=== PATIENT | female | born 1950 | race Caucasian/White ===

== ENCOUNTER 2016-05-12 06:22 | Inpatient (IN) | payer MEDICARE, BC ==
--- NOTE | 2016-05-12 05:55 | P.GSHP ---
History of Present Illness H&P Date: 05/12/16 CHIEF COMPLAINT: Follow up epigastric abdominal pain. HISTORY OF PRESENT ILLNESS: Lois Napoles is a 65 year-old female with a history of adjustable gastric lap band. She was in the hospital with atypical chest pain. Her symptoms were consistent with gastroesophageal reflux disease. Since being placed on Omeprazole, her symptoms have improved. However, she still reports nighttime break through. She has trouble with dysphagia with chicken. She also reports troubles with her band, including severe symptoms from her fibromyalgia. She now presents for further evaluation and management. She reports band like pain along her chest, which is likely related to her adjustable gastric band. PAST MEDICAL HISTORY: Please see list. PAST SURGICAL HISTORY: Please see list. MEDICATIONS: Please see list. ALLERGIES: Please see list. SOCIAL HISTORY: No illicit drug use FAMILY HISTORY: No reports of Crohn disease or ulcerative colitis. REVIEW OF ORGAN SYSTEMS: CONSTITUTIONAL: No reports of fevers or chills. GI: Denies any blood in stools or constipation. PHYSICAL EXAM: VITAL SIGNS: Stable GENERAL: Well developed and in no acute distress. Pleasant. HEENT: No sclera icterus. Extraocular movements grossly intact. Moist buccal mucosa. Head is atraumatic, normocephalic. Hears conversational speech. No nasal drainage. NECK: Supple without lymphadenopathy. No JV distention. CHEST: Non-labored respirations and equal bilateral excursions. CARDIOVASCULAR: Regular rate and rhythm. Palpable 2+ radial pulses. ABDOMEN: Soft. Nondistended. Tender along port site, left upper quadrant. MUSCULOSKELETAL: No clubbing, cyanosis or edema. NEUROLOGIC: No focal or lateralizing signs. PSYCH: Appropriate affect. Alert and oriented to person, place and time. PATHOLOGY REPORT: Unremarkable for H.pylori gastritis. ASSESSMENT: 1. Complications from adjustable gastric lap band. 2. Epigastric abdominal pain. 3. Morbid obesity. 4. Gastroesophageal reflux disease. PLAN: 1. Her options including band removal were reviewed. 2. Alternatively, she reports troubles with her port site. 3. Options for removal of her band were also discussed, including other surgical options for obesity, particularly for gastric bypass to address her reflux, which she demonstrated understanding. 4. At this time, I have prescribed her additional refills for Omeprazole, including Zantac at night. 5. Per careful discussion, she has elected for laparoscopic removal of her adjustable gastric band and all components. Past Medical History Past Medical History: Fibromyalgia, GERD/Reflux, Hypertension, Osteoarthritis ( OA) Additional Past Medical History / Comment(s): EGD RESULTS OF 04/09/16:HIATAL HERNIA, ESOPHAGITIS, GASTRITIS. Chronic pain syndrome. HEMORRHOIDS. "RAPID HEART BEAT OCC". TIA 20 YEARS, HERNIATED DISC LOWER BACK. IN 2006 ( AT [facility]) AFTER BREAST SX, HAD A STAPH INFECTION NOT SURE WHAT TYPE (VERIFIED THAT LEFT BREAST WOUND WAS CULTURED 0N 08/22/2006 WITH STAPH RESULTS, NO MRSA.) History of Any Multi-Drug Resistant Organisms: None Reported Past Surgical History: Back Surgery, Bariatric Surgery, Breast Surgery, Cholecystectomy, Hysterectomy, Tonsillectomy, Tubal Ligation Additional Past Surgical History / Comment(s): Lap band SEPTEMBER 2008. Plantar fascia x2 mortons neuroma panniculectomy , COLONOSCOPY/EGD, HEMORRHOIDS, CERVICAL FUSION-PLATE, BREAST REDUCTION SX X2, LIPOMAS, LT SHOULDER SX, HEMALATHA THUMB JOINT REPLACEMENTS. Past Anesthesia/Blood Transfusion Reactions: No Reported Reaction Past Psychological History: Anxiety, Depression Additional Psychological History / Comment(s): PT STATED SHE HAS HAD DEPRESSION SINCE AGE 13. ADMITS TO HAVING OCC THOUGHTS LIKE MAYBE IT WOULD BE BETTER IF SHE WAS'NT HERE, BUT ALSO STATED SHE WOULD NEVER ACT ON IT/HER UATSDIN BACKGROUND WOULD'NT LET HER, SHE HAS NO PLAN. Smoking Status: Never smoker Past Alcohol Use History: None Reported Past Drug Use History: None Reported - Past Family History Father Family Medical History: Cancer, Coronary Artery Disease (CAD), CVA/TIA, Hypertension Additional Family Medical History / Comment(s): CABG, COLON CANCER Mother Family Medical History: Cancer, Myocardial Infarction ([place]) Additional Family Medical History / Comment(s): METASTATIC BREAST CA, 1 KIDNEY, SMOKER. Medications and Allergies Home Medications Medication Instructions Recorded Confirmed Type Cyclobenzaprine [Flexeril] 10 mg PO BID 04/07/16 05/02/16 History DULoxetine HCL [Cymbalta] 60 mg PO HS 04/07/16 05/02/16 History HYDROcodone/APAP 5-325MG [[place] 2 tab PO QID PRN 04/07/16 05/02/16 History 5-325] Hydrochlorothiazide [Hydrodiuril] 12.5 mg PO HS 04/07/16 05/02/16 History LORazepam [Ativan] 0.5 mg PO BID PRN 04/07/16 05/02/16 History Losartan Potassium [Cozaar] 100 mg PO HS 04/07/16 05/02/16 History Propylene Glycol/Peg 400/Pf 1 drop BOTH EYES TID PRN 04/07/16 05/02/16 History [Systane 0.3-0.4% Eye Drops] Omeprazole 40 mg PO QAM 05/02/16 05/02/16 History Allergies Allergy/AdvReac Type Severity Reaction Status Date / Time No Known Allergies Allergy Verified 05/02/16 10:36
[~2016-05-12 06:22] MED LIST: BUPIVACAINE LIPOSOME/PF 1.3% 20 ML, BUPIVACAIN-EPI 0.5%-1:200,000 25 ML, SODIUM CHLORID... MISCELLANE ONE; CHLORHEXIDINE GLUCONATE 15 ML CUP MUCOUS MEM ONE; DEXAMETHASONE SOD PHOSPHATE 10 MG/ML 1 ML VIAL IV ONE; ENOXAPARIN 40 MG/0.4 ML SYRINGE SQ STA; HYDROmorphone 1 MG/ML 1 ML SYRINGE IVP PRN; LIDOCAINE 1% 20 ML VIAL (10MG/ML) FOR IV START INTRADERMA PRN; ONDANSETRON 4 MG/2 ML VIAL IVP ONE; PANTOPRAZOLE 40 MG/10 ML VIAL IV STA; SCOPOLAMINE 1.5MG/72HR PATCH TRANSDERM ONE; ceFAZolin 2 GM in SODIUM CHLORIDE 0.9% 100 ML IVPB ONE
[2016-05-12] MEDS: LACTATED RINGERS 1,000 ML IV SCH ×2 (07:12→07:32)
[2016-05-12] MEDS ORDERED: LIDOCAINE 1% 20 ML VIAL (10MG/ML) FOR IV START SQ ONE (07:12)
[2016-05-12] MEDS: ACETAMINOPHEN IV (For NPO) 1,000 MG in EMPTY BAG 1 BAG IVPB ONE ×2 (07:22→07:32)
[2016-05-12] MEDS ORDERED: PROPOFOL 10 MG/ML 20 ML VIAL IV ONE (07:33)
[2016-05-12] MEDS ORDERED: LIDOCAINE 1% INJ 10MG/ML (20 ML MDV) ONE (07:33)
[2016-05-12] MEDS ORDERED: fentaNYL (PF) 50 MCG/ML 2 ML AMP ONE (07:33)
[2016-05-12] MEDS ORDERED: ePHEDrine 50 MG/ML 1 ML AMP ONE (07:33)
[2016-05-12] MEDS ORDERED: GLYCOPYRROLATE 0.2 MG/ML 2 ML VIAL ONE (07:33)
[2016-05-12] MEDS ORDERED: MIDAZOLAM 2 MG/2 ML VIAL ONE (07:33)
[2016-05-12] MEDS ORDERED: PHENYLEPHRINE-0.9% NACL SYG 1 MG/10 ML SYRINGE ONE (07:33)
[2016-05-12] MEDS ORDERED: ROCURONIUM BROMIDE 10 MG/ML 10 ML VIAL IV ONE (07:33)
[2016-05-12] MEDS ORDERED: NEOSTIGMINE 1 MG/ML 10 ML VIAL ONE (07:33)
[2016-05-12] MEDS ORDERED: SUCCINYLCHOLINE CHLORIDE 100 MG/5 ML SYR IV ONE (07:33)
[2016-05-12] MEDS ORDERED: HYDROcodone/APAP 5-325MG 1 EACH TAB PO PRN (08:57)
[2016-05-12] MEDS ORDERED: NALOXONE 0.4 MG/ML 1 ML VIAL IV PRN (08:57)
[2016-05-12] MEDS ORDERED: ONDANSETRON 4 MG/2 ML VIAL IVP PRN (08:57)
--- NOTE | 2016-05-12 08:57 | P.PCN ---
Date of Procedure: 05/12/16 Preoperative Diagnosis: Complications from adjustable gastric band, morbid obesity, BMI 39 Postoperative Diagnosis: Same Procedure(s) Performed: Laparoscopic removal of adjustable gastric band and components, intraoperative EGD Anesthesia: GETA, local Surgeon: Ladonna Rebolledo Estimated Blood Loss (ml): 10 Pathology: other Condition: stable Disposition: floor Operative Findings: Hiatal hernia with posterior prolapse adjustable gastric band, port site fracture identified from persistent sharing and acute angle of port site at tubing through the skin
[2016-05-12] MEDS ORDERED: LACTATED RINGERS 1,000 ML IV ONE (09:06)
[2016-05-12 09:23] VITALS: TEMP 98.3
[2016-05-12 09:25] VITALS: RESP 16
[2016-05-12] MEDS ORDERED: HYDROcodone/APAP 5-325MG 1 EACH TAB PO ONE (10:37)
[2016-05-12 11:23] VITALS: BP 120/71; PULSE 93
--- NOTE | 2016-05-12 19:46 | P.OP ---
Date of Procedure: 05/12/16 Description of Procedure: SURGEON: DELICIA BOX MD INDUSTRIAL MANUFACTURING TECHNICIAN: NONE. PREOPERATIVE DIAGNOSES: 1. Complications from adjustable gastric band. 2. Morbid obesity due to excess calories. 3. Body mass index of 45.6 down to 39. 4. Gastroesophageal reflux disease, medically refractory to treatment. 5. Depression. 6. Fibromyalgia. 7. History of hiatal hernia. 8. Erosive esophagitis. 9. Atypical chest pain. 10. Osteoarthritis, diffuse. 11. Hypertensive heart disease. 12. Chronic pain syndrome. 13. Degenerative disk disease of the lower back. 14. Previous history of panniculectomy. POSTOPERATIVE DIAGNOSES: 1. Complications from adjustable gastric band. 2. Morbid obesity due to excess calories. 3. Body mass index of 45.6 down to 39. 4. Gastroesophageal reflux disease, medically refractory to treatment. 5. Depression. 6. Fibromyalgia. 7. History of hiatal hernia. 8. Erosive esophagitis. 9. Atypical chest pain. 10. Osteoarthritis, diffuse. 11. Hypertensive heart disease. 12. Chronic pain syndrome. 13. Degenerative disk disease of the lower back. 14. Previous history of panniculectomy. 15. Posterior gastric prolapse. OPERATION: 1. Laparoscopic removal of adjustable gastric band and all components. 2. Intraoperative esophagogastroduodenoscopy. ANESTHESIA: General with 85 mL Exparel Sensorcaine with epinephrine and normal saline mixture. ESTIMATED BLOOD LOSS: 10 mL SPECIMENS REMOVED: Adjustable gastric band and components. COMPLICATIONS: None. INDICATIONS: The patient is a 65-year-old female who presents with prior history of adjustable gastric band. Her previous weight was 259 pounds. Her previous body mass index was 45.6. [place] body weight is 140 pounds. She has maintained a 39 pound weight loss. She reports worsening gastroesophageal reflux disease over the last several years with her adjustable gastric band. She had developed atypical chest pain secondary to severe gastroesophageal reflux disease. Diagnostic studies were consistent with hiatal hernia. Despite using medications her symptoms have progressed including with atypical chest pain warranting hospitalization. Benefits and risks of the procedure were described. Informed consent was obtained. DESCRIPTION: The patient was brought into the operating room and laid in supine position. Preoperatively she had received Peridex oral solution and lovenox. Patient was brought into the operating room, transferred a split-leg table. After general induction, which was uncomplicated, the abdomen was prepped and draped in standard sterile fashion. A Royal catheter was avoided. The abdomen was prepped and draped in standard sterile fashion using ChloraPrep as well as Ioban draping. Prior to incision, a timeout protocol was confirmed with the surgical team regarding patient's name, procedure to be performed, including preoperative medications. A transverse incision was made approximately 15 cm distal to the xiphoid off to the right of the midline from her previous panniculectomy. A 0 degree 5 mm trocar entry was performed and entered into the peritoneal cavity. The abdomen was insufflated to 15 mmHg pressure, which she tolerated well. Diagnostic laparoscopy demonstrated minimal hepatomegaly. The port was easily palpated along the left upper quadrant and the band was found underneath the liver. A 15 mm port was placed along the left costal margin. Next a 5 mm port was placed at the left midclavicular line equidistant between the epigastric port and the left anterior axillary port. A Floyd liver retractor was placed into the abdominal cavity and used to elevate the left lobe of the liver. The liver retractor was held in place using an iron operations intern. The patient was placed in steep reverse Trendelenburg position. The port was followed with its tubing to the actual band. The gastrohepatic ligament was actually scarred from her prior surgery. The posterior portion of the stomach appeared to prolapse around the ALLERGAN band. Using electro-Bovie cautery, the cicatrix of the port was incised. The band was then freed. The band was unbuckled and cut. The tubing was cut approximately 5 cm distal to the actual adapter. The band was removed in total without injury to the stomach. Hemostasis was excellent. The band was removed from the abdominal cavity via the 15 mm port. Next, attention was brought to the abdominal wall where the lap band port was palpated. At the epigastric trocar incision, the incision was extended laterally, as it sat next to the actual port. This was done with a #11 blade. Skin was localized with anesthetic. Electro-Bovie cautery was used to enter the capsule around the port. The sutures were cut and the port was removed in total along with the tubing. A capsulectomy was also performed and sent for specimen. The port and tubing were carefully inspected demonstrating fracturing of the port tubing at the insertion site of the fascia to the peritoneum were moderate fluid was still identified in the band prior to its removal. Diagnostic laparoscopy demonstrated complete removal of all foreign body. I then went to the head of the bed to perform intraoperative esophagogastroduodenoscopy to evaluate for gastritis and any full thickness injury to the stomach. An Olympus gastroscope was passed from the posterior oropharynx down to his esophagus, where the squamocolumnar junction was found LA grade B erosive esophagitis, chronic changes. The stomach was entered and bile reflux was found of 50 mL. Chronic gastritis was found along the antrum without gastric ulcers or duodenitis or duodenal ulcers. Retroflexion of the scope confirmed a Hill grade 2 lower esophageal valve. No full-thickness erosion from the prior band was encountered. No blood was found within the stomach. The stomach was desufflated. The patient tolerated the procedure well. Again, no evidence of leak was encountered from the removal of the band. I then went back to the patient's bedside after re-scrubbing. All instruments and pneumoperitoneum were evacuated from the abdominal cavity. The port extraction site was hemostatic. The skin was closed in layers using 0-Vicryl for the deep dermis and subcutaneous tissue. The 15 mm port fascia was less than 8 mm in size. The rest of the incisions were reapproximated using 4-0 Monocryl in a subcuticular interrupted fashion. Optifoam dressing was placed over the port extraction site along the left upper quadrant to decrease risk for surgical site infection. At the end of the procedure, needle, sponge and instrument count was verified correct by the install and repair technician. The patient had tolerated the procedure well. An abdominal binder was placed. The patient was transferred to Postanesthesia Care Unit in stable condition. Postoperative findings were discussed with the patient's family who were pleased with the level of care. FINDINGS: 1. Posterior gastric prolapse. 2. LA grade B erosive esophagitis chronic. 3. Hill grade 2 lower esophageal valve. 4. Fracture of adjustable gastric band port tubing at insertion site of the fascia and peritoneum.
--- NOTE | 2016-05-13 20:47 | P.DS ---
Providers Date of admission: 05/12/16 06:22 Expected date of discharge: 05/12/16 Attending physician: Ladonna Rebolledo Primary care physician: Anton Willis - Discharge Diagnosis(es) (1) Hiatal hernia Status: Chronic (2) Status post gastric banding surgery Status: Acute (3) BMI 36.0-36.9,adult Status: Chronic (4) Dysphagia Status: Chronic (5) History of adjustable gastric banding Status: Chronic (6) Hypertension Status: Chronic (7) Morbid (severe) obesity due to excess calories Status: Chronic (8) Osteoarthritis Status: Chronic Hospital Course: POSTOPERATIVE DIAGNOSES: 1. Complications from adjustable gastric band. 2. Morbid obesity due to excess calories. 3. Body mass index of 45.6 down to 39. 4. Gastroesophageal reflux disease, medically refractory to treatment. 5. Depression. 6. Fibromyalgia. 7. History of hiatal hernia. 8. Erosive esophagitis. 9. Atypical chest pain. 10. Osteoarthritis, diffuse. 11. Hypertensive heart disease. 12. Chronic pain syndrome. 13. Degenerative disk disease of the lower back. 14. Previous history of panniculectomy. 15. Posterior gastric prolapse. COURSE: The patient is a 65-year-old female who presents with prior history of adjustable gastric band. Her previous weight was 259 pounds. Her previous body mass index was 45.6. [place] body weight is 140 pounds. She has maintained a 39 pound weight loss. She reports worsening gastroesophageal reflux disease over the last several years with her adjustable gastric band. She had developed atypical chest pain secondary to severe gastroesophageal reflux disease. Diagnostic studies were consistent with hiatal hernia. Despite using medications her symptoms have progressed including with atypical chest pain warranting hospitalization. Benefits and risks of the procedure of adjustable gastric band removal and all components were reviewed. Postoperatively, her pain was well-controlled. She was tolerating diet. The patient was stable for discharge. Follow-up at the bariatric center was advised. She will wear abdominal binder at all times except for showering. Pertinent Studies: OPERATION: 1. Laparoscopic removal of adjustable gastric band and all components. 2. Intraoperative esophagogastroduodenoscopy. Patient Condition at Discharge: Stable Plan - Discharge Summary New Discharge Prescriptions: Hydrocodone/Acetaminophen [[place] 5-325] 1 - 2 each PO Q6HR PRN #30 tab PRN Reason: Pain Discharge Medication List Cyclobenzaprine [Flexeril] 10 mg PO BID 04/07/16 [History] DULoxetine HCL [Cymbalta] 60 mg PO HS 04/07/16 [History] HYDROcodone/APAP 5-325MG [[place] 5-325] 2 tab PO QID PRN 04/07/16 [History] Hydrochlorothiazide [Hydrodiuril] 12.5 mg PO HS 04/07/16 [History] LORazepam [Ativan] 0.5 mg PO BID PRN 04/07/16 [History] Losartan Potassium [Cozaar] 100 mg PO HS 04/07/16 [History] Propylene Glycol/Peg 400/Pf [Systane 0.3-0.4% Eye Drops] 1 drop BOTH EYES TID PRN 04/07/16 [History] Ranitidine HCl [Zantac] 150 mg PO HS #90 tab 04/15/16 [Rx] Omeprazole 40 mg PO QAM 05/02/16 [History] Hydrocodone/Acetaminophen [[place] 5-325] 1 - 2 each PO Q6HR PRN #30 tab 05/12/16 [Rx] Follow up Appointment(s)/Referral(s): Ladonna Rebolledo MD [STAFF PHYSICIAN] - 05/15/16 (bariatric center) Patient Instructions/Handouts: *Surgery [facility] - (Anesthesia) Discharge Instructions Outpatient Surgery, *Surgery [facility] - Laparoscopy Discharge Instructions Activity/Diet/Wound Care/Special Instructions: No lifting over 4 pounds in 4 weeks. May shower tomorrow. Do not remove dressing. Care Plan Goals (MU): COUGH AND DEEP BREATH EVERY 2 HRS. REST TODAY. RESUME HOME MEDS. OFICE APPT.. 05/15/16 AT 9:40 IN THE BARIATRIC CENTER.. Discharge Disposition: HOME SELF-CARE
== END 2016-05-12 11:41 | disposition home or self-care (01) | DRG 988 ==
LOC: 2ORWHC 06:22
PROVIDERS: ADMIT Surgery Plastic and Reconstructive Surgery; ATTEND Surgery Plastic and Reconstructive Surgery
PROC: 0DJ08ZZ Inspection of Upper Intestinal Tract, Via Natural or Artificial Opening Endoscopic (ICD-10-PCS; 2016-05-12)
PROC: 0DP64CZ Removal of Extraluminal Device from Stomach, Percutaneous Endoscopic Approach (ICD-10-PCS; principal; 2016-05-12 07:30)
DX: K95.09 Other complications of gastric band procedure (principal); K22.10 Ulcer of esophagus without bleeding; E66.01 Morbid (severe) obesity due to excess calories; I11.9 Hypertensive heart disease without heart failure; Z68.39 Body mass index [BMI] 39.0-39.9, adult; K29.50 Unspecified chronic gastritis without bleeding; K31.89 Other diseases of stomach and duodenum; K44.9 Diaphragmatic hernia without obstruction or gangrene; K21.9 Gastro-esophageal reflux disease without esophagitis; F32.9 Major depressive disorder, single episode, unspecified; M79.7 Fibromyalgia; M19.90 Unspecified osteoarthritis, unspecified site; R13.10 Dysphagia, unspecified; F41.9 Anxiety disorder, unspecified; G89.4 Chronic pain syndrome; Z86.73 Personal history of transient ischemic attack (TIA), and cerebral infarction without residual deficits; Z90.710 Acquired absence of both cervix and uterus; Z90.49 Acquired absence of other specified parts of digestive tract; Z98.1 Arthrodesis status; Z96.693 Finger-joint replacement, bilateral; Z98.84 Bariatric surgery status; Z79.899 Other long term (current) drug therapy; Y83.8 Other surgical procedures as the cause of abnormal reaction of the patient, or of later complication, without mention of misadventure at the time of the procedure; Y92.009 Unspecified place in unspecified non-institutional (private) residence as the place of occurrence of the external cause
CPT/HCPCS: 88304

== ENCOUNTER → 2016-05-15 | Outpatient (CLI) | payer MEDICARE, BC ==
[2016-05-15 10:01] VITALS: BP 157/98; PULSE 111; RESP 18; TEMP 98; BMI 39.1
[2016-05-15 12:23] LABS: Prothrombin Time 10.1 sec (9.0-12.0)
[2016-05-15 12:41] LABS: ALT 58 U/L (9-52); AST 53 U/L (14-36); Alkaline Phosphatase 87 U/L (38-126); Anion Gap 13 mmol/L; Blood Urea Nitrogen 17 mg/dL (7-17); Calcium 10.3 mg/dL (8.4-10.2); Carbon Dioxide 24 mmol/L (22-30); Chloride 105 mmol/L (98-107); Cholesterol 223 mg/dL (<200); Glucose 99 mg/dL (74-99); HDL Cholesterol 72 mg/dL (40-60); Iron 57 ug/dL (37-170); Magnesium 2.1 mg/dL (1.6-2.3); Non-African American GFR(MDRD) >60 (>60 ml/min/1.73 sqM); Phosphorous 3.3 mg/dL (2.5-4.5); Potassium 4.2 mmol/L (3.5-5.1); Sodium 142 mmol/L (137-145); Total Bilirubin 0.5 mg/dL (0.2-1.3); Total Protein 7.3 g/dL (6.3-8.2); Triglycerides 169 mg/dL (<150)
[2016-05-15 12:56] LABS: % Iron Saturation 19.1 % (20-50); Total Iron Binding Capacity 299 ug/dL (265-497)
[2016-05-15 12:59] LABS: CH 28.1; CHCM 31.1; HCT 42.4 % (34.0-46.0); HDW 2.45; HGB 13.3 gm/dL (11.4-16.0); Hypochromasia Slight; MCH 28.4 pg (25.0-35.0); MCHC 31.3 g/dL (31.0-37.0); MCV 90.7 fL (80.0-100.0); RBC 4.67 m/uL (3.80-5.40); RDW 13.4 % (11.5-15.5); WBC 5.9 k/uL (3.8-10.6)
[2016-05-15 13:34] LABS: Hemoglobin A1C 5.6 % (4.2-6.1)
[2016-05-15 13:39] LABS: Vitamin B12 453 pg/mL (239-931)
[2016-05-15 15:17] LABS: Prealbumin 22 mg/dL (18-36)
[2016-05-22 18:11] LABS: Selenium 186 mcg/L (63-160)
--- NOTE | 2016-05-25 20:42 | P.PN ---
Progress Note - Text DATE OF CONSULTATION: 05/15/2016 CHIEF COMPLAINT: Initial bariatric assessment. HISTORY OF PRESENT ILLNESS: Lois Napolse is 65-year-old female with a prior history of adjustable gastric band. She had complications with her band whereby she had gastric prolapse, including atypical chest pain and gastroesophageal reflux disease. Her highest weight was 254 pounds. Her lowest weight was 179 pounds. Despite having the band, she has already regained 43 of her pounds. Initial body mass index was 44.7. She is now down to a BMI of 39.1. She has only been able to maintain a 28% excess weight loss. Of note, her initial band had been placed back in 2008. Now since her band has been removed, she reports complete resolution of her gastroesophageal reflux disease, including epigastric abdominal pain and atypical chest pain. She is actually looking into alternatives for weight loss as a result. She reports her dietary history that she often avoids breakfast as well. Now she presents for further evaluation and management. She is actually looking to a gastric bypass. PAST MEDICAL HISTORY: 1. Fibromyalgia. 2. Gastroesophageal reflux disease. 3. Hypertension. 4. Anxiety. 5. Depression. 6. Fibromyalgia. 7. Osteoarthritis. 8. Esophagitis. 9. History of herniated discs of the lower back. PAST SURGICAL HISTORY: 1. History of multiple back surgeries. 2. Adjustable gastric band placed in September 2008. 3. Band removal 2016. 4. History of bilateral breast reduction. 5. Panniculectomy. 6. Cholecystectomy. 7. Hysterectomy. 8. Tonsillectomy. 9. Tubal ligation. 10. History of with resection of [place]ard neuroma. 11. Plantar fascia surgery. 12. Left shoulder surgery. 13. Bilateral thumb joint replacement. 14. Excision of multiple lipomas. MEDICATIONS: 1. Zantac. 2. Systane. 3. Omeprazole. 4. Cozaar. 5. Ativan. 6. [place]. 7. HydroDIURIL. 8. Cymbalta. 9. Flexeril. ALLERGIES: Denies. SOCIAL HISTORY: No active tobacco use. She is . FAMILY HISTORY: Pertinent for colon cancer, including morbid obesity. Also has coronary artery disease, including stroke and hypertension in her family. ORGAN SYSTEMS: CONSTITUTIONAL: [place] body weight for her 5-foot 3-1/4-inch frame was 140 pounds. Highest weight of 254 pounds. Initial body mass index was 44.7. Present weight of 222 pounds. Body mass index reduced to 39.1. Lowest weight was 179 pounds. She has only been able to maintain 28% excess weight loss. At present, she is 82 pounds overweight. HEENT: Wears glasses. Denies any problems with nausea and vomiting. No reports of dysphagia, which is now resolved since removal of the adjustable gastric band. ENDOCRINE: No reports of thyroid disorders or diabetes. CARDIOVASCULAR: History of hypertension. She had atypical chest pain, now resolved since removal of adjustable gastric band. She has had a full cardiology workup within the last 4 weeks secondary to symptoms from her adjustable gastric band. RESPIRATORY: No reports of obstructive sleep apnea at present. Denies any dyspnea on exertion. GASTROINTESTINAL: Personal history of gastroesophageal reflux disease, now improved since removal of adjustable gastric band. Has intermittent troubles. No reports of persistent diarrhea. Prior history of colonoscopy. Also had completed an upper endoscopy with findings consistent with hiatal hernia. MUSCULOSKELETAL: Has diffuse osteoarthritis, including fibromyalgia. NEURO: No reports of stroke. Had a past history of a TIA, now completely resolved without sequelae. PSYCH: History of depression, including anxiety. HEMATOLOGIC: No reports of easy bruising or bleeding. No reports of thromboembolism. PHYSICAL EXAM: VITAL SIGNS: 98.0, 111, 18, 157/98; 5 feet 3-1/4 inches frame, 222 pounds. Body mass 39.1. [place] body weight of 140 pounds. GENERAL: Well-developed, pleasant female in no acute distress. HEENT: No scleral icterus. Extraocular movements grossly intact . Moist buccal mucosa. NECK: Supple without lymphadenopathy. CHEST: Nonlabored respirations with equal bilateral excursions. CARDIOVASCULAR: Tachycardic. Pulses 2+ distally. ABDOMEN: Soft with a well-healed incision from adjustable gastric band removal. No signs of seroma, infection or cellulitis. No panniculitis from previous panniculectomy. MUSCULOSKELETAL: No clubbing, cyanosis or edema. NEURO: No focal or lateralizing signs. Cranial nerves 2-12 grossly within normal limits. PSYCH: Appropriate affect. Alert and oriented to person, place and time. ASSESSMENT: 1. Morbid obesity due to excess calories. 2. Body mass index reduced from 44.7 down to 39.1. 3. Morbid obesity. 4. History of adjustable gastric band with complications with atypical chest pain. 5. Personal history of tachy arrhythmia. 6. Anxiety. 7. Depression. 8. Hypertension. 9. Fibromyalgia. 10. Osteoarthritis of the lower back. 11. Gastroesophageal reflux disease. 12. Diaphragmatic hiatal hernia. 13. Dietary surveillance and counseling. 14. Hyperparathyroidism. PLAN: 1. On review of her dietary history, she often skips meals, particularly breakfast. I have asked her to adjust her dietary habits, include particularly high protein. Goal protein intake at minimum of 60 g was advised. 2. Recommend a bariatric metabolic panel as she is looking into bariatric procedures such as a gastric bypass. 3. Recommend dietitian classes. 4. Recommend also psych assessment and evaluation. 5. She has already completed cardiac risk assessment within last 3 weeks, including workup for her tachy arrhythmia. 6. I have reviewed with her should any abnormal results be identified, including nutritional deficiencies will take precedence for resolution and treatment prior to surgical intervention. 7. Benefits and risks of surgical intervention, particularly between a sleeve and gastric bypass, were described according to [place] [facility] collaborative data. She is aware that there is increased risk for leaks as well as stricture and complications. 8. Recommend followup in approximately 2 to 3 weeks upon completion of bariatric dietitian classes as well. ADDENDUM: Bariatric metabolic panel was reviewed, demonstrating hemoglobin normal at 13.3. Calcium is elevated at 10.3. Percent iron saturation was low at 19.1. AST was elevated at 53. ALT was elevated at 58. Triglycerides elevated at 159. Cholesterol was elevated at 223. LDL was elevated at 117. HDL was elevated at 72. Vitamin D was deficient at 10.6. Parathyroid hormone was also elevated at 83.8. She has secondary hyperparathyroidism secondary to inadequate vitamin D; however, she may have underlying parathyroid adenoma with elevated PTH and elevated calcium. Would recommend a repeat of these labs. May also benefit from endocrinological evaluation, should her calcium and PTH labs continue to be persistently elevated. Thank you for this kind consultation.
== END | disposition home or self-care (01) ==
LOC: BARWHC3 09:34
PROVIDERS: ATTEND Surgery Plastic and Reconstructive Surgery
DX: Z48.815 Encounter for surgical aftercare following surgery on the digestive system (principal); Z98.84 Bariatric surgery status; E66.01 Morbid (severe) obesity due to excess calories; Z68.39 Body mass index [BMI] 39.0-39.9, adult; Z79.899 Other long term (current) drug therapy; K95.09 Other complications of gastric band procedure; R07.89 Other chest pain; Z87.898 Personal history of other specified conditions; F41.9 Anxiety disorder, unspecified; F32.9 Major depressive disorder, single episode, unspecified; I10 Essential (primary) hypertension; M79.7 Fibromyalgia; M47.896 Other spondylosis, lumbar region; K21.9 Gastro-esophageal reflux disease without esophagitis; K44.9 Diaphragmatic hernia without obstruction or gangrene; E21.1 Secondary hyperparathyroidism, not elsewhere classified
CPT/HCPCS: 84255; 84134; 84425; 80061; 80053; 82607; 82728; 83036; 82525; 82746; 83540; 83550; 83735; 84100; 84443; 84590; 84630; 85027; 85610; 85730; 82306; 83970; G0463; 99211

== ENCOUNTER 2016-05-25 07:25 | Inpatient (IN) | payer MEDICARE, BC ==
[2016-05-25] MEDS ORDERED: HEPARIN SODIUM,PORCINE/D5W PMX 25,000 UNIT in DEXTROSE/WATER 1 500ML.BAG IV STA (07:41)
[2016-05-25] MEDS ORDERED: HEPARIN SODIUM,PORCINE 5,000 UNIT/ML 1 ML VIAL IV STA (07:41)
--- NOTE | 2016-05-25 07:41 | ED ---
Chest Pain HPI - General Stated Complaint: chest pain Time Seen by Provider: 05/25/16 07:35 Source: patient, EMS, RN notes reviewed, old records reviewed Mode of arrival: EMS Limitations: no limitations - History of Present Illness Initial Comments: This patient is a 65-year-old woman brought by ambulance to be evaluated for chest pain. Patient denies any previous cardiac history. She did have a lap band removal surgery performed laparoscopically a few weeks ago. The patient states that last night before she had gone to bed she was having some mild upper back discomfort. She got up this morning she states probably around 6 to use the bathroom. After that she noticed an intense pressure sensation on her chest and she was diaphoretic and nauseated. They phoned EMS and on arrival EMS placed patient on monitor and send a telemetry EKG here. On arrival the patient states that she has had nitroglycerin and aspirin from EMS as well as the oxygen and the pressure sensation is nearly gone. She does not feel sweaty and the nausea is resolved. MD Complaint: chest pain Onset/Timin -: hour(s) Onset: awoke with symptoms Pain Location: substernal Pain Radiation: none Severity: severe Quality: heaviness Consistency: constant Improves With: nitroglycerin Worsens With: nothing Context: recent surgery Anginal Symptoms: nausea, diaphoresis Treatments Prior to Arrival: aspirin, nitroglycerin, oxygen - Related Data Home Medications Medication Instructions Recorded Confirmed Cyclobenzaprine [Flexeril] 10 mg PO BID 04/07/16 05/25/16 DULoxetine HCL [Cymbalta] 60 mg PO HS 04/07/16 05/25/16 Hydrochlorothiazide [Hydrodiuril] 12.5 mg PO HS 04/07/16 05/25/16 LORazepam [Ativan] 0.5 mg PO BID PRN 04/07/16 05/25/16 Losartan Potassium [Cozaar] 100 mg PO HS 04/07/16 05/25/16 Previous Rx's Medication Instructions Recorded Hydrocodone/Acetaminophen [[place] 1 - 2 each PO Q6HR PRN #30 tab 05/12/16 5-325] Allergies Allergy/AdvReac Type Severity Reaction Status Date / Time No Known Allergies Allergy Verified 05/25/16 07:44 Review of Systems ROS Statement: Those systems with pertinent positive or pertinent negative responses have been documented in the HPI. ROS Other: All systems not noted in ROS Statement are negative. Constitutional: Denies: fever, chills ENT: Denies: throat pain Respiratory: Denies: cough, dyspnea, wheezes Cardiovascular: Reports: as per HPI, chest pain. Denies: palpitations, dyspnea on exertion, orthopnea, edema, syncope Gastrointestinal: Reports: as per HPI, nausea. Denies: abdominal pain, vomiting , melena, hematochezia Genitourinary: Denies: dysuria, hematuria Musculoskeletal: Reports: as per HPI, back pain Skin: Denies: rash Neurological: Denies: headache, weakness, numbness Hematological/Lymphatic: Denies: easy bleeding EKG Findings - EKG Comments: EKG Findings:: The patient's EKG shows ST elevation in the inferior leads and there are reciprocal changes as well. The EKG as interpreted as showing acute ST elevation WA. - EKG Results: EKG: interpreted by ERMD, sinus rhythm, normal axis - WA, Pacemaker, Normal: Myocardial infarction: inferior WA (acute or recent) Past Medical History Past Medical History: Fibromyalgia, GERD/Reflux, Hypertension, Osteoarthritis ( OA) Additional Past Medical History / Comment(s): EGD RESULTS OF 04/09/16:HIATAL HERNIA, ESOPHAGITIS, GASTRITIS. Chronic pain syndrome. HEMORRHOIDS. "RAPID HEART BEAT OCC". TIA 20 YEARS, HERNIATED DISC LOWER BACK. IN 2006 ( AT [facility]) AFTER BREAST SX, HAD A STAPH INFECTION NOT SURE WHAT TYPE (VERIFIED THAT LEFT BREAST WOUND WAS CULTURED 0N 08/22/2006 WITH STAPH RESULTS, NO MRSA.) History of Any Multi-Drug Resistant Organisms: None Reported Past Surgical History: Back Surgery, Bariatric Surgery, Breast Surgery, Cholecystectomy, Hysterectomy, Tonsillectomy, Tubal Ligation Additional Past Surgical History / Comment(s): Lap band SEPTEMBER 2008. Plantar fascia x2 mortons neuroma panniculectomy , COLONOSCOPY/EGD, HEMORRHOIDS, CERVICAL FUSION-PLATE, BREAST REDUCTION SX X2, LIPOMAS, LT SHOULDER SX, HEMALATHA THUMB JOINT REPLACEMENTS. Past Anesthesia/Blood Transfusion Reactions: No Reported Reaction Past Psychological History: Anxiety, Depression Additional Psychological History / Comment(s): PT STATED SHE HAS HAD DEPRESSION SINCE AGE 13. ADMITS TO HAVING OCC THOUGHTS LIKE MAYBE IT WOULD BE BETTER IF SHE WAS'NT HERE, BUT ALSO STATED SHE WOULD NEVER ACT ON IT/HER LATTER DAY BACKGROUND WOULD'NT LET HER, SHE HAS NO PLAN. Smoking Status: Never smoker Past Alcohol Use History: None Reported Past Drug Use History: None Reported - Past Family History Father Family Medical History: Cancer, Coronary Artery Disease (CAD), CVA/TIA, Hypertension Additional Family Medical History / Comment(s): CABG, COLON CANCER Mother Family Medical History: Cancer, Myocardial Infarction ([place]) Additional Family Medical History / Comment(s): METASTATIC BREAST CA, 1 KIDNEY, SMOKER. General Exam General appearance: alert, in distress, obese Head exam: Present: atraumatic, normocephalic Eye exam: Present: normal appearance. Absent: scleral icterus, conjunctival injection ENT exam: Present: normal oropharynx Neck exam: Present: normal inspection, full ROM Respiratory exam: Present: normal lung sounds bilaterally. Absent: respiratory distress, wheezes, rales, rhonchi, stridor, chest wall tenderness, accessory muscle use, decreased breath sounds Cardiovascular Exam: Present: regular rate, normal rhythm, normal heart sounds. Absent: systolic murmur, diastolic murmur, rubs, gallop GI/Abdominal exam: Present: soft, other (Patient does have recent laparoscopic appendectomy incisions that are healing well without any abnormal erythema, warmth, or drainage.). Absent: distended, tenderness, guarding, rebound, rigid Extremities exam: Present: normal inspection, normal capillary refill. Absent: pedal edema, calf tenderness Back exam: Present: normal inspection. Absent: CVA tenderness (R), CVA tenderness (L) Neurological exam: Present: alert Skin exam: Present: warm, dry, intact, pallor. Absent: rash Course Vital Signs 05/25/16 05/25/16 05/25/16 07:34 07:51 07:57 Temperature 97.1 F L 97.7 F Pulse Rate 51 L 80 78 Respiratory 18 18 18 Rate Blood Pressure 120/60 144/83 148/88 O2 Sat by Pulse 100 100 100 Oximetry Chest Pain MDM - Differential Diagnosis AMI - MDM Patient is 65-year-old woman brought by EMS for chest pain. EMS had sent a telemetry EKG that arrived here at 718, and based on this the Medical Director/Head Team Physician was activated by Dr. Blunt. He discussed the case with Dr. Bentley at 720. The patient on arrival does continue to have EKG which demonstrates a ST elevation [place]. The patient was received in prepared for the Medical Director/Head Team Physician, and was sent to the Medical Director/Head Team Physician as soon as the lab was ready. Critical Care Time Critical Care Time: Yes (40 minutes) Disposition Clinical Impression: ST elevation myocardial infarction (STEMI) Disposition: ADMITTED IP TO THIS HOSP Condition: Critical Referrals: Anton Willis MD [Primary Care Provider] - 1-2 days
[2016-05-25] MEDS ORDERED: ATORVASTATIN 80 MG TAB PO STA (07:49)
[2016-05-25 07:51] LABS: Basophils % (A) 1 %; CH 28.6; CHCM 32.9; Eosinophils # (A) 0.1 k/uL (0-0.7); Eosinophils % (A) 3 %; HDW 2.53; HGB 12.6 gm/dL (11.4-16.0); Luc # (Auto) 0.14; Luc % (Auto) 3; Lymphocytes # (A) 1.9 k/uL (1.0-4.8); Lymphocytes % (A) 37 %; MCH 28.2 pg (25.0-35.0); MCHC 32.2 g/dL (31.0-37.0); MCV 87.5 fL (80.0-100.0); Mean Platelet Volume 7.7; Monocytes # (A) 0.2 k/uL (0-1.0); Monocytes % (A) 4 %; Neutrophils # (A) 2.7 k/uL (1.3-7.7); Neutrophils % (A) 53 %; RBC 4.46 m/uL (3.80-5.40); RDW 13.6 % (11.5-15.5); WBC 5.1 k/uL (3.8-10.6)
[2016-05-25] MEDS ORDERED: HEPARIN SODIUM,PORCINE 30 ML 30 ML ONE (07:51)
[2016-05-25] MEDS: HEPARIN SODIUM,PORCINE/D5W PMX 25,000 UNIT in DEXTROSE/WATER 1 500ML.BAG IV SCH (07:56)
--- NOTE | 2016-05-25 07:58 | XR ---
EXAMINATION TYPE: XR chest 1V portable DATE OF EXAM: 05/25/2016 7:55 AM COMPARISON: 04/07/2016 HISTORY: Chest pain TECHNIQUE: Single frontal view of the chest is obtained. FINDINGS: There is no focal air space opacity, pleural effusion, or pneumothorax seen. The cardiac silhouette size is within normal limits. The osseous structures are intact. Postsurgical change is seen. Heart size stable. IMPRESSION: 1. No definite acute process.
[2016-05-25 07:59] LABS: ALT 42 U/L (9-52); AST 25 U/L (14-36); Alkaline Phosphatase 90 U/L (38-126); Anion Gap 15 mmol/L; Blood Urea Nitrogen 20 mg/dL (7-17); Calcium 9.9 mg/dL (8.4-10.2); Carbon Dioxide 21 mmol/L (22-30); Chloride 108 mmol/L (98-107); Glucose 130 mg/dL (74-99); Non-African American GFR(MDRD) >60 (>60 ml/min/1.73 sqM); Potassium 3.7 mmol/L (3.5-5.1); Sodium 144 mmol/L (137-145); Total Bilirubin 0.6 mg/dL (0.2-1.3); Total Protein 7.2 g/dL (6.3-8.2)
[2016-05-25 08:00] LABS: Glucose,Whole Blood 111 mg/dL (75-99)
[2016-05-25 08:00] LABS: Partial Thromboplastin Time 22.6 sec (22.0-30.0); Prothrombin Time 10.3 sec (9.0-12.0)
[2016-05-25] MEDS ORDERED: LIDOCAINE 2% INJ 20 MG/ML (20 ML MDV) ONE (08:05)
[2016-05-25] MEDS ORDERED: SODIUM CHLORIDE 0.9% (PF) 10 ML VIAL ONE (08:12)
[2016-05-25] MEDS ORDERED: VERAPAMIL 2.5 MG/ML 2 ML AMP ONE (08:12)
[2016-05-25] MEDS ORDERED: SODIUM CHLORIDE 0.9% 1,000 ML IV ONE (08:15)
[2016-05-25] MEDS ORDERED: diphenhydrAMINE 50 MG/ML 1 ML VIAL ONE (08:18)
[2016-05-25] MEDS ORDERED: fentaNYL (PF) 50 MCG/ML 2 ML AMP ONE (08:18)
[2016-05-25] MEDS ORDERED: LIDOCAINE 2% INJ 20 MG/ML SQ ONE (08:21)
[2016-05-25] MEDS ORDERED: fentaNYL (PF) 50 MCG/ML 2 ML AMP IV ONE (08:21)
[2016-05-25] MEDS ORDERED: VERAPAMIL SYRINGE (5 MG/10 ML) INTRAARTER ONE (08:23)
[2016-05-25 08:27] LABS: Creatine Kinase MB 0.9 ng/mL (0.0-2.4); Troponin I 0.032 ng/mL (0.000-0.034)
[2016-05-25] MEDS ORDERED: PRASUGREL 10 MG TAB ONE (08:28)
[2016-05-25] MEDS ORDERED: BIVALIRUDIN BOLUS 250 MG/50 ML IV ONE (08:29)
[2016-05-25] MEDS ORDERED: PRASUGREL 10 MG TAB PO ONE (08:30)
[2016-05-25] MEDS ORDERED: BIVALIRUDIN 250 MG in SODIUM CHLORIDE 0.9% 50 ML IV ONE (08:30)
[2016-05-25] MEDS ORDERED: NITROGLYCERIN 1000MCG/10ML SYRINGE INTRACORON ONE (08:33)
--- NOTE | 2016-05-25 08:36 | CONS ---
DATE OF CONSULTATION: Lois Napoles is a 65-year-old female who recently had lap band procedure. Yesterday she started complaining of nausea and GERD-like symptoms and sometime this morning she started experiencing heaviness and pressure in the chest with spreading to the right side of the chest into the shoulder. She also felt hot some discomfort in the back. She is very uncomfortable. She was nauseous and she called EMS. Her first 12-lead ECG shows sinus rhythm with a heart rate of 50 beats a minute, ST elevations in the inferior leads and inverted T waves in the V1, V2, V3 as well as one in aVL. Suggestive of acute inferior wall myocardial infarction with posterior lateral extension. She received aspirin, heparin and atorvastatin and has been taken to the bottle labeler. Her past history includes hypertension, obesity. She denies any diabetes. She says her HDL is high at baseline. REVIEW OF SYSTEMS: No fever, chills, or rigors. No cough or expectoration. She had nausea, no vomiting or diarrhea. No hematuria, dysuria, strokes or seizures. No skin lesions or musculoskeletal complaints. ALLERGIES: She has no known drug allergies. Medication list includes losartan 100 mg a day, hydrochlorothiazide 12.5 mg daily, omeprazole, Cymbalta, Flexeril. SOCIAL HISTORY: She is a never smoker. No alcohol use. On examination, her blood pressure is 144/80 mmHg, heart rates in the 50s. Head and neck examination is normal. No JVD. No thyromegaly. No carotid bruits. Heart sounds S1, S2 are soft. No murmurs, no gallop, no rub audible. Breath sounds are normal and equal bilaterally. Abdomen is soft. Extremities are warm. No edema. She is afebrile. Chest x-ray was done and waiting for the final report, but there does not appear to be any obvious mediastinal widening that I can appreciate. IMPRESSION: 1. Acute inferior wall ST elevation myocardial infarction with posterior lateral extension. 2. Recent lap band surgery (band removal). 3. History of hypertension. 4. Unknown lipid status at this time. Lipid panel has been drawn. SUGGEST: Urgent coronary angiography and intervention followed by medical treatment for coronary artery disease/post myocardial infarction. This was discussed with the patient.
[2016-05-25] MEDS ORDERED: IOHEXOL 350 MG/ML 100 ML BOTTLE INJ ONE (08:53)
[2016-05-25] MEDS ORDERED: ATROPINE SULFATE 0.1 MG/ML 10ML SYRINGE IV PRN (09:14)
[2016-05-25] MEDS ORDERED: ZOLPIDEM 5 MG TAB PO PRN (09:14)
[2016-05-25] MEDS ORDERED: MAG HYDROX/AL HYDROX/SIMETH 30 ML CUP PO PRN (09:14)
[2016-05-25] MEDS ORDERED: RX INFO: IV CONTRAST WAS GIVEN 1 EACH MISC MISCELLANE PRN (09:14)
[2016-05-25] MEDS ORDERED: NITROGLYCERIN SL TABS 0.4 MG TAB SUBLINGUAL PRN (09:14)
[2016-05-25] MEDS ORDERED: LORazepam 0.5 MG TAB PO PRN (09:15)
[2016-05-25] MEDS ORDERED: SODIUM CHLORIDE 0.9% 1,000 ML IV SCH (09:15)
[2016-05-25 09:32] LABS: Glucose,Whole Blood 88 mg/dL (75-99)
[2016-05-25] MEDS: METOPROLOL TARTRATE 25 MG TAB PO SCH ×2 (10:04→20:25)
[2016-05-25 11:21] VITALS: BMI 38.9
[2016-05-25] MEDS ORDERED: HYDROcodone/APAP 5-325MG 1 EACH TAB PO PRN (11:21)
--- NOTE | 2016-05-25 12:26 | CC ---
DATE OF SERVICE: Mrs. Napoles is a 65-year-old female with history of hypertension, who presented with symptoms of chest discomfort. Her EKG was consistent with inferior wall myocardial infarction. She was evaluated by Dr. Bentley and recommendation was made regarding cardiac catheterization. The procedure as well as risks and complications were discussed with the patient who is in full understanding and agreement. PROCEDURE: Patient was brought to the laborer syrup machine. She was draped and prepped in conventional fashion. Using Xylocaine anesthesia and Seldinger technique, a 6 Dutch sheath was introduced in the right radial artery. Selective right coronary angiography was performed using 6 Dutch 4 bend right Darby guiding catheter and the left coronary angiography was performed using 5 Dutch 3-1/2 Bend left Darby catheter. After performing angioplasty and stenting of the right coronary artery, images of the left coronary system was performed. Following that, a 5 Dutch tight pigtail catheter was introduced into left ventricle and a 30 degree KHAN view of the left ventricle was obtained. Following that, catheter and sheaths were removed. Hemostasis was obtained with deployment of a TR band. There were no immediate complications. Patient is returned to her room in stable condition. Of note, the patient received intra-arterial verapamil. FINDINGS: LEFT MAIN: This is a large-size vessel bifurcating into the left circumflex, left anterior descending coronary artery, left main coronary artery is without any evidence of high-grade stenosis. LEFT ANTERIOR DESCENDING ARTERY: This is a large-size vessel reaching toward the apex with a wrap around the apex segment, giving rise to a large diagonal branch in the proximal segment. Following the takeoff of the diagonal branch, the LAD has a 20% plaque. The diagonal branch is large in caliber and has diffuse intimal disease with area of stenosis up to 50% to 60%. LEFT CIRCUMFLEX: This is a nondominant vessel, large, large in caliber, giving rise to 2 obtuse marginal branches. The first one is large in caliber, at the take off of the obtuse marginal branch. The left circumflex has a 20% to 30% plaque. The ostium of the obtuse marginal branch has an 80% stenosis. The rest of the vessel has no high-grade stenosis. RIGHT CORONARY ARTERY: This vessel is totally occluded in the mid segment with no antegrade flow after the takeoff of the acute marginal branch. LEFT VENTRICULOGRAM: Left ventriculogram was performed in 30 degrees KHAN view and revealed inferobasal hypokinesis. There was arrhythmia-induced mitral regurgitation. Ejection fraction is 45% to 50%. HEMODYNAMICS: There was no gradient across the aortic valve. The left ventricle end-diastolic pressure was 18 mmHg. CONCLUSION: 1. Acutely occluded mid right coronary artery. 2. Mild to moderate disease in the left anterior descending with significant disease in the ostium of the first obtuse marginal branch. 3. Mildly impaired left ventricular systolic function. RECOMMENDATIONS: In view of findings and anatomy, I have recommended proceeding with angioplasty and stenting of the right coronary artery. The procedure as well as risks and complications were discussed with the patient who is in full understanding and agreement.
--- NOTE | 2016-05-25 12:29 | PTCA ---
DATE OF SERVICE: Mrs. Napoles is a 65-year-old female who presented with an acute inferior myocardial infarction, underwent evaluation by Dr. Bentley subsequently cardiac catheterization, was found to have acutely occluded mid right coronary artery. In view of that, recommendation made regarding angioplasty and stenting. The procedure as well as risks and complications were discussed with the patient who is in full understanding and agreement. PROCEDURE: Using the 6 [place]ino FR4 guiding catheter and after obtaining images of the right coronary artery, a 0.014 balanced medium weight J-wire was advanced across the lesion, positioned distally. Then a 2.5 x 12 mm Trek balloon was advanced and one inflation at 8 atmospheres was done. Following that, the balloon was removed and a 2.5 x 15 mm Xience Alpine stent was deployed, it was dilated at 14 atmospheres. After the last inflation, after appropriate wait, the balloon and the guidewire were withdrawn back in the guiding were withdrawn back in the guiding catheter. Images were obtained and repeated. Those images reveal stable successful stenting. At that point, the guiding catheter, the balloon and the guidewire were removed. Images of the left coronary system as well as left ventriculogram was performed. Following that, catheter and sheaths were removed. Hemostasis was obtained with deployment of TR band. There were no immediate complications. Patient is returned to her room in stable condition. Of note, the patient had resolution chest discomfort and EKG changes at the end of procedure. She received Angiomax per protocol as well as oral loading dose of Effient. RESULT: Successful stenting of the mid right coronary artery with reduction in stenosis from 100% to 0%. RECOMMENDATION: Patient will be continued aspirin, Effient, beta maria, GUILLE inhibitor and statin. The importance of dual antiplatelet treatment were discussed with the patient and her family and in full understanding and agreement.
--- NOTE | 2016-05-25 12:31 | LTR ---
May 25, 2016 RE: DonyLois Dear Dr. Willis: I had the pleasure of performing cardiac catheterization, and coronary angioplasty and stenting on Mrs. Napoles at [facility] on the 25 of May. A full copy of procedure note will be forwarded to you. In brief, she was found to have an acutely occluded mid right coronary artery, underwent successful stenting of that vessel using a drug-eluting stent. I am hopeful that this procedure will stabilize her status and I have recommended continuing dual antiplatelet treatment for at least one year without any interruption. Thank you again for allowing me to participate in her care. Please feel free to call for any questions. Sincerely, JANEL GARRETT MD
[2016-05-25 14:48] LABS: Troponin I 8.02 ng/mL (0.000-0.034)
[2016-05-25] MEDS: HYDROcodone/APAP 5-325MG 1 EACH TAB PO PRN ×2 (16:59→20:24)
[2016-05-25] MEDS: CYCLOBENZAPRINE 10 MG TAB PO SCH (20:25)
[2016-05-25] MEDS: DULoxetine HCL 60 MG CAPSULE.DR PO SCH (20:25)
[2016-05-25] MEDS ORDERED: LOSARTAN 50 MG TAB PO SCH (21:00)
[2016-05-26] MEDS: HYDROcodone/APAP 5-325MG 1 EACH TAB PO PRN ×5 (05:24→21:11)
[2016-05-26 05:25] LABS: CH 28.3; CHCM 31.8; HCT 35.5 % (34.0-46.0); HDW 2.47; HGB 11.1 gm/dL (11.4-16.0); MCH 27.9 pg (25.0-35.0); MCHC 31.2 g/dL (31.0-37.0); MCV 89.4 fL (80.0-100.0); RBC 3.96 m/uL (3.80-5.40); RDW 13.7 % (11.5-15.5); WBC 5.3 k/uL (3.8-10.6)
[2016-05-26 05:42] LABS: Anion Gap 10 mmol/L; Blood Urea Nitrogen 15 mg/dL (7-17); Calcium 9.5 mg/dL (8.4-10.2); Carbon Dioxide 24 mmol/L (22-30); Chloride 109 mmol/L (98-107); Cholesterol 163 mg/dL (<200); Glucose 99 mg/dL (74-99); HDL Cholesterol 58 mg/dL (40-60); Non-African American GFR(MDRD) >60 (>60 ml/min/1.73 sqM); Potassium 4.3 mmol/L (3.5-5.1); Sodium 143 mmol/L (137-145); Triglycerides 119 mg/dL (<150)
[2016-05-26] MEDS: CYCLOBENZAPRINE 10 MG TAB PO SCH ×2 (08:43→20:57)
[2016-05-26] MEDS: ASPIRIN 81 MG CHEW PO SCH (08:43)
[2016-05-26] MEDS: METOPROLOL TARTRATE 25 MG TAB PO SCH ×2 (08:44→20:58)
[2016-05-26] MEDS: PRASUGREL 10 MG TAB PO SCH (08:44)
--- NOTE | 2016-05-26 09:16 | HP ---
DATE OF ADMISSION: 05/25/2016 PRESENTING COMPLAINT: Chest pain. HISTORY OF PRESENTING COMPLAINT: This is a 65-year-old patient of Dr. Yuliya Ng whose chronic stable medical conditions include chronic fibromyalgia, primary osteoarthritis of multiple joints, GERD, essential hypertension. Patient woke up feeling nauseated, drenched in sweat, chest tightness, shortness of breath, not feeling well; started shaking. The patient presented to the ER and was found to have ST elevation in the inferior leads. Taken to the cardiac cardiac catheterization technician by Dr. Sal. Patient found to have acutely occluded mid right coronary artery and some disease in the LDA and significant disease in the ostium of the first obtuse marginal; some impairment of LV function. Successful stenting was carried out. Patient currently sitting on the bed, comfortable. No chest pain or shortness of breath. REVIEW OF SYSTEMS: CONSTITUTIONAL: Tired. HEENT: None. RESPIRATORY: As above. CARDIOVASCULAR: As above. GASTROINTESTINAL: Some heartburn. GENITOURINARY: None. MUSCULOSKELETAL: Pain in the joints. DERMATOLOGIC: None. HEMATOLOGIC: None. LYMPHATIC: None. PSYCHIATRY: None. NEUROLOGICAL: None. PAST MEDICAL HISTORY: 1. Fibromyalgia. 2. Osteoarthritis. 3. GERD. 4. Hypertension.. PAST SURGICAL HISTORY: Back surgery, lap band, breast surgery, cholecystectomy, hysterectomy, tonsillectomy, tubal ligation, plantar fascia surgery, ( ) removed, panniculectomy. SOCIAL HISTORY: Does not smoke or drink alcohol. . FAMILY HISTORY: Reviewed; noncontributory to presentation. HOME MEDICATIONS: Zantac 150 mg p.o. q.h.s., omeprazole 40 mg daily, Cozaar 100 mg q.h.s., Ativan 0.5 p.o. b.i.d. p.r.n., [place] 2 tablets q.6 p.r.n., hydrochlorothiazide 12.5 p.o. q.h.s., Cymbalta 60 mg q.h.s., Flexeril 10 mg p.o. b.i.d. ALLERGIES: None. On examination, temperature 97.9, pulse 56, respirations 17, blood pressure 101/68, pulse ox 98%. GENERAL APPEARANCE: Well built, BMI of 38.9. Sitting up, not in distress. EYES: Pupils equal. Conjunctivae normal. HEENT: External appearance of nose and ears normal. Oral cavity normal. JVD not raised. Mass not palpable. RESPIRATORY: Effort normal. Lungs are clear. CARDIOVASCULAR: First and second sounds normal. No edema. ABDOMEN: Soft, nontender, liver and spleen not palpable. LYMPHATIC: No lymph node palpable in neck or axillae. PSYCHIATRY: Alert and oriented x3. Mood and affect normal. NEUROLOGICAL: Pupils equal. Cranial nerves intact. ( ) intact. ASSESSMENT: 1. Acute ST elevation myocardial infarction in the inferior wall with urgent coronary intervention. 2. Emergent cardiac catheterization with stent of the RCA. 3. Chronic fibromyalgia. 4. Gastroesophageal reflux disease. 5. Essential hypertension. 6. Hiatal hernia. 7. Chronic esophagitis. 8. Lower back herniated disc. PLAN: Home medications are resumed. Patient is currently on aspirin, IV heparin, Effient. Care was discussed with the patient. YULIYA NG MD
--- NOTE | 2016-05-26 10:07 | ECHOF ---
Referral Reason:mi MEASUREMENTS -------- HEIGHT: 160.0 cm WEIGHT: 99.3 kg BP: 152/80 RVIDd: 3.1 cm (< 3.3) IVSd: 1.0 cm (0.6 - 1.1) LVIDd: 4.6 cm (3.9 - 5.3) LVPWd: 1.1 cm (0.6 - 1.1) IVSs: 1.4 cm LVIDs: 3.0 cm LVPWs: 1.3 cm LA Diam: 3.7 cm (2.7 - 3.8) LAESV Index (A-L): 21.09 ml/m Ao Diam: 3.3 cm (2.0 - 3.7) AV Cusp: 2.1 cm (1.5 - 2.6) MV EXCURSION: 10.412 mm (> 18.000) MV EF SLOPE: 68 mm/s (70 - 150) EPSS: 0.9 cm MV E Alejandro: 0.79 m/s MV DecT: 249 ms MV A Alejandro: 1.04 m/s MV E/A Ratio: 0.76 RAP: 5.00 mmHg RVSP: 24.92 mmHg FINDINGS -------- Sinus rhythm. This was a technically good study. The left ventricular size is normal. Left ventricular wall thickness is normal. Overall left ventricular systolic function is normal with, an EF between 60 - 65 %. The right ventricle is normal in size and function. The left atrium is normal in size. Normal LA size by volume 22+/-6 ml/m2. The right atrium is normal in size. The aortic valve is trileaflet and appears structurally normal. Mild mitral regurgitation is present. Trace tricuspid regurgitation present. Right ventricular systolic pressure is normal at < 35 mmHg. The pulmonic valve was not well visualized. There is no pericardial effusion. CONCLUSIONS -------- 1. Sinus rhythm. 2. Mild mitral regurgitation is present. 3. Trace tricuspid regurgitation present. 4. Right ventricular systolic pressure is normal at < 35 mmHg. 5. The pulmonic valve was not well visualized. 6. There is no pericardial effusion. 7. This was a technically good study. 8. The left ventricular size is normal. 9. Left ventricular wall thickness is normal. 10. Overall left ventricular systolic function is normal with, an EF between 60 - 65 %. 11. The right ventricle is normal in size and function. 12. Normal LA size by volume 22+/-6 ml/m2. 13. The right atrium is normal in size. 14. The aortic valve is trileaflet and appears structurally normal. ORDER PROCESSING SPECIALIST: Stephanie Ortega RDCS
[2016-05-26] MEDS: DULoxetine HCL 60 MG CAPSULE.DR PO SCH (20:57)
[2016-05-26] MEDS: ATORVASTATIN 80 MG TAB PO SCH (20:57)
[2016-05-26] MEDS: LOSARTAN 50 MG TAB PO SCH (20:57)
--- NOTE | 2016-05-26 21:18 | PN ---
Lois Napoles was admitted with acute inferior wall myocardial infarction. She underwent successful stenting. She is doing very well. He has no chest discomfort, no shortness of breath. She has been ambulating in the hallways. No dizziness or lightheadedness. On examination, her blood pressure is 138/81 mmHg, respirations are normal. Pulse rate is 70 beats. She is afebrile. Breath sounds are normal. No rhonchi. No crackles. Heart sounds S1 is normal. S2 is normal. No murmurs. No gallops. No rub. ABDOMEN: Soft, nontender. EXTREMITIES: Warm. No edema. IMPRESSION: 1. Acute inferior wall myocardial infarction. 2. Hypertension. Suggest: 1. Gradually maximize her antihypertensive therapy. 2. Continue antiplatelet agents. 3. Continue atorvastatin. 4. Transfer to telemetry today.
--- NOTE | 2016-05-26 23:14 | PN ---
DATE OF SERVICE: 05/26/2016 PRESENTING COMPLAINT: Acute IN. INTERVAL HISTORY: This is a patient who presented with acute IN with coronary intervention, currently in the ICU, doing well. No chest pain or shortness of breath. Has been out of bed. Family is at the bedside. Review of systems done for constitutional, cardiovascular, GI, pulmonary; relevant findings as above. Current medications are reviewed and include aspirin and Effient. On examination, temperature 97.8, pulse 63, respiration 15, blood pressure 117/69, pulse ox 93% on room air. GENERAL APPEARANCE: Sitting up, comfortable. EYES: Pupils equal. Conjunctivae normal. NECK: JVD not raised. Mass not palpable. RESPIRATORY: Effort normal. Lungs are clear. CARDIOVASCULAR: First and second sounds normal. No edema. ABDOMEN: Soft, nontender. Liver and spleen not palpable. PSYCHIATRY: Alert and oriented x3. Mood and affect normal. INVESTIGATIONS: White count 5.3, potassium 4.3. LDL 81. ASSESSMENT: 1. Acute ST-elevation myocardial infarction in the inferior wall with urgent coronary intervention. 2. Emergent cardiac catheterization with stent to the right coronary artery. 3. Chronic fibromyalgia. 4. Gastroesophageal reflux disease. 5. Essential hypertension. 6. Hiatal hernia. 7. Chronic esophagitis. 8. Lower back herniated disc, probably in the lumbar area. PLAN: Patient is stable with current medication. Encouraged to ambulate. Care was discussed with the family at the bedside. When okay, patient can be moved out of the ICU per Cardiology.
[2016-05-27] MEDS: METOPROLOL TARTRATE 25 MG TAB PO SCH ×2 (08:11→22:40)
[2016-05-27] MEDS: ASPIRIN 81 MG CHEW PO SCH (08:11)
[2016-05-27] MEDS: CYCLOBENZAPRINE 10 MG TAB PO SCH ×2 (08:11→22:39)
[2016-05-27] MEDS: PRASUGREL 10 MG TAB PO SCH (08:12)
[2016-05-27] MEDS: HEPARIN SODIUM,PORCINE/D5W PMX 25,000 UNIT in DEXTROSE/WATER 1 500ML.BAG IV SCH (10:28)
[2016-05-27] MEDS: HYDROcodone/APAP 5-325MG 1 EACH TAB PO PRN ×3 (11:12→22:40)
[2016-05-27] MEDS: ATORVASTATIN 80 MG TAB PO SCH (22:39)
[2016-05-27] MEDS: LOSARTAN 50 MG TAB PO SCH (22:40)
[2016-05-27] MEDS: DULoxetine HCL 60 MG CAPSULE.DR PO SCH (22:40)
--- NOTE | 2016-05-27 23:41 | PN ---
DATE OF SERVICE: 05/27/2016 PRESENTING COMPLAINT: Acute OR. INTERVAL HISTORY: This is a patient with acute OR with coronary intervention, moved down to selective floor. No chest pain or shortness of breath. Up and about in the hallway. I saw this patient this morning. Family is at the bedside. Overall feeling much better. Review of systems done for constitutional, cardiovascular, GI, pulmonary; relevant findings as above. Current medications are reviewed. On examination, temperature 97.5, pulse 64, respiration 14, blood pressure 109/68, pulse ox 100% on room air. GENERAL APPEARANCE: Sitting up, comfortable. EYES: Pupils equal. Conjunctivae normal. NECK: JVD not raised. Mass not palpable. RESPIRATORY: Effort normal. Lungs are clear. CARDIOVASCULAR: First and second sounds normal. No edema. ABDOMEN: Soft, nontender. Liver and spleen not palpable. PSYCHIATRY: Alert and oriented x3. Mood and affect normal. INVESTIGATIONS: No blood work from today. ASSESSMENT: 1. Acute ST-elevation myocardial infarction in inferior wall with urgent coronary intervention. 2. Emergent cardiac catheterization with stent to the right coronary artery. 3. Chronic fibromyalgia. 4. Gastroesophageal reflux disease. 5. Essential hypertension. 6. Hiatal hernia. 7. Chronic esophagitis. 8. Lower back herniated disc, probably in the lumbar area. PLAN: Continue current medication and treatment plan. Await further input from Cardiology. Care was discussed with the patient.
[2016-05-28] MEDS: ASPIRIN 81 MG CHEW PO SCH (09:05)
[2016-05-28] MEDS: METOPROLOL TARTRATE 25 MG TAB PO SCH (09:06)
[2016-05-28] MEDS: PRASUGREL 10 MG TAB PO SCH (09:06)
[2016-05-28] MEDS: CYCLOBENZAPRINE 10 MG TAB PO SCH (09:06)
[2016-05-28] MEDS: HYDROcodone/APAP 5-325MG 1 EACH TAB PO PRN (10:32)
[2016-05-28 12:28] VITALS: BP 127/82; PULSE 61; RESP 14; TEMP 97.9
--- NOTE | 2016-05-28 13:31 | P.PN ---
Subjective Principal diagnosis: STEMI This is a 65-year-old female who presented to the hospital with an ST elevation myocardial infarction. She was taken to the cardiac catheterization lab where she underwent angioplasty with stent placement of the right coronary artery. Patient was seen and examined this morning, denies any chest pain or difficulty in breathing. She has been up ambulating in the hallway without any difficulty. [place] today 11.1. BUN 15, creatinine 0.8. Echocardiogram with Doppler study was performed which revealed an ejection fraction of 60-65%. Objective - Vital Signs Vital signs: Vital Signs Temp 97.9 F 05/28/16 12:00 Pulse 61 05/28/16 12:00 Resp 14 05/28/16 12:00 BP 127/82 05/28/16 12:00 Pulse Ox 99 05/28/16 12:00 Intake & Output 05/27/16 05/28/16 05/28/16 18:59 06:59 18:59 Intake Total 340 Output Total 0 Balance 340 Weight 102.8 kg 100.1 kg Intake: Oral 340 Output: Urine 0 Other: Voiding Method Toilet Toilet # Voids 0 1 # Bowel Movements 1 - Exam PHYSICAL EXAMINATION: HEENT: Head is atraumatic, normocephalic. Pupils equal, round. Neck is supple. There is no elevated jugular venous pressure. HEART EXAMINATION: Heart S1, S2 normal. No murmur or gallop heard. CHEST EXAMINATION: Lungs are clear to auscultation and precussion. No chest wall tenderness is noted on palpation or with deep breathing. ABDOMEN: Soft, nontender. Bowel sounds are heard. No organomegaly noted. Right radial site clean and dry, good distal pulse. EXTREMITIES: 2+ peripheral pulses with no evidence of peripheral edema and no calf tenderness noted. NEUROLOGIC patient is awake, alert and oriented -3. . - Labs CBC & Chem 7: 05/26/16 05:01 05/26/16 05:01 Assessment and Plan (1) Hyperlipemia Status: Acute (2) S/P right coronary artery (RCA) stent placement Status: Acute (3) ST elevation myocardial infarction (STEMI) Status: Acute (4) History of adjustable gastric banding Status: Chronic (5) Hypertension Status: Chronic Plan: From cardiology's perspective, patient may be able to be discharged home today. She will follow-up with Dr. Kaila Manriquez in the office in one week. A shunt will be discharged home on aspirin 81 mg daily, Lipitor 80 mg daily, losartan 75 mg daily, metoprolol tartrate 25 mg one tablet by mouth twice a day, Effient 10 mg daily, and sublingual nitroglycerin as needed for chest pain. Patient has been provided prescriptions for all of the above medications and she's been educated regarding them as well. DNP note has been reviewed, I agree with a documented findings and plan of care. Patient was seen and examined.
--- NOTE | 2016-05-29 08:52 | DS ---
DATE OF ADMISSION: 05/25/2016 DATE OF DISCHARGE: 05/28/2016 FINAL DIAGNOSES: 1. Acute ST-elevation myocardial infarction inferior wall with urgent coronary intervention. 2. Emergent cardiac catheterization with stent to the right coronary artery. 3. Chronic fibromyalgia. 4. Gastroesophageal reflux disease. 5. Essential hypertension. 6. Hiatal hernia. 7. Chronic esophagitis. 8. Lower back herniated disc, probably in the lumbar area. HOSPITAL COURSE: This patient presented with acute [facility], stent to the RCA was carried out. A 2-D echo showed preserved LV function. By the time of discharge, the patient up and about. No cardiac symptoms. On exam, lungs are clear. CARDIOVASCULAR: First and second sounds normal. Patient 's LDL was 81. CONSULTATIONS: Dr. Sal for interventional cardiology; Dr. Bentley from cardiology. DISCHARGE MEDICATIONS: 1. Flexeril 10 mg p.o. b.i.d. 2. Cymbalta 60 mg p.o. q.h.s. 3. Ativan 0.5 p.o. b.i.d. p.r.n. 4. Cromona 5 one to two tablets q.6 p.r.n. 5. Omeprazole 40 mg a day. 6. Aspirin 81 mg a day. 7. Lipitor 80 mg q.h.s. 8. Cozaar 75 mg q.h.s. 9. Lopressor 25 mg p.o. b.i.d. 10. Nitrostat 0.4 sublingual q.5 p.r.n. 11. Effient 10 mg daily. Follow up with Dr. Bentley on 06/04/16. Follow up with Dr. Anton Willis in 3 days. Care was discussed with the patient and at the bedside. On examinations, lungs are clear. CARDIOVASCULAR: First and second sounds normal.
== END 2016-05-28 14:16 | disposition home or self-care (01) | DRG 247 ==
LOC: EC 07:25 → 6ICU 08:50 → 6SEL 05-27 09:19
PROVIDERS: ADMIT Hospitalist; ATTEND Hospitalist
PROC: B2151ZZ Fluoroscopy of Left Heart using Low Osmolar Contrast (ICD-10-PCS; 2016-05-25)
PROC: 027034Z Dilation of Coronary Artery, One Artery with Drug-eluting Intraluminal Device, Percutaneous Approach (ICD-10-PCS; principal; 2016-05-25 07:47)
PROC: B2111ZZ Fluoroscopy of Multiple Coronary Arteries using Low Osmolar Contrast (ICD-10-PCS; 2016-05-25 07:47)
DX: I21.19 ST elevation (STEMI) myocardial infarction involving other coronary artery of inferior wall (principal); I10 Essential (primary) hypertension; I25.10 Atherosclerotic heart disease of native coronary artery without angina pectoris; K21.0 Gastro-esophageal reflux disease with esophagitis; M19.91 Primary osteoarthritis, unspecified site; M79.7 Fibromyalgia; K44.9 Diaphragmatic hernia without obstruction or gangrene; E78.5 Hyperlipidemia, unspecified; G89.4 Chronic pain syndrome; F32.9 Major depressive disorder, single episode, unspecified; M51.26 Other intervertebral disc displacement, lumbar region; E66.9 Obesity, unspecified; Z68.39 Body mass index [BMI] 39.0-39.9, adult; Z86.73 Personal history of transient ischemic attack (TIA), and cerebral infarction without residual deficits; Z98.84 Bariatric surgery status; Z90.49 Acquired absence of other specified parts of digestive tract; Z90.710 Acquired absence of both cervix and uterus; Z79.899 Other long term (current) drug therapy; Z79.82 Long term (current) use of aspirin; Z82.49 Family history of ischemic heart disease and other diseases of the circulatory system
CPT/HCPCS: 36415; 71010; 80048; 80053; 80061; 82550; 82553; 84484; 85025; 85027; 85610; 85730; 93005; 93306; 93458; 96374; 99291

== ENCOUNTER → 2016-07-02 | Outpatient (CLI) | payer MEDICARE, BC ==
[2016-07-02 16:39] VITALS: BP 168/85; PULSE 55; TEMP 98.2; BMI 39.4
--- NOTE | 2016-08-04 09:26 | PN ---
DATE OF SERVICE: 07/02/2016 CHIEF COMPLAINT: Bariatric assessment. HISTORY OF PRESENT ILLNESS: Lois Napoles is a 65-year-old female who actually was last seen in the bariatric center in April of 2016. She had a band removal and then within 30 days had acute cardiac ischemia. She required placement of a cardiac stent. Since her cardiac stent placement she has been doing fairly well. She is still evaluating for Jac-en-Y gastric bypass upon removal of her band. In the interim now she presents for further evaluation and management. She sees her offset label rewinder, Dr. Bentley. For her 5 feet 2-1/4 inches frame, her ideal body weight is 140 pounds. Her highest weight was 254 pounds. Today she comes in weighing 224 pounds. Total maintained weight loss is only 30 pounds. Percent excess weight loss is 26%. Body mass index is reduced from 44.7 down to 39.5. She is 84 pounds. PHYSICAL EXAM: VITAL SIGNS: 98.2, 55, 168/85, 16; 5 feet 2-1/4 inches frame, 224 pounds. Body mass index 39.5. ABDOMEN: All incisions completely granulated. No palpable incisional seromas. GENERAL: Well-developed, pleasant female in no acute distress. HEENT: No scleral icterus. Extraocular movements grossly intact . Moist buccal mucosa. NECK: Supple without lymphadenopathy. CHEST: Nonlabored respirations with equal bilateral excursions. CARDIOVASCULAR: Tachycardic. Pulses 2+ distally. MUSCULOSKELETAL: No clubbing, cyanosis or edema. NEURO: No focal or lateralizing signs. Cranial nerves 2-12 grossly within normal limits. PSYCH: Appropriate affect. Alert and oriented to person, place and time. ASSESSMENT: 1. Morbid obesity due to excess calories. 2. Body mass index reduced from 44.7 down to 39.5. 3. Morbid obesity. 4. History of adjustable gastric band with complications with atypical chest pain. 5. Personal history of tachy arrhythmia. 6. Anxiety. 7. Depression. 8. Hypertension. 9. Fibromyalgia. 10. Osteoarthritis of the lower back. 11. Gastroesophageal reflux disease. 12. Diaphragmatic hiatal hernia. 13. Dietary surveillance and counseling. 14. Hyperparathyroidism. 15. History of cardiomyopathy with coronary artery disease. 16. Status post cardiac catheterization and placement of stent. PLAN: 1. At this time with her recent cardiac intervention, she will need to follow the cardiac guidelines of delay of any additional surgical intervention from anywhere 6 months to a year. 2. Interim, recommend dietary surveillance and counseling, primarily increasing her protein intake and replacing processed foods with fresh foods. 3. Recommend follow-up when she has been cleared by her offset label rewinder prior to proceeding with the next step of surgery. YON
--- NOTE | 2016-08-06 00:25 | P.PN ---
Progress Note - Text DATE OF SERVICE: 07/02/2016 CHIEF COMPLAINT: Bariatric assessment. HISTORY OF PRESENT ILLNESS: Lois Napoles is a 65-year-old female who actually was last seen in the bariatric center in April of 2016. She had a band removal and then within 30 days had acute cardiac ischemia. She required placement of a cardiac stent. Since her cardiac stent placement she has been doing fairly well. She is still evaluating for Jac-en-Y gastric bypass upon removal of her band. In the interim now she presents for further evaluation and management. She sees her rebar bender, Dr. Bentley. For her 5 feet 2-1/4 inches frame, her ideal body weight is 140 pounds. Her highest weight was 254 pounds. Today she comes in weighing 224 pounds. Total maintained weight loss is only 30 pounds. Percent excess weight loss is 26%. Body mass index is reduced from 44.7 down to 39.5. She is 84 pounds. PHYSICAL EXAM: VITAL SIGNS: 98.2, 55, 168/85, 16; 5 feet 2-1/4 inches frame, 224 pounds. Body mass index 39.5. ABDOMEN: All incisions completely granulated. No palpable incisional seromas. GENERAL: Well-developed, pleasant female in no acute distress. HEENT: No scleral icterus. Extraocular movements grossly intact . Moist buccal mucosa. NECK: Supple without lymphadenopathy. CHEST: Nonlabored respirations with equal bilateral excursions. CARDIOVASCULAR: Tachycardic. Pulses 2+ distally. MUSCULOSKELETAL: No clubbing, cyanosis or edema. NEURO: No focal or lateralizing signs. Cranial nerves 2-12 grossly within normal limits. PSYCH: Appropriate affect. Alert and oriented to person, place and time. ASSESSMENT: 1. Morbid obesity due to excess calories. 2. Body mass index reduced from 44.7 down to 39.5. 3. Morbid obesity. 4. History of adjustable gastric band with complications with atypical chest pain. 5. Personal history of tachy arrhythmia. 6. Anxiety. 7. Depression. 8. Hypertension. 9. Fibromyalgia. 10. Osteoarthritis of the lower back. 11. Gastroesophageal reflux disease. 12. Diaphragmatic hiatal hernia. 13. Dietary surveillance and counseling. 14. Hyperparathyroidism. 15. History of cardiomyopathy with coronary artery disease. 16. Status post cardiac catheterization and placement of stent. PLAN: 1. At this time with her recent cardiac intervention, she will need to follow the cardiac guidelines of delay of any additional surgical intervention from anywhere 6 months to a year. 2. Interim, recommend dietary surveillance and counseling, primarily increasing her protein intake and replacing processed foods with fresh foods. 3. Recommend follow-up when she has been cleared by her rebar bender prior to proceeding with the next step of surgery.
== END | disposition home or self-care (01) ==
LOC: BARWHC3 14:41
PROVIDERS: ATTEND Surgery Plastic and Reconstructive Surgery
DX: Z48.815 Encounter for surgical aftercare following surgery on the digestive system (principal); E66.01 Morbid (severe) obesity due to excess calories; Z68.39 Body mass index [BMI] 39.0-39.9, adult; K95.09 Other complications of gastric band procedure; R07.89 Other chest pain; R00.0 Tachycardia, unspecified; R41.9 Unspecified symptoms and signs involving cognitive functions and awareness; F32.9 Major depressive disorder, single episode, unspecified; I10 Essential (primary) hypertension; M79.7 Fibromyalgia; M47.816 Spondylosis without myelopathy or radiculopathy, lumbar region; K21.9 Gastro-esophageal reflux disease without esophagitis; K44.9 Diaphragmatic hernia without obstruction or gangrene; E21.3 Hyperparathyroidism, unspecified; I42.9 Cardiomyopathy, unspecified; I25.10 Atherosclerotic heart disease of native coronary artery without angina pectoris; Z95.5 Presence of coronary angioplasty implant and graft; Z98.84 Bariatric surgery status
CPT/HCPCS: 99211

== ENCOUNTER 2017-01-01 14:56 | Observation (INO) | payer MEDICARE, BC ==
--- NOTE | 2017-01-01 15:08 | ED ---
General Adult HPI - General Chief complaint: Chest Pain Stated complaint: chest pain Time Seen by Provider: 01/01/17 15:05 Source: patient, family, RN notes reviewed, old records reviewed Mode of arrival: wheelchair Limitations: no limitations - History of Present Illness Initial comments: Assessment a 6-year-old female ER for reevaluation chest pain just patient was resting sore throat. Patient's significant medical history for multiple surgeries and heart disease, cardiac risk factors. Patient states her chest pain is continued. No fevers no cough or congestion. No recent travel history no known sick contacts. Patient states she's had the pain for about a week now. The pain is left-sided left-sided neck and left upper chest radiates into her left shoulder and down her left arm. She has a prior history of AK and that was much different symptoms. Patient states she has had pain with she moves her neck does have pain when she swallows - Related Data Home Medications Medication Instructions Recorded Confirmed Cyclobenzaprine [Flexeril] 10 mg PO BID 04/07/16 01/01/17 DULoxetine HCL [Cymbalta] 60 mg PO DAILY 04/07/16 01/01/17 LORazepam [Ativan] 0.5 mg PO BID PRN 04/07/16 01/01/17 Hydrocodone/Acetaminophen [[place] 1 - 2 tab PO Q6HR PRN 05/25/16 01/01/17 5-325] Hydrochlorothiazide 12.5 mg PO DAILY 01/01/17 01/01/17 Isosorbide Mononitrate [Isosorbide 30 mg PO DAILY 01/01/17 01/01/17 Mononitrate ER] Losartan [Cozaar] 75 mg PO DAILY 01/01/17 01/01/17 Previous Rx's Medication Instructions Recorded Aspirin 81 mg PO DAILY #30 chew 05/28/16 Atorvastatin [Lipitor] 80 mg PO HS #30 tab 05/28/16 Metoprolol Tartrate [Lopressor] 25 mg PO BID #60 tab 05/28/16 Nitroglycerin Sl Tabs [Nitrostat] 0.4 mg SUBLINGUAL Q5M PRN #25 tab 05/28/16 Prasugrel [Effient] 10 mg PO DAILY #30 tab 05/28/16 Allergies Allergy/AdvReac Type Severity Reaction Status Date / Time No Known Allergies Allergy Verified 01/01/17 15:02 Review of Systems ROS Statement: Those systems with pertinent positive or pertinent negative responses have been documented in the HPI. ROS Other: All systems not noted in ROS Statement are negative. Past Medical History Past Medical History: Chest Pain / Angina, Fibromyalgia, GERD/Reflux, Hypertension, Myocardial Infarction (AK), Osteoarthritis (OA) Additional Past Medical History / Comment(s): EGD RESULTS OF 04/09/16:HIATAL HERNIA, ESOPHAGITIS, GASTRITIS. Chronic pain syndrome. HEMORRHOIDS. "RAPID HEART BEAT OCC". TIA 20 YEARS, HERNIATED DISC LOWER BACK. IN 2006 ( AT [facility]) AFTER BREAST SX, HAD A STAPH INFECTION NOT SURE WHAT TYPE (VERIFIED THAT LEFT BREAST WOUND WAS CULTURED 0N 08/22/2006 WITH STAPH RESULTS, NO MRSA.) Last Myocardial Infarction Date:: 05/25/16 History of Any Multi-Drug Resistant Organisms: None Reported Past Surgical History: Back Surgery, Bariatric Surgery, Breast Surgery, Cholecystectomy, Heart Catheterization With Stent, Hysterectomy, Tonsillectomy, Tubal Ligation Additional Past Surgical History / Comment(s): Lap band SEPTEMBER 2008, removed 05/12. Plantar fascia x2 mortons neuroma panniculectomy , COLONOSCOPY/EGD, HEMORRHOIDS, CERVICAL FUSION-PLATE, BREAST REDUCTION SX X2, LIPOMAS, LT SHOULDER SX, HEMALATHA THUMB JOINT REPLACEMENTS. Past Anesthesia/Blood Transfusion Reactions: No Reported Reaction Date of Last Stent Placement:: 05/25/16 Past Psychological History: Anxiety, Depression Smoking Status: Never smoker Past Alcohol Use History: None Reported Past Drug Use History: None Reported - Past Family History Father Family Medical History: Cancer, Coronary Artery Disease (CAD), CVA/TIA, Hypertension Additional Family Medical History / Comment(s): CABG, COLON CANCER Mother Family Medical History: Cancer, Myocardial Infarction (AK) Additional Family Medical History / Comment(s): METASTATIC BREAST CA, 1 KIDNEY, SMOKER. General Exam Limitations: no limitations General appearance: alert, in no apparent distress Head exam: Present: atraumatic, normocephalic, normal inspection Eye exam: Present: normal appearance, PERRL, EOMI. Absent: scleral icterus, conjunctival injection, periorbital swelling ENT exam: Present: normal exam, mucous membranes moist Neck exam: Present: normal inspection. Absent: tenderness, meningismus, lymphadenopathy Respiratory exam: Present: normal lung sounds bilaterally. Absent: respiratory distress, wheezes, rales, rhonchi, stridor Cardiovascular Exam: Present: regular rate, normal rhythm, normal heart sounds. Absent: systolic murmur, diastolic murmur, rubs, gallop, clicks GI/Abdominal exam: Present: soft, normal bowel sounds. Absent: distended, tenderness, guarding, rebound, rigid Extremities exam: Present: normal inspection, full ROM, normal capillary refill. Absent: tenderness, pedal edema, joint swelling, calf tenderness Back exam: Present: normal inspection Neurological exam: Present: alert, oriented X3, CN II-XII intact Psychiatric exam: Present: normal affect, normal mood Skin exam: Present: warm, dry, intact, normal color. Absent: rash Course Vital Signs 01/01/17 01/01/17 01/01/17 15:02 15:15 15:59 Temperature 98.2 F Pulse Rate 74 93 72 Respiratory 16 16 16 Rate Blood Pressure 168/79 156/79 O2 Sat by Pulse 98 99 98 Oximetry - Reevaluation(s) Reevaluation #1: 01/01/17 16:39 Patient states her symptoms are improved with morphine Reevaluation #2: 01/01/17 16:39 The patient at length regarding symptoms, findings here in the emergency room. Patient's questions about his questions are answered EKG Findings - EKG Comments: EKG Findings:: EKG shows normal sinus rhythm rate of 74, [place] 142, QRS 74, QTC 417 Medical Decision Making - Medical Decision Making 66 female date ER for evaluation. Patient presents the artery have evaluation regarding neck pain neck pain rating to left shoulder. Patient be admitted for cardiac observation - Lab Data Result diagrams: 01/01/17 15:25 01/01/17 15:25 Lab Results 01/01/17 01/01/17 01/01/17 Range/Units 15:25 15:25 15:25 WBC 4.8 (3.8-10.6) k/uL RBC 4.11 (3.80-5.40) m/uL Hgb 11.7 (11.4-16.0) gm/dL Hct 36.0 (34.0-46.0) % MCV 87.6 (80.0-100.0) fL MCH 28.6 (25.0-35.0) pg MCHC 32.6 (31.0-37.0) g/dL RDW 14.1 (11.5-15.5) % Plt Count 206 (150-450) k/uL Neutrophils % 61 % Lymphocytes % 29 % Monocytes % 5 % Eosinophils % 3 % Basophils % 1 % Neutrophils # 2.9 (1.3-7.7) k/uL Lymphocytes # 1.4 (1.0-4.8) k/uL Monocytes # 0.2 (0-1.0) k/uL Eosinophils # 0.1 (0-0.7) k/uL Basophils # 0.0 (0-0.2) k/uL PT (9.0-12.0) sec INR (<1.2) APTT (22.0-30.0) sec Sodium 139 (137-145) mmol/L Potassium 4.6 (3.5-5.1) mmol/L Chloride 106 (98-107) mmol/L Carbon Dioxide 25 (22-30) mmol/L Anion Gap 8 mmol/L BUN 14 (7-17) mg/dL Creatinine 0.80 (0.52-1.04) mg/dL Est GFR (MDRD) Af Amer >60 (>60 ml/min/1.73 sqM) Est GFR (MDRD) Non-Af >60 (>60 ml/min/1.73 sqM) Glucose 90 (74-99) mg/dL Calcium 9.1 (8.4-10.2) mg/dL Magnesium 1.9 (1.6-2.3) mg/dL Total Bilirubin 0.5 (0.2-1.3) mg/dL AST 38 H (14-36) U/L ALT 53 H (9-52) U/L Alkaline Phosphatase 111 (38-126) U/L Total Creatine Kinase 53 (30-135) U/L CK-MB (CK-2) 0.4 (0.0-2.4) ng/mL CK-MB (CK-2) Rel Index 0.8 Troponin I <0.012 (0.000-0.034) ng/mL NT-Pro-B Natriuret Pep pg/mL Total Protein 6.6 (6.3-8.2) g/dL Albumin 3.9 (3.5-5.0) g/dL Lipase 58 (23-300) U/L 01/01/17 01/01/17 Range/Units 15:25 15:25 WBC (3.8-10.6) k/uL RBC (3.80-5.40) m/uL Hgb (11.4-16.0) gm/dL Hct (34.0-46.0) % MCV (80.0-100.0) fL MCH (25.0-35.0) pg MCHC (31.0-37.0) g/dL RDW (11.5-15.5) % Plt Count (150-450) k/uL Neutrophils % % Lymphocytes % % Monocytes % % Eosinophils % % Basophils % % Neutrophils # (1.3-7.7) k/uL Lymphocytes # (1.0-4.8) k/uL Monocytes # (0-1.0) k/uL Eosinophils # (0-0.7) k/uL Basophils # (0-0.2) k/uL PT 10.5 (9.0-12.0) sec INR 1.0 (<1.2) APTT 24.5 (22.0-30.0) sec Sodium (137-145) mmol/L Potassium (3.5-5.1) mmol/L Chloride (98-107) mmol/L Carbon Dioxide (22-30) mmol/L Anion Gap mmol/L BUN (7-17) mg/dL Creatinine (0.52-1.04) mg/dL Est GFR (MDRD) Af Amer (>60 ml/min/1.73 sqM) Est GFR (MDRD) Non-Af (>60 ml/min/1.73 sqM) Glucose (74-99) mg/dL Calcium (8.4-10.2) mg/dL Magnesium (1.6-2.3) mg/dL Total Bilirubin (0.2-1.3) mg/dL AST (14-36) U/L ALT (9-52) U/L Alkaline Phosphatase (38-126) U/L Total Creatine Kinase (30-135) U/L CK-MB (CK-2) (0.0-2.4) ng/mL CK-MB (CK-2) Rel Index Troponin I (0.000-0.034) ng/mL NT-Pro-B Natriuret Pep 243 pg/mL Total Protein (6.3-8.2) g/dL Albumin (3.5-5.0) g/dL Lipase (23-300) U/L Critical Care Time Critical Care Time: Yes Total Critical Care Time: 31 Disposition Clinical Impression: Chest pain, S/P right coronary artery (RCA) stent placement Disposition: ADMITTED IP TO THIS [facility] Condition: Undetermined Referrals: Anton Willis MD [Primary Care Provider] - 1-2 days
[2017-01-01] MEDS ORDERED: RX INFO: IV CONTRAST WAS GIVEN 1 EACH MISC MISCELLANE PRN (15:16)
[2017-01-01] MEDS ORDERED: SODIUM CHLORIDE 0.9% 500 ML IV STA (15:16)
[2017-01-01] MEDS ORDERED: SODIUM CHLORIDE 0.9% 1,000 ML IV STA (15:16)
[2017-01-01] MEDS ORDERED: MORPHINE SULFATE 4 MG/ML SYRINGE IV STA (15:16)
[2017-01-01] MEDS ORDERED: MORPHINE SULFATE 4 MG/ML SYRINGE IV PRN (15:29)
[2017-01-01] MEDS ORDERED: NITROGLYCERIN SL TABS 0.4 MG TAB SUBLINGUAL PRN (15:29)
[2017-01-01 15:40] LABS: Basophils % (A) 1 %; CH 29.7; Eosinophils # (A) 0.1 k/uL (0-0.7); Eosinophils % (A) 3 %; HDW 2.59; HGB 11.7 gm/dL (11.4-16.0); Luc # (Auto) 0.13; Luc % (Auto) 3; Lymphocytes # (A) 1.4 k/uL (1.0-4.8); Lymphocytes % (A) 29 %; MCH 28.6 pg (25.0-35.0); MCHC 32.6 g/dL (31.0-37.0); MCV 87.6 fL (80.0-100.0); Mean Platelet Volume 9.3; Monocytes # (A) 0.2 k/uL (0-1.0); Monocytes % (A) 5 %; Neutrophils # (A) 2.9 k/uL (1.3-7.7); Neutrophils % (A) 61 %; RBC 4.11 m/uL (3.80-5.40); RDW 14.1 % (11.5-15.5); WBC 4.8 k/uL (3.8-10.6); WBC (Perox) 4.76
[2017-01-01 15:46] LABS: Partial Thromboplastin Time 24.5 sec (22.0-30.0); Prothrombin Time 10.5 sec (9.0-12.0)
[2017-01-01 15:48] LABS: ALT 53 U/L (9-52); AST 38 U/L (14-36); Alkaline Phosphatase 111 U/L (38-126); Anion Gap 8 mmol/L; Blood Urea Nitrogen 14 mg/dL (7-17); Calcium 9.1 mg/dL (8.4-10.2); Carbon Dioxide 25 mmol/L (22-30); Chloride 106 mmol/L (98-107); Glucose 90 mg/dL (74-99); Magnesium 1.9 mg/dL (1.6-2.3); Non-African American GFR(MDRD) >60 (>60 ml/min/1.73 sqM); Potassium 4.6 mmol/L (3.5-5.1); Sodium 139 mmol/L (137-145); Total Bilirubin 0.5 mg/dL (0.2-1.3); Total Protein 6.6 g/dL (6.3-8.2)
[2017-01-01 16:13] LABS: Creatine Kinase 53 U/L (30-135)
[2017-01-01 16:24] LABS: Creatine Kinase MB 0.4 ng/mL (0.0-2.4); Troponin I <0.012 ng/mL (0.000-0.034)
--- NOTE | 2017-01-01 16:38 | CT ---
EXAMINATION TYPE: CT neck chest w con DATE OF EXAM: 01/01/2017 COMPARISON: NONE HISTORY: Suprasternal pain that radiates up into neck and down left arm. CT DLP: 1453.00 mGycm. Automated Exposure Control for Dose Reduction was Utilized. TECHNIQUE: CT scan of the neck and thorax are performed following with IV Contrast, patient injected with 100 mL of Omnipaque 300. FINDINGS: NECK: Airway is grossly patent. Parotid and submandibular glands are symmetric and felt within normal limits. There is mild calcified plaque at left carotid bulb. No significant stenosis is present. There is anterior fusion plate and artificial disc material C5-C7 levels. There is moderate spurring and mild to moderate disc space narrowing C4-C5 level. No greater than 1 cm neck adenopathy is present. There are scattered prominent but subcentimeter lymp h nodes throughout the neck bilaterally noted. CHEST: LUNGS: There is minimal linear scarring and/or atelectasis in both bases near diaphragm. No suspicio us parenchymal nodule or mass is present bilaterally. There is no pleural effusion or pneumothorax se en. The tracheobronchial tree is patent. There is slight the elevated and eventrated right hemidiaph ragm. MEDIASTINUM: There are no greater than 1 cm hilar or mediastinal lymph nodes. No cardiomegaly or pe ricardial effusion is seen. There is coronary artery calcification and suspected stent in the domina nt RCA distribution. OTHER: Surgical change at gastroesophageal junction likely product Barrie fundoplication surgery is p resent. Cholecystectomy clips are noted. Mild multilevel spurring throughout the thoracic spine is se en. IMPRESSION: No significant acute finding identified in neck or chest to account for patient's symptom s.
[2017-01-01] MEDS ORDERED: HEPARIN SODIUM,PORCINE 5,000 UNIT/ML 1 ML VIAL IV PRN (16:40)
[2017-01-01] MEDS ORDERED: HEPARIN SODIUM,PORCINE 5,000 UNIT/ML 1 ML VIAL IV ONE (16:40)
[2017-01-01] MEDS ORDERED: HEPARIN SODIUM,PORCINE/D5W PMX 25,000 UNIT in DEXTROSE/WATER 1 500ML.BAG IV SCH (16:45)
[2017-01-01] MEDS: SODIUM CHLORIDE 0.9% 1,000 ML IV SCH (17:26)
--- NOTE | 2017-01-01 18:51 | P.HPIM ---
History of Present Illness H&P Date: 01/01/17 Chief Complaint: Chest pain This is 65-year-old patient of Dr. Anton Willis is chronic stable medical conditions include chronic fibromyalgia, primary osteoarthritis multiple joints , GERD, essential hypertension. Patient presented to the emergency department with complaints of chest pain since Thursday. States it initially felt as if it were just a sore throat, hurts most when she swallows and it does hurt when she moves her neck with radiation down the left shoulder, neck and radiates down the left chest and arm. Pain is sharp, shooting and is reproducible particularly at the left upper clavicle area and neck. No sweating, nausea, vomiting, endorses dizziness and lightheadedness. Review of Systems GEN.: [None] EYES: [None] HEENT: [Painful swallowing] NECK: [Neck pain] RESPIRATORY: [None] CARDIOVASCULAR: [Left-sided chest pain] GASTROINTESTINAL: [None] GENITOURINARY: [None] MUSCULOSKELETAL: [Left arm pain, joint pains] LYMPHATICS: [None] HEMATOLOGICAL: [None] PSYCHIATRY: [Anxiety and depression, controlled] NEUROLOGICAL: [None] Past Medical History Past Medical History: Chest Pain / Angina, Fibromyalgia, GERD/Reflux, Hypertension, Myocardial Infarction (MS), Osteoarthritis (OA) Additional Past Medical History / Comment(s): EGD RESULTS OF 04/09/16:HIATAL HERNIA, ESOPHAGITIS, GASTRITIS. Chronic pain syndrome. HEMORRHOIDS. "RAPID HEART BEAT OCC". TIA 20 YEARS, HERNIATED DISC LOWER BACK. IN 2006 ( AT THE [facility]) AFTER BREAST SX, HAD A STAPH INFECTION NOT SURE WHAT TYPE (VERIFIED THAT LEFT BREAST WOUND WAS CULTURED 0N 08/22/2006 WITH STAPH RESULTS, NO MRSA.) Last Myocardial Infarction Date:: 05/25/16 History of Any Multi-Drug Resistant Organisms: None Reported Past Surgical History: Back Surgery, Bariatric Surgery, Breast Surgery, Cholecystectomy, Heart Catheterization With Stent, Hysterectomy, Tonsillectomy, Tubal Ligation Additional Past Surgical History / Comment(s): Lap band SEPTEMBER 2008, removed 05/12. Plantar fascia x2 mortons neuroma panniculectomy , COLONOSCOPY/EGD, HEMORRHOIDS, CERVICAL FUSION-PLATE, BREAST REDUCTION SX X2, LIPOMAS, LT SHOULDER SX, HEMALATHA THUMB JOINT REPLACEMENTS. Past Anesthesia/Blood Transfusion Reactions: No Reported Reaction Date of Last Stent Placement:: 05/25/16 Past Psychological History: Anxiety, Depression Smoking Status: Never smoker Past Alcohol Use History: None Reported Past Drug Use History: None Reported - Past Family History Father Family Medical History: Cancer, Coronary Artery Disease (CAD), CVA/TIA, Hypertension Additional Family Medical History / Comment(s): CABG, COLON CANCER Mother Family Medical History: Cancer, Myocardial Infarction (MS) Additional Family Medical History / Comment(s): METASTATIC BREAST CA, 1 KIDNEY, SMOKER. Medications and Allergies Home Medications Medication Instructions Recorded Confirmed Type Cyclobenzaprine [Flexeril] 10 mg PO BID 04/07/16 01/01/17 History DULoxetine HCL [Cymbalta] 60 mg PO DAILY 04/07/16 01/01/17 History LORazepam [Ativan] 0.5 mg PO BID PRN 04/07/16 01/01/17 History Hydrocodone/Acetaminophen [[place] 1 - 2 tab PO Q6HR PRN 05/25/16 01/01/17 History 5-325] Aspirin 81 mg PO DAILY #30 chew 05/28/16 01/01/17 Rx Atorvastatin [Lipitor] 80 mg PO HS #30 tab 05/28/16 01/01/17 Rx Metoprolol Tartrate [Lopressor] 25 mg PO BID #60 tab 05/28/16 01/01/17 Rx Nitroglycerin Sl Tabs [Nitrostat] 0.4 mg SUBLINGUAL Q5M PRN #25 tab 05/28/1611/10 Rx Prasugrel [Effient] 10 mg PO DAILY #30 tab 05/28/16 01/01/17 Rx Hydrochlorothiazide 12.5 mg PO DAILY 01/01/17 01/01/17 History Isosorbide Mononitrate [Isosorbide 30 mg PO DAILY 01/01/17 01/01/17 History Mononitrate ER] Losartan [Cozaar] 75 mg PO DAILY 01/01/17 01/01/17 History Allergies Allergy/AdvReac Type Severity Reaction Status Date / Time No Known Allergies Allergy Verified 01/01/17 15:02 Physical Exam Vitals: Vital Signs Temp Pulse Resp BP Pulse Ox 01/01/17 17:18 97.7 F 77 16 147/75 98 01/01/17 15:59 72 16 98 01/01/17 15:15 93 16 156/79 99 01/01/17 15:02 98.2 F 74 16 168/79 98 Intake and Output 01/01/17 01/01/17 01/01/17 06:59 14:59 22:59 Other: Weight 104.326 kg Patient Weight 01/02/17 06:59 Weight 104.326 kg VITAL SIGNS: [. Temperature 98.2, pulse 78, respirations 18, blood pressure 144 /70, oxygen saturation 98% on room air. BMI noted] GENERAL: [Average built, sitting up, anxious appearing]. EYES: [Pupils equal. Conjunctiva ashley]l. HEENT: [External appearance of nose and ears normal, oral cavity grossly normal , painful swallowing]. NECK: [JVD not raised; masses not palpable]. HEART: [First and second heart sounds are normal; no edema]. LUNGS:[ Respiratory rate normal; clear to auscultation]. ABDOMEN: [Soft, nontender, liver spleen not palpable, no masses palpable]. LYMPHATICS: [No lymph nodes palpable in the axilla and neck]. PSYCH: [Alert and oriented x3; mood and affect anxious appearing l. NEUROLOGICAL: [Cranial nerves grossly intact; no facial asymmetry, power and sensation grossly intact]. Results CBC & Chem 7: 01/01/17 15:25 01/01/17 15:25 Labs: Abnormal Lab Results - Last 24 Hours (Table) 01/01/17 Range/Units 15:25 AST 38 H (14-36) U/L ALT 53 H (9-52) U/L Assessment and Plan Plan: ASSESSMENT: -Unstable angina in a patient with a history of cardiac catheterization and stent placement to the RCA in April 2016. -Chronic fibromyalgia. -Gastroesophageal reflux disease -Essential hypertension. -Hyperlipidemia -Hiatal hernia. -Chronic esophagitis. -Low back herniated disc. -Morbid obesity, BMI 42.1 kg/m PLAN: Home meds reordered, heparin drip infusing, cardiology consulted. Plan of care discussed with the patient and family at the bedside. They are in agreement. We'll continue to monitor closely. 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 Rae.
[2017-01-01 19:42] VITALS: RESP 16
[2017-01-01] MEDS: HYDROcodone/APAP 5-325MG 1 EACH TAB PO PRN (20:25)
[2017-01-01] MEDS: CYCLOBENZAPRINE 10 MG TAB PO SCH (20:25)
[2017-01-01 20:40] VITALS: BMI 42.0
[2017-01-01] MEDS ORDERED: ATORVASTATIN 80 MG TAB PO SCH (21:00)
[2017-01-01 23:11] LABS: Creatine Kinase 58 U/L (30-135)
[2017-01-01 23:23] LABS: Creatine Kinase MB 0.5 ng/mL (0.0-2.4); Troponin I <0.012 ng/mL (0.000-0.034)
[2017-01-02 03:48] LABS: Basophils % (A) 1 %; CH 29.5; CHCM 33.3; Eosinophils # (A) 0.2 k/uL (0-0.7); Eosinophils % (A) 3 %; HCT 33.6 % (34.0-46.0); HDW 2.53; HGB 10.8 gm/dL (11.4-16.0); Luc # (Auto) 0.17; Luc % (Auto) 3; Lymphocytes # (A) 2.2 k/uL (1.0-4.8); Lymphocytes % (A) 39 %; MCH 28.6 pg (25.0-35.0); MCHC 32.1 g/dL (31.0-37.0); MCV 89.2 fL (80.0-100.0); Mean Platelet Volume 8.9; Monocytes # (A) 0.3 k/uL (0-1.0); Monocytes % (A) 5 %; Neutrophils # (A) 2.7 k/uL (1.3-7.7); Neutrophils % (A) 48 %; RBC 3.77 m/uL (3.80-5.40); RDW 14.4 % (11.5-15.5); WBC 5.5 k/uL (3.8-10.6); WBC (Perox) 5.92
[2017-01-02 04:01] LABS: Partial Thromboplastin Time 45.6 sec (22.0-30.0); Prothrombin Time 10.6 sec (9.0-12.0)
[2017-01-02 04:06] LABS: Creatine Kinase 53 U/L (30-135)
[2017-01-02 04:19] LABS: Creatine Kinase MB 0.5 ng/mL (0.0-2.4); Troponin I <0.012 ng/mL (0.000-0.034)
[2017-01-02 04:31] LABS: Cholesterol 105 mg/dL (<200); HDL Cholesterol 56 mg/dL (40-60)
[2017-01-02] MEDS ORDERED: PANTOPRAZOLE 40 MG TABLET PO SCH (07:30)
[2017-01-02 07:35] VITALS: BP 146/83; PULSE 80; TEMP 97.8
[2017-01-02] MEDS: SODIUM CHLORIDE 0.9% 1,000 ML IV SCH ×2 (08:06→11:54)
[2017-01-02] MEDS ORDERED: NAPROXEN 250 MG TAB PO SCH (09:00)
[2017-01-02] MEDS ORDERED: ASPIRIN 81 MG PO SCH (09:00)
[2017-01-02] MEDS ORDERED: HYDROCHLOROTHIAZIDE 12.5 MG CAP PO SCH (09:00)
[2017-01-02] MEDS ORDERED: DULoxetine HCL 60 MG CAPSULE.DR PO SCH (09:00)
[2017-01-02] MEDS ORDERED: LOSARTAN 25 MG TAB PO SCH (09:00)
[2017-01-02] MEDS ORDERED: ISOSORBIDE MONONITRATE ER 30 MG TAB.ER.24H PO SCH (09:00)
[2017-01-02] MEDS ORDERED: ASPIRIN 325 MG TAB PO SCH (09:00)
[2017-01-02] MEDS ORDERED: METOPROLOL TARTRATE 25 MG TAB PO SCH (09:00)
[2017-01-02] MEDS: CYCLOBENZAPRINE 10 MG TAB PO SCH (09:44)
[2017-01-02] MEDS: HYDROcodone/APAP 5-325MG 1 EACH TAB PO PRN (09:49)
--- NOTE | 2017-01-02 11:09 | CONS ---
CONSULTATION This is a 66-year-old lady with a history of hypertension, hypercholesterolemia who suffered from an acute inferior IA in April of this year. She underwent stenting of totally occluded RCA performed by Dr. Sal. Since then, she has done very well. She also has history of some gastroesophageal reflux disease with previous surgery for a hiatal hernia. She came into the hospital because of what she describes as a left- sided neck pain. There is actually tenderness over the left sternocleidomastoid at the clavicle insertion site. This is the pain that seems to get worse when she swallows and she came in with these symptoms. She had a CT scan of the neck that was unremarkable. Troponins were normal. EKG is unremarkable. Her pain does not suggest any myocardial ischemia. She is resting comfortably without symptoms. PAST MEDICAL HISTORY: 1. Acute inferior IA with stenting of RCA with drug-eluting stents in April. 2. Hypertension. 3. Hyperlipidemia. 4. History of gastroesophageal reflux with hiatal hernia, status post to surgery. 5. Coronary risk factors include hypertension, hyperlipidemia, and also obesity. Her LDL cholesterol is good on atorvastatin. At the time of my evaluation, her pain in the left lower neck areas has improved , but not resolved completely. MEDICATIONS: 1. Imdur 30 mg daily. 2. Lipitor 80 mg daily. 3. Effient 10 mg daily. 4. Aspirin 81 mg daily. 5. Losartan 75 mg daily. 6. Metoprolol tartrate 25 mg b.i.d. ALLERGIES: None. REVIEW OF SYSTEMS: Unremarkable other than above mentioned facts. PHYSICAL EXAMINATION: On examination, blood pressure is 140/70, pulse rate of 66 per minute. HEENT: Unremarkable. Fundus was not examined by me. NECK: Supple. No JVD. I do not hear a carotid bruit. There is tenderness in the left lower sternocleidomastoid muscle area. Heart exam reveals S1, S2 with distant heart sounds. No rub, murmur or gallop. Lungs are clear. Abdomen is soft, nontender. Lower extremities reveal normal pulses, no edema. Central nervous system is normal. EKG revealed a sinus mechanism. No acute changes. Minor nonspecific ST abnormality noted. LAB DATA: Lab data revealed unremarkable troponins. IMPRESSION: 1. Musculoskeletal pain, not suggestive of myocardial ischemia. 2. History of coronary artery disease, previous inferior myocardial infarction in April. 3. Hypertension. 4. Hypercholesterolemia. RECOMMENDATION: I am recommending that we give some nonsteroidal anti-inflammatory agents. Discontinue her IV heparin, increase activity and she can be discharged and her neck muscle pain symptoms can be treated as an outpatient. Patient can be discharged. No further testing is necessary at this time from a cardiac standpoint. As recently as September she has had cardiac testing in the office which was unremarkable. Her symptoms do not represent myocardial injury. Thank you very much for the consult. MARITZA / JUANIS: [id number] / YON
--- NOTE | 2017-01-02 12:03 | HP ---
HISTORY AND PHYSICAL DATE OF ADMISSION: 01/01/2017 PRESENTING COMPLAINT: Left neck pain. HISTORY OF PRESENTING COMPLAINT: This is a very pleasant, 66-year-old patient of Dr. Willis. 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 Bentley. Patient's chronic stable medical conditions include fibromyalgia, GERD, hypertension, hiatal hernia, esophagitis, herniated disc, anxiety, depression. Patient in April of this year had acute NC with a stent to the RCA. In September of this year, she had a stress test that was negative. For a week now she has noted that she has got a pain in the left side of the neck, just above the clavicle. It is tender, it hurts especially when she moves her neck, takes a deep breath, moves her left arm. Not related to activity. There is no shortness of breath, no perspiration, no dizziness. Because of these features, she decided to come in. REVIEW OF SYSTEMS: CONSTITUTIONAL: None. HEENT: As above. RESPIRATORY: None. CARDIOVASCULAR: No precordial pain. GASTROINTESTINAL: Some heartburn. GENITOURINARY: None MUSCULOSKELETAL: Aches and pains in joints, especially the lower back. DERMATOLOGICAL: None. HEMATOLOGIC: None. LYMPHATIC: None PSYCHIATRY: None. NEUROLOGICAL: Anxiety, depression, now controlled. PAST MEDICAL HISTORY: Fibromyalgia, GERD, hypertension, hiatal hernia, esophagitis, coronary artery disease with stent to the RCA, herniated disc lower back, anxiety, depression. PAST SURGICAL HISTORY: Back surgery, bariatric surgery, breast surgery, cholecystectomy, cardiac cath with stent, hysterectomy, tonsillectomy, tubal ligation, lap band in September of 2008, removed in April of 2016, plantar fascia x2, Heard's neuroma, panniculectomy, colonoscopy, EGD, hemorrhoids, cervical fusion, breast reduction surgery x2, lipoma, left shoulder surgery, bilateral thumb joint replacement. SOCIAL HISTORY: No smoking. No alcohol. . FAMILY HISTORY: Colon cancer, CABG, hypertension, stroke. HOME MEDICATIONS: 1. Nitrostat 0.4 sublingual q.5 p.r.n. 2. [place] 1 to 2 tablets q.6 p.r.n.. 3. Hydrochlorothiazide 12.5 p.o. daily. 4. Imdur ER 30 mg p.o. daily. 5. Lipitor 80 mg q.h.s. 6. Effient 10 mg p.o. daily. 7. Lopressor 25 mg p.o. b.i.d. 8. Cozaar 25 mg p.o. daily. 9. Ativan 0.5 mg p.o. b.i.d. p.r.n. 10.Cymbalta 60 mg p.o. daily. 11.Flexeril 10 mg p.o. b.i.d. 12.Aspirin 81 mg p.o. daily. ALLERGIES: None. PHYSICAL EXAMINATION: Temperature 97.8, pulse 80, respirations 16, blood pressure 146/83, pulse ox 96% on room air. GENERAL APPEARANCE: Well built, BMI of 42.1. Sitting up, not in distress. EYES: Pupils equal, conjunctivae normal. HEENT: Oral cavity normal. NECK: JVD not raised. Mass not palpable. Respiratory effort normal. Lungs are clear. CARDIOVASCULAR: First and second sounds are normal, no edema. ABDOMEN: Soft, nontender. Liver and spleen not palpable. LYMPHATIC: No lymph node palpable in neck or axillae. PSYCHIATRY: Alert and orient x3. Mood and affect normal. NEUROLOGICAL: Pupils appear, cranial nerves grossly intact. Power and sensation grossly intact. MUSCULOSKELETAL: Patient has got tenderness at the junction of the sternocleidomastoid to the clavicle and it is worse when she lifts her hands up, swallows, especially oral cavity. No tenderness of the tonsils. INVESTIGATIONS: White count 4.8, hemoglobin 11.7, potassium 4.6, troponin x3 negative. EKG normal sinus rhythm. CT scan of the neck and chest unremarkable. ASSESSMENT: 1. Left neck pain at the junction of the sternocleidomastoid to the clavicle, seems to be more musculoskeletal in nature, but given her cardiac history, Cardiology was consulted. 2. Chronic fibromyalgia. 3. Gastroesophageal reflux disease. 4. Hypertension. 5. Hiatal hernia. 6. Chronic esophagitis. 7. Herniated disc lower back. 8. Anxiety, depression, controlled. 9. Morbid obesity. Body mass index of 42.1. PLAN: Cardiology was consulted. Care was discussed with the patient. at the bedside. Home medications were resumed. MMODL / IJN: [id number] /
--- NOTE | 2017-01-02 13:02 | P.DS ---
<Eliana Guadarrama - Last Filed: 01/02/17 12:54> Providers Date of admission: 01/01/17 15:29 Expected date of discharge: 01/02/17 Attending physician: Caden Rae Consults: 01/01/17 15:29 Consult Physician Urgent Consulting Provider: Aubrey Mike Consult Reason/Comments: cp Do you want consulting provider notified?: Yes Primary care physician: Anton Ale [facility] Hospital Course: FINAL DIAGNOSES: -Left neck pain at the junction of the sternocleidomastoid to the clavicle, seems to be more musculoskeletal in nature, but given her cardiac history, cardiology was consulted. -Chronic fibromyalgia. -Gastroesophageal reflux disease. -Essential Hypertension, -Hiatal hernia -Chronic esophagitis. -Herniated disc lower back, -Anxiety, depression, controlled. -Morbid obesity. Body mass index of 42.1 HOSPTIAL COURSE: 66-year-old female with history of acute MO and stent to the RCA in April of this year, in September of this year showed a stress test that was negative. Over the past week developed pain in the left side of her neck just above the clavicle, tender to palpation especially hurts when she moves her neck, takes a deep breath moves her left arm. Unrelated to activity. No shortness of breath no perspiration no dizziness, presented for evaluation. Cardiology consulted. Believes it's not cardiac in nature recommends nonsteroidal anti-inflammatory agent. Cleared the patient for discharge. From medical standpoint patient's conditions are stable, ambulating in the [place] on room, tolerating her diet, moving her bowels. Condition stable, left neck and clavicle pain improved and patient came to go home and will be discharged home to the care of her family. PHYSICAL EXAM: CARDIOVASCULAR: First and second sounds noted, no edema NECK: Tenderness to the left lower sternocleidomastoid muscle area. RESPIRATORY: Lungs clear to auscultation bilaterally respiratory effort normal Patient was seen and examined by nurse practitioner Eliana Guadarrama in all elements of the case discussed with attending Dr. Rae DISPOSITION: Home to the care of her family Patient Condition at Discharge: Undetermined Plan - Discharge Summary New Discharge Prescriptions: Continue LORazepam [Ativan] 0.5 mg PO BID PRN PRN Reason: Anxiety Cyclobenzaprine [Flexeril] 10 mg PO BID DULoxetine HCL [Cymbalta] 60 mg PO DAILY Hydrocodone/Acetaminophen [[place] 5-325] 1 - 2 tab PO Q6HR PRN PRN Reason: Pain Aspirin 81 mg PO DAILY #30 chew Atorvastatin [Lipitor] 80 mg PO HS #30 tab Metoprolol Tartrate [Lopressor] 25 mg PO BID #60 tab Nitroglycerin Sl Tabs [Nitrostat] 0.4 mg SUBLINGUAL Q5M PRN #25 tab PRN Reason: Chest Pain Prasugrel [Effient] 10 mg PO DAILY #30 tab Isosorbide Mononitrate [Isosorbide Mononitrate ER] 30 mg PO DAILY Losartan [Cozaar] 75 mg PO DAILY Hydrochlorothiazide 12.5 mg PO DAILY Discharge Medication List Cyclobenzaprine [Flexeril] 10 mg PO BID 04/07/16 [History] DULoxetine HCL [Cymbalta] 60 mg PO DAILY 04/07/16 [History] LORazepam [Ativan] 0.5 mg PO BID PRN 04/07/16 [History] Hydrocodone/Acetaminophen [[place] 5-325] 1 - 2 tab PO Q6HR PRN 05/25/16 [History] Aspirin 81 mg PO DAILY #30 chew 05/28/16 [Rx] Atorvastatin [Lipitor] 80 mg PO HS #30 tab 05/28/16 [Rx] Metoprolol Tartrate [Lopressor] 25 mg PO BID #60 tab 05/28/16 [Rx] Nitroglycerin Sl Tabs [Nitrostat] 0.4 mg SUBLINGUAL Q5M PRN #25 tab 05/28/16 [Rx ] Prasugrel [Effient] 10 mg PO DAILY #30 tab 05/28/16 [Rx] Hydrochlorothiazide 12.5 mg PO DAILY 01/01/17 [History] Isosorbide Mononitrate [Isosorbide Mononitrate ER] 30 mg PO DAILY 01/01/17 [ History] Losartan [Cozaar] 75 mg PO DAILY 01/01/17 [History] Follow up Appointment(s)/Referral(s): Stewart Bentley MD [STAFF PHYSICIAN] - 01/07/17 1:45 pm Anton Willis MD [Primary Care Provider] - 1-2 days Patient Instructions/Handouts: Chest Pain (GEN) Discharge Disposition: HOME SELF-CARE <Caden Rae - Last Filed: 01/03/17 13:40> Hospital Course: Attending note. Date of service-01/02/2017 This patient was seen and examined by me . Discussed the patient with my nurse practitioner Ms. Guadarrama. Neck pain. On examination: Tenderness at the sternocleidomastoid and clavicle junction. Investigations: Assessment and plan: Acute left neck pain at the junction no sternocleidomastoid to the clavicle felt to be musculoskeletal. Care was discussed patient has been. DC home seen by cardiology
--- NOTE | 2017-01-02 14:09 | DS ---
DISCHARGE SUMMARY ADDENDUM: DATE OF ADMISSION: 01/01/2017. DATE OF DISCHARGE: 01/02/2017. ATTENDING NOTE: The patient was seen and examined by me. This patient was discussed with my nurse practitioner, Mr. Guadarrama. Patient's final diagnosis is musculoskeletal pain at the sternocleidomastoids and clavicle junction, like an enthesitis. Other medical options . Care was discussed with the patient and her . On examination, tenderness at the sternocleidomastoid and the clavicle junction. Lungs are clear. Cardiovascular first and second sounds are normal. MMODL / IJN: [id number] /
== END 2017-01-02 11:50 | disposition home or self-care (01) ==
LOC: EC 14:56 → 3OBS 15:29
PROVIDERS: ADMIT Hospitalist; ATTEND Hospitalist
DX: M54.2 Cervicalgia (principal); R07.89 Other chest pain; J02.9 Acute pharyngitis, unspecified; I10 Essential (primary) hypertension; I25.10 Atherosclerotic heart disease of native coronary artery without angina pectoris; I25.2 Old myocardial infarction; E78.00 Pure hypercholesterolemia, unspecified; E78.5 Hyperlipidemia, unspecified; K44.9 Diaphragmatic hernia without obstruction or gangrene; M79.7 Fibromyalgia; G89.4 Chronic pain syndrome; F41.9 Anxiety disorder, unspecified; F32.9 Major depressive disorder, single episode, unspecified; M19.91 Primary osteoarthritis, unspecified site; K21.0 Gastro-esophageal reflux disease with esophagitis; Z68.41 Body mass index [BMI] 40.0-44.9, adult; E66.01 Morbid (severe) obesity due to excess calories; Z98.84 Bariatric surgery status; Z95.5 Presence of coronary angioplasty implant and graft; Z79.899 Other long term (current) drug therapy; Z79.82 Long term (current) use of aspirin; Z86.73 Personal history of transient ischemic attack (TIA), and cerebral infarction without residual deficits; Z80.3 Family history of malignant neoplasm of breast; Z80.0 Family history of malignant neoplasm of digestive organs
CPT/HCPCS: 99291; 96375 ×2; 96361 ×2; 96376 ×2; 96365 ×2; 96366 ×2; 36415; 93005; 83880; 80061; 80053; 82550 ×2; 82553 ×2; 83690; 83735; 84484 ×2; 85025 ×2; 85610 ×2; 85730 ×2; 70491; 71260; G0378 ×2; J2270; J1644 ×2; Q9967

== ENCOUNTER → 2017-05-13 | Outpatient (CLI) | payer MEDICARE, BC ==
[2017-05-13 14:25] VITALS: BP 157/78; PULSE 70; RESP 16; TEMP 98.5; BMI 42.6
[2017-05-13 16:09] LABS: HCT 38.2 % (34.0-46.0); HGB 11.9 gm/dL (11.4-16.0); MCH 28.2 pg (25.0-35.0); MCHC 31.1 g/dL (31.0-37.0); MCV 90.5 fL (80.0-100.0); Mean Platelet Volume 8.2; Platelet Count 233 k/uL (150-450); RBC 4.22 m/uL (3.80-5.40); RDW 15.2 % (11.5-15.5)
[2017-05-13 16:32] LABS: ALT 50 U/L (9-52); AST 39 U/L (14-36); Albumin 4.1 g/dL (3.5-5.0); Alkaline Phosphatase 101 U/L (38-126); Anion Gap 10 mmol/L; Blood Urea Nitrogen 16 mg/dL (7-17); Calcium 9.3 mg/dL (8.4-10.2); Carbon Dioxide 27 mmol/L (22-30); Chloride 103 mmol/L (98-107); Cholesterol 135 mg/dL (<200); Glucose 97 mg/dL (74-99); HDL Cholesterol 66 mg/dL (40-60); LDL Cholesterol,Calculated 54 mg/dL (0-99); Phosphorus 3.1 mg/dL (2.5-4.5); Potassium 4.3 mmol/L (3.5-5.1); Sodium 140 mmol/L (137-145); Total Bilirubin 0.6 mg/dL (0.2-1.3); Triglycerides 74 mg/dL (<150)
[2017-05-14 01:05] LABS: Iron Saturation 12.1 (12.00-45.00)
[2017-05-14 01:12] LABS: Folate, Serum 18.2 ng/mL
[2017-05-14 02:21] LABS: Parathyroid Hormone Intact 126.4 pg/mL (14.0-72.0)
[2017-05-14 05:48] LABS: Hemoglobin A1C 5.9 % (4.0-6.0)
[2017-05-15 05:35] LABS: Vitamin B1 44 ug/L (38-122)
[2017-05-15 06:46] LABS: Vitamin A 35 ug/dL (38-106)
--- NOTE | 2017-06-27 22:37 | P.PN ---
Subjective Progress Note Date: 05/13/17 DATE OF SERVICE: 05/13/2017 CHIEF COMPLAINT: Initial bariatric assessment. HISTORY OF PRESENT ILLNESS: Lois Napoles is 66-year-old female with a prior history of adjustable gastric band from 2008. She had complications with her band whereby she had gastric prolapse, including atypical chest pain and gastroesophageal reflux disease. Her band was removed 1 year ago, April 2016. She underwent cardiac catheterization including stent placement. She has completed 1 year antiplatelet therapy. Her highest weight was 254 pounds. Her lowest weight was 179 pounds. Initial body mass index was 44.7. His has gained 18 pounds in 9 months. She has only been able to maintain a 28% excess weight loss. As a result of her morbid obesity, she has developed hypertension including severe osteoarthritis. She is evaluating for gastric bypass. At her height of 5 for 3.25 inches, her ideal body weight is 140 pounds. She is 102 pounds overweight. PAST MEDICAL HISTORY: 1. Fibromyalgia. 2. Gastroesophageal reflux disease. 3. Hypertension. 4. Anxiety. 5. Depression. 6. Fibromyalgia. 7. Osteoarthritis. 8. Esophagitis. 9. History of herniated discs of the lower back. 10. Myocardial infarction. 11. Coronary artery disease PAST SURGICAL HISTORY: 1. History of multiple back surgeries. 2. Adjustable gastric band placed in September 2008. 3. Band removal 2016. 4. History of bilateral breast reduction. 5. Panniculectomy. 6. Cholecystectomy. 7. Hysterectomy. 8. Tonsillectomy. 9. Tubal ligation. 10. History of with resection of Heard neuroma. 11. Plantar fascia surgery. 12. Left shoulder surgery. 13. Bilateral thumb joint replacement. 14. Excision of multiple lipomas. 15. Cardiac catheterization with stent placement. MEDICATIONS: 1. Nitrostat. 2. Lopressor 3. Cozaar 4. Ativan 5. Isosorbide mononitrate 6. [place] 7. Hydrochlorothiazide 8. Cymbalta 9. Flexeril 10. Lipitor 11. Aspirin. ALLERGIES: Denies. SOCIAL HISTORY: No active tobacco use. She is . FAMILY HISTORY: Pertinent for colon cancer, including morbid obesity. Also has coronary artery disease, including stroke and hypertension in her family. ORGAN SYSTEMS: CONSTITUTIONAL: [place] body weight for her 5-foot 3-1/4-inch frame was 140 pounds. Highest weight of 254 pounds. Initial body mass index was 44.7. Present weight of 242 pounds. Body mass index reduced to 42.6 Lowest weight was 179 pounds. She has gained 63 pounds in 1 year. She is 102 pounds overweight. HEENT: Wears glasses. Denies any problems with nausea and vomiting. No reports of dysphagia, which is now resolved since removal of the adjustable gastric band. ENDOCRINE: No reports of thyroid disorders or diabetes. CARDIOVASCULAR: History of hypertension. History of myocardial infarction 1 year ago with cardiac catheterization. RESPIRATORY: No reports of obstructive sleep apnea at present. Denies any dyspnea on exertion. GASTROINTESTINAL: Personal history of gastroesophageal reflux disease, now improved since removal of adjustable gastric band. MUSCULOSKELETAL: Has diffuse osteoarthritis, including fibromyalgia. NEURO: No reports of stroke. Had a past history of a TIA, now completely resolved without sequelae. PSYCH: History of depression, including anxiety. HEMATOLOGIC: No reports of easy bruising or bleeding. No reports of thromboembolism. PHYSICAL EXAM: VITAL SIGNS: 5 feet 3-1/4 inches frame, 242 pounds. Body mass 42.6. Vital Signs Temp 98.5 F 05/13/17 14:21 Pulse 70 05/13/17 14:21 Resp 16 05/13/17 14:21 BP 157/78 05/13/17 14:21 Pulse Ox GENERAL: Well-developed, pleasant female in no acute distress. HEENT: No scleral icterus. Extraocular movements grossly intact. Moist buccal mucosa. NECK: Supple without lymphadenopathy. CHEST: Nonlabored respirations with equal bilateral excursions. CARDIOVASCULAR: Regular rate, regular rhythm. Pulses 2+ distally. ABDOMEN: Soft, nontender, nondistended. MUSCULOSKELETAL: No clubbing, cyanosis or edema. NEURO: No focal or lateralizing signs. Cranial nerves 2-12 grossly within normal limits. PSYCH: Appropriate affect. Alert and oriented to person, place and time. SKIN: Well perfused. Good skin turgor. ASSESSMENT: 1. Morbid obesity due to excess calories. 2. Body mass index reduced from 44.7 down to 42.6. 3. Previous history of adjustable gastric band. 4. Myocardial infarction. 5. Anxiety. 6. Depression. 7. Hypertensive heart disease with cardiomyopathy. 8. Fibromyalgia. 9. Osteoarthritis of the lower back. 10. Gastroesophageal reflux disease. 11. Diaphragmatic hiatal hernia. 12. Dietary surveillance and counseling. 13. Hyperparathyroidism. PLAN: 1. Bariatric options between a sleeve and a Jac-en-Y gastric bypass were reviewed in detail. She elected for a Jac-en-Y gastric bypass. Robotic assisted approach described. 2. The [place] [facility] Data was also reviewed with benefits and risks as described. 3. An 8 page second-generation bariatric consent form was reviewed in detail including potential of bleeding, infection, leaks, adequate weight loss, nutritional deficiencies which she demonstrated understanding of the risks. 4. Recommend 2 week high-protein low caloric 800 kcal diet to address hepatomegaly. 5. Preoperative labs including compress metabolic panel and CBC with type and screen completed. 6. DVT prophylaxis per [place] [facility]. 7. Antibiotic prophylaxis. 8. Inpatient hospitalization anticipated for more than 2 nights. 9. All questions and concerns were addressed with the patient. 10. Recommended diet classes completed. 11. 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 12. She is a revision from a band for gastric bypass and has increased risk for leaks, stricture, and infection for which benefits risks were reviewed. 13. Recommend bariatric panel and correction of nutritional deficiencies Laboratory Last Values WBC 6.0 k/uL (3.8-10.6) 05/13/17 15:50 RBC 4.22 m/uL (3.80-5.40) 05/13/17 15:50 Hgb 11.9 gm/dL (11.4-16.0) 05/13/17 15:50 Hct 38.2 % (34.0-46.0) 05/13/17 15:50 MCV 90.5 fL (80.0-100.0) 05/13/17 15:50 MCH 28.2 pg (25.0-35.0) 05/13/17 15:50 MCHC 31.1 g/dL (31.0-37.0) 05/13/17 15:50 RDW 15.2 % (11.5-15.5) 05/13/17 15:50 Plt Count 233 k/uL (150-450) 05/13/17 15:50 PT 10.0 sec (9.0-12.0) 05/13/17 15:50 INR 1.0 (<1.2) 05/13/17 15:50 APTT 24.0 sec (22.0-30.0) 05/13/17 15:50 Sodium 140 mmol/L (137-145) 05/13/17 15:50 Potassium 4.3 mmol/L (3.5-5.1) 05/13/17 15:50 Chloride 103 mmol/L (98-107) 05/13/17 15:50 Carbon Dioxide 27 mmol/L (22-30) 05/13/17 15:50 Anion Gap 10 mmol/L 05/13/17 15:50 BUN 16 mg/dL (7-17) 05/13/17 15:50 Creatinine 0.80 mg/dL (0.52-1.04) 05/13/17 15:50 Est GFR (MDRD) Af Amer >60 (>60 ml/min/1.73 sqM) 05/13/17 15:50 Est GFR (MDRD) Non-Af >60 (>60 ml/min/1.73 sqM) 05/13/17 15:50 Glucose 97 mg/dL (74-99) 05/13/17 15:[address] Glu mg/dL 123 05/13/17 15:50 Hemoglobin A1c 5.9 % (4.0-6.0) 05/13/17 15:50 Calcium 9.3 mg/dL (8.4-10.2) 05/13/17 15:50 Phosphorus 3.1 mg/dL (2.5-4.5) 05/13/17 15:50 Magnesium 2.1 mg/dL (1.6-2.3) 05/13/17 15:50 Iron 38 ug/dL (50-170) L 05/13/17 15:50 TIBC 314 ug/dL (228-460) 05/13/17 15:50 Iron Saturation 12.10 (12.00-45.00) 05/13/17 15:50 Ferritin 32.3 ng/mL (10.0-291.0) 05/13/17 15:50 Total Bilirubin 0.6 mg/dL (0.2-1.3) 05/13/17 15:50 AST 39 U/L (14-36) H 05/13/17 15:50 ALT 50 U/L (9-52) 05/13/17 15:50 Alkaline Phosphatase 101 U/L (38-126) 05/13/17 15:50 Total Protein 7.0 g/dL (6.3-8.2) 05/13/17 15:50 Albumin 4.1 g/dL (3.5-5.0) 05/13/17 15:50 Prealbumin 17.0 mg/dL (18.0-42.0) L 05/13/17 15:50 Triglycerides 74 mg/dL (<150) 05/13/17 15:50 Cholesterol 135 mg/dL (<200) 05/13/17 15:50 LDL Cholesterol, Calc 54 mg/dL (0-99) 05/13/17 15:50 HDL Cholesterol 66 mg/dL (40-60) H 05/13/17 15:50 Vitamin A 35 ug/dL (38-106) L 05/13/17 15:50 Vitamin B1 44 ug/L (38-122) 05/13/17 15:50 Vitamin B12 425.0 pg/mL (200.0-944.0) 05/13/17 15:50 Vitamin D 25-Hydroxy 15.2 ng/mL (30.0-100.0) L 05/13/17 15:50 Folate 18.2 ng/mL 05/13/17 15:50 TSH 2.530 mIU/L (0.465-4.680) 05/13/17 15:50 PTH Intact 126.4 pg/mL (14.0-72.0) H 05/13/17 15:50 Copper 1387 ug/L (810-1990) 05/13/17 15:50 Selenium 137 mcg/L (63-160) 05/13/17 15:50 Zinc 76 ug/dL (60-130) 05/13/17 15:50 Iron is low. Prealbumin is low. Vitamin A is low. Vitamin D is low. PTH elevated. Recommend iron supplement. Protein intake over 70 g daily. Will need vitamin A supplement. Recommend vitamin D supplement Recommend calcium intake 1200 mg daily Objective - Vital Signs Vital signs: Vital Signs Temp 98.5 F 05/13/17 14:21 Pulse 70 05/13/17 14:21 Resp 16 05/13/17 14:21 BP 157/78 05/13/17 14:21 Pulse Ox Intake & Output 05/12/17 05/13/1705/13/18 18:59 06:59 18:59 Weight 109.996 kg - Labs CBC & Chem 7: 05/13/17 15:50 05/13/17 15:50
== END | disposition home or self-care (01) ==
LOC: BARWHC3 13:33
PROVIDERS: ATTEND Surgery Plastic and Reconstructive Surgery
DX: E66.01 Morbid (severe) obesity due to excess calories (principal); I21.9 Acute myocardial infarction, unspecified; F41.9 Anxiety disorder, unspecified; F32.9 Major depressive disorder, single episode, unspecified; I11.0 Hypertensive heart disease with heart failure; I42.9 Cardiomyopathy, unspecified; M79.7 Fibromyalgia; M19.90 Unspecified osteoarthritis, unspecified site; K21.9 Gastro-esophageal reflux disease without esophagitis; K44.9 Diaphragmatic hernia without obstruction or gangrene; E21.3 Hyperparathyroidism, unspecified; D50.9 Iron deficiency anemia, unspecified; E89.1 Postprocedural hypoinsulinemia; E44.0 Moderate protein-calorie malnutrition; E55.9 Vitamin D deficiency, unspecified; N19 Unspecified kidney failure; K50.90 Crohn's disease, unspecified, without complications; Z71.3 Dietary counseling and surveillance; Z98.84 Bariatric surgery status; Z68.41 Body mass index [BMI] 40.0-44.9, adult; Z79.891 Long term (current) use of opiate analgesic; Z79.899 Other long term (current) drug therapy; Z79.82 Long term (current) use of aspirin
CPT/HCPCS: 84255; 84134; 84425; 80061; 80053; 82607; 82728; 82525; 82746; 83540; 83550; 83735; 84100; 84443; 84590; 84630; 85027; 85610; 85730; 82306; 83970; 83036; G0463; 99211

== ENCOUNTER → 2017-05-25 | Outpatient (CLI) | payer MEDICARE, BC ==
[2017-05-25 14:49] VITALS: BMI 42.3
== END | disposition home or self-care (01) ==
LOC: BARWHC3 08:53
PROVIDERS: ATTEND Surgery Plastic and Reconstructive Surgery
DX: E66.01 Morbid (severe) obesity due to excess calories (principal); Z68.41 Body mass index [BMI] 40.0-44.9, adult
CPT/HCPCS: 97804

== ENCOUNTER → 2017-06-03 | Outpatient (CLI) | payer MEDICARE, BC ==
[2017-06-03 14:06] VITALS: BP 148/91; PULSE 80; TEMP 98.2; BMI 41.6
--- NOTE | 2017-06-27 22:48 | P.PN ---
Subjective Progress Note Date: 06/03/17 DATE OF SERVICE: 06/03/2017 CHIEF COMPLAINT: Bariatric assessment. HISTORY OF PRESENT ILLNESS: Lois Napoles is 66-year-old female with a prior history of adjustable gastric band from 2008. She had complications with her band whereby she had gastric prolapse, including atypical chest pain and gastroesophageal reflux disease. Her band was removed 1 year ago, April 2016. She underwent cardiac catheterization including stent placement. She has completed 1 year antiplatelet therapy. She had recent blood work demonstrating multiple nutritional deficiencies including iron deficiency anemia. She had obtained iron infusion. She is currently taking multivitamins. No recent chest pain. No active gastroesophageal reflux disease. Her highest weight was 254 pounds. Initial body mass index was 44.7. His has lost 3 pounds in 1 month. At her height of 5 for 3.25 inches, her ideal body weight is 140 pounds. She is 99 pounds overweight. She is looking into the gastric bypass. PAST MEDICAL HISTORY: 1. Fibromyalgia. 2. Gastroesophageal reflux disease. 3. Hypertension. 4. Anxiety. 5. Depression. 6. Fibromyalgia. 7. Osteoarthritis. 8. Esophagitis. 9. History of herniated discs of the lower back. 10. Myocardial infarction. 11. Coronary artery disease PAST SURGICAL HISTORY: 1. History of multiple back surgeries. 2. Adjustable gastric band placed in September 2008. 3. Band removal 2016. 4. History of bilateral breast reduction. 5. Panniculectomy. 6. Cholecystectomy. 7. Hysterectomy. 8. Tonsillectomy. 9. Tubal ligation. 10. History of with resection of Heard neuroma. 11. Plantar fascia surgery. 12. Left shoulder surgery. 13. Bilateral thumb joint replacement. 14. Excision of multiple lipomas. 15. Cardiac catheterization with stent placement. MEDICATIONS: 1. Nitrostat. 2. Lopressor 3. Cozaar 4. Ativan 5. Isosorbide mononitrate 6. [place] 7. Hydrochlorothiazide 8. Cymbalta 9. Flexeril 10. Lipitor 11. Aspirin. ALLERGIES: Denies. SOCIAL HISTORY: No active tobacco use. She is . FAMILY HISTORY: Pertinent for colon cancer, including morbid obesity. Also has coronary artery disease, including stroke and hypertension in her family. ORGAN SYSTEMS: CONSTITUTIONAL: [place] body weight for her 5-foot 3-1/4-inch frame was 140 pounds. Highest weight of 254 pounds. Initial body mass index was 44.7. Present weight of 239 pounds. Body mass index reduced to 41.7 Lowest weight was 179 pounds. She is 99 pounds overweight. HEENT: Wears glasses. No reports of dysphagia. ENDOCRINE: No reports of thyroid disorders or diabetes. CARDIOVASCULAR: History of hypertension. History of myocardial infarction 1 year ago with cardiac catheterization. RESPIRATORY: No reports of obstructive sleep apnea at present. Denies any dyspnea on exertion. GASTROINTESTINAL: Personal history of gastroesophageal reflux disease, now improved since removal of adjustable gastric band. MUSCULOSKELETAL: Has diffuse osteoarthritis, including fibromyalgia. NEURO: No reports of stroke. Had a past history of a TIA, now completely resolved without sequelae. PSYCH: History of depression, including anxiety. HEMATOLOGIC: No reports of easy bruising or bleeding. No reports of thromboembolism. PHYSICAL EXAM: VITAL SIGNS: 5 feet 3-1/4 inches frame, 239 pounds. Body mass 41.7. Vital Signs Temp 98.2 F 06/03/17 14:03 Pulse 80 06/03/17 14:03 Resp BP 148/91 06/03/17 14:03 Pulse Ox GENERAL: Well-developed, pleasant female in no acute distress. HEENT: No scleral icterus. Extraocular movements grossly intact. Moist buccal mucosa. NECK: Supple without lymphadenopathy. CHEST: Nonlabored respirations with equal bilateral excursions. CARDIOVASCULAR: Regular rate, regular rhythm. Pulses 2+ distally. ABDOMEN: Soft, nontender, nondistended. MUSCULOSKELETAL: No clubbing, cyanosis or edema. NEURO: No focal or lateralizing signs. Cranial nerves 2-12 grossly within normal limits. PSYCH: Appropriate affect. Alert and oriented to person, place and time. SKIN: Well perfused. Good skin turgor. Laboratory Last Values WBC 6.0 k/uL (3.8-10.6) 05/13/17 15:50 RBC 4.22 m/uL (3.80-5.40) 05/13/17 15:50 Hgb 11.9 gm/dL (11.4-16.0) 05/13/17 15:50 Hct 38.2 % (34.0-46.0) 05/13/17 15:50 MCV 90.5 fL (80.0-100.0) 05/13/17 15:50 MCH 28.2 pg (25.0-35.0) 05/13/17 15:50 MCHC 31.1 g/dL (31.0-37.0) 05/13/17 15:50 RDW 15.2 % (11.5-15.5) 05/13/17 15:50 Plt Count 233 k/uL (150-450) 05/13/17 15:50 PT 10.0 sec (9.0-12.0) 05/13/17 15:50 INR 1.0 (<1.2) 05/13/17 15:50 APTT 24.0 sec (22.0-30.0) 05/13/17 15:50 Sodium 140 mmol/L (137-145) 05/13/17 15:50 Potassium 4.3 mmol/L (3.5-5.1) 05/13/17 15:50 Chloride 103 mmol/L (98-107) 05/13/17 15:50 Carbon Dioxide 27 mmol/L (22-30) 05/13/17 15:50 Anion Gap 10 mmol/L 05/13/17 15:50 BUN 16 mg/dL (7-17) 05/13/17 15:50 Creatinine 0.80 mg/dL (0.52-1.04) 05/13/17 15:50 Est GFR (MDRD) Af Amer >60 (>60 ml/min/1.73 sqM) 05/13/17 15:50 Est GFR (MDRD) Non-Af >60 (>60 ml/min/1.73 sqM) 05/13/17 15:50 Glucose 97 mg/dL (74-99) 05/13/17 15:[address] Glu mg/dL 123 05/13/17 15:50 Hemoglobin A1c 5.9 % (4.0-6.0) 05/13/17 15:50 Calcium 9.3 mg/dL (8.4-10.2) 05/13/17 15:50 Phosphorus 3.1 mg/dL (2.5-4.5) 05/13/17 15:50 Magnesium 2.1 mg/dL (1.6-2.3) 05/13/17 15:50 Iron 38 ug/dL (50-170) L 05/13/17 15:50 TIBC 314 ug/dL (228-460) 05/13/17 15:50 Iron Saturation 12.10 (12.00-45.00) 05/13/17 15:50 Ferritin 32.3 ng/mL (10.0-291.0) 05/13/17 15:50 Total Bilirubin 0.6 mg/dL (0.2-1.3) 05/13/17 15:50 AST 39 U/L (14-36) H 05/13/17 15:50 ALT 50 U/L (9-52) 05/13/17 15:50 Alkaline Phosphatase 101 U/L (38-126) 05/13/17 15:50 Total Protein 7.0 g/dL (6.3-8.2) 05/13/17 15:50 Albumin 4.1 g/dL (3.5-5.0) 05/13/17 15:50 Prealbumin 17.0 mg/dL (18.0-42.0) L 05/13/17 15:50 Triglycerides 74 mg/dL (<150) 05/13/17 15:50 Cholesterol 135 mg/dL (<200) 05/13/17 15:50 LDL Cholesterol, Calc 54 mg/dL (0-99) 05/13/17 15:50 HDL Cholesterol 66 mg/dL (40-60) H 05/13/17 15:50 Vitamin A 35 ug/dL (38-106) L 05/13/17 15:50 Vitamin B1 44 ug/L (38-122) 05/13/17 15:50 Vitamin B12 425.0 pg/mL (200.0-944.0) 05/13/17 15:50 Vitamin D 25-Hydroxy 15.2 ng/mL (30.0-100.0) L 05/13/17 15:50 Folate 18.2 ng/mL 05/13/17 15:50 TSH 2.530 mIU/L (0.465-4.680) 05/13/17 15:50 PTH Intact 126.4 pg/mL (14.0-72.0) H 05/13/17 15:50 Copper 1387 ug/L (810-1990) 05/13/17 15:50 Selenium 137 mcg/L (63-160) 05/13/17 15:50 Zinc 76 ug/dL (60-130) 05/13/17 15:50 Iron is low. Prealbumin is low. Vitamin A is low. Vitamin D is low. PTH elevated. ASSESSMENT: 1. Morbid obesity due to excess calories. 2. Body mass index reduced from 44.7 down to 42.6. 3. Previous history of adjustable gastric band. 4. Myocardial infarction. 5. Anxiety. 6. Depression. 7. Hypertensive heart disease with cardiomyopathy. 8. Fibromyalgia. 9. Osteoarthritis of the lower back. 10. Gastroesophageal reflux disease. 11. Diaphragmatic hiatal hernia. 12. Dietary surveillance and counseling. 13. Hyperparathyroidism. 14. Iron deficiency anemia 15. Prediabetes. 16. Vitamin A deficiency 17. Vitamin D deficiency PLAN: 1. Recommend iron supplement. 2. Recommend two-week high-protein low caloric diet. 3. Recommend multivitamin with calcium supplement 4. Vitamin A supplement. 5. Vitamin D supplement 6. She is a revision from a band for gastric bypass with increased risks of leaks, gastrojejunal stricture, nutritional deficiencies. She understood and risks and benefits. 7. Inpatient hospitalization over 2 nights. 8. NSAIDs is contraindicated immediately postprocedure and aspirin will be held. 9. All questions were addressed including bariatric consent form.
== END | disposition home or self-care (01) ==
LOC: BARWHC3 12:44
PROVIDERS: ATTEND Surgery Plastic and Reconstructive Surgery
DX: E66.01 Morbid (severe) obesity due to excess calories (principal); I21.9 Acute myocardial infarction, unspecified; F41.9 Anxiety disorder, unspecified; F32.9 Major depressive disorder, single episode, unspecified; I11.0 Hypertensive heart disease with heart failure; I42.9 Cardiomyopathy, unspecified; M79.7 Fibromyalgia; M19.90 Unspecified osteoarthritis, unspecified site; K21.9 Gastro-esophageal reflux disease without esophagitis; K44.9 Diaphragmatic hernia without obstruction or gangrene; E21.3 Hyperparathyroidism, unspecified; D50.9 Iron deficiency anemia, unspecified; R73.03 Prediabetes; E50.9 Vitamin A deficiency, unspecified; E55.9 Vitamin D deficiency, unspecified; Z79.82 Long term (current) use of aspirin; Z79.891 Long term (current) use of opiate analgesic; Z79.899 Other long term (current) drug therapy; Z90.49 Acquired absence of other specified parts of digestive tract; Z90.710 Acquired absence of both cervix and uterus; Z98.890 Other specified postprocedural states; Z71.3 Dietary counseling and surveillance; Z68.41 Body mass index [BMI] 40.0-44.9, adult; Z98.84 Bariatric surgery status
CPT/HCPCS: 99211

== ENCOUNTER → 2017-06-29 | Outpatient (CLI) | payer MEDICARE, BC ==
[2017-06-29 12:56] LABS: Basophils % (A) 0 %; Eosinophils # (A) 0.1 k/uL (0-0.7); Eosinophils % (A) 2 %; HCT 41.2 % (34.0-46.0); HGB 13.3 gm/dL (11.4-16.0); Lymphocytes # (A) 1.3 k/uL (1.0-4.8); Lymphocytes % (A) 30 %; MCH 28.8 pg (25.0-35.0); MCHC 32.2 g/dL (31.0-37.0); MCV 89.3 fL (80.0-100.0); Mean Platelet Volume 8.9; Monocytes # (A) 0.2 k/uL (0-1.0); Monocytes % (A) 6 %; Neutrophils # (A) 2.6 k/uL (1.3-7.7); Neutrophils % (A) 61 %; Platelet Count 219 k/uL (150-450); RBC 4.61 m/uL (3.80-5.40); RDW 14.3 % (11.5-15.5); WBC 4.4 k/uL (3.8-10.6)
[2017-06-29 13:10] LABS: ALT 48 U/L (9-52); AST 31 U/L (14-36); Albumin 4.5 g/dL (3.5-5.0); Alkaline Phosphatase 90 U/L (38-126); Anion Gap 11 mmol/L; Blood Urea Nitrogen 28 mg/dL (7-17); Calcium 10.1 mg/dL (8.4-10.2); Carbon Dioxide 25 mmol/L (22-30); Chloride 104 mmol/L (98-107); Glucose 91 mg/dL (74-99); Potassium 4.9 mmol/L (3.5-5.1); Sodium 140 mmol/L (137-145); Total Bilirubin 0.5 mg/dL (0.2-1.3); Total Protein 7.4 g/dL (6.3-8.2)
[2017-06-29 13:19] LABS: INR 1.1 (<1.2); Partial Thromboplastin Time 24.7 sec (22.0-30.0); Prothrombin Time 10.7 sec (9.0-12.0)
== END | disposition home or self-care (01) ==
LOC: LABPAT 12:14
PROVIDERS: ATTEND Surgery Plastic and Reconstructive Surgery
DX: Z01.818 Encounter for other preprocedural examination (principal); I10 Essential (primary) hypertension; Z51.81 Encounter for therapeutic drug level monitoring; Z79.01 Long term (current) use of anticoagulants
CPT/HCPCS: 36415; 80053; 85025; 85610; 85730; 93005

== ENCOUNTER 2017-07-06 05:57 | Inpatient (IN) | payer MEDICARE, BC ==
--- NOTE | 2017-07-06 04:51 | P.GSHP ---
History of Present Illness H&P Date: 07/06/17 DATE OF SERVICE: 07/06/2017 CHIEF COMPLAINT: Morbid obesity. HISTORY OF PRESENT ILLNESS: Lois Napoles is 66-year-old female with a prior history of adjustable gastric band from 2008. She had complications with her band whereby she had gastric prolapse, including atypical chest pain and gastroesophageal reflux disease. Her band was removed April 2016. She underwent cardiac catheterization including stent placement. She has completed over 1 year antiplatelet therapy. Her highest weight was 254 pounds. Initial body mass index was 44.7. At her height of 5 for 3.25 inches, her ideal body weight is 140 pounds. She is 99 pounds overweight. She is looking into the gastric bypass. PAST MEDICAL HISTORY: 1. Fibromyalgia. 2. Gastroesophageal reflux disease. 3. Hypertension. 4. Anxiety. 5. Depression. 6. Fibromyalgia. 7. Osteoarthritis. 8. Esophagitis. 9. History of herniated discs of the lower back. 10. Myocardial infarction. 11. Coronary artery disease PAST SURGICAL HISTORY: 1. History of multiple back surgeries. 2. Adjustable gastric band placed in September 2008. 3. Band removal 2016. 4. History of bilateral breast reduction. 5. Panniculectomy. 6. Cholecystectomy. 7. Hysterectomy. 8. Tonsillectomy. 9. Tubal ligation. 10. History of with resection of Heard neuroma. 11. Plantar fascia surgery. 12. Left shoulder surgery. 13. Bilateral thumb joint replacement. 14. Excision of multiple lipomas. 15. Cardiac catheterization with stent placement. MEDICATIONS: 1. Nitrostat. 2. Lopressor 3. Cozaar 4. Ativan 5. Isosorbide mononitrate 6. [place] 7. Hydrochlorothiazide 8. Cymbalta 9. Flexeril 10. Lipitor 11. Aspirin. ALLERGIES: Denies. SOCIAL HISTORY: No active tobacco use. She is . FAMILY HISTORY: Pertinent for colon cancer, including morbid obesity. Also has coronary artery disease, including stroke and hypertension in her family. ORGAN SYSTEMS: CONSTITUTIONAL: [place] body weight for her 5-foot 3-1/4-inch frame was 140 pounds. Highest weight of 254 pounds. Initial body mass index was 44.7. Present weight of 239 pounds. Body mass index reduced to 41.7 Lowest weight was 179 pounds. She is 99 pounds overweight. HEENT: Wears glasses. No reports of dysphagia. ENDOCRINE: No reports of thyroid disorders or diabetes. CARDIOVASCULAR: History of hypertension. History of myocardial infarction 1 year ago with cardiac catheterization. RESPIRATORY: No reports of obstructive sleep apnea at present. Denies any dyspnea on exertion. GASTROINTESTINAL: Personal history of gastroesophageal reflux disease, now improved since removal of adjustable gastric band. MUSCULOSKELETAL: Has diffuse osteoarthritis, including fibromyalgia. NEURO: No reports of stroke. Had a past history of a TIA, now completely resolved without sequelae. PSYCH: History of depression, including anxiety. HEMATOLOGIC: No reports of easy bruising or bleeding. No reports of thromboembolism. PHYSICAL EXAM: VITAL SIGNS: 5 feet 3-1/4 inches frame, 239 pounds. Body mass 41.7. GENERAL: Well-developed, pleasant female in no acute distress. HEENT: No scleral icterus. Extraocular movements grossly intact. Moist buccal mucosa. NECK: Supple without lymphadenopathy. CHEST: Nonlabored respirations with equal bilateral excursions. CARDIOVASCULAR: Regular rate, regular rhythm. Pulses 2+ distally. ABDOMEN: Soft, nontender, nondistended. MUSCULOSKELETAL: No clubbing, cyanosis or edema. NEURO: No focal or lateralizing signs. Cranial nerves 2-12 grossly within normal limits. PSYCH: Appropriate affect. Alert and oriented to person, place and time. SKIN: Well perfused. Good skin turgor. ASSESSMENT: 1. Morbid obesity due to excess calories. 2. Body mass index reduced from 44.7 down to 42.6. 3. Previous history of adjustable gastric band. 4. Myocardial infarction. 5. Anxiety. 6. Depression. 7. Hypertensive heart disease with cardiomyopathy. 8. Fibromyalgia. 9. Osteoarthritis of the lower back. 10. Gastroesophageal reflux disease. 11. Diaphragmatic hiatal hernia. 12. Dietary surveillance and counseling. 13. Hyperparathyroidism. 14. Iron deficiency anemia 15. Prediabetes. 16. Vitamin A deficiency 17. Vitamin D deficiency PLAN: 1. She is a revision from a band for gastric bypass with increased risks of leaks, gastrojejunal stricture, nutritional deficiencies. Robotic assisted approach advised. 2. Inpatient hospitalization over 2 nights. 3. All questions were addressed including bariatric consent form. 4. DVT prophylaxis. 5. Antibiotic prophylaxis. Past Medical History Past Medical History: Chest Pain / Angina, Fibromyalgia, Hypertension, Myocardial Infarction ([place]), Osteoarthritis ([place]), Rheumatoid Arthritis ([place]) Additional Past Medical History / Comment(s): HIATAL HERNIAL, Chronic pain syndrome. HERNIATED DISC LOWER BACK. AFTER BREAST reduction - HAD A STAPH INFECTION NOT SURE WHAT TYPE (VERIFIED THAT LEFT BREAST WOUND WAS CULTURED 0N WITH STAPH RESULTS, NO MRSA.), anemia(iron infusions 05/2017), left foot planter faciitis Last Myocardial Infarction Date:: 05/25/16 History of Any Multi-Drug Resistant Organisms: None Reported Past Surgical History: Back Surgery, Bariatric Surgery, Breast Surgery, Cholecystectomy, Heart Catheterization With Stent, Hysterectomy, Joint Replacement, Tonsillectomy, Tubal Ligation Additional Past Surgical History / Comment(s): Lap band SEPTEMBER 2008, removed 05/12. rt foot Plantar fasciitis x2 , mortons neuroma hemalatha feet, panniculectomy , HEMORRHOIDS, CERVICAL FUSION-PLATE, BREAST REDUCTION X2, MULT LIPOMAS, LT SHOULDER reconstruction with screws , HEMALATHA THUMB JOINT REPLACEMENTS. hemalatha arm lift surgery to remove excess skin Past Anesthesia/Blood Transfusion Reactions: No Reported Reaction Additional Past Anesthesia/Blood Transfusion Reaction / Comment(s): "surgical awareness", "takes a lot of anesthesia" , cervical fusion-states some limits in neck movement - states no problems with intubation in previous surgeries Date of Last Stent Placement:: 05/25/16 Smoking Status: Never smoker - Past Family History Father Family Medical History: Cancer Additional Family Medical History / Comment(s): CABG, COLON CANCER Mother Family Medical History: Cancer Additional Family Medical History / Comment(s): . Medications and Allergies Home Medications Medication Instructions Recorded Confirmed Type Cyclobenzaprine [Flexeril] 10 mg PO BID 04/07/16 07/01/17 History DULoxetine HCL [Cymbalta] 60 mg PO HS 04/07/16 07/01/17 History LORazepam [Ativan] 0.5 mg PO BID PRN 04/07/16 07/01/17 History Hydrocodone/Acetaminophen [[place] 1 - 2 tab PO Q4-6H PRN 05/25/16 07/01/17 History 5-325] Atorvastatin [Lipitor] 80 mg PO HS #30 tab 05/28/16 07/01/17 Rx Nitroglycerin Sl Tabs [Nitrostat] 0.4 mg SUBLINGUAL Q5M PRN #25 tab 05/28/1611/11 Rx Hydrochlorothiazide 12.5 mg PO DAILY 01/01/17 07/01/17 History Isosorbide Mononitrate [Isosorbide 30 mg PO DAILY 01/01/17 07/01/17 History Mononitrate ER] Losartan [Cozaar] 75 mg PO DAILY 01/01/17 07/01/17 History Aspirin 162 mg PO DAILY 07/01/17 07/01/17 History Metoprolol Tartrate [Lopressor] 50 mg PO QAM 07/01/17 07/01/17 History Allergies Allergy/AdvReac Type Severity Reaction Status Date / Time adhesive tape Allergy peels skin Verified 07/01/17 13:44 off
[~2017-07-06 05:57] MED LIST changes: +ACETAMINOPHEN IV (For NPO) 1,000 MG in EMPTY BAG 1 BAG IVPB ONE; -BUPIVACAINE LIPOSOME/PF 1.3% 20 ML, BUPIVACAIN-EPI 0.5%-1:200,000 25 ML, SODIUM CHLORID... MISCELLANE ONE; +HYDROmorphone 0.5 MG/0.5 ML SYRINGE IVP PRN; -HYDROmorphone 1 MG/ML 1 ML SYRINGE IVP PRN; -LIDOCAINE 1% 20 ML VIAL (10MG/ML) FOR IV START INTRADERMA PRN; +MIDAZOLAM 2 MG/2 ML VIAL IV PRN; -SCOPOLAMINE 1.5MG/72HR PATCH TRANSDERM ONE; +SCOPOLAMINE 1.5MG/72HR PATCH TRANSDERM STA; -ceFAZolin 2 GM in SODIUM CHLORIDE 0.9% 100 ML IVPB ONE; +ceFAZolin IN SWFI 2 GM/20 ML SYRINGE IVP ONE
[2017-07-06] MEDS: LACTATED RINGERS 1,000 ML IV SCH (06:54)
[2017-07-06] MEDS ORDERED: LIDOCAINE 1% 20 ML VIAL (10MG/ML) FOR IV START INTRADERMA ONE (06:56)
[2017-07-06] MEDS ORDERED: SCOPOLAMINE 1.5MG/72HR PATCH TRANSDERM ONE (07:27)
[2017-07-06] MEDS ORDERED: BUPIVACAINE (PF) 0.25% 30 ML VIAL SQ ONE (08:11)
[2017-07-06] MEDS ORDERED: LACTATED RINGERS 1,000 ML IV ONE ×2 (10:32→11:29)
[2017-07-06] MEDS ORDERED: MORPHINE SULFATE 4 MG/ML SYRINGE IV ONE (11:53)
[2017-07-06] MEDS ORDERED: diphenhydrAMINE 50 MG/ML 1 ML VIAL IVP PRN (11:57)
[2017-07-06] MEDS ORDERED: NALOXONE 0.4 MG/ML 1 ML VIAL IV PRN (11:57)
--- NOTE | 2017-07-06 11:57 | P.OP ---
Date of Procedure: 07/06/17 Description of Procedure: SURGEON: DELICIA BOX MD JOCKEY VALET: 1. ANH FRANK PREOPERATIVE DIAGNOSES: 1. Morbid obesity due to excess calories. 2. Body mass index reduced from 44.7 down to 40.4 3. Previous history of adjustable gastric band. 4. Myocardial infarction. 5. Anxiety. 6. Depression. 7. Hypertensive heart disease with cardiomyopathy. 8. Fibromyalgia. 9. Osteoarthritis of the lower back. 10. Gastroesophageal reflux disease. 11. Diaphragmatic hiatal hernia. 12. Dietary surveillance and counseling. 13. Hyperparathyroidism. 14. Iron deficiency anemia 15. Prediabetes. 16. Vitamin A deficiency 17. Vitamin D deficiency 18. Previous history of panniculectomy. POSTOPERATIVE DIAGNOSES: 1. Morbid obesity due to excess calories. 2. Body mass index reduced from 44.7 down to 40.4 3. Previous history of adjustable gastric band. 4. Myocardial infarction. 5. Anxiety. 6. Depression. 7. Hypertensive heart disease with cardiomyopathy. 8. Fibromyalgia. 9. Osteoarthritis of the lower back. 10. Gastroesophageal reflux disease. 11. Diaphragmatic hiatal hernia. 12. Dietary surveillance and counseling. 13. Hyperparathyroidism. 14. Iron deficiency anemia 15. Prediabetes. 16. Vitamin A deficiency 17. Vitamin D deficiency 18. Severe intra-abdominal adhesions along the midline and greater omentum to abdominal wall 19. Diaphragmatic hiatal hernia. 20. Previous history of panniculectomy. OPERATION: 1. Robotic assisted da Royal Xi laparoscopic Gris-en-Y gastric bypass, 75 cm antecolic antegastric Gris limb, with 25 mm EEA. 2. Intraoperative esophagogastrojejunoscopy. ANESTHESIA: GETA and local ESTIMATED BLOOD LOSS: 10 mL SPECIMENS REMOVED: None. COMPLICATIONS: NONE. INDICATIONS: Lois Napoles is 66-year-old female with a prior history of adjustable gastric band from 2008. She had complications with her band whereby she had gastric prolapse, including atypical chest pain and gastroesophageal reflux disease. Her band was removed April 2016. She underwent cardiac catheterization including stent placement. She has completed over 1 year antiplatelet therapy. Her highest weight was 254 pounds. Initial body mass index was 44.7. At her height of 5 for 3.25 inches, her ideal body weight is 140 pounds. Today she comes in at 231 pounds. She has lost 8 pounds in 1 month from her last visit the bariatric center. She is 91 pounds overweight. She now presents to undergo robotic assisted gastric bypass. A second-generation bariatric consent form was described in detail including the possibility of protein malnutrition, leaks, gastrojejunal stricture, venous thrombosis, need for further surgery for which she demonstrated understanding. Benefits and risks of the procedure were described at length. Informed consent was obtained. DESCRIPTION: The patient was brought into the operating room theater. She was placed on a split leg table. She had received Lovenox subcutaneously for DVT prophylaxis. Additionally she Peridex oral solution as an oral decontaminant was placed per anesthesia. After general induction, the abdomen was prepped and draped in standard sterile fashion. Ioban draping was placed along the abdomen. A robotic da Royal Xi system was prepped and primed. The xiphoid to umbilicus was measured of 13 cm. Proposed port sites were marked with indelible marker along the anterior axillary line bilaterally, mid clavicular line bilaterally with each port marked 10 cm from each other. The teaching assistant port was marked along the right lateral lower abdominal wall. The robotic stapler port was marked for the right midclavicular line including along the left midclavicular line. A 5 mm 0 degrees laparoscopic trocar entry was performed along the left upper quadrant. The abdomen was insufflated to 15 mmHg pressure, which she tolerated well. Diagnostic laparoscopy demonstrated no injury to bowel, viscera, or mesentery. Severe intra-abdominal adhesions involving the midline including right upper quadrant was identified greater omentum to the abdominal wall. The liver surface was unremarkable. A small hiatal hernia was encountered. An 8 mm camera port was placed left lateral to the umbilicus at the epigastrium , 12 cm distal to the xiphoid. Next, 12-mm robot stapler port was placed along the right mid abdomen. An 12 mm port was exchanged along the left upper quadrant. An 8 mm port was placed on the left lateral abdominal wall under direct localization. Please note that the ports were placed 18 to 20 cm away from the target anatomy of the stomach. Care was taken to check that each robotic arm was safely away from collision with the bed or the patient. At the epigastrium, a medium sized Floyd liver retractor was placed under direct visualization with the Iron Drivematic Machine Operator placed under the right shoulder of the patient. The patient was repositioned in reverse Trendelenburg position at 14-degress after lowering the bed. The robot was docked over the patient. Using grasper for arm 3, a grasper for arm 1, including vessel sealer for arm 2 , the robotic system was docked and primed as described. Instruments were interchanged by the teaching assistant including endoscissors, the needle van driver, and stapler. I had sat at the console. Next, the transverse mesocolon was reflected into the upper abdomen preparing for the jejunojejunostomy portion of the case. The ligament of Treitz was identified and measured 60 cm antegrade and marked using 2-0 Vicryl. The jejunum was divided at the 60 cm point using 45-mm white loads above the suture measurement. The biliopancreatic limb was held in place. The Gris limb was measured 75 cm in an antegrade fashion to avoid tension along the proposed gastrojejunal anastomosis. At 75 cm along the anti-mesenteric border of the Gris limb, a jejunojejunostomy was proposed whereby enterotomies were created along the biliopancreatic limb including the Gris limb using a Bovie cautery. A stay suture of 2-0 Vicryl was placed to align and create the anastomosis. The enterotomies along the anti-mesenteric borders were created followed by unidirectional fire from the patient's right side using 2 - 45 mm white load Smart technology robotic stapler. The jejunojejunostomy was found to be hemostatic. The enterotomy was closed after horizontal mattress stitch of 2-0 silk used to elevate the enterotomy followed by closure with the robotic stapler white load. The jejunal limb was temporarily tacked along the left upper quadrant. Attention was now brought to the creation of the gastrojejunostomy. Moderate adhesions were identified from her previous adjustable gastric band. The anti- prolapse stitch was identified and divided. Similarly dense adhesions were sharply divided using vessel sealer including blunt dissection. Along the lesser curvature of the stomach between the second and third veins, dissection was made along the retrogastric space to allow first firing of the robotic staple. Moderate posterior stomach were identified, hence increasing the complexity of her case. Blue loads of 4 - 45 mm staplers were used to divide the stomach to create the gastric pouch. The patient was then prepared for placement of a Orvil. The patient was Mallampati 3. A 25-mm Orvil was selected for placement by the nurse digital strategy director. The Orvil tubing was placed anterior to the staple line of the gastric pouch and brought out through the left inferior lateral port. I re-scrubbed into the case. The robotic arms were temporarily undocked. The Orvil was then carefully and successfully navigated with the help of the nurse digital strategy director into the gastric pouch. The sutures were identified and divided. The tubing was from the 25 mm anvil. As the Orvil had been placed, the blind jejunal limb was brought proximally into the upper abdomen. No torsion was found upon the Gris limb. No tension was identified as the limb was brought along the upper abdomen. The blind jejunal limb was previously opened using endo -scissors with cautery. The 25-mm EEA stapler was brought through the left anterior lateral port site from the left side. The EEA stapler was brought through the open jejunal limb and its needle was deployed at the antimesenteric border where the anvil were mated for approximately 1 minute upon firing. The stapler was removed after irrigating the shaft of the instrument with warm normal saline. Donuts were found to be intact and on both sides. The da Royal Xi robot arms were then re-docked. I sat at the console. The open jejunal limb defect was closed using 45 mm white loads after releasing any tension from the blind jejunal limb. Care was taken to avoid any long blind limb to avoid candycane syndrome. Reinforcement sutures were placed along the gastrojejunal anastomosis at the 12: 00, 9:00 and 3 o'clock position using 3-0 Vicryl. The Velasquez and jejunojejunostomy mesenteric defects were obliterated by her intra-abdominal fat. I then went to the head of the bed to perform the esophagogastrojejunoscopy and a leak test. An Olympus gastroscope was passed along the posterior oropharynx which was unremarkable for any injury to the vocal cords. The scope was passed down to the proximal portion of the pouch, whereby no active bleeding was encountered. Excellent visualization of the gastrojejunostomy anastomosis, including the Gris limb was encountered with endoscopic image obtained. The anastomosis was found to be patent. The gastrointestinal tract was desufflated. No evidence of intraoperative leak was encountered as the gastric pouch and anastomosis were submerged under normal saline solution. The robot was then undocked. I then went back to the bedside of the patient, whereby with coordinated effort of the teaching assistant, irrigation was aspirated from the upper abdominal cavity. Tisseel was placed circumferentially over the anastomosis of the gastrojejunostomy. The fascial defect of the EEA stapler was closed using Patric Deleon and 0 Vicryl. All instruments and pneumoperitoneum were evacuated from the abdominal cavity. The port correlating with the EEA stapler device was cleansed with normal saline solution and hydrogen peroxide. The rest of incisions were reapproximated using 4-0 Monocryl in an interrupted subcuticular fashion. Local anesthetic was infiltrated along the skin for postop analgesia. Dermabond was applied to the skin. OptiFoam dressing was placed along the EEA stapler site. At the end of the procedure, needle, sponge and instrument count had been verified correct by the certified master safe technician. She had tolerated the procedure well and was extubated and taken to the postanesthesia unit in stable condition. Intraoperative findings were described to the patient's family who were very pleased with the level of care. Total console time 119 minutes, Operative Findings: 1. Biliopancreatic limb 60 cm 2. Bypass performed using 75 cm gris limb secondary to avoid increased tension at 150 cm. 3. Hernandez defect and jejunojejunostomy defect obliterated by moderate intra- abdominal fat. 4. Leak test negative with gastrojejunal anastomosis patent and hemostatic. 5. Robotic staplers total of 11 combined blue and white 45 mm used - 4 used to gastric pouch 6. Reinforcement sutures were placed along the gastrojejunal anastomosis at the 12:00, 9:00 and 3 o'clock position using 3-0 Vicryl.
[2017-07-06] MEDS ORDERED: NITROGLYCERIN SL TABS 0.4 MG TAB SUBLINGUAL PRN (11:59)
[2017-07-06] MEDS: 0.9% NACL WITH KCL 20 MEQ/L 1,000 ML IV SCH (12:45)
[2017-07-06] MEDS: HYOSCYAMINE ORAL DROPS 1.875 MG/15 ML BOTTLE PO SCH ×2 (12:46→17:05)
[2017-07-06] MEDS: SIMETHICONE 40 MG/0.6 ML DROPS 2,000 MG/30 ML BOTTLE PO SCH ×2 (12:46→17:05)
[2017-07-06 12:57] VITALS: BMI 40.4
[2017-07-06] MEDS: ALBUTEROL NEBULIZED 2.5 MG/3 ML INHALATION SCH ×3 (13:50→20:18)
[2017-07-06] MEDS: MORPHINE SULFATE 4 MG/ML SYRINGE IVP PRN ×2 (14:14→17:05)
[2017-07-06] MEDS: AMPICILLIN-SULBACTAM 3 GM in SODIUM CHLORIDE 0.9% 100 ML IVPB SCH ×2 (15:24→20:27)
[2017-07-06] MEDS: ONDANSETRON 4 MG/2 ML VIAL IVP PRN (15:36)
[2017-07-06] MEDS: HYDROcodone/APAP 15 ML SOLUTION PO PRN (20:19)
[2017-07-07] MEDS: HYDROcodone/APAP 15 ML SOLUTION PO PRN ×2 (01:57→12:50)
[2017-07-07] MEDS: SIMETHICONE 40 MG/0.6 ML DROPS 2,000 MG/30 ML BOTTLE PO SCH ×4 (01:58→17:32)
[2017-07-07] MEDS: HYOSCYAMINE ORAL DROPS 1.875 MG/15 ML BOTTLE PO SCH ×4 (01:58→17:32)
[2017-07-07] MEDS: 0.9% NACL WITH KCL 20 MEQ/L 1,000 ML IV SCH ×2 (06:01→06:02)
[2017-07-07] MEDS: LACTATED RINGERS 1,000 ML IV SCH (06:02)
[2017-07-07 07:56] LABS: Anion Gap 7 mmol/L; Blood Urea Nitrogen 23 mg/dL (7-17); Calcium 8.3 mg/dL (8.4-10.2); Carbon Dioxide 22 mmol/L (22-30); Chloride 111 mmol/L (98-107); Magnesium 1.9 mg/dL (1.6-2.3); Phosphorus 3.1 mg/dL (2.5-4.5); Potassium 4.8 mmol/L (3.5-5.1); Sodium 140 mmol/L (137-145)
[2017-07-07 08:36] LABS: Basophils % (A) 0 %; Eosinophils % (A) 0 %; HCT 25.3 % (34.0-46.0); Lymphocytes # (A) 0.9 k/uL (1.0-4.8); Lymphocytes % (A) 15 %; MCH 29.5 pg (25.0-35.0); MCHC 32.2 g/dL (31.0-37.0); MCV 91.5 fL (80.0-100.0); Mean Platelet Volume 9.5; Monocytes # (A) 0.3 k/uL (0-1.0); Monocytes % (A) 5 %; Neutrophils % (A) 79 %; Platelet Count 182 k/uL (150-450); RBC 2.76 m/uL (3.80-5.40); RDW 14.3 % (11.5-15.5); WBC 6.4 k/uL (3.8-10.6)
[2017-07-07] MEDS: ALBUTEROL NEBULIZED 2.5 MG/3 ML INHALATION SCH ×4 (08:43→20:43)
[2017-07-07] MEDS: LOSARTAN 25 MG TAB PO SCH (08:48)
[2017-07-07] MEDS: ISOSORBIDE MONONITRATE ER 30 MG TAB.ER.24H PO SCH (08:48)
[2017-07-07] MEDS: HYDROCHLOROTHIAZIDE 12.5 MG CAP PO SCH (08:48)
[2017-07-07] MEDS: METOPROLOL TARTRATE 50 MG TAB PO SCH ×2 (08:48→17:32)
[2017-07-07] MEDS ORDERED: SODIUM CHLORIDE 0.9% 1,000 ML IV ONE ×2 (08:49→12:34)
[2017-07-07] MEDS: PANTOPRAZOLE 40 MG/10 ML VIAL IV SCH (08:58)
[2017-07-07] MEDS ORDERED: ASPIRIN 81 MG PO SCH (09:00)
[2017-07-07] MEDS ORDERED: ENOXAPARIN 40 MG/0.4 ML SYRINGE SQ SCH (09:00)
--- NOTE | 2017-07-07 09:38 | P.PN ---
<Alcira Rosenthal M - Last Filed: 07/07/17 09:29> Subjective Progress Note Date: 07/07/17 66 show female seen and examined at bedside noted episode heart rate up to 114 blood pressure 90/59 sats currently on 2 L 98% patient is receiving a fluid bolus as ordered. Patient states she has fibromyalgia at home and takes Olga' s 4 times a day is voicing concerns about pain control issues. Currently analgesics have been effective for pain control nursing reports they did sit the patient on the edge of the bed this morning patient felt dizzy lightheaded with a nausea sensation no active emesis with activity heart rate 114 blood pressure 90/60 pulse ox sat on 2 L 98% patient is postop July 06 Robotic assisted da Royal Xi laparoscopic Jac-en -Y gastric bypass, for morbid obesity Objective - Vital Signs Vital signs: Vital Signs Temp 98.5 F 07/07/17 07:00 Pulse 114 H 07/07/17 08:00 Resp 16 07/07/17 07:00 BP 91/59 07/07/17 08:00 Pulse Ox 100 07/07/17 08:43 Intake & Output 07/06/17 07/07/17 07/07/17 18:59 06:59 18:59 Intake Total 2400 Output Total 460 1000 500 Balance 1940 -1000 -500 Weight 105.1 kg Intake: IV 2400 0.9% NaCl with KCl 20 Meq 300 /l 1,000 ml @ 150 mls/hr IV .[id number] [facility] Rx#: [id number] Output: Urine 450 1000 500 Uretheral (Royal) 500 Estimated Blood Loss 10 Other: Voiding Method Indwelling Catheter Indwelling Catheter # Voids 1 - Exam Physical exam 66-year-old female alert oriented 3 appears in no acute distress resting in bed Lungs adequate air movement bilaterally currently on 2 L nasal cannula sats 97% no cough noted Heart S1-S2 audible and regular heart rate currently 100 Abdomen surgical incision site dressings dry nondistended soft reports nausea sensation with no vomiting few hypoactive bowel tones noted indwelling Royal catheter removed has not voided yet Extremities Venodyne's on to the bilateral lower extremities - Labs CBC & Chem 7: 07/07/17 07:06 Labs: Abnormal Lab Results - Last 24 Hours (Table) 07/07/17 Range/Units 07:06 Chloride 111 H (98-107) mmol/L BUN 23 H (7-17) mg/dL Calcium 8.3 L (8.4-10.2) mg/dL Assessment and Plan Assessment: Impression Morbid obesity due to excessive calories BMI 40.4 History of an adjustable gastric LAP-BAND Osteoarthritis of the lower back Gastroesophageal reflux disease History of fibromyalgia Anxiety depressive disorder Iron deficiency anemia Vitamin A and D deficiency A prior history of panniculectomy Diaphragmatic hiatus hernia Robotic assisted da Royal Xi laparoscopic Jac-en-Y gastric bypass, done for morbid obesity on July 06 Plan Continue postop bariatric care Pain control Fluid bolus as ordered DVT and GI prophylaxis Encourage ambulation Bariatric clear diet as ordered Home meds as appropriate The above impression and plan of care have been discussed and directed by signing physician. Alcira Rosenthal nurse practitioner acting as scribe for signing physician. <Ladonna Rebolledo N - Last Filed: 07/07/17 14:31> Objective - Vital Signs Vital signs: Vital Signs Temp 98.5 F 07/07/17 07:00 Pulse 128 H 07/07/17 12:30 Resp 16 07/07/17 07:00 BP 102/67 07/07/17 12:30 Pulse Ox 100 07/07/17 08:43 Intake & Output 07/06/17 07/07/17 07/07/17 18:59 06:59 18:59 Intake Total 2400 900 Output Total 460 1000 500 Balance 1940 -1000 400 Weight 105.1 kg Intake: IV 2400 900 0.9% NaCl with KCl 20 Meq 600 /l 1,000 ml @ 100 mls/hr IV .BY DURATION JORGE A Rx#: [id number] 0.9% NaCl with KCl 20 Meq 300 300 /l 1,000 ml @ 150 mls/hr IV .Q6H40M [facility] Rx#: [id number] Output: Urine 450 1000 500 Uretheral (Royal) 500 Estimated Blood Loss 10 Other: Voiding Method Indwelling Catheter Indwelling Catheter Indwelling Catheter # Voids 1 - Labs CBC & Chem 7: 07/07/17 07:06 07/07/17 07:06 Labs: Abnormal Lab Results - Last 24 Hours (Table) 07/07/17 07/07/17 Range/Units 07:06 07:06 RBC 2.76 L (3.80-5.40) m/uL Hgb 8.1 L D (11.4-16.0) gm/dL Hct 25.3 L (34.0-46.0) % Lymphocytes # 0.9 L (1.0-4.8) k/uL Chloride 111 H (98-107) mmol/L BUN 23 H (7-17) mg/dL Calcium 8.3 L (8.4-10.2) mg/dL Assessment and Plan Plan: Patient had known history of iron deficiency anemia. Hemoglobin is low. Recommend repeat CBC. Hold Lovenox. Correct iron deficiency anemia.
[2017-07-07 09:46] LABS: HGB 8.1 gm/dL (11.4-16.0)
[2017-07-07] MEDS: ONDANSETRON 4 MG/2 ML VIAL IVP PRN ×2 (10:41→17:49)
[2017-07-07] MEDS ORDERED: MAGNESIUM SULFATE-D5W PMX 1 GM in DEXTROSE/WATER 1 100ML.BAG IVPB ONE (14:03)
[2017-07-07 15:28] LABS: Basophils % (A) 0 %; Eosinophils % (A) 0 %; HCT 22.4 % (34.0-46.0); HGB 7.4 gm/dL (11.4-16.0); Lymphocytes # (A) 0.9 k/uL (1.0-4.8); Lymphocytes % (A) 13 %; MCH 30.3 pg (25.0-35.0); MCHC 33.1 g/dL (31.0-37.0); MCV 91.6 fL (80.0-100.0); Mean Platelet Volume 9.4; Monocytes # (A) 0.3 k/uL (0-1.0); Monocytes % (A) 4 %; Neutrophils # (A) 5.6 k/uL (1.3-7.7); Neutrophils % (A) 81 %; Platelet Count 148 k/uL (150-450); RBC 2.44 m/uL (3.80-5.40); RDW 14.8 % (11.5-15.5); WBC 6.9 k/uL (3.8-10.6)
[2017-07-07] MEDS: MORPHINE SULFATE 4 MG/ML SYRINGE IVP PRN (18:54)
[2017-07-07] MEDS ORDERED: DEXAMETHASONE SOD PHOSPHATE 10 MG/ML 1 ML VIAL IV STA (19:14)
[2017-07-07 20:03] LABS: Iron Saturation 22.51 (12.00-45.00)
[2017-07-07 20:13] LABS: HCT 23.5 % (34.0-46.0); HGB 7.4 gm/dL (11.4-16.0); Hypochromasia Slight; MCHC 31.4 g/dL (31.0-37.0); MCV 92.6 fL (80.0-100.0); Mean Platelet Volume 9.7; Platelet Count 150 k/uL (150-450); RBC 2.53 m/uL (3.80-5.40); RDW 14.9 % (11.5-15.5); WBC 7.6 k/uL (3.8-10.6)
--- NOTE | 2017-07-07 20:42 | P.PN ---
Progress Note - Text Progress Note Date: 07/07/17 Patient seen and evaluated. Earlier reports of emesis secondary to nausea. Decadron given and nausea and vomiting completely resolved. Repeat hemoglobin now stable. No further reports of dizziness. Plan to hold lovenox secondary to adverse reaction of bleeding. Aspirin also held to avoid potentiation of bleed with earlier hematemesis. Potential discharge home in 24 to 48 hrs pending clinical response to expectant care.
[2017-07-08] MEDS: SIMETHICONE 40 MG/0.6 ML DROPS 2,000 MG/30 ML BOTTLE PO SCH ×5 (00:31→22:53)
[2017-07-08] MEDS: HYOSCYAMINE ORAL DROPS 1.875 MG/15 ML BOTTLE PO SCH ×5 (00:31→22:53)
[2017-07-08] MEDS: LACTATED RINGERS 1,000 ML IV SCH (06:02)
[2017-07-08] MEDS: LOSARTAN 25 MG TAB PO SCH (08:23)
[2017-07-08] MEDS: METOPROLOL TARTRATE 50 MG TAB PO SCH ×2 (08:23→20:51)
[2017-07-08] MEDS: HYDROCHLOROTHIAZIDE 12.5 MG CAP PO SCH (08:23)
[2017-07-08] MEDS: ISOSORBIDE MONONITRATE ER 30 MG TAB.ER.24H PO SCH (08:24)
[2017-07-08] MEDS: PANTOPRAZOLE 40 MG/10 ML VIAL IV SCH (08:24)
[2017-07-08] MEDS ORDERED: SODIUM FERRIC GLUCONAT-SUCROSE 125 MG in SODIUM CHLORIDE 0.9% 100 ML IVPB ONE (08:30)
[2017-07-08 09:02] LABS: Basophils % (A) 0 %; Eosinophils # (A) 0.1 k/uL (0-0.7); Eosinophils % (A) 1 %; HCT 23.2 % (34.0-46.0); HGB 7.6 gm/dL (11.4-16.0); Lymphocytes # (A) 0.6 k/uL (1.0-4.8); Lymphocytes % (A) 9 %; MCHC 32.9 g/dL (31.0-37.0); Mean Platelet Volume 9.1; Monocytes # (A) 0.2 k/uL (0-1.0); Monocytes % (A) 3 %; Neutrophils # (A) 5.6 k/uL (1.3-7.7); Neutrophils % (A) 86 %; Platelet Count 153 k/uL (150-450); RBC 2.55 m/uL (3.80-5.40); RDW 14.9 % (11.5-15.5); WBC 6.6 k/uL (3.8-10.6)
[2017-07-08] MEDS: ALBUTEROL NEBULIZED 2.5 MG/3 ML INHALATION SCH ×4 (09:50→22:13)
[2017-07-08] MEDS: MORPHINE SULFATE 4 MG/ML SYRINGE IVP PRN ×3 (10:48→20:59)
--- NOTE | 2017-07-08 12:12 | P.CRDCN ---
History of Present Illness Consult date: 07/08/17 History of present illness: This is a 66-year-old female with history of ischemic heart disease and previous inferior wall myocardial infarction. Patient had stent placement done in April of last year. She also has about 80% stenosis of the ostium of the obtuse marginal branch. Apparently stress test after the stent placement did not reveal any inducible ischemia. Her ejection fraction is described as 50%. Patient was cleared for surgery by Dr. Bentley. Patient had bariatric surgery. Patient had a lot of back pain but denied any chest pain or shortness of breath. Patient was becoming tachycardic with any exertional activities. Review of the and telemetry strips showed episodes of sinus tachycardia with rates of about 150-160. She also claimed that she has been having some bloody stools. She is anemic with hemoglobin of 7.2. It appears that her tachycardia most probably related to severe anemia. At the time of my examination patient is not having any chest pain or shortness of breath. We'll continue her current medical therapy including beta blockers. Continue with blood transfusion. Further recommendations depend upon clinical course. No acute cardiac intervention is needed. Review of Systems As per the chart Past Medical History Past Medical History: Chest Pain / Angina, Fibromyalgia, Hypertension, Myocardial Infarction ([place]), Osteoarthritis (OA), Rheumatoid Arthritis (RA) Additional Past Medical History / Comment(s): HIATAL HERNIAL, Chronic pain syndrome. HERNIATED DISC LOWER BACK. AFTER BREAST reduction - HAD A STAPH INFECTION NOT SURE WHAT TYPE (VERIFIED THAT LEFT BREAST WOUND WAS CULTURED 0N WITH STAPH RESULTS, NO MRSA.), anemia(iron infusions 05/2017), left foot planter faciitis Last Myocardial Infarction Date:: 05/25/16 History of Any Multi-Drug Resistant Organisms: None Reported Past Surgical History: Back Surgery, Bariatric Surgery, Breast Surgery, Cholecystectomy, Heart Catheterization With Stent, Hysterectomy, Joint Replacement, Tonsillectomy, Tubal Ligation Additional Past Surgical History / Comment(s): Lap band SEPTEMBER 2008, removed 05/12. rt foot Plantar fasciitis x2 , mortons neuroma hemalatha feet, panniculectomy , HEMORRHOIDS, CERVICAL FUSION-PLATE, BREAST REDUCTION X2, MULT LIPOMAS, LT SHOULDER reconstruction with screws , HEMALATHA THUMB JOINT REPLACEMENTS. hemalatha arm lift surgery to remove excess skin Past Anesthesia/Blood Transfusion Reactions: No Reported Reaction Additional Past Anesthesia/Blood Transfusion Reaction / Comment(s): "surgical awareness", "takes a lot of anesthesia" , cervical fusion-states some limits in neck movement - states no problems with intubation in previous surgeries Date of Last Stent Placement:: 05/25/16 Past Psychological History: Anxiety, Depression Additional Psychological History / Comment(s): chronic depression from teens, hx panic attacks Smoking Status: Never smoker Past Alcohol Use History: Rare Past Drug Use History: None Reported - Past Family History Father Family Medical History: Cancer Additional Family Medical History / Comment(s): CABG, COLON CANCER Mother Family Medical History: Cancer Additional Family Medical History / Comment(s): . Medications and Allergies Home Medications Medication Instructions Recorded Confirmed Type Cyclobenzaprine [Flexeril] 10 mg PO BID 04/07/16 07/06/17 History DULoxetine HCL [Cymbalta] 60 mg PO HS 04/07/16 07/06/17 History LORazepam [Ativan] 0.5 mg PO BID PRN 04/07/16 07/06/17 History Hydrocodone/Acetaminophen [[place] 1 - 2 tab PO Q4-6H PRN 05/25/16 07/06/17 History 5-325] Atorvastatin [Lipitor] 80 mg PO HS #30 tab 05/28/16 07/06/17 Rx Nitroglycerin Sl Tabs [Nitrostat] 0.4 mg SUBLINGUAL Q5M PRN #25 tab 05/28/1604/13 Rx Hydrochlorothiazide 12.5 mg PO DAILY 01/01/17 07/06/17 History Isosorbide Mononitrate [Isosorbide 30 mg PO DAILY 01/01/17 07/06/17 History Mononitrate ER] Losartan [Cozaar] 75 mg PO DAILY 01/01/17 07/06/17 History Aspirin 162 mg PO DAILY 07/01/17 07/06/17 History Metoprolol Tartrate [Lopressor] 50 mg PO QAM 07/01/17 07/06/17 History Allergies Allergy/AdvReac Type Severity Reaction Status Date / Time adhesive tape Allergy peels skin Verified 07/06/17 12:25 off Physical Exam Vitals: Vital Signs Temp Pulse Pulse Resp BP BP BP 07/08/17 11:53 99.5 F 84 16 146/83 07/08/17 11:23 98.6 F 07/08/17 11:22 99.6 F 84 16 143/77 07/08/17 10:53 98.9 F 78 16 131/76 07/08/17 10:43 98.4 F 78 16 131/75 07/08/17 09:51 07/08/17 07:38 98.7 F 108 H 18 152/100 07/08/17 04:50 98.2 F 111 H 18 127/84 07/08/17 02:00 07/08/17 00:00 98.1 F 99 16 122/81 07/07/17 20:00 98.4 F 93 18 135/83 07/07/17 17:13 102 H 127/83 07/07/17 14:30 98.3 F 105 H 16 124/58 07/07/17 12:30 128 H 102/67 Pulse Ox 07/08/17 11:53 100 07/08/17 11:23 07/08/17 11:22 07/08/17 10:53 100 07/08/17 10:43 100 07/08/17 09:51 100 07/08/17 07:38 100 07/08/17 04:50 97 07/08/17 02:00 98 07/08/17 00:00 97 07/07/17 20:00 99 07/07/17 17:13 07/07/17 14:30 96 07/07/17 12:30 Intake and Output 07/07/17 07/08/17 07/08/17 22:59 06:59 14:59 Intake Total 350 600 0 Output Total 610 Balance -260 600 0 Intake: Intake, IV Titration 350 600 Amount Mvi, Adult No.4 with Vit 350 600 K 10 ml Thiamine 100 mg Folic Acid 1 mg In 0.9% NaCl with KCl 20 Meq/l 1, 000 ml @ 100 mls/hr IV . BY DURATION [facility] Rx#: [id number] Blood Product 0 Rc As-1 Unit 0 [id number] Output: Urine 550 Other 60 Other: Voiding Method Toilet # Voids 1 # Bowel Movements 1 3 Weight 105.1 kg Patient Weight 07/09/17 06:59 Weight 105.1 kg GENERAL EXAM: Patient is alert and oriented and doesn't appear to be in any acute distress HEENT: Normocephalic. Normal reaction of pupils, equal size, normal range of extraocular motion. No erythema or exudates in the throat. NECK: No masses, no nuchal rigidity. CHEST: No chest wall deformity. LUNGS: Equal air entry with no crackles or wheeze.. HEART: S1 and S2 normal with no audible mumurs or gallops. Regular rhythm, . ABDOMEN: No hepatosplenomegaly, normal bowel sounds, no guarding or rigidity. SKIN: No rashes CENTRAL NERVOUS SYSTEM: No focal deficits. EXTREMITIES: No cyanosis, clubbing or edema. Results 07/08/17 08:29 07/07/17 07:06 Cardiac Enzymes 07/07/17 07/07/17 Range/Units 14:25 19:51 Troponin I <0.012 <0.012 (0.000-0.034) ng/mL CBC 07/07/17 07/07/17 07/08/17 Range/Units 14:56 19:51 08:29 WBC 6.9 7.6 6.6 (3.8-10.6) k/uL RBC 2.44 L 2.53 L 2.55 L (3.80-5.40) m/uL Hgb 7.4 L 7.4 L 7.6 L (11.4-16.0) gm/dL Hct 22.4 L 23.5 L 23.2 L (34.0-46.0) % Plt Count 148 L 150 153 (150-450) k/uL Current Medications Generic Name Dose Route Start Last Admin Trade Name Freq PRN Reason Stop Dose Admin Hydrocodone Bitart/Acetaminophen 30 ml 07/06/17 11:57 07/07/17 12:50 [place] Elixir 7.5-325mg/15ml PO 30 ml Q6HR PRN Administration Severe Pain Albuterol Sulfate 2.5 mg 07/06/17 12:00 07/08/17 09:50 Ventolin Nebulized INHALATION Not Given RT-QID JORGE A Diphenhydramine HCl 25 mg 07/06/17 11:57 Benadryl IVP Q6HR PRN Itching Hydrochlorothiazide 12.5 mg 07/07/17 09:00 07/08/17 08:23 Hydrodiuril PO Not Given DAILY JORGE A Hyoscyamine 0.125 mg 07/06/17 12:15 07/08/17 05:11 Levsin Drops PO 0.125 mg Q6HR JORGE A Administration Lactated Ringer's 1,000 mls @ 20 mls/hr 07/06/17 05:14 07/08/17 06:02 Lactated Ringers IV Not Given .Q24H [facility] Parenteral Vitamin Supplement 1,011.2 mls @ 100 mls/hr 07/07/17 08:00 06:02 10 ml/ Thiamine HCl 100 mg/ IV Not Given Folic Acid 1 mg/ Potassium .BY DURATION JORGE A Chloride/Sodium Chloride Potassium Chloride/Sodium Chloride 1,000 mls @ 100 mls/hr 07/07/17 08:00 06:10 Ns-Kcl 20 Meq/L Iv Solution IV 100 mls/hr .BY DURATION [facility] Administration Isosorbide Mononitrate 30 mg 07/07/17 09:00 07/08/17 08:24 Imdur PO 30 mg DAILY JORGE A Administration Losartan Potassium 75 mg 07/07/17 09:00 07/08/17 08:23 Cozaar PO 75 mg DAILY [facility] Administration Metoprolol Tartrate 50 mg 07/08/17 09:00 07/08/17 08:23 Lopressor PO 50 mg BID [facility] Administration Morphine Sulfate 7 mg 07/06/17 11:57 07/08/17 10:48 Morphine Sulfate (Inj) IVP 7 mg Q3HR PRN Administration Pain Naloxone HCl 0.2 mg 07/06/17 11:57 Narcan IV Q2M PRN Opioid Reversal Nitroglycerin 0.4 mg 07/06/17 11:59 Nitrostat SUBLINGUAL Q5M PRN Chest Pain Ondansetron HCl 4 mg 07/06/17 11:57 07/07/17 17:49 Zofran IVP 4 mg Q8HR PRN Administration Nausea And Vomiting Pantoprazole Sodium 40 mg 07/07/17 09:00 07/08/17 08:24 Protonix IV 40 mg DAILY [facility] Administration Simethicone 40 mg 07/06/17 12:15 07/08/17 05:11 Mylicon Drops PO 40 mg Q6HR JORGE A Administration Intake and Output 07/07/17 07/08/17 07/08/17 22:59 06:59 14:59 Intake Total 350 600 0 Output Total 610 Balance -260 600 0 Intake: Intake, IV Titration 350 600 Amount Mvi, Adult No.4 with Vit 350 600 K 10 ml Thiamine 100 mg Folic Acid 1 mg In 0.9% NaCl with KCl 20 Meq/l 1, 000 ml @ 100 mls/hr IV . BY DURATION JORGE A Rx#: [id number] Blood Product 0 Rc As-1 Unit 0 [id number] Output: Urine 550 Other 60 Other: Voiding Method Toilet # Voids 1 # Bowel Movements 1 3 Weight 105.1 kg Patient Weight 07/09/17 06:59 Weight 105.1 kg 07/08/17 08:29 07/07/17 07:06 EKG Interpretations (text) Sinus rhythm and episodes of sinus tachycardia Assessment and Plan (1) Sinus tachycardia Current Visit: Yes Status: Acute Code(s): R00.0 - TACHYCARDIA, UNSPECIFIED SNOMED Code(s): 96794639 (2) Anemia Current Visit: Yes Status: Acute Code(s): D64.9 - ANEMIA, UNSPECIFIED SNOMED Code(s): 405454671 (3) CAD (coronary artery disease) Current Visit: Yes Status: Acute Code(s): I25.10 - ATHSCL HEART DISEASE OF [place] CORONARY ARTERY W/O ANG PCTRS SNOMED Code(s): 85673921 (4) Hypertension Current Visit: Yes Status: Acute Code(s): I10 - ESSENTIAL (PRIMARY) HYPERTENSION SNOMED Code(s): 54889766 Plan: Patient's sinus tachycardia is more related to her anemia and blood loss. Continue with blood transfusion. Patient is not having any chest pain or shortness of breath. Continue with beta blockers. Further recommendations depend upon clinical course.
--- NOTE | 2017-07-08 13:23 | P.PN ---
<Taya Rosenthalamirah Azul - Last Filed: 07/08/17 13:10> Subjective Progress Note Date: 07/08/17 66 show female seen and examined this morning. Patient is up to the bathroom this morning witnessed a large liquid maroon colored stool heart rate went up to 150 with activity pulse ox sat on 2 L 100% on room air 97 blood pressure 152/ 100 patient states no shortness of breath no dizziness no lightheadedness no abdominal pain "this is the best I have felt" upon returning to bed at rest the heart rate down to the 80s. Hemoglobin this morning 7. 6 was 7.4 yesterday evening patient to receive 1 unit of packed red blood cells this morning postop July 06 Robotic assisted da Royal Xi laparoscopic Jac-en-Y gastric bypass, for morbid obesity Objective - Vital Signs Vital signs: Vital Signs Temp 99.4 F 07/08/17 13:03 Pulse 70 07/08/17 13:03 Resp 16 07/08/17 12:29 BP 119/71 07/08/17 13:03 Pulse Ox 100 07/08/17 12:29 Intake & Output 07/07/17 07/08/17 07/08/17 18:59 06:59 18:59 Intake Total 900 950 310 Output Total 650 460 Balance 250 490 310 Weight 105.1 kg Intake: IV 900 0.9% NaCl with KCl 20 Meq 600 /l 1,000 ml @ 100 mls/hr IV .BY DURATION JORGE A Rx#: [id number] 0.9% NaCl with KCl 20 Meq 300 /l 1,000 ml @ 150 mls/hr IV .Q6H40M JORGE A Rx#: [id number] Intake, IV Titration 950 Amount Mvi, Adult No.4 with Vit 950 K 10 ml Thiamine 100 mg Folic Acid 1 mg In 0.9% NaCl with KCl 20 Meq/l 1, 000 ml @ 100 mls/hr IV . BY DURATION JORGE A Rx#: [id number] Blood Product 310 Rc As-1 Unit 310 [id number] Output: Urine 650 400 Uretheral (Royal) 500 Other 60 Other: Voiding Method Indwelling Catheter Toilet # Voids 1 # Bowel Movements 1 3 - Exam Physical exam 66-year-old female currently resting in bed states has no chest pain dizziness lightheadedness no shortness of breath nor abdominal pain Lungs adequate air movement bilaterally currently on room air with a sat of 97 no cough Heart S1-S2 audible and regular no murmur heart rate at rest 90 Abdomen surgical sites no redness dressings dry surgical tenderness appropriate bowel tones present urinating no difficulty had one large liquid maroon stool this morning Extremities no edema to the bilateral lower extremity - Labs CBC & Chem 7: 07/08/17 08:29 07/07/17 07:06 Labs: Abnormal Lab Results - Last 24 Hours (Table) 07/07/17 07/07/17 07/07/17 Range/Units 14:56 14:56 19:51 RBC 2.44 L 2.53 L (3.80-5.40) m/uL Hgb 7.4 L 7.4 L (11.4-16.0) gm/dL Hct 22.4 L 23.5 L (34.0-46.0) % Plt Count 148 L (150-450) k/uL Lymphocytes # 0.9 L (1.0-4.8) k/uL Iron 43 L (50-170) ug/dL TIBC 191 L (228-460) ug/dL Crossmatch 07/08/17 07/08/17 Range/Units 08:29 08:29 RBC 2.55 L (3.80-5.40) m/uL Hgb 7.6 L (11.4-16.0) gm/dL Hct 23.2 L (34.0-46.0) % Plt Count (150-450) k/uL Lymphocytes # 0.6 L (1.0-4.8) k/uL Iron (50-170) ug/dL TIBC (228-460) ug/dL Crossmatch See Detail Assessment and Plan Assessment: Impression Morbid obesity due to excessive calories BMI 40.4 History of an adjustable gastric LAP-BAND Osteoarthritis of the lower back Gastroesophageal reflux disease History of fibromyalgia Anxiety depressive disorder Iron deficiency anemia Vitamin A and D deficiency A prior history of panniculectomy Diaphragmatic hiatus hernia Robotic assisted da Royal Xi laparoscopic Jac-en-Y gastric bypass, done for morbid obesity on July 06 Symptomatic exertional sinus tachycardia likely related to anemia Known coronary artery disease with prior coronary stenting and inferior wall myocardial infarction April 2016 Plan Follow up on the echocardiogram Continue postop bariatric care Pain control Transfuse 1 unit packed red blood cells Aspirin to be held as well as Lovenox secondary to adverse reaction the bleeding Continue Lopressor 50 twice a day DVT and GI prophylaxis Encourage ambulation Bariatric clear diet as ordered Home meds as appropriate The above impression and plan of care have been discussed and directed by signing physician. Alcira Rosenthal nurse practitioner acting as scribe for signing physician. <AmauryLadonna N - Last Filed: 07/09/17 07:46> Objective - Vital Signs Vital signs: Vital Signs Temp 97.9 F 07/09/17 07:00 Pulse 80 07/09/17 07:28 Resp 16 07/09/17 07:00 BP 111/74 07/09/17 07:00 Pulse Ox 100 07/09/17 07:15 Intake & Output 07/08/17 07/09/17 07/09/17 18:59 06:59 18:59 Intake Total 910 300 Balance 910 300 Weight 105.1 kg Intake: IV 500 300 0.9% NaCl with KCl 20 Meq 500 300 /l 1,000 ml @ 100 mls/hr IV .BY DURATION [facility] Rx#: [id number] Intake, IV Titration 100 Amount Sodium Ferric Gluconat- 100 Sucrose 125 mg In Sodium Chloride 0.9% 100 ml @ 100 mls/hr IVPB ONCE ONE Rx#:[id number] Blood Product 310 Rc As-1 Unit 310 [id number] Other: # Voids 2 # Bowel Movements 3 - Labs CBC & Chem 7: 07/08/17 08:29 07/07/17 07:06 Labs: Abnormal Lab Results - Last 24 Hours (Table) 07/08/17 07/08/17 Range/Units 08:29 08:29 RBC 2.55 L (3.80-5.40) m/uL Hgb 7.6 L (11.4-16.0) gm/dL Hct 23.2 L (34.0-46.0) % Lymphocytes # 0.6 L (1.0-4.8) k/uL Crossmatch See Detail
[2017-07-09 01:30] VITALS: RESP 16
[2017-07-09] MEDS: HYOSCYAMINE ORAL DROPS 1.875 MG/15 ML BOTTLE PO SCH ×2 (04:58→11:44)
[2017-07-09] MEDS: SIMETHICONE 40 MG/0.6 ML DROPS 2,000 MG/30 ML BOTTLE PO SCH ×2 (04:58→11:45)
[2017-07-09] MEDS: LACTATED RINGERS 1,000 ML IV SCH (05:18)
[2017-07-09] MEDS: ALBUTEROL NEBULIZED 2.5 MG/3 ML INHALATION SCH (07:14)
[2017-07-09 07:44] VITALS: TEMP 97.9
--- NOTE | 2017-07-09 07:48 | P.PN ---
Progress Note - Text Progress Note Date: 07/08/17 Patient seen and reevaluated this evening. Her is at bedside. "I feel great.". No further bloody bowel movements. She denies any abdominal pain. No chest pain or palpitations. She has responded well to her blood transfusion including adjustment of her metoprolol. Patient has been seen by cardiology as well. We'll repeat CBC in the morning with tentative discharge in the morning. Medical reconciliation includes adjustment of metoprolol and aspirin. Patient to follow-up in the bariatric center in 24-48 hours.
[2017-07-09] MEDS: MORPHINE SULFATE 4 MG/ML SYRINGE IVP PRN (07:50)
--- NOTE | 2017-07-09 07:59 | P.DS ---
Providers Date of admission: 07/06/17 05:57 Expected date of discharge: 07/09/17 Attending physician: Ladonna Rebolledo Consults: 07/08/17 08:25 Consult Physician Urgent Consulting Provider: Stewart Bentley Consult Reason/Comments: tachycardia Do you want consulting provider notified?: Yes Primary care physician: Christos Munoz MD - Discharge Diagnosis(es) (1) Acute blood loss anemia Current Visit: Yes Status: Acute (2) Anticoagulant-induced bleeding Current Visit: Yes Status: Acute (3) CAD (coronary artery disease) Current Visit: Yes Status: Acute (4) Hypertension Current Visit: Yes Status: Acute (5) Hypertensive cardiomyopathy Current Visit: Yes Status: Acute (6) Iron deficiency anemia due to dietary causes Current Visit: Yes Status: Acute (7) Morbid obesity Current Visit: Yes Status: Acute (8) S/P gastric bypass Current Visit: Yes Status: Acute (9) Sinus tachycardia Current Visit: Yes Status: Acute (10) Depression Current Visit: Yes Status: Chronic (11) Morbid (severe) obesity due to excess calories Current Visit: Yes Status: Chronic (12) Hyperlipemia Current Visit: No Status: Acute (13) Dysphagia Current Visit: No Status: Chronic (14) History of adjustable gastric banding Current Visit: No Status: Chronic (15) Hypertension Current Visit: No Status: Chronic (16) Osteoarthritis Current Visit: No Status: Chronic Hospital Course: Lois Napoles is 66-year-old female with a prior history of adjustable gastric band from 2008. She had complications with her band whereby she had gastric prolapse, including atypical chest pain and gastroesophageal reflux disease. Her band was removed April 2016. She underwent cardiac catheterization including stent placement. She has completed over 1 year antiplatelet therapy. Her highest weight was 254 pounds. Initial body mass index was 44.7. At her height of 5 for 3.25 inches, her ideal body weight is 140 pounds. She is 99 pounds overweight. She had a robotic-assisted to gastric bypass with intraoperative EGD without event. Postprocedure, she was continued on her aspirin and Lovenox with adverse event of bleeding as a result. Upon discontinuation of anticoagulation, patient stopped bleeding. She did have bloody bowel movements that resolved. As she had symptomatic anemia including history of cardiomyopathy, she received 1 unit blood transfusion. Prior to discharge, she was stable. Medication adjustments were performed. Cardiology consultation was obtained. Bariatric post discharge instructions were reviewed in detail. Pertinent Studies: Echo Procedures: Robotic assisted gastric bypass with intraoperative EGD Patient Condition at Discharge: Stable Plan - Discharge Summary Discharge Rx Participant: Yes New Discharge Prescriptions: New Bisacodyl [Dulcolax] 5 mg PO DAILY PRN #10 tablet.dr PRN Reason: Constipation Metoprolol Tartrate [Lopressor] 50 mg PO BID #60 tab Ondansetron Odt [Zofran Odt] 4 mg PO Q8HR PRN #9 tab PRN Reason: Nausea Simethicone 40 mg/0.6 ml Drops [Mylicon Drops] 40 mg PO PCHS PRN #30 ml PRN Reason: Gas Continue LORazepam [Ativan] 0.5 mg PO BID PRN PRN Reason: Anxiety Cyclobenzaprine [Flexeril] 10 mg PO BID DULoxetine HCL [Cymbalta] 60 mg PO HS Hydrocodone/Acetaminophen [[place] 5-325] 1 - 2 tab PO Q4-6H PRN PRN Reason: Pain Nitroglycerin Sl Tabs [Nitrostat] 0.4 mg SUBLINGUAL Q5M PRN #25 tab PRN Reason: Chest Pain Isosorbide Mononitrate [Isosorbide Mononitrate ER] 30 mg PO DAILY Losartan [Cozaar] 75 mg PO DAILY Hydrochlorothiazide 12.5 mg PO DAILY Metoprolol Tartrate [Lopressor] 50 mg PO QAM Discontinued Atorvastatin [Lipitor] 80 mg PO HS #30 tab Aspirin 162 mg PO DAILY Discharge Medication List Cyclobenzaprine [Flexeril] 10 mg PO BID 04/07/16 [History] DULoxetine HCL [Cymbalta] 60 mg PO HS 04/07/16 [History] LORazepam [Ativan] 0.5 mg PO BID PRN 04/07/16 [History] Hydrocodone/Acetaminophen [[place] 5-325] 1 - 2 tab PO Q4-6H PRN 05/25/16 [History ] Nitroglycerin Sl Tabs [Nitrostat] 0.4 mg SUBLINGUAL Q5M PRN #25 tab 05/28/16 [Rx ] Hydrochlorothiazide 12.5 mg PO DAILY 01/01/17 [History] Isosorbide Mononitrate [Isosorbide Mononitrate ER] 30 mg PO DAILY 01/01/17 [ History] Losartan [Cozaar] 75 mg PO DAILY 01/01/17 [History] Metoprolol Tartrate [Lopressor] 50 mg PO QAM 07/01/17 [History] Bisacodyl [Dulcolax] 5 mg PO DAILY PRN #10 tablet. 07/09/17 [Rx] Metoprolol Tartrate [Lopressor] 50 mg PO BID #60 tab 07/09/17 [Rx] Ondansetron Odt [Zofran Odt] 4 mg PO Q8HR PRN #9 tab 07/09/17 [Rx] Simethicone 40 mg/0.6 ml Drops [Mylicon Drops] 40 mg PO PCHS PRN #30 ml [Rx] Follow up Appointment(s)/Referral(s): Bariatric Center,. [NON-STAFF] - 07/10/17 11:00 am (Please call to confirm time) Patient Instructions/Handouts: Nutrition after Bariatric Surgery (GEN), Jac- en-Y Gastric Bypass (DC) Activity/Diet/Wound Care/Special Instructions: No lifting over 4 pounds in 4 weeks. May shower. No bath tub soaks. Dressing will be discontinued by surgeon tomorrow. Please crush or open capsule of medication. Discharge Disposition: HOME SELF-CARE
[2017-07-09 08:46] LABS: HCT 23.5 % (34.0-46.0); HGB 7.8 gm/dL (11.4-16.0); MCHC 33.4 g/dL (31.0-37.0); Mean Platelet Volume 9.9; Platelet Count 142 k/uL (150-450); RBC 2.61 m/uL (3.80-5.40); RDW 15.5 % (11.5-15.5); WBC 6.4 k/uL (3.8-10.6)
[2017-07-09] MEDS: HYDROCHLOROTHIAZIDE 12.5 MG CAP PO SCH (08:52)
[2017-07-09] MEDS: LOSARTAN 25 MG TAB PO SCH (08:52)
[2017-07-09] MEDS: PANTOPRAZOLE 40 MG/10 ML VIAL IV SCH (08:52)
[2017-07-09] MEDS: METOPROLOL TARTRATE 50 MG TAB PO SCH (08:52)
[2017-07-09] MEDS: ISOSORBIDE MONONITRATE ER 30 MG TAB.ER.24H PO SCH (08:52)
[2017-07-09 08:57] VITALS: BP 106/72; PULSE 89
--- NOTE | 2017-07-09 12:19 | ECHOF ---
Referral Reason:tachycardia MEASUREMENTS -------- HEIGHT: 160.0 cm WEIGHT: 104.8 kg BP: 143/77 RVIDd: 3.4 cm (< 3.3) IVSd: 1.1 cm (0.6 - 1.1) LVIDd: 4.5 cm (3.9 - 5.3) LVPWd: 1.2 cm (0.6 - 1.1) IVSs: 1.5 cm LVIDs: 2.5 cm LVPWs: 1.2 cm LA Diam: 3.4 cm (2.7 - 3.8) Ao Diam: 2.6 cm (2.0 - 3.7) AV Cusp: 1.5 cm (1.5 - 2.6) LA Diam: 3.5 cm (2.7 - 3.8) MV E Alejandro: 1.03 m/s MV DecT: 225 ms MV A Alejandro: 1.10 m/s MV E/A Ratio: 0.93 AV maxP.58 mmHg AV meanP.16 mmHg RAP: 5.00 mmHg RVSP: 15.95 mmHg FINDINGS -------- Sinus rhythm. This was a technically difficult study with suboptimal views. The left ventricular size is normal. There is mild concentric left ventricular hypertrophy. Overa ll left ventricular systolic function is normal with, an EF between 55 - 60 %. The right ventricle is mildly enlarged. The left atrial size is normal. The right atrium was not well visualized. 3ml of Lumason was utilized for enhancement of images. The aortic valve is trileaflet, and appears structurally normal. No aortic stenosis or regurgitation. The mitral valve leaflets are mildly thickened. There is trace to mild mitral regurgitation. Trace tricuspid regurgitation present. Right ventricular systolic pressure is normal at < 35 mmHg. There is no evidence of pulmonary hypertension. The pulmonic valve was not well visualized. The aortic root is borderline dilated up to 3.6 cm. Normal inferior vena cava with normal inspiratory collapse consistent with estimated right atrial pre ssure of 5 mmHg. There is a trivial pericardial effusion present. CONCLUSIONS -------- 1. Sinus rhythm. 2. This was a technically difficult study with suboptimal views. 3. The left ventricular size is normal. 4. There is mild concentric left ventricular hypertrophy. 5. Overall left ventricular systolic function is normal with, an EF between 55 - 60 %. 6. The right ventricle is mildly enlarged. 7. The left atrial size is normal. 8. The right atrium was not well visualized. 9. 3ml of Lumason was utilized for enhancement of images. 10. The aortic valve is trileaflet, and appears structurally normal. No aortic stenosis or regurgitat ion. 11. The mitral valve leaflets are mildly thickened. 12. There is trace to mild mitral regurgitation. 13. Trace tricuspid regurgitation present. 14. Right ventricular systolic pressure is normal at < 35 mmHg. 15. There is no evidence of pulmonary hypertension. 16. The pulmonic valve was not well visualized. 17. The aortic root is borderline dilated up to 3.6 cm. 18. There is a trivial pericardial effusion present. GRAIN MANAGER: Tomy Summers RDCS
== END 2017-07-09 12:30 | disposition home or self-care (01) | DRG 620 ==
LOC: 2ORMAIN 05:57 → 3SUR 11:45
PROVIDERS: ADMIT Surgery Plastic and Reconstructive Surgery; ATTEND Surgery Plastic and Reconstructive Surgery
PROC: 0DJ08ZZ Inspection of Upper Intestinal Tract, Via Natural or Artificial Opening Endoscopic (ICD-10-PCS; 2017-07-06)
PROC: 8E0W4CZ Robotic Assisted Procedure of Trunk Region, Percutaneous Endoscopic Approach (ICD-10-PCS; 2017-07-06)
PROC: 0D164ZA Bypass Stomach to Jejunum, Percutaneous Endoscopic Approach (ICD-10-PCS; principal; 2017-07-06 07:30)
PROC: 30233N1 Transfusion of Nonautologous Red Blood Cells into Peripheral Vein, Percutaneous Approach (ICD-10-PCS; 2017-07-08)
DX: E66.01 Morbid (severe) obesity due to excess calories (principal); I43 Cardiomyopathy in diseases classified elsewhere; I11.9 Hypertensive heart disease without heart failure; D62 Acute posthemorrhagic anemia; F32.9 Major depressive disorder, single episode, unspecified; Z68.41 Body mass index [BMI] 40.0-44.9, adult; F41.0 Panic disorder [episodic paroxysmal anxiety]; K21.0 Gastro-esophageal reflux disease with esophagitis; M79.7 Fibromyalgia; I25.2 Old myocardial infarction; D50.8 Other iron deficiency anemias; E21.3 Hyperparathyroidism, unspecified; E50.9 Vitamin A deficiency, unspecified; E55.9 Vitamin D deficiency, unspecified; E78.5 Hyperlipidemia, unspecified; G89.4 Chronic pain syndrome; K44.9 Diaphragmatic hernia without obstruction or gangrene; M06.9 Rheumatoid arthritis, unspecified; M47.9 Spondylosis, unspecified; R73.03 Prediabetes; R13.10 Dysphagia, unspecified; K66.0 Peritoneal adhesions (postprocedural) (postinfection); K64.9 Unspecified hemorrhoids; I25.10 Atherosclerotic heart disease of native coronary artery without angina pectoris; Z71.3 Dietary counseling and surveillance; Z79.82 Long term (current) use of aspirin; Z79.899 Other long term (current) drug therapy; Z95.5 Presence of coronary angioplasty implant and graft; Z90.710 Acquired absence of both cervix and uterus; Z90.49 Acquired absence of other specified parts of digestive tract; Z98.1 Arthrodesis status; Z91.048 Other nonmedicinal substance allergy status
CPT/HCPCS: 80051; 82310; 82565; 83540; 83550; 83735; 84100; 84484; 84520; 85025; 85027; 86850; 86900; 86901; 86920; 93005; 93306; 94640; 94760; 94762

== ENCOUNTER → 2017-07-10 | Outpatient (CLI) | payer MEDICARE, BC ==
[2017-07-10 11:41] VITALS: BMI 46.3
[2017-07-10 12:10] VITALS: BP 132/79; PULSE 93; TEMP 97.7
[2017-07-10 12:35] LABS: Basophils % (A) 0 %; Eosinophils # (A) 0.2 k/uL (0-0.7); Eosinophils % (A) 3 %; HGB 8.8 gm/dL (11.4-16.0); Lymphocytes # (A) 1.3 k/uL (1.0-4.8); Lymphocytes % (A) 19 %; MCHC 33.9 g/dL (31.0-37.0); MCV 88.6 fL (80.0-100.0); Mean Platelet Volume 9.2; Monocytes # (A) 0.2 k/uL (0-1.0); Monocytes % (A) 3 %; Neutrophils # (A) 4.9 k/uL (1.3-7.7); Neutrophils % (A) 73 %; Platelet Count 185 k/uL (150-450); RBC 2.93 m/uL (3.80-5.40); RDW 15.4 % (11.5-15.5); WBC 6.6 k/uL (3.8-10.6)
== END | disposition home or self-care (01) ==
LOC: BARWHC3 10:58
PROVIDERS: ATTEND Surgery Plastic and Reconstructive Surgery
DX: Z01.812 Encounter for preprocedural laboratory examination (principal); E66.01 Morbid (severe) obesity due to excess calories; D50.9 Iron deficiency anemia, unspecified
CPT/HCPCS: 85025; 97803; 36415; G0463; 99211

== ENCOUNTER → 2017-07-17 | Outpatient (CLI) | payer MEDICARE, BC ==
[2017-07-17 15:12] VITALS: BP 133/72; PULSE 81; TEMP 97.9; BMI 39.6
--- NOTE | 2017-08-21 13:50 | P.PN ---
Subjective Progress Note Date: 07/17/17 DATE OF SERVICE: 07/17/2017 CHIEF COMPLAINT: Follow up gastric bypass HISTORY OF PRESENT ILLNESS: Lois Napoles is 66-year-old female status post gastric bypass from adjustable gastric band 07/06/2017. She is 2 weeks out. She complains of periumbilical pain. She is passing flatus. She is having bowel movements. She is tolerating diet. Her highest weight is 263 pounds. Body mass index was 46.3. Today, she comes in weighing 226 pounds. In 1 week, she has lost 37 pounds. At her height of 5 for 3.25 inches, her ideal body weight is 140 pounds. Percent excess weight loss is 30%. Lifetime weight loss 37 pounds PHYSICAL EXAM: VITAL SIGNS: 5 feet 3-1/4 inches frame, 226 pounds. Body mass 39.7 Vital Signs Temp 97.9 F 07/17/17 15:07 Pulse 81 07/17/17 15:07 Resp BP 133/72 07/17/17 15:07 Pulse Ox GENERAL: Well-developed, pleasant female in no acute distress. HEENT: No scleral icterus. Extraocular movements grossly intact. Moist buccal mucosa. NECK: Supple without lymphadenopathy. CHEST: Nonlabored respirations with equal bilateral excursions. CARDIOVASCULAR: Regular rate, regular rhythm. Pulses 2+ distally. ABDOMEN: Soft, nondistended. No palpable incisional hernias. Incisions granulated. No infection. MUSCULOSKELETAL: No clubbing, cyanosis or edema. NEURO: No focal or lateralizing signs. Cranial nerves 2-12 grossly within normal limits. PSYCH: Appropriate affect. Alert and oriented to person, place and time. SKIN: Well perfused. Good skin turgor. ASSESSMENT: 1. Morbid obesity due to excess calories. 2. Body mass index 46.3 to 39.7. 3. Previous history of adjustable gastric band. 4. Myocardial infarction. 5. Anxiety. 6. Depression. 7. Hypertensive heart disease with cardiomyopathy. 8. Fibromyalgia. 9. Osteoarthritis of the lower back. 10. Gastroesophageal reflux disease. 11. Diaphragmatic hiatal hernia. 12. Dietary surveillance and counseling. 13. Hyperparathyroidism. 14. Iron deficiency anemia 15. Prediabetes. 16. Vitamin A deficiency 17. Vitamin D deficiency 18. Status post gastric bypass 19. History of anemia PLAN: 1. Protein intake over 75 g advised. 2. For pain, recommend adding Flexeril as she reports moderate back pain. 3. Recommend milk of magnesia for constipation 4. Follow-up in 2 weeks. Objective - Vital Signs Vital signs: Vital Signs Temp 97.9 F 07/17/17 15:07 Pulse 81 07/17/17 15:07 Resp BP 133/72 07/17/17 15:07 Pulse Ox
== END | disposition home or self-care (01) ==
LOC: BARWHC3 14:16
PROVIDERS: ATTEND Surgery Plastic and Reconstructive Surgery
DX: Z48.815 Encounter for surgical aftercare following surgery on the digestive system (principal); E66.01 Morbid (severe) obesity due to excess calories; I21.9 Acute myocardial infarction, unspecified; F41.9 Anxiety disorder, unspecified; F32.9 Major depressive disorder, single episode, unspecified; I11.9 Hypertensive heart disease without heart failure; I42.9 Cardiomyopathy, unspecified; M79.7 Fibromyalgia; M47.9 Spondylosis, unspecified; K21.9 Gastro-esophageal reflux disease without esophagitis; D50.9 Iron deficiency anemia, unspecified; E50.9 Vitamin A deficiency, unspecified; E55.9 Vitamin D deficiency, unspecified; E21.3 Hyperparathyroidism, unspecified; R73.03 Prediabetes; K44.9 Diaphragmatic hernia without obstruction or gangrene; Z71.3 Dietary counseling and surveillance; Z98.84 Bariatric surgery status; Z68.39 Body mass index [BMI] 39.0-39.9, adult
CPT/HCPCS: 99211

== ENCOUNTER → 2017-07-29 | Outpatient (CLI) | payer MEDICARE, BC ==
[2017-07-29 13:16] VITALS: BP 113/73; PULSE 63; TEMP 98; BMI 38.5
[2017-07-29 14:39] LABS: HCT 35.1 % (34.0-46.0); HGB 11.3 gm/dL (11.4-16.0); Hypochromasia Slight; MCH 29.8 pg (25.0-35.0); MCHC 32.2 g/dL (31.0-37.0); MCV 92.4 fL (80.0-100.0); Mean Platelet Volume 8.4; Platelet Count 260 k/uL (150-450); RBC 3.79 m/uL (3.80-5.40); RDW 15.6 % (11.5-15.5); WBC 4.3 k/uL (3.8-10.6)
[2017-07-29 14:51] LABS: INR 1.1 (<1.2); Partial Thromboplastin Time 23.7 sec (22.0-30.0); Prothrombin Time 10.7 sec (9.0-12.0)
[2017-07-29 14:57] LABS: Albumin 3.7 g/dL (3.5-5.0); Calcium 10.3 mg/dL (8.4-10.2); Magnesium 2.1 mg/dL (1.6-2.3); Phosphorus 2.8 mg/dL (2.5-4.5); Total Bilirubin 0.6 mg/dL (0.2-1.3); Total Protein 6.5 g/dL (6.3-8.2)
[2017-07-29 15:04] LABS: Potassium 4.6 mmol/L (3.5-5.1)
[2017-07-29 19:09] LABS: Iron Saturation 17.62 (12.00-45.00)
[2017-07-29 19:21] LABS: Vitamin D 25 Hydroxy 26.9 ng/mL (30.0-100.0)
[2017-07-29 19:25] LABS: Folate, Serum 13.7 ng/mL
[2017-07-29 19:36] LABS: Parathyroid Hormone Intact 58.6 pg/mL (14.0-72.0)
[2017-07-29 20:55] LABS: Hemoglobin A1C 4.6 % (4.0-6.0)
[2017-07-30 15:49] LABS: Zinc, Serum 82 ug/dL (60-130)
[2017-07-31 05:47] LABS: Vitamin A 35 ug/dL (38-106)
[2017-07-31 09:59] LABS: Vitamin B1 52 ug/L (38-122)
== END | disposition home or self-care (01) ==
LOC: BARWHC3 12:42
PROVIDERS: ATTEND Surgery Plastic and Reconstructive Surgery
DX: E66.01 Morbid (severe) obesity due to excess calories (principal); Z71.3 Dietary counseling and surveillance; E21.1 Secondary hyperparathyroidism, not elsewhere classified; E89.1 Postprocedural hypoinsulinemia; D50.9 Iron deficiency anemia, unspecified; K90.9 Intestinal malabsorption, unspecified; E44.0 Moderate protein-calorie malnutrition; E55.9 Vitamin D deficiency, unspecified; K74.1 Hepatic sclerosis; N19 Unspecified kidney failure; K50.90 Crohn's disease, unspecified, without complications; Z68.38 Body mass index [BMI] 38.0-38.9, adult
CPT/HCPCS: 84255; 84134; 84425; 80061; 80053; 82607; 82728; 82525; 82746; 83540; 83550; 83735; 84100; 84443; 84590; 84630; 85027; 85610; 85730; 82306; 83970; 83036; 97803; 36415; G0463; 99211

== ENCOUNTER → 2017-09-02 | Outpatient (CLI) | payer MEDICARE, BC ==
[2017-09-02 13:55] VITALS: BP 143/85; PULSE 71; TEMP 97.8; BMI 37.3
--- NOTE | 2017-09-02 14:18 | P.PN ---
Subjective Progress Note Date: 09/02/17 DATE OF SERVICE: 09/02/2017 CHIEF COMPLAINT: Follow up gastric bypass HISTORY OF PRESENT ILLNESS: Lois Napoles is 66-year-old female status post gastric bypass from adjustable gastric band 07/06/2017. She is was last seen 07/29/17. She is 2 months out. She still has constipation. She has limited with moving. She reports dizziness is now better. She has dysphagia with solid foods. She reports eating at best the palm of her hand. She has improved eating more protein. She complains that everything is too sweet for beverages. She complains of dry mouth as a result of her medication. She takes chronic pain medications. She had been eating much vegetables but her diet has changed. Her highest weight is 263 pounds. Body mass index was 46.3. Today, she comes in weighing 214 from 219 pounds at her last visit. At her height of 5 for 3.25 inches, her ideal body weight is 140 pounds. Percent excess weight loss is 53%. Lifetime weight loss 65 pounds. PHYSICAL EXAM: VITAL SIGNS: 5 feet 3-1/4 inches frame, 215 pounds. Body mass 37.3 GENERAL: Well-developed, pleasant female in no acute distress. HEENT: No scleral icterus. Extraocular movements grossly intact. Moist buccal mucosa. NECK: Supple without lymphadenopathy. CHEST: Nonlabored respirations with equal bilateral excursions. CARDIOVASCULAR: Regular rate, regular rhythm. Pulses 2+ distally. ABDOMEN: Soft, nondistended. No palpable incisional hernias. No cellulitis MUSCULOSKELETAL: No clubbing, cyanosis or edema. NEURO: No focal or lateralizing signs. Cranial nerves 2-12 grossly within normal limits. PSYCH: Appropriate affect. Alert and oriented to person, place and time. SKIN: Well perfused. Good skin turgor. Laboratory Last Values WBC 4.3 k/uL (3.8-10.6) 07/29/17 14:12 RBC 3.79 m/uL (3.80-5.40) L 07/29/17 14:12 Hgb 11.3 gm/dL (11.4-16.0) L 07/29/17 14:12 Hct 35.1 % (34.0-46.0) 07/29/17 14:12 MCV 92.4 fL (80.0-100.0) 07/29/17 14:12 MCH 29.8 pg (25.0-35.0) 07/29/17 14:12 MCHC 32.2 g/dL (31.0-37.0) 07/29/17 14:12 RDW 15.6 % (11.5-15.5) H 07/29/17 14:12 Plt Count 260 k/uL (150-450) 07/29/17 14:12 Hypochromasia Slight 07/29/17 14:12 PT 10.7 sec (9.0-12.0) 07/29/17 14:12 INR 1.1 (<1.2) 07/29/17 14:12 APTT 23.7 sec (22.0-30.0) 07/29/17 14:12 Sodium 142 mmol/L (137-145) 07/29/17 14:12 Potassium 4.6 mmol/L (3.5-5.1) 07/29/17 14:12 Chloride 106 mmol/L (98-107) 07/29/17 14:12 Carbon Dioxide 24 mmol/L (22-30) 07/29/17 14:12 Anion Gap 12 mmol/L 07/29/17 14:12 BUN 24 mg/dL (7-17) H 07/29/17 14:12 Creatinine 0.80 mg/dL (0.52-1.04) 07/29/17 14:12 Est GFR (CKD-EPI)AfAm 89 (>60 ml/min/1.73 sqM) 07/29/17 14:12 Est GFR (CKD-EPI)NonAf 77 (>60 ml/min/1.73 sqM) 07/29/17 14:12 Glucose 87 mg/dL (74-99) 07/29/17 14:[address] Glu mg/dL 85 07/29/17 14:12 Hemoglobin A1c 4.6 % (4.0-6.0) 07/29/17 14:12 Calcium 10.3 mg/dL (8.4-10.2) H 07/29/17 14:12 Phosphorus 2.8 mg/dL (2.5-4.5) 07/29/17 14:12 Magnesium 2.1 mg/dL (1.6-2.3) 07/29/17 14:12 Iron 43 ug/dL (50-170) L 07/29/17 14:12 TIBC 244 ug/dL (228-460) 07/29/17 14:12 Iron Saturation 17.62 (12.00-45.00) 07/29/17 14:12 Ferritin 239.7 ng/mL (10.0-291.0) 07/29/17 14:12 Total Bilirubin 0.6 mg/dL (0.2-1.3) 07/29/17 14:12 AST 27 U/L (14-36) 07/29/17 14:12 ALT 28 U/L (9-52) 07/29/17 14:12 Alkaline Phosphatase 82 U/L (38-126) 07/29/17 14:12 Total Protein 6.5 g/dL (6.3-8.2) 07/29/17 14:12 Albumin 3.7 g/dL (3.5-5.0) 07/29/17 14:12 Prealbumin 16.0 mg/dL (18.0-42.0) L 07/29/17 14:12 Triglycerides 108 mg/dL (<150) 07/29/17 14:12 Cholesterol 138 mg/dL (<200) 07/29/17 14:12 LDL Cholesterol, Calc 68 mg/dL (0-99) 07/29/17 14:12 HDL Cholesterol 48 mg/dL (40-60) 07/29/17 14:12 Vitamin A 35 ug/dL (38-106) L 07/29/17 14:12 Vitamin B1 52 ug/L (38-122) 07/29/17 14:12 Vitamin B12 495.0 pg/mL (200.0-944.0) 07/29/17 14:12 Vitamin D 25-Hydroxy 26.9 ng/mL (30.0-100.0) L 07/29/17 14:12 Folate 13.7 ng/mL 07/29/17 14:12 TSH 1.260 mIU/L (0.465-4.680) 07/29/17 14:12 PTH Intact 58.6 pg/mL (14.0-72.0) 07/29/17 14:12 Copper 1294 ug/L (810-1990) 04/04/18 14:12 Selenium 121 mcg/L (63-160) 07/29/17 14:12 Zinc 82 ug/dL (60-130) 07/29/17 14:12 Hemoglobin is low Calcium elevated Iron is low Prealbumin level Vitamin A level Vitamin D level ASSESSMENT: 1. Morbid obesity due to excess calories. 2. Body mass index 46.3 to 38.5. 3. Previous history of adjustable gastric band. 4. Myocardial infarction. 5. Anxiety. 6. Depression. 7. Hypertensive heart disease with cardiomyopathy. 8. Fibromyalgia. 9. Osteoarthritis of the lower back. 10. Gastroesophageal reflux disease. 11. Diaphragmatic hiatal hernia. 12. Dietary surveillance and counseling. 13. Hyperparathyroidism. 14. Iron deficiency anemia 15. Prediabetes. 16. Vitamin A deficiency 17. Vitamin D deficiency 18. Status post gastric bypass 19. History of anemia PLAN: 1. Recommend upper scope to address dysphagia. 2. Reviewed labs and supplements are started. 3. Recommend opiate induced constipation medication. 4. Start to introduce fiber and probiotic. 5. Recommend liquid diet in the interim. Objective - Vital Signs Vital signs: Vital Signs Temp 97.8 F 09/02/17 13:50 Pulse 71 09/02/17 13:50 Resp BP 143/85 09/02/17 13:50 Pulse Ox Intake & Output 09/01/17 09/02/17 09/02/17 18:59 06:59 18:59 Weight 97.069 kg
== END | disposition home or self-care (01) ==
LOC: BARWHC3 13:39
PROVIDERS: ATTEND Surgery Plastic and Reconstructive Surgery
DX: Z09 Encounter for follow-up examination after completed treatment for conditions other than malignant neoplasm (principal); E66.01 Morbid (severe) obesity due to excess calories; K21.9 Gastro-esophageal reflux disease without esophagitis; K59.00 Constipation, unspecified; R42 Dizziness and giddiness; G89.29 Other chronic pain; I21.9 Acute myocardial infarction, unspecified; F41.9 Anxiety disorder, unspecified; F32.9 Major depressive disorder, single episode, unspecified; I11.9 Hypertensive heart disease without heart failure; I42.9 Cardiomyopathy, unspecified; M79.7 Fibromyalgia; M47.9 Spondylosis, unspecified; K44.9 Diaphragmatic hernia without obstruction or gangrene; E21.3 Hyperparathyroidism, unspecified; D50.9 Iron deficiency anemia, unspecified; R73.03 Prediabetes; E50.9 Vitamin A deficiency, unspecified; E55.9 Vitamin D deficiency, unspecified; Z71.3 Dietary counseling and surveillance; Z68.38 Body mass index [BMI] 38.0-38.9, adult; Z98.84 Bariatric surgery status
CPT/HCPCS: 99211

== ENCOUNTER 2017-09-09 11:37 | Day surgery (SDC) | payer MEDICARE, BC ==
[2017-09-07 15:47] VITALS: BMI 36.8
--- NOTE | 2017-09-09 08:07 | P.GSHP ---
History of Present Illness H&P Date: 09/09/17 CHIEF COMPLAINT: GERD HISTORY OF PRESENT ILLNESS: The patient is a 66-year-old female who presents reports gastroesophageal reflux disease. Upper endoscopy was offered for further evaluation and management. PAST MEDICAL HISTORY: Please see list. PAST SURGICAL HISTORY: Please see list. MEDICATIONS: Please see list. ALLERGIES: Please see list. SOCIAL HISTORY: No illicit drug use FAMILY HISTORY: No reports of Crohn disease or ulcerative colitis. REVIEW OF ORGAN SYSTEMS: CONSTITUTIONAL: No reports of fevers or chills. GI: Denies any blood in stools or constipation. PHYSICAL EXAM: VITAL SIGNS: Stable GENERAL: Well-developed and pleasant in no acute distress. HEENT: No scleral icterus. Extraocular movements grossly intact. Moist buccal mucosa. NECK: Supple without lymphadenopathy. CHEST: Unlabored respirations. Equal bilateral excursions. CARDIOVASCULAR: Regular rate and rhythm. Distal 2+ pulses. ABDOMEN: Soft, nondistended. MUSCULOSKELETAL: No clubbing, cyanosis, or edema. ASSESSMENT: 1. Gastroesophageal reflux disease PLAN: 1. Recommend proceeding with an upper endoscopy Past Medical History Past Medical History: Chest Pain / Angina, CVA/TIA, Fibromyalgia, GERD/Reflux, Hypertension, Myocardial Infarction ([place]), Osteoarthritis (OA) Additional Past Medical History / Comment(s): states frequent vomiting, dysphagia, HIATAL HERNIA, Chronic pain syndrome. HEMORRHOIDS. "RAPID HEART BEAT OCC". TIA 20 YEARS, HERNIATED DISC LOWER BACK. IN 2006 Last Myocardial Infarction Date:: 05/25/16 History of Any Multi-Drug Resistant Organisms: None Reported Past Surgical History: Back Surgery, Bariatric Surgery, Breast Surgery, Cholecystectomy, Heart Catheterization With Stent, Hysterectomy, Tonsillectomy, Tubal Ligation Additional Past Surgical History / Comment(s): Lap band SEPTEMBER 2008, removed 05/12. Plantar fascia x2 mortons neuroma, panniculectomy,heart stent x1 COLONOSCOPY/EGD, HEMORRHOIDS, CERVICAL FUSION-PLATE, BREAST REDUCTION SX X2, LIPOMAS, LT SHOULDER SX, HEMALATHA THUMB JOINT REPLACEMENTS. gris-n-y gastric bypass Past Anesthesia/Blood Transfusion Reactions: Previous Problems w/ Anesthesia Additional Past Anesthesia/Blood Transfusion Reaction / Comment(s): "surgical awareness", "takes a lot of anesthesia", cervical fusion-states some limits in neck movement - states no problems with intubation in previous surgeries Date of Last Stent Placement:: 05/25/16 Smoking Status: Never smoker - Past Family History Father Family Medical History: Cancer Additional Family Medical History / Comment(s): CABG, COLON CANCER Mother Family Medical History: Cancer Additional Family Medical History / Comment(s): . Medications and Allergies Home Medications Medication Instructions Recorded Confirmed Type Cyclobenzaprine [Flexeril] 10 mg PO BID 04/07/16 09/07/17 History DULoxetine HCL [Cymbalta] 60 mg PO HS 04/07/16 09/07/17 History LORazepam [Ativan] 0.5 mg PO BID PRN 04/07/16 09/07/17 History Hydrocodone/Acetaminophen [[place] 1 - 2 tab PO Q4-6H PRN 05/25/16 09/07/17 History 5-325] Nitroglycerin Sl Tabs [Nitrostat] 0.4 mg SUBLINGUAL Q5M PRN #25 tab 05/28/16 Rx Hydrochlorothiazide 12.5 mg PO DAILY PRN 01/01/17 09/07/17 History Bisacodyl [Dulcolax] 5 mg PO DAILY PRN #10 tablet. 07/09/17 09/07/17 Rx Metoprolol Tartrate [Lopressor] 50 mg PO BID #60 tab 07/09/17 09/07/17 Rx Omeprazole 40 mg PO DAILY #90 capsule. 07/09/17 09/07/17 Rx Aspirin [Adult Low Dose Aspirin EC] 162 mg PO QAM 09/07/17 09/07/17 History Allergies Allergy/AdvReac Type Severity Reaction Status Date / Time adhesive tape Allergy peels skin Verified 09/07/17 15:43 off
[~2017-09-09 11:37] MED LIST changes: -ACETAMINOPHEN IV (For NPO) 1,000 MG in EMPTY BAG 1 BAG IVPB ONE; -CHLORHEXIDINE GLUCONATE 15 ML CUP MUCOUS MEM ONE; -DEXAMETHASONE SOD PHOSPHATE 10 MG/ML 1 ML VIAL IV ONE; -ENOXAPARIN 40 MG/0.4 ML SYRINGE SQ STA; -HYDROmorphone 0.5 MG/0.5 ML SYRINGE IVP PRN; +LACTATED RINGERS 1,000 ML IV SCH; +LIDOCAINE 1% 20 ML VIAL (10MG/ML) FOR IV START INTRADERMA PRN; -MIDAZOLAM 2 MG/2 ML VIAL IV PRN; -ONDANSETRON 4 MG/2 ML VIAL IVP ONE; -PANTOPRAZOLE 40 MG/10 ML VIAL IV STA; -SCOPOLAMINE 1.5MG/72HR PATCH TRANSDERM STA; -ceFAZolin IN SWFI 2 GM/20 ML SYRINGE IVP ONE
[2017-09-09 13:27] VITALS: RESP 16; TEMP 98
[2017-09-09] MEDS ORDERED: fentaNYL (PF) 50 MCG/ML 2 ML AMP ONE (14:54)
[2017-09-09] MEDS ORDERED: LIDOCAINE 1% INJ 10MG/ML (20 ML MDV) ONE (14:54)
[2017-09-09] MEDS ORDERED: PROPOFOL 10 MG/ML 20 ML VIAL IV ONE (14:54)
--- NOTE | 2017-09-09 15:24 | P.PCN ---
Date of Procedure: 09/09/17 Description of Procedure: PREOPERATIVE DIAGNOSIS: Dysphagia. s/p Jac-en-y gastric bypass. POSTOPERATIVE DIAGNOSIS: Dysphagia. s/p Jac-en-y gastric bypass. Gastrojejunal stricture OPERATION: Esophagogastrojejunoscopy with balloon dilatation from 8 to 12 mm. SURGEON: Ladonna Rebolledo MD ANESTHESIA: MAC. INDICATIONS: The patient is a 66-year-old female who presents with a history of dysphagia, gastric bypass including new-onset nausea and vomiting. Benefits and risks of the procedure were described. Informed consent was obtained. DESCRIPTION: The patient was brought into the endoscopy suite and laid in the left lateral decubitus position. After a timeout was confirmed, the procedure was initiated. An Olympus gastroscope was passed along the posterior oropharynx down to the distal esophagus where the squamocolumnar junction was unremarkable. The gastric pouch was entered. A gastrojejunal stricture of 8 mm was found as the adult gastroscope was 9.5 mm in size. A Elance balloon dilator was placed through the scope. Final insufflation up to 12 mm was performed with a total of 1 minute. The scope was advanced up to 60 cm from the incisors into the Jac limb. The mucosa of the gastrojejunal anastomosis was intact. However no chronic gastrojejunal marginal ulcer was encountered. No full-thickness injury was encountered. The GI tract was desufflated. The patient tolerated the procedure well. FINDINGS: Stricture of approximately 8 mm encountered. No chronic gastrojejunal ulceration encountered. Successful balloon dilatation to 12 mm. RECOMMENDATIONS: Repeat upper endoscopy with balloon dilation, 3 weeks Plan - Discharge Summary New Discharge Prescriptions: No Action LORazepam [Ativan] 0.5 mg PO BID PRN PRN Reason: Anxiety Cyclobenzaprine [Flexeril] 10 mg PO BID DULoxetine HCL [Cymbalta] 60 mg PO HS Hydrocodone/Acetaminophen [[place] 5-325] 1 - 2 tab PO Q4-6H PRN PRN Reason: Pain Nitroglycerin Sl Tabs [Nitrostat] 0.4 mg SUBLINGUAL Q5M PRN #25 tab PRN Reason: Chest Pain Hydrochlorothiazide 12.5 mg PO DAILY PRN PRN Reason: Edema Bisacodyl [Dulcolax] 5 mg PO DAILY PRN #10 tablet.dr PRN Reason: Constipation Metoprolol Tartrate [Lopressor] 50 mg PO BID #60 tab Omeprazole 40 mg PO DAILY #90 capsule. Aspirin [Adult Low Dose Aspirin EC] 162 mg PO QAM Atorvastatin [Lipitor] 40 mg PO DAILY Discharge Medication List Cyclobenzaprine [Flexeril] 10 mg PO BID 04/07/16 [History] DULoxetine HCL [Cymbalta] 60 mg PO HS 04/07/16 [History] LORazepam [Ativan] 0.5 mg PO BID PRN 04/07/16 [History] Hydrocodone/Acetaminophen [[place] 5-325] 1 - 2 tab PO Q4-6H PRN 05/25/16 [History ] Nitroglycerin Sl Tabs [Nitrostat] 0.4 mg SUBLINGUAL Q5M PRN #25 tab 05/28/16 [Rx ] Hydrochlorothiazide 12.5 mg PO DAILY PRN 01/01/17 [History] Bisacodyl [Dulcolax] 5 mg PO DAILY PRN #10 tablet. 07/09/17 [Rx] Metoprolol Tartrate [Lopressor] 50 mg PO BID #60 tab 07/09/17 [Rx] Omeprazole 40 mg PO DAILY #90 capsule. 07/09/17 [Rx] Aspirin [Adult Low Dose Aspirin EC] 162 mg PO QAM 09/07/17 [History] Atorvastatin [Lipitor] 40 mg PO DAILY 09/09/17 [History]
[2017-09-09 15:28] VITALS: PULSE 77
[2017-09-09 15:41] VITALS: BP 141/89
== END 2017-09-09 15:50 | disposition home or self-care (01) ==
LOC: ORWHC2ENDO 11:37
PROVIDERS: ATTEND Surgery Plastic and Reconstructive Surgery
DX: K31.89 Other diseases of stomach and duodenum (principal); K21.9 Gastro-esophageal reflux disease without esophagitis; Z98.84 Bariatric surgery status; I10 Essential (primary) hypertension; I25.119 Atherosclerotic heart disease of native coronary artery with unspecified angina pectoris; M79.7 Fibromyalgia; Z86.73 Personal history of transient ischemic attack (TIA), and cerebral infarction without residual deficits; I25.2 Old myocardial infarction; M19.90 Unspecified osteoarthritis, unspecified site; Z95.5 Presence of coronary angioplasty implant and graft; E66.01 Morbid (severe) obesity due to excess calories; Z68.36 Body mass index [BMI] 36.0-36.9, adult; F41.9 Anxiety disorder, unspecified; Z79.82 Long term (current) use of aspirin; Z79.899 Other long term (current) drug therapy; Z91.09 Other allergy status, other than to drugs and biological substances
CPT/HCPCS: 43245; J2001; J3010; J2704; C1726

== ENCOUNTER 2017-10-14 09:42 | Day surgery (SDC) | payer MEDICARE, BC ==
[2017-10-12 11:31] VITALS: BMI 35.5
--- NOTE | 2017-10-14 10:42 | P.GSHP ---
History of Present Illness H&P Date: 10/14/17 CHIEF COMPLAINT: GERD HISTORY OF PRESENT ILLNESS: The patient is a 66-year-old female who presents reports gastroesophageal reflux disease. Upper endoscopy was offered for further evaluation and management. PAST MEDICAL HISTORY: Please see list. PAST SURGICAL HISTORY: Please see list. MEDICATIONS: Please see list. ALLERGIES: Please see list. SOCIAL HISTORY: No illicit drug use FAMILY HISTORY: No reports of Crohn disease or ulcerative colitis. REVIEW OF ORGAN SYSTEMS: CONSTITUTIONAL: No reports of fevers or chills. GI: Denies any blood in stools or constipation. PHYSICAL EXAM: VITAL SIGNS: Stable GENERAL: Well-developed and pleasant in no acute distress. HEENT: No scleral icterus. Extraocular movements grossly intact. Moist buccal mucosa. NECK: Supple without lymphadenopathy. CHEST: Unlabored respirations. Equal bilateral excursions. CARDIOVASCULAR: Regular rate and rhythm. Distal 2+ pulses. ABDOMEN: Soft, nondistended. MUSCULOSKELETAL: No clubbing, cyanosis, or edema. ASSESSMENT: 1. Gastroesophageal reflux disease PLAN: 1. Recommend proceeding with an upper endoscopy Past Medical History Past Medical History: Chest Pain / Angina, CVA/TIA, Fibromyalgia, GERD/Reflux, Hypertension, Myocardial Infarction ([place]), Osteoarthritis ([place]) Additional Past Medical History / Comment(s): EGD WITH DILATION 09/09/17, states frequent vomiting, dysphagia, HIATAL HERNIA, Chronic pain syndrome. HEMORRHOIDS. "RAPID HEART BEAT OCC". TIA 20 YEARS, HERNIATED DISC LOWER BACK. IN 2006 Last Myocardial Infarction Date:: 05/25/16 History of Any Multi-Drug Resistant Organisms: None Reported Past Surgical History: Back Surgery, Bariatric Surgery, Breast Surgery, Cholecystectomy, Heart Catheterization With Stent, Hysterectomy, Tonsillectomy, Tubal Ligation Additional Past Surgical History / Comment(s): Lap band SEPTEMBER 2008, removed 05/12. Plantar fascia x2 mortons neuroma, panniculectomy,heart stent x1 COLONOSCOPY/EGD, HEMORRHOIDS, CERVICAL FUSION-PLATE, BREAST REDUCTION SX X2, LIPOMAS, LT SHOULDER SX, HEMALATHA THUMB JOINT REPLACEMENTS. gris-n-y gastric bypass Past Anesthesia/Blood Transfusion Reactions: Previous Problems w/ Anesthesia Additional Past Anesthesia/Blood Transfusion Reaction / Comment(s): "surgical awareness", "takes a lot of anesthesia", cervical fusion-states some limits in neck movement - states no problems with intubation in previous surgeries Date of Last Stent Placement:: 05/25/16 Smoking Status: Never smoker - Past Family History Father Family Medical History: Cancer Additional Family Medical History / Comment(s): CABG, COLON CANCER Mother Family Medical History: Cancer Additional Family Medical History / Comment(s): . Medications and Allergies Home Medications Medication Instructions Recorded Confirmed Type Cyclobenzaprine [Flexeril] 10 mg PO BID 04/07/16 10/12/17 History DULoxetine HCL [Cymbalta] 60 mg PO HS 04/07/16 10/12/17 History LORazepam [Ativan] 0.5 mg PO BID PRN 04/07/16 10/12/17 History Hydrocodone/Acetaminophen [[place] 1 - 2 tab PO Q4-6H PRN 05/25/16 10/12/17 History 5-325] Nitroglycerin Sl Tabs [Nitrostat] 0.4 mg SUBLINGUAL Q5M PRN #25 tab 05/28/16 Rx Hydrochlorothiazide 12.5 mg PO DAILY PRN 01/01/17 10/12/17 History Bisacodyl [Dulcolax] 5 mg PO DAILY PRN #10 tablet. 07/09/17 10/12/17 Rx Metoprolol Tartrate [Lopressor] 50 mg PO BID #60 tab 07/09/17 10/12/17 Rx Omeprazole 40 mg PO DAILY #90 capsule. 07/09/17 10/12/17 Rx Aspirin [Adult Low Dose Aspirin EC] 162 mg PO QAM 09/07/17 10/12/17 History Atorvastatin [Lipitor] 40 mg PO DAILY 09/09/17 10/12/17 History Allergies Allergy/AdvReac Type Severity Reaction Status Date / Time adhesive tape Allergy peels skin Verified 10/12/17 11:12 off
[2017-10-14 10:55] VITALS: TEMP 97.1
[2017-10-14] MEDS ORDERED: PROPOFOL 10 MG/ML 20 ML VIAL IV ONE (11:24)
--- NOTE | 2017-10-14 11:39 | P.PCN ---
Date of Procedure: 10/14/17 Description of Procedure: PREOPERATIVE DIAGNOSIS: Gastrojejunal stricture Dysphagia. POSTOPERATIVE DIAGNOSIS: Dysphagia. Gastrojejunal stricture OPERATION: Esophagogastrojejunoscopy with balloon dilatation from 12 to 20 mm. SURGEON: Ladonna Rebolledo MD ANESTHESIA: MAC. INDICATIONS: The patient is a 66-year-old female who presents with a history of dysphagia and gastric stricture. Benefits and risks of the procedure were described. Informed consent was obtained. DESCRIPTION: The patient was brought into the endoscopy suite and laid in the left lateral decubitus position. After a timeout was confirmed, the procedure was initiated. An Olympus gastroscope was passed along the posterior oropharynx down to the distal esophagus where the squamocolumnar junction was unremarkable. The gastric pouch was entered. A gastrojejunal stricture of 12 mm was found as the adult gastroscope was 9.5 mm in size. A [employer] balloon dilator was placed through the scope. Final insufflation up to 20 mm was performed with a total of 1 minute. The scope was advanced up to 60 cm from the incisors into the Jac limb. The mucosa of the gastrojejunal anastomosis was intact. However no chronic gastrojejunal marginal ulcer was encountered. No full-thickness injury was encountered. The GI tract was desufflated. The patient tolerated the procedure well. FINDINGS: Stricture of approximately 12 mm encountered. No chronic gastrojejunal ulceration encountered. Successful balloon dilatation to 20 mm. RECOMMENDATIONS: Upper endoscopy as needed Plan - Discharge Summary New Discharge Prescriptions: No Action LORazepam [Ativan] 0.5 mg PO BID PRN PRN Reason: Anxiety Cyclobenzaprine [Flexeril] 10 mg PO BID DULoxetine HCL [Cymbalta] 60 mg PO HS Hydrocodone/Acetaminophen [[place] 5-325] 1 - 2 tab PO Q4-6H PRN PRN Reason: Pain Nitroglycerin Sl Tabs [Nitrostat] 0.4 mg SUBLINGUAL Q5M PRN #25 tab PRN Reason: Chest Pain Hydrochlorothiazide 12.5 mg PO DAILY PRN PRN Reason: Edema Bisacodyl [Dulcolax] 5 mg PO DAILY PRN #10 tablet.dr PRN Reason: Constipation Metoprolol Tartrate [Lopressor] 50 mg PO BID #60 tab Omeprazole 40 mg PO DAILY #90 capsule.dr Aspirin [Adult Low Dose Aspirin EC] 162 mg PO QAM Atorvastatin [Lipitor] 40 mg PO DAILY Discharge Medication List Cyclobenzaprine [Flexeril] 10 mg PO BID 04/07/16 [History] DULoxetine HCL [Cymbalta] 60 mg PO HS 04/07/16 [History] LORazepam [Ativan] 0.5 mg PO BID PRN 04/07/16 [History] Hydrocodone/Acetaminophen [[place] 5-325] 1 - 2 tab PO Q4-6H PRN 05/25/16 [History ] Nitroglycerin Sl Tabs [Nitrostat] 0.4 mg SUBLINGUAL Q5M PRN #25 tab 05/28/16 [Rx ] Hydrochlorothiazide 12.5 mg PO DAILY PRN 01/01/17 [History] Bisacodyl [Dulcolax] 5 mg PO DAILY PRN #10 tablet. 07/09/17 [Rx] Metoprolol Tartrate [Lopressor] 50 mg PO BID #60 tab 07/09/17 [Rx] Omeprazole 40 mg PO DAILY #90 capsule. 07/09/17 [Rx] Aspirin [Adult Low Dose Aspirin EC] 162 mg PO QAM 09/07/17 [History] Atorvastatin [Lipitor] 40 mg PO DAILY 09/09/17 [History]
[2017-10-14 11:56] VITALS: BP 146/90; PULSE 55; RESP 16
== END 2017-10-14 12:09 | disposition home or self-care (01) ==
LOC: ORWHC2ENDO 09:42
PROVIDERS: ATTEND Surgery Plastic and Reconstructive Surgery
DX: K31.89 Other diseases of stomach and duodenum (principal); K21.9 Gastro-esophageal reflux disease without esophagitis; Z98.84 Bariatric surgery status; Z92.84 Personal history of unintended awareness under general anesthesia; M79.7 Fibromyalgia; I10 Essential (primary) hypertension; E78.5 Hyperlipidemia, unspecified; M19.90 Unspecified osteoarthritis, unspecified site; G89.4 Chronic pain syndrome; I25.10 Atherosclerotic heart disease of native coronary artery without angina pectoris; I25.2 Old myocardial infarction; Z95.5 Presence of coronary angioplasty implant and graft; Z86.73 Personal history of transient ischemic attack (TIA), and cerebral infarction without residual deficits; Z79.82 Long term (current) use of aspirin; Z79.899 Other long term (current) drug therapy; Z91.048 Other nonmedicinal substance allergy status; Z98.51 Tubal ligation status; Z98.1 Arthrodesis status
CPT/HCPCS: 43245; J2704; C1726; 43244

== ENCOUNTER → 2017-11-25 | Outpatient (CLI) | payer MEDICARE, BC ==
[2017-11-25 16:50] VITALS: BMI 35.0
[2017-11-25 17:11] VITALS: BP 137/86; PULSE 59; RESP 16; TEMP 98.3
--- NOTE | 2017-11-25 17:19 | P.PN ---
Subjective Progress Note Date: 11/25/17 HPI: She has lost 40+ pounds. No reports of GERD. She still has chronic pain. Lowest weight with the band of 179 pound. ABDOMEN: No hernias PLAN: 1. Recommend heartbeat leeann to check heart rate. 2. Follow up with the [facility] consultant. 3. Get blood work. 4. Follow-up 1 month Objective - Vital Signs Vital signs: Intake & Output 11/24/17 11/25/17 11/25/17 18:59 06:59 18:59 Weight 90.537 kg
== END | disposition home or self-care (01) ==
LOC: BARWHC3 15:16
PROVIDERS: ATTEND Surgery Plastic and Reconstructive Surgery
DX: G89.29 Other chronic pain (principal); E66.01 Morbid (severe) obesity due to excess calories; Z68.35 Body mass index [BMI] 35.0-35.9, adult
CPT/HCPCS: 97803; G0463; 99211

== ENCOUNTER → 2017-12-01 | Outpatient (CLI) | payer MEDICARE, BC ==
[2017-12-01 14:22] LABS: HCT 37.4 % (34.0-46.0); HGB 12.2 gm/dL (11.4-16.0); MCH 28.8 pg (25.0-35.0); MCHC 32.6 g/dL (31.0-37.0); MCV 88.4 fL (80.0-100.0); Mean Platelet Volume 9.1; Platelet Count 190 k/uL (150-450); RBC 4.23 m/uL (3.80-5.40); RDW 15.3 % (11.5-15.5)
[2017-12-01 14:39] LABS: Partial Thromboplastin Time 24.5 sec (22.0-30.0); Prothrombin Time 10.3 sec (9.0-12.0)
[2017-12-01 14:41] LABS: Albumin 4.2 g/dL (3.5-5.0); Calcium 9.9 mg/dL (8.4-10.2); Magnesium 2.1 mg/dL (1.6-2.3); Potassium 4.8 mmol/L (3.5-5.1); Total Bilirubin 0.6 mg/dL (0.2-1.3)
[2017-12-01 18:54] LABS: Iron Saturation 27.63 (12.00-45.00)
[2017-12-01 19:08] LABS: Vitamin D 25 Hydroxy 47.5 ng/mL (30.0-100.0)
[2017-12-01 19:20] LABS: Folate, Serum 15.5 ng/mL; Parathyroid Hormone Intact 111.4 pg/mL (14.0-72.0)
[2017-12-01 20:55] LABS: Hemoglobin A1C 6.3 % (4.0-6.0)
[2017-12-02 09:57] LABS: Vitamin B1 66 ug/L (38-122)
[2017-12-02 14:14] LABS: Zinc, Serum 89 ug/dL (60-130)
[2017-12-03 05:45] LABS: Vitamin A 39 ug/dL (38-106)
[2017-12-03 18:54] LABS: Selenium 131 mcg/L (63-160)
== END | disposition home or self-care (01) ==
LOC: LABWHC1 13:36
PROVIDERS: ATTEND Surgery Plastic and Reconstructive Surgery
DX: E55.9 Vitamin D deficiency, unspecified (principal); E21.1 Secondary hyperparathyroidism, not elsewhere classified; E89.1 Postprocedural hypoinsulinemia; D50.9 Iron deficiency anemia, unspecified; E44.0 Moderate protein-calorie malnutrition; K74.1 Hepatic sclerosis; N19 Unspecified kidney failure; K50.90 Crohn's disease, unspecified, without complications; E66.01 Morbid (severe) obesity due to excess calories
CPT/HCPCS: 36415; 80053; 80061; 82306; 82525; 82607; 82728; 82746; 83036; 83540; 83550; 83735; 83970; 84100; 84134; 84255; 84425; 84443; 84590; 84630; 85027; 85610; 85730

== ENCOUNTER → 2018-05-12 | Outpatient (CLI) | payer MEDICARE ==
[2018-05-12 15:04] VITALS: BP 158/88; PULSE 77; RESP 16; TEMP 98; BMI 32.6
--- NOTE | 2018-05-12 15:45 | P.PN ---
Subjective Progress Note Date: 05/12/18 DATE OF SERVICE: 05/12/2018 CHIEF COMPLAINT: Follow up gastric bypass HISTORY OF PRESENT ILLNESS: Lois Napoles is 67-year-old female status post gastric bypass from adjustable gastric band 07/06/2017. She is 10 months out. She has heartburn and burps that has recurred in the last 1 month. She broke her leg, wrist, and arm 4 months ago and as a result missed her bariatric appointments. Her highest weight is 263 pounds. Body mass index was 46.3. Today, she comes in weighing 186 pounds from 199 pounds, 5 months ago. She has lost 13 pounds in 5 months. At her height of 5 for 3.25 inches, her ideal body weight is 140 pounds. Percent excess weight loss is 62%. Lifetime weight loss is 77 pounds. PAST MEDICAL HISTORY: 1. Fibromyalgia. 2. Gastroesophageal reflux disease. 3. Hypertension. 4. Anxiety. 5. Depression. 6. Fibromyalgia. 7. Osteoarthritis. 8. Esophagitis. 9. History of herniated discs of the lower back. 10. Myocardial infarction. 11. Coronary artery disease PAST SURGICAL HISTORY: 1. History of multiple back surgeries. 2. Adjustable gastric band placed in September 2008. 3. Band removal 2016. 4. History of bilateral breast reduction. 5. Panniculectomy. 6. Cholecystectomy. 7. Hysterectomy. 8. Tonsillectomy. 9. Tubal ligation. 10. History of with resection of Heard neuroma. 11. Plantar fascia surgery. 12. Left shoulder surgery. 13. Bilateral thumb joint replacement. 14. Excision of multiple lipomas. 15. Cardiac catheterization with stent placement. MEDICATIONS: 1. Nitrostat. 2. Lopressor 3. Cozaar 4. Ativan 5. Isosorbide mononitrate 6. [place] 7. Hydrochlorothiazide 8. Cymbalta 9. Flexeril 10. Lipitor 11. Aspirin. ALLERGIES: Denies. SOCIAL HISTORY: No active tobacco use. She is . FAMILY HISTORY: Pertinent for colon cancer, including morbid obesity. Also has coronary artery disease, including stroke and hypertension in her family. ORGAN SYSTEMS: CONSTITUTIONAL: Babbitt body weight for her 5-foot 3-1/4-inch frame was 140 pounds. Highest weight of 254 pounds. Initial body mass index was 44.7. Lowest weight was 179 pounds. HEENT: Wears glasses. No reports of dysphagia. ENDOCRINE: No reports of thyroid disorders or diabetes. CARDIOVASCULAR: History of hypertension. History of myocardial infarction in past with cardiac catheterization. RESPIRATORY: No reports of obstructive sleep apnea at present. Denies any dyspnea on exertion. GASTROINTESTINAL: Personal history of gastroesophageal reflux disease, now improved since removal of adjustable gastric band. MUSCULOSKELETAL: Has diffuse osteoarthritis, including fibromyalgia. NEURO: No reports of stroke. Had a past history of a TIA, now completely resolved without sequelae. PSYCH: History of depression, including anxiety. HEMATOLOGIC: No reports of easy bruising or bleeding. No reports of thromboembolism. SKIN: No rash or cancer. PHYSICAL EXAM: VITAL SIGNS: 5 feet 3-1/4 inches frame, 186 pounds. Body mass 32.7 Vital Signs Temp 98 F 05/12/18 15:01 Pulse 77 05/12/18 15:01 Resp 16 05/12/18 15:01 BP 158/88 05/12/18 15:01 Pulse Ox GENERAL: Well-developed, pleasant female in no acute distress. HEENT: No scleral icterus. Extraocular movements grossly intact. Moist buccal mucosa. NECK: Supple without lymphadenopathy. CHEST: Nonlabored respirations with equal bilateral excursions. CARDIOVASCULAR: Regular rate, regular rhythm. Pulses 2+ distally. ABDOMEN: Soft, nondistended. Nontender. MUSCULOSKELETAL: No clubbing, cyanosis or edema. NEURO: No focal or lateralizing signs. Cranial nerves 2-12 grossly within normal limits. PSYCH: Appropriate affect. Alert and oriented to person, place and time. SKIN: Well perfused. Good skin turgor. ASSESSMENT: 1. Morbid obesity due to excess calories. 2. Body mass index 46.3 to 32.7 3. Previous history of adjustable gastric band. 4. Myocardial infarction. 5. Anxiety. 6. Depression. 7. Hypertensive heart disease with cardiomyopathy. 8. Fibromyalgia. 9. Osteoarthritis of the lower back. 10. Gastroesophageal reflux disease. 11. Diaphragmatic hiatal hernia. 12. Dietary surveillance and counseling. 13. Hyperparathyroidism. 14. Iron deficiency anemia 15. Prediabetes now resolved 16. Vitamin A deficiency 17. Vitamin D deficiency 18. Status post gastric bypass 19. History of anemia 20. Dysphagia PLAN: 1. Recommend upper endoscopy with possible dilation for her dysphagia 2. Recommend bariatric labs. 3. For fibromyalgia treatment, recommend referral to pain specialist 4. She is looking into hyperbaric therapy for fibromyalgia which may be sought at specialty institutions. Laboratory Last Values WBC 6.0 k/uL (3.8-10.6) 05/12/18 17:26 RBC 4.14 m/uL (3.80-5.40) 05/12/18 17:26 Hgb 12.4 gm/dL (11.4-16.0) 05/12/18 17:26 Hct 38.4 % (34.0-46.0) 05/12/18 17:26 MCV 92.7 fL (80.0-100.0) 05/12/18 17:26 MCH 29.9 pg (25.0-35.0) 05/12/18 17:26 MCHC 32.2 g/dL (31.0-37.0) 05/12/18 17:26 RDW 14.6 % (11.5-15.5) 05/12/18 17:26 Plt Count 228 k/uL (150-450) 05/12/18 17:26 Hypochromasia Slight 05/12/18 17:26 PT 10.2 sec (9.0-12.0) 05/12/18 17:26 INR 0.9 (<1.2) 05/12/18 17:26 APTT 25.4 sec (22.0-30.0) 05/12/18 17:26 Sodium 139 mmol/L (135-145) 05/12/18 17:26 Potassium 4.9 mmol/L (3.5-5.5) 05/12/18 17:26 Chloride 107 mmol/L (96-109) 05/12/18 17:26 Carbon Dioxide 23.9 mmol/L (21.6-31.8) 05/12/18 17:26 Anion Gap 8.10 mmol/L (4.00-12.00) 05/12/18 17:26 BUN 22.0 mg/dL (9.0-27.0) 05/12/18 17:26 Creatinine 0.8 mg/dL (0.6-1.5) 05/12/18 17:26 Est GFR (CKD-EPI)AfAm 88.4 (60.0-200.0) 05/12/18 17:26 Est GFR (CKD-EPI)NonAf 76.3 (60.0-200.0) 05/12/18 17:26 BUN/Creatinine Ratio 27.50 Ratio (12.00-20.00) H 05/12/18 17:26 Glucose 95 mg/dL (70-110) 05/12/18 17:[address] Glu mg/dL 126 05/12/18 17:26 Hemoglobin A1c 6.0 % (4.0-6.0) 05/12/18 17:26 Calcium 9.5 mg/dL (8.7-10.3) 05/12/18 17:26 Phosphorus 4.0 mg/dL (2.4-5.1) 05/12/18 17:26 Magnesium 2.0 mg/dL (1.5-2.4) 05/12/18 17:26 Iron 47 ug/dL (50-170) L 05/12/18 17:26 TIBC 281 ug/dL (228-460) 05/12/18 17:26 Iron Saturation 16.73 (12.00-45.00) 05/12/18 17:26 Ferritin 60.1 ng/mL (10.0-291.0) 05/12/18 17:26 Total Bilirubin 0.3 mg/dL (0.3-1.2) 05/12/18 17:26 AST 30 U/L (13-35) 05/12/18 17:26 ALT 29 U/L (8-44) 05/12/18 17:26 Alkaline Phosphatase 118 U/L (41-126) 05/12/18 17:26 Total Protein 6.3 g/dL (6.2-8.2) 05/12/18 17:26 Albumin 4.20 g/dL (3.80-4.90) 05/12/18 17:26 Globulin 2.1 g/dL (1.6-3.3) 05/12/18 17:26 Albumin/Globulin Ratio 2.00 g/dL (1.20-2.10) 05/12/18 17:26 Prealbumin 18.0 mg/dL (18.0-42.0) 05/12/18 17:26 Triglycerides 84.0 mg/dL (0.0-149.0) 05/12/18 17:26 Cholesterol 130 mg/dL (0-200) 05/12/18 17:26 LDL Cholesterol, Calc 47.2 mg/dL (0.0-131.0) 05/12/18 17:26 VLDL Cholesterol, Calc 16.80 mg/dL (5.00-40.00) 05/12/18 17:26 HDL Cholesterol 66.0 mg/dL (40.0-60.0) H 05/12/18 17:26 Cholesterol/HDL Ratio 1.97 05/12/18 17:26 Vitamin A 42 ug/dL (38-106) 05/12/18 17:26 Vitamin B1 86 ug/L (38-122) 05/12/18 17:26 Vitamin B12 2411.0 pg/mL (200.0-944.0) H 05/12/18 17:26 Vitamin D 25-Hydroxy 41.8 ng/mL (30.0-100.0) 05/12/18 17:26 Folate 14.6 ng/mL 05/12/18 17:26 TSH 1.570 uIU/mL (0.350-5.500) 05/12/18 17:26 PTH Intact 72.8 pg/mL (14.0-72.0) H 05/12/18 17:26 Copper 1198 ug/L (810-1990) 05/12/18 17:26 Selenium 258 mcg/L (63-160) H 05/12/18 17:26 Zinc 82 ug/dL (60-130) 05/12/18 17:26 Objective - Vital Signs Vital signs: Vital Signs Temp 98 F 05/12/18 15:01 Pulse 77 05/12/18 15:01 Resp 16 05/12/18 15:01 BP 158/88 05/12/18 15:01 Pulse Ox Intake & Output 05/11/18 05/12/18 05/12/18 18:59 06:59 18:59 Weight 84.368 kg - Labs CBC & Chem 7: 05/12/18 17:26 05/12/18 17:26
[2018-05-12 18:27] LABS: HCT 38.4 % (34.0-46.0); HGB 12.4 gm/dL (11.4-16.0); Hypochromasia Slight; MCH 29.9 pg (25.0-35.0); MCHC 32.2 g/dL (31.0-37.0); MCV 92.7 fL (80.0-100.0); Mean Platelet Volume 8.7; Platelet Count 228 k/uL (150-450); RBC 4.14 m/uL (3.80-5.40); RDW 14.6 % (11.5-15.5)
[2018-05-12 18:32] LABS: INR 0.9 (<1.2); Partial Thromboplastin Time 25.4 sec (22.0-30.0); Prothrombin Time 10.2 sec (9.0-12.0)
[2018-05-13 04:08] LABS: Iron Saturation 16.73 (12.00-45.00)
[2018-05-13 04:15] LABS: Albumin 4.2 g/dL (3.80-4.90); Anion Gap 8.1 mmol/L (4.00-12.00); Calcium 9.5 mg/dL (8.7-10.3); Carbon Dioxide 23.9 mmol/L (21.6-31.8); Globulin 2.1 g/dL (1.6-3.3); LDL Cholesterol,Calculated 47.2 mg/dL (0.0-131.0); Potassium 4.9 mmol/L (3.5-5.5); Total Bilirubin 0.3 mg/dL (0.3-1.2); Total Protein 6.3 g/dL (6.2-8.2); VLDL Calculation 16.8 mg/dL (5.00-40.00)
[2018-05-13 04:20] LABS: Vitamin D 25 Hydroxy 41.8 ng/mL (30.0-100.0)
[2018-05-13 04:44] LABS: Folate, Serum 14.6 ng/mL
[2018-05-13 05:10] LABS: Parathyroid Hormone Intact 72.8 pg/mL (14.0-72.0)
[2018-05-13 13:27] LABS: Zinc, Serum 82 ug/dL (60-130)
[2018-05-14 04:31] LABS: Vitamin B1 86 ug/L (38-122)
[2018-05-14 04:42] LABS: Vitamin A 42 ug/dL (38-106)
[2018-05-15 19:41] LABS: Selenium 258 mcg/L (63-160)
== END | disposition home or self-care (01) ==
LOC: BARWHC3 14:00
PROVIDERS: ATTEND Surgery Plastic and Reconstructive Surgery
DX: Z09 Encounter for follow-up examination after completed treatment for conditions other than malignant neoplasm (principal); R12 Heartburn; E66.01 Morbid (severe) obesity due to excess calories; I21.9 Acute myocardial infarction, unspecified; F41.9 Anxiety disorder, unspecified; F32.9 Major depressive disorder, single episode, unspecified; I11.9 Hypertensive heart disease without heart failure; I43 Cardiomyopathy in diseases classified elsewhere; M79.7 Fibromyalgia; M47.816 Spondylosis without myelopathy or radiculopathy, lumbar region; K21.9 Gastro-esophageal reflux disease without esophagitis; K44.9 Diaphragmatic hernia without obstruction or gangrene; E21.3 Hyperparathyroidism, unspecified; D50.9 Iron deficiency anemia, unspecified; E50.9 Vitamin A deficiency, unspecified; E55.9 Vitamin D deficiency, unspecified; R13.10 Dysphagia, unspecified; I25.10 Atherosclerotic heart disease of native coronary artery without angina pectoris; E21.1 Secondary hyperparathyroidism, not elsewhere classified; E44.0 Moderate protein-calorie malnutrition; K74.1 Hepatic sclerosis; N19 Unspecified kidney failure; K50.90 Crohn's disease, unspecified, without complications; Z79.82 Long term (current) use of aspirin; Z68.32 Body mass index [BMI] 32.0-32.9, adult; Z79.899 Other long term (current) drug therapy; Z90.710 Acquired absence of both cervix and uterus; Z98.51 Tubal ligation status; Z90.49 Acquired absence of other specified parts of digestive tract; Z98.84 Bariatric surgery status; Z71.3 Dietary counseling and surveillance; Z98.890 Other specified postprocedural states; Z90.89 Acquired absence of other organs; Z95.5 Presence of coronary angioplasty implant and graft; Z79.891 Long term (current) use of opiate analgesic
CPT/HCPCS: 84255; 84134; 84425; 80061; 80053; 82607; 82728; 82525; 82746; 83540; 83550; 83735; 84100; 84443; 84590; 84630; 85027; 85610; 85730; 82306; 83970; 83036; 36415; G0463; 99211

== ENCOUNTER 2018-05-19 13:00 | Observation (INO) | payer MEDICARE ==
[2018-05-19] MEDS ORDERED: NITROGLYCERIN OINT 1 INCH/GM PACKET TOPICAL STA (13:08)
[2018-05-19] MEDS ORDERED: ASPIRIN 81 MG PO STA (13:08)
[2018-05-19] MEDS ORDERED: SODIUM CHLORIDE 0.9% 1,000 ML IV STA (13:08)
--- NOTE | 2018-05-19 13:13 | ED ---
General Adult HPI - General Stated complaint: chest pain Time Seen by Provider: 05/19/18 13:03 Source: patient, EMS, RN notes reviewed Mode of arrival: EMS Limitations: no limitations - History of Present Illness Initial comments: Patient is a pleasant 67-year-old female presenting to the emergency Department with chest discomfort. Onset was yesterday during some light exertion. Discomfort improved yesterday with nitroglycerin. Symptoms have been somewhat waxing and waning. Symptoms worsened today and discomfort was 7 or 8 /10. Discomfort has improved to 4/10 following nitroglycerin by EMS. Discomfort is described as an ache. Discomfort does radiate towards the back. Patient has had some associated dyspnea. Patient did have some associated nausea that has resolved. No diaphoresis. Patient does have a history of previous myocardial infarction and stent placement however this feels different. No leg pain or leg swelling. - Related Data Home Medications Medication Instructions Recorded Confirmed Cyclobenzaprine [Flexeril] 10 mg PO BID PRN 04/07/16 05/19/18 DULoxetine HCL [Cymbalta] 60 mg PO 04/07/16 05/19/18 LORazepam [Ativan] 0.5 mg PO BID PRN 04/07/16 05/19/18 Hydrocodone/Acetaminophen [[place] 1 - 2 tab PO Q4-6H PRN 05/25/16 05/19/18 5-325] Aspirin [Adult Low Dose Aspirin EC] 162 mg PO QA 09/07/17 05/19/18 Atorvastatin [Lipitor] 20 mg PO 05/19/18 05/19/18 Ferrous Sulfate/Vit C 1 tab PO 05/19/18 05/19/18 Furosemide [Lasix] 20 mg PO DAILY PRN 05/19/18 05/19/18 Isosorbide Mononitrate ER [Imdur] 30 mg PO 05/19/18 05/19/18 Losartan Potassium 25 mg PO 05/19/18 05/19/18 Metoprolol Succinate (ER) [Toprol 50 mg PO HS 05/19/18 05/19/18 Xl] Potassium Chloride 8 meq PO DAILY PRN 05/19/18 05/19/18 Vitamin A 8,000 unit PO 05/19/18 05/19/18 Previous Rx's Medication Instructions Recorded Nitroglycerin Sl Tabs [Nitrostat] 0.4 mg SUBLINGUAL Q5M PRN #25 tab 05/28/16 Allergies Allergy/AdvReac Type Severity Reaction Status Date / Time adhesive tape Allergy peels skin Verified 05/19/18 14:11 off Review of Systems ROS Statement: Those systems with pertinent positive or pertinent negative responses have been documented in the HPI. ROS Other: All systems not noted in ROS Statement are negative. Constitutional: Denies: fever, chills Eyes: Denies: eye pain ENT: Denies: ear pain Respiratory: Reports: as per HPI. Denies: cough Cardiovascular: Reports: chest pain Endocrine: Denies: fatigue Gastrointestinal: Reports: as per HPI. Denies: abdominal pain Genitourinary: Denies: dysuria Musculoskeletal: Reports: as per HPI Skin: Denies: rash Neurological: Denies: weakness Past Medical History Past Medical History: Chest Pain / Angina, CVA/TIA, Fibromyalgia, GERD/Reflux, Hypertension, Myocardial Infarction (CT), Osteoarthritis (OA) Additional Past Medical History / Comment(s): EGD WITH DILATION 09/09/17, states frequent vomiting, dysphagia, HIATAL HERNIA, Chronic pain syndrome. HEMORRHOIDS. "RAPID HEART BEAT OCC". TIA 20 YEARS, HERNIATED DISC LOWER BACK. IN 2006 Last Myocardial Infarction Date:: 05/25/16 History of Any Multi-Drug Resistant Organisms: None Reported Past Surgical History: Back Surgery, Bariatric Surgery, Breast Surgery, Cholecystectomy, Heart Catheterization With Stent, Hysterectomy, Tonsillectomy, Tubal Ligation Additional Past Surgical History / Comment(s): Lap band SEPTEMBER 2008, removed 05/12. Plantar fascia x2 mortons neuroma, panniculectomy,heart stent x1 COLONOSCOPY/EGD, HEMORRHOIDS, CERVICAL FUSION-PLATE, BREAST REDUCTION SX X2, LIPOMAS, LT SHOULDER SX, HEMALATHA THUMB JOINT REPLACEMENTS. [id number] gastric bypass Past Anesthesia/Blood Transfusion Reactions: Previous Problems w/ Anesthesia Additional Past Anesthesia/Blood Transfusion Reaction / Comment(s): "surgical awareness", "takes a lot of anesthesia", cervical fusion-states some limits in neck movement - states no problems with intubation in previous surgeries Date of Last Stent Placement:: 05/25/16 Past Psychological History: Anxiety, Depression Additional Psychological History / Comment(s): PT STATED SHE HAS HAD DEPRESSION SINCE AGE 13, and is being treated for it. no SI Smoking Status: Never smoker Past Alcohol Use History: None Reported Past Drug Use History: None Reported - Past Family History Father Family Medical History: Cancer Additional Family Medical History / Comment(s): CABG, COLON CANCER Mother Family Medical History: Cancer Additional Family Medical History / Comment(s): . General Exam Limitations: no limitations General appearance: alert, in no apparent distress Head exam: Present: atraumatic Eye exam: Present: normal appearance, PERRL ENT exam: Present: normal oropharynx Neck exam: Present: normal inspection Respiratory exam: Present: normal lung sounds bilaterally Cardiovascular Exam: Present: regular rate, normal rhythm Expanded Peripheral pulses: 2+: Radial (R), Radial (L), Dorsalis Pedis (R), Dorsalis Pedis (L) GI/Abdominal exam: Present: soft. Absent: distended, tenderness Extremities exam: Present: normal inspection. Absent: pedal edema, calf tenderness Neurological exam: Present: alert Psychiatric exam: Present: normal affect, normal mood Skin exam: Present: normal color Course Vital Signs 05/19/18 05/19/18 05/19/18 13:03 13:05 13:30 Temperature 98.3 F Pulse Rate 67 65 Respiratory 18 19 Rate Blood Pressure 163/91 150/93 O2 Sat by Pulse 100 99 Oximetry 05/19/18 05/19/18 05/19/18 14:00 14:30 15:00 Temperature Pulse Rate 60 68 Respiratory 18 16 16 Rate Blood Pressure 148/86 140/86 137/85 O2 Sat by Pulse 100 100 99 Oximetry 05/19/18 05/19/18 15:30 16:00 Temperature Pulse Rate 64 67 Respiratory 18 17 Rate Blood Pressure 155/80 151/84 O2 Sat by Pulse 100 99 Oximetry EKG Findings - EKG Comments: EKG Findings:: Normal sinus rhythm at 65. NV 132. QRS 82. QT 392. QTC 47. Normal axis. Normal QRS. No acute ST change. Medical Decision Making - Medical Decision Making Patient reevaluated and updated. Case was discussed in detail with Dr. Rae was previously seen this patient and will admit. - Lab Data Result diagrams: 05/19/18 13:22 05/19/18 13:22 Lab Results 05/19/18 05/19/18 05/19/18 Range/Units 13:22 13:22 13:22 WBC 4.9 (3.8-10.6) k/uL RBC 4.10 (3.80-5.40) m/uL Hgb 11.7 (11.4-16.0) gm/dL Hct 36.9 (34.0-46.0) % MCV 89.8 (80.0-100.0) fL MCH 28.5 (25.0-35.0) pg MCHC 31.8 (31.0-37.0) g/dL RDW 14.6 (11.5-15.5) % Plt Count 186 (150-450) k/uL Neutrophils % 49 % Lymphocytes % 40 % Monocytes % 4 % Eosinophils % 4 % Basophils % 1 % Neutrophils # 2.4 (1.3-7.7) k/uL Lymphocytes # 1.9 (1.0-4.8) k/uL Monocytes # 0.2 (0-1.0) k/uL Eosinophils # 0.2 (0-0.7) k/uL Basophils # 0.0 (0-0.2) k/uL PT (9.0-12.0) sec INR (<1.2) APTT (22.0-30.0) sec D-Dimer (<0.60) mg/L FEU Sodium 142 (137-145) mmol/L Potassium 4.7 (3.5-5.1) mmol/L Chloride 110 H (98-107) mmol/L Carbon Dioxide 24 (22-30) mmol/L Anion Gap 8 mmol/L BUN 21 H (7-17) mg/dL Creatinine 0.77 (0.52-1.04) mg/dL Est GFR (CKD-EPI)AfAm >90 (>60 ml/min/1.73 sqM) Est GFR (CKD-EPI)NonAf 80 (>60 ml/min/1.73 sqM) Glucose 81 (74-99) mg/dL Calcium 9.8 (8.4-10.2) mg/dL Magnesium 2.2 (1.6-2.3) mg/dL Total Bilirubin 0.6 (0.2-1.3) mg/dL AST 34 (14-36) U/L ALT 34 (9-52) U/L Alkaline Phosphatase 102 (38-126) U/L Total Creatine Kinase 46 (30-135) U/L CK-MB (CK-2) 0.4 (0.0-2.4) ng/mL CK-MB (CK-2) Rel Index 0.9 Troponin I <0.012 (0.000-0.034) ng/mL NT-Pro-B Natriuret Pep pg/mL Total Protein 6.7 (6.3-8.2) g/dL Albumin 3.8 (3.5-5.0) g/dL Amylase 43 (30-110) U/L Lipase 66 (23-300) U/L 05/19/18 05/19/18 Range/Units 13:22 13:22 WBC (3.8-10.6) k/uL RBC (3.80-5.40) m/uL Hgb (11.4-16.0) gm/dL Hct (34.0-46.0) % MCV (80.0-100.0) fL MCH (25.0-35.0) pg MCHC (31.0-37.0) g/dL RDW (11.5-15.5) % Plt Count (150-450) k/uL Neutrophils % % Lymphocytes % % Monocytes % % Eosinophils % % Basophils % % Neutrophils # (1.3-7.7) k/uL Lymphocytes # (1.0-4.8) k/uL Monocytes # (0-1.0) k/uL Eosinophils # (0-0.7) k/uL Basophils # (0-0.2) k/uL PT 10.0 (9.0-12.0) sec INR 0.9 (<1.2) APTT 20.2 L (22.0-30.0) sec D-Dimer 0.41 (<0.60) mg/L FEU Sodium (137-145) mmol/L Potassium (3.5-5.1) mmol/L Chloride (98-107) mmol/L Carbon Dioxide (22-30) mmol/L Anion Gap mmol/L BUN (7-17) mg/dL Creatinine (0.52-1.04) mg/dL Est GFR (CKD-EPI)AfAm (>60 ml/min/1.73 sqM) Est GFR (CKD-EPI)NonAf (>60 ml/min/1.73 sqM) Glucose (74-99) mg/dL Calcium (8.4-10.2) mg/dL Magnesium (1.6-2.3) mg/dL Total Bilirubin (0.2-1.3) mg/dL AST (14-36) U/L ALT (9-52) U/L Alkaline Phosphatase (38-126) U/L Total Creatine Kinase (30-135) U/L CK-MB (CK-2) (0.0-2.4) ng/mL CK-MB (CK-2) Rel Index Troponin I (0.000-0.034) ng/mL NT-Pro-B Natriuret Pep 440 pg/mL Total Protein (6.3-8.2) g/dL Albumin (3.5-5.0) g/dL Amylase (30-110) U/L Lipase (23-300) U/L - Radiology Data Radiology results: image reviewed (Chest x-ray shows no acute process) Disposition Clinical Impression: Chest pain Disposition: ADMITTED IP TO THIS HOSP Is patient prescribed a controlled substance at d/c from ED?: No Referrals: Christos Munoz MD [Primary Care Provider] - 1-2 days Decision Time: 16:29
[2018-05-19 14:03] LABS: Basophils % (A) 1 %; Eosinophils # (A) 0.2 k/uL (0-0.7); Eosinophils % (A) 4 %; HCT 36.9 % (34.0-46.0); HGB 11.7 gm/dL (11.4-16.0); Lymphocytes # (A) 1.9 k/uL (1.0-4.8); Lymphocytes % (A) 40 %; MCH 28.5 pg (25.0-35.0); MCHC 31.8 g/dL (31.0-37.0); MCV 89.8 fL (80.0-100.0); Mean Platelet Volume 8.2; Monocytes # (A) 0.2 k/uL (0-1.0); Monocytes % (A) 4 %; Neutrophils # (A) 2.4 k/uL (1.3-7.7); Neutrophils % (A) 49 %; Platelet Count 186 k/uL (150-450); RDW 14.6 % (11.5-15.5); WBC 4.9 k/uL (3.8-10.6)
[2018-05-19 14:16] LABS: ALT 34 U/L (9-52); AST 34 U/L (14-36); Albumin 3.8 g/dL (3.5-5.0); Alkaline Phosphatase 102 U/L (38-126); Amylase 43 U/L (30-110); Anion Gap 8 mmol/L; Blood Urea Nitrogen 21 mg/dL (7-17); Calcium 9.8 mg/dL (8.4-10.2); Carbon Dioxide 24 mmol/L (22-30); Chloride 110 mmol/L (98-107); Glucose 81 mg/dL (74-99); Lipase 66 U/L (23-300); Magnesium 2.2 mg/dL (1.6-2.3); Potassium 4.7 mmol/L (3.5-5.1); Sodium 142 mmol/L (137-145); Total Bilirubin 0.6 mg/dL (0.2-1.3); Total Protein 6.7 g/dL (6.3-8.2)
--- NOTE | 2018-05-19 14:18 | XR ---
EXAMINATION TYPE: XR chest 2V DATE OF EXAM: 05/19/2018 COMPARISON: Prior chest x-ray 05/25/2016 HISTORY: Chest pain TECHNIQUE: Frontal and lateral views of the chest are obtained. FINDINGS: There is no focal air space opacity, pleural effusion, or pneumothorax seen. The cardiac silhouette size is stable. There is persistent elevation of the right hemidiaphragm. Postop changes a re noted to the cervical spine. There are cardiac leads present. The osseous structures are remarkab le for distal left clavicular resection. Surgical clips are present in the right upper quadrant. IMPRESSION: No acute cardiopulmonary process.
[2018-05-19 14:32] LABS: D-Dimer 0.41 mg/L FEU (<0.60); INR 0.9 (<1.2)
[2018-05-19 14:44] LABS: Creatine Kinase 46 U/L (30-135)
[2018-05-19 14:54] LABS: Partial Thromboplastin Time 20.2 sec (22.0-30.0)
[2018-05-19 14:56] LABS: Creatine Kinase MB 0.4 ng/mL (0.0-2.4); Troponin I <0.012 ng/mL (0.000-0.034)
[2018-05-19] MEDS ORDERED: MORPHINE SULFATE 2 MG/ML SYRINGE IVP STA (15:40)
[2018-05-19] MEDS ORDERED: NITROGLYCERIN SL TABS 0.4 MG TAB SUBLINGUAL PRN ×2 (16:29→19:22)
[2018-05-19] MEDS ORDERED: NITROGLYCERIN OINT 1 INCH/GM PACKET TOPICAL SCH (18:00)
[2018-05-19 18:52] VITALS: BMI 31.9
[2018-05-19] MEDS ORDERED: FUROSEMIDE 20 MG TAB PO PRN (19:22)
[2018-05-19] MEDS ORDERED: LORazepam 0.5 MG TAB PO PRN (19:22)
[2018-05-19] MEDS ORDERED: POTASSIUM CHLORIDE ER 10 MEQ TAB.ER.PRT PO PRN (19:22)
[2018-05-19] MEDS: CYCLOBENZAPRINE 10 MG TAB PO PRN (21:01)
[2018-05-19] MEDS: HYDROcodone/APAP 5-325MG 1 EACH TAB PO PRN (21:01)
[2018-05-19] MEDS: LOSARTAN 25 MG TAB PO SCH (21:02)
[2018-05-19] MEDS: METOPROLOL SUCCINATE (ER) 50 MG TAB.ER.24H PO SCH (21:02)
[2018-05-19] MEDS: ISOSORBIDE MONONITRATE ER 30 MG TAB.ER.24H PO SCH (21:02)
[2018-05-19] MEDS: VITAMIN A 10,000 UNIT CAPSULE PO SCH (21:02)
[2018-05-19] MEDS: DULoxetine HCL 60 MG CAPSULE.DR PO SCH (21:02)
[2018-05-19] MEDS: ATORVASTATIN 20 MG TAB PO SCH (21:02)
[2018-05-19 21:17] LABS: Creatine Kinase 45 U/L (30-135)
[2018-05-19 21:30] LABS: Creatine Kinase MB 0.3 ng/mL (0.0-2.4); Troponin I <0.012 ng/mL (0.000-0.034)
[2018-05-20 00:23] LABS: Cholesterol 122 mg/dL (<200); HDL Cholesterol 60 mg/dL (40-60); LDL Cholesterol,Calculated 47 mg/dL (0-99); Triglycerides 73 mg/dL (<150)
[2018-05-20 03:14] LABS: Creatine Kinase 43 U/L (30-135)
[2018-05-20 03:27] LABS: Creatine Kinase MB 0.3 ng/mL (0.0-2.4); Troponin I <0.012 ng/mL (0.000-0.034)
[2018-05-20] MEDS ORDERED: ASPIRIN 325 MG TAB PO SCH (09:00)
--- NOTE | 2018-05-20 09:33 | P.CRDCN ---
History of Present Illness History of present illness: This is Dr. Bentley dictating a consult on this patient The patient was interviewed and examined by me IMPRESSION / ASSESSMENT: Recurrent chest discomfort with normal cardiac enzymes and no ECG abnormalities , continuous lasting for over 24 hours Hypertension, essential PLAN: Obtain office records. Patient has recent stress test in the office. From a cardiac standpoint she will go home if within normal limits HPI Patient presented with recurrent chest discomfort, each episode lasting for over a day ROS: No fever chills or rigors, no cough, phlegm or expectoration, no nausea, vomiting or diarrhea, no hematuria, dysuria, no musculoskeletal complaints, no strokes or seizures, no skin lesions. EXAMINATION: Blood pressure 130 wasn't febrile but his mercury pulse rate in the 60s afebrile Breath sounds are normal Heart sounds S1 and S2 are normal no murmurs or gallop or rub Abdomen soft Extremities warm no edema REVIEW OF LABS, ECG & MEDICAL DATA Labs are reviewed d-dimer is normal electrolytes normal renal function normal Normal chronic enzymes 3 LDL 47, HDL 60, triglycerides 73 and total cholesterol 122 Twelve-lead ECG shows sinus rhythm with normal ST segments isolated T-wave in the inferior leads Repeat ECG does not show any new ST segment abnormalities Past Medical History Past Medical History: Chest Pain / Angina, CVA/TIA, Fibromyalgia, GERD/Reflux, Hypertension, Myocardial Infarction ([place]), Osteoarthritis ([place]) Additional Past Medical History / Comment(s): EGD WITH DILATION 09/09/17, states frequent vomiting, dysphagia, HIATAL HERNIA, Chronic pain syndrome. HEMORRHOIDS. "RAPID HEART BEAT OCC".anxiety/dep, TIA 20 YEARS, HERNIATED DISC LOWER BACK. IN 2006 , fall/broke rt foot/rt wrist-was in traction and casted but no sx Last Myocardial Infarction Date:: 05/25/16 History of Any Multi-Drug Resistant Organisms: None Reported Past Surgical History: Back Surgery, Bariatric Surgery, Breast Surgery, Cholecystectomy, Heart Catheterization With Stent, Hysterectomy, Tonsillectomy, Tubal Ligation Additional Past Surgical History / Comment(s): Lap band SEPTEMBER 2008, removed 05/12. Plantar fascia x2 mortons neuroma, panniculectomy,heart stent x1 COLONOSCOPY/EGD, HEMORRHOIDS, CERVICAL FUSION-PLATE, BREAST REDUCTION SX X2, LIPOMAS, LT SHOULDER SX, HEMALATHA THUMB JOINT REPLACEMENTS. gris-n-y gastric bypass 3 -12-18 Past Anesthesia/Blood Transfusion Reactions: Previous Problems w/ Anesthesia Additional Past Anesthesia/Blood Transfusion Reaction / Comment(s): "surgical awareness","early waking "takes a lot of anesthesia", cervical fusion-states some limits in neck movement - states no problems with intubation in previous surgeries Date of Last Stent Placement:: 05/25/16 Smoking Status: Never smoker - Past Family History Father Family Medical History: Cancer, Coronary Artery Disease (CAD), Hypertension Additional Family Medical History / Comment(s): CABG, COLON/bladder CANCER Mother Family Medical History: Cancer, Renal Disease Additional Family Medical History / Comment(s): metastatic breast cancer, heart disease,.was 3 ppd smoker Medications and Allergies Home Medications Medication Instructions Recorded Confirmed Type Cyclobenzaprine [Flexeril] 10 mg PO BID PRN 04/07/16 05/19/18 History DULoxetine HCL [Cymbalta] 60 mg PO HS 04/07/16 05/19/18 History LORazepam [Ativan] 0.5 mg PO BID PRN 04/07/16 05/19/18 History Hydrocodone/Acetaminophen [[place] 1 - 2 tab PO Q4-6H PRN 05/25/16 05/19/18 History 5-325] Nitroglycerin Sl Tabs [Nitrostat] 0.4 mg SUBLINGUAL Q5M PRN #25 tab 05/28/16 Rx Aspirin [Adult Low Dose Aspirin EC] 162 mg PO QAM 09/07/17 05/19/18 History Atorvastatin [Lipitor] 20 mg PO HS 05/19/18 05/19/18 History Ferrous Sulfate/Vit C 1 tab PO HS 05/19/18 05/19/18 History Furosemide [Lasix] 20 mg PO DAILY PRN 05/19/18 05/19/18 History Isosorbide Mononitrate ER [Imdur] 30 mg PO HS 05/19/18 05/19/18 History Losartan Potassium 25 mg PO HS 05/19/18 05/19/18 History Metoprolol Succinate (ER) [Toprol 50 mg PO HS 05/19/18 05/19/18 History Xl] Potassium Chloride 8 meq PO DAILY PRN 05/19/18 05/19/18 History Vitamin A 8,000 unit PO HS 05/19/18 05/19/18 History Allergies Allergy/AdvReac Type Severity Reaction Status Date / Time adhesive tape Allergy peels skin Verified 05/19/18 14:11 off Physical Exam Vitals: Vital Signs Temp Pulse Pulse Resp BP BP Pulse Ox 05/20/18 08:00 98 F 64 16 130/75 97 05/20/18 04:00 97.8 F 66 15 112/68 99 05/20/18 00:00 64 15 05/19/18 23:20 98.3 F 64 15 122/67 96 05/19/18 20:00 82 18 05/19/18 17:15 98.5 F 82 18 156/84 99 05/19/18 16:00 67 17 151/84 99 05/19/18 15:30 64 18 155/80 100 05/19/18 15:00 68 16 137/85 99 05/19/18 14:30 60 16 140/86 100 05/19/18 14:00 18 148/86 100 05/19/18 13:30 65 19 150/93 05/19/18 13:05 99 05/19/18 13:03 98.3 F 67 18 163/91 100 Intake and Output 05/19/18 05/20/18 05/20/18 22:59 06:59 14:59 Intake Total 200 0 Balance 200 0 Intake: Oral 200 0 Other: # Voids 1 1 Results 05/19/18 13:22 05/19/18 13:22 Cardiac Enzymes 05/19/18 05/19/18 05/19/18 Range/Units 13:22 13:22 20:34 AST 34 (14-36) U/L CK-MB (CK-2) 0.4 0.3 (0.0-2.4) ng/mL Troponin I <0.012 <0.012 (0.000-0.034) ng/mL 05/20/18 Range/Units 01:39 AST (14-36) U/L CK-MB (CK-2) 0.3 (0.0-2.4) ng/mL Troponin I <0.012 (0.000-0.034) ng/mL Coagulation 05/19/18 Range/Units 13:22 PT 10.0 (9.0-12.0) sec APTT 20.2 L (22.0-30.0) sec Lipids 05/19/18 Range/Units 13:22 Triglycerides 73 (<150) mg/dL Cholesterol 122 (<200) mg/dL HDL Cholesterol 60 (40-60) mg/dL CBC 05/19/18 Range/Units 13:22 WBC 4.9 (3.8-10.6) k/uL RBC 4.10 (3.80-5.40) m/uL Hgb 11.7 (11.4-16.0) gm/dL Hct 36.9 (34.0-46.0) % Plt Count 186 (150-450) k/uL Comprehensive Metabolic Panel 05/19/18 Range/Units 13:22 Sodium 142 (137-145) mmol/L Potassium 4.7 (3.5-5.1) mmol/L Chloride 110 H (98-107) mmol/L Carbon Dioxide 24 (22-30) mmol/L BUN 21 H (7-17) mg/dL Creatinine 0.77 (0.52-1.04) mg/dL Glucose 81 (74-99) mg/dL Calcium 9.8 (8.4-10.2) mg/dL AST 34 (14-36) U/L ALT 34 (9-52) U/L Alkaline Phosphatase 102 (38-126) U/L Total Protein 6.7 (6.3-8.2) g/dL Albumin 3.8 (3.5-5.0) g/dL Current Medications Generic Name Dose Route Start Last Admin Trade Name Freq PRN Reason Stop Dose Admin Hydrocodone Bitart/Acetaminophen 1 each 05/19/18 19:24 05/19/18 21:01 [place] 5-325 PO 1 each Q4HR PRN Administration Pain Aspirin 162 mg 05/20/18 09:00 Aspirin PO QAM JORGE A Atorvastatin Calcium 20 mg 05/19/18 21:00 05/19/18 21:02 Lipitor PO 20 mg HS JORGE A Administration Cyclobenzaprine HCl 10 mg 05/19/18 19:22 05/19/18 21:01 Flexeril PO 10 mg BID PRN Administration Spasms Duloxetine HCl 60 mg 05/19/18 21:00 05/19/18 21:02 Cymbalta PO 60 mg HS JORGE A Administration Furosemide 20 mg 05/19/18 19:22 Lasix PO DAILY PRN Edema Isosorbide Mononitrate 30 mg 05/19/18 21:00 05/19/18 21:02 Imdur PO 30 mg HS JORGE A Administration Lorazepam 0.5 mg 05/19/18 19:22 Ativan PO BID PRN Anxiety Losartan Potassium 25 mg 05/19/18 21:00 05/19/18 21:02 Cozaar PO 25 mg HS JORGE A Administration Metoprolol Succinate 50 mg 05/19/18 21:00 05/19/18 21:02 Toprol Xl PO 50 mg HS JORGE A Administration Nitroglycerin 0.4 mg 05/19/18 19:22 Nitrostat SUBLINGUAL Q5M PRN Chest Pain Potassium Chloride 10 meq 05/19/18 19:22 K-Dur 10 PO DAILY PRN Edema Vitamin A 10,000 unit 05/19/18 21:00 05/19/18 21:02 Vitamin A PO Not Given HS JORGE A Intake and Output 05/19/18 05/20/18 05/20/18 22:59 06:59 14:59 Intake Total 200 0 Balance 200 0 Intake: Oral 200 0 Other: # Voids 1 1 05/19/18 13:22 05/19/18 13:22
--- NOTE | 2018-05-20 09:37 | ECHOF ---
Referral Reason: MEASUREMENTS -------- HEIGHT: 162.6 cm WEIGHT: 83.9 kg BP: 112/68 RVIDd: 3.5 cm (< 3.3) IVSd: 0.9 cm (0.6 - 1.1) LVIDd: 4.2 cm (3.9 - 5.3) LVPWd: 1.2 cm (0.6 - 1.1) IVSs: 1.4 cm LVIDs: 2.6 cm LVPWs: 1.4 cm LAESV Index (A-L): 25.90 ml/m Ao Diam: 3.2 cm (2.0 - 3.7) AV Cusp: 2.1 cm (1.5 - 2.6) LA Diam: 2.5 cm (2.7 - 3.8) MV EXCURSION: 13.275 mm (> 18.000) MV EF SLOPE: 49 mm/s (70 - 150) EPSS: 0.8 cm MV E Alejandro: 0.82 m/s MV DecT: 247 ms MV A Alejandro: 0.94 m/s MV E/A Ratio: 0.88 RAP: 5.00 mmHg RVSP: 28.93 mmHg FINDINGS -------- Sinus rhythm. This was a technically good study. The left ventricular size is normal. Left ventricular wall thickness is normal. Overall left vent ricular systolic function is mildly impaired with, an EF between 45 - 50 %. Basal inferolateral hyp okinesis. The right ventricle is mildly enlarged. The left atrium is normal in size. The right atrium is normal in size. The aortic valve is trileaflet, and appears structurally normal. No aortic stenosis or regurgitation. Mild mitral regurgitation is present. Trace tricuspid regurgitation present. The right ventricular systolic pressure, as measured by Dopp ler, is 28.93mmHg. Pulmonic valve appears structurally normal. The aortic root size is normal. Normal inferior vena cava with normal inspiratory collapse consistent with estimated right atrial pre ssure of 5 mmHg. The pericardium is normal. CONCLUSIONS -------- 1. Sinus rhythm. 2. This was a technically good study. 3. The left ventricular size is normal. 4. Left ventricular wall thickness is normal. 5. Overall left ventricular systolic function is mildly impaired with, an EF between 45 - 50 %. 6. Basal inferolateral hypokinesis. 7. The right ventricle is mildly enlarged. 8. The left atrium is normal in size. 9. The right atrium is normal in size. 10. The aortic valve is trileaflet, and appears structurally normal. No aortic stenosis or regurgitat ion. 11. Mild mitral regurgitation is present. 12. Trace tricuspid regurgitation present. 13. The right ventricular systolic pressure, as measured by Doppler, is 28.93mmHg. 14. Pulmonic valve appears structurally normal. 15. The aortic root size is normal. 16. Normal inferior vena cava with normal inspiratory collapse consistent with estimated right atrial pressure of 5 mmHg. 17. The pericardium is normal. SCIENTIFIC [employer]ORATORY SUPERVISOR: Karen Armenta RDCS
[2018-05-20] MEDS: ASPIRIN 81 MG PO SCH (10:17)
[2018-05-20] MEDS: CYCLOBENZAPRINE 10 MG TAB PO PRN ×2 (10:19→21:15)
[2018-05-20] MEDS: HYDROcodone/APAP 5-325MG 1 EACH TAB PO PRN ×4 (10:19→21:14)
[2018-05-20] MEDS ORDERED: IOPAMIDOL-300 CONTRAST 30 ML VIAL (ORAL USE) PO PRN (10:45)
--- NOTE | 2018-05-20 12:39 | CT ---
EXAMINATION TYPE: CT abdomen pelvis wo con DATE OF EXAM: 05/20/2018 COMPARISON: None HISTORY: Epigastric pain CT DLP: 589.1 mGycm Automated exposure control for dose reduction was used. TECHNIQUE: Helical acquisition of images was performed from the lung bases through the pelvis. Oral contrast was utilized per protocol. Intravenous contrast was not administered limiting evaluation of the solid viscera FINDINGS: LUNG BASES: No significant abnormality is appreciated. LIVER/GB: Liver is unremarkable in unenhanced morphology. Gallbladder surgically absent. PANCREAS: Unremarkable unenhanced morphology. SPLEEN: There is a small splenule seen adjacent to the tetlin spleen at its caudal margin. ADRENALS: No significant abnormality is seen. KIDNEYS: No hydronephrosis nor nephrolithiasis. FREE AIR: No free air is visualized ADENOPATHY: No greater than 1 cm short axis lymph nodes are seen in the abdomen or pelvis within the limitations of lack of intravenous contrast. URINARY BLADDER: No significant abnormality is seen. OSSEOUS STRUCTURES: There are multiple probable vertebral body hemangioma is present BOWEL: Oral contrast passes through the distal esophagus into the partial gastrectomy sleeve and sma ll bowel. Postsurgical changes of partial gastrectomy are noted at the gastroesophageal junction and within the gastric fundus and body as well as within small bowel in the left mid abdomen. No surround ing fluid collections or dilated bowel are seen to suggest obstruction or focal leak. No contrast ext ravasation is noted of oral contrast. Appendix appears surgically absent. IMPRESSION: POSTSURGICAL CHANGE OF A PARTIAL GASTRECTOMY WITH CONTRAST PASSING INTO THE SMALL BOWEL WITH NO EVIDE NCE OF OBSTRUCTION NOR CONTRAST EXTRAVASATION. THE PROXIMAL ESOPHAGUS IS NONDILATED.
--- NOTE | 2018-05-20 13:44 | P.GSCN ---
<Lea Reich - Last Filed: 05/20/18 13:42> History of Present Illness Consult date: 05/20/18 Reason for Consult: History of bariatric surgery Requesting physician: Tono Brooke History of present illness: CHIEF COMPLAINT: Chest pain, back pain HISTORY OF PRESENT ILLNESS: 67-year-old female who originally presented to the emergency room with chest pain. When asked location of her pain patient points to epigastric region. She also complains of back pain. She denies nausea or vomiting. Denies constipation or diarrhea. The patient does have a history of myocardial infarction. She is prescribed 162 mg of aspirin daily. The patient takes omeprazole daily but states she ran out of her prescription and has not taken it in over a week. WBC 4.9. Hemoglobin 11.7. Pancreatic enzymes within normal limits. PAST MEDICAL HISTORY: See list. PAST SURGICAL HISTORY: Lap-Band: 2008 Removal of lap band: 2017 Gris-n-y gastric bypass: 2018 MEDICATIONS: See list. ALLERGIES: See list. SOCIAL HISTORY: No illicit drug use. REVIEW OF SYSTEMS: CONSTITUTIONAL: Denies fever or chills. HEENT: Denies blurred vision, vision changes, or eye pain. Denies hemoptysis ENDOCRINE: Denies heat or cold intolerance. CARDIOVASCULAR: Denies chest pain or pressure. RESPIRATORY: No shortness of breath. GASTROINTESTINAL: Reports epigastric pain that radiates to her midback. Denies nausea or vomiting. NEURO: Denies history of seizures. PSYCH: No depression or suicidal ideation HEMATOLOGIC: Denies bleeding disorders. LYMPHATIC: The patient denies any lumps and bumps around the neck. GENITOURINARY: Denies any blood in urine or increased urinary frequency. MUSCULOSKELETAL: Denies myalgias. Denies joint swelling. Denies decreased range of motion beyond patients baseline. SKIN: Denies pruitis. Denies rash. PHYSICAL EXAM: VITAL SIGNS: Currently stable. GENERAL: Well-developed in no acute distress. HEENT: No sclera icterus. Extraocular movements grossly intact. Moist buccal mucosa. Head is atraumatic, normocephalic. Hears conversational speech. No nasal drainage. NECK: Supple without lymphadenopathy. CHEST: Non-labored respirations and equal bilateral excursions. CARDIOVASCULAR: Regular rate with regular rhythm. Palpable 2+ radial pulses. ABDOMEN: Soft. Nondistended. Positive bowel sounds x 4 quadrants. MUSCULOSKELETAL: No clubbing, cyanosis or edema. NEUROLOGIC: No focal or lateralizing signs. Cranial nerves II through XII grossly intact. PSYCH: Appropriate affect. Alert and oriented to person, place and time. SKIN: Well perfused. Good skin turgor. ASSESSMENT: 1. Epigastric pain with radiation to midback in a patient with history of Gris- en-Y gastric bypass on daily aspirin therapy who has not taken her PPI therapy in over a week 2. History of EGD with balloon dilation secondary to dysphasia and gastrojejunal stricture, September 2017 3. History of Gris-en-Y gastric bypass, 2017 4. History of lap band, 2008, with subsequent removal of lap in 2016 5. Gastroesophageal reflux disease 6. History of myocardial infarction with stent placement PLAN: 1. Protonix 40mg BID (Hospital does not carry omeprazole) 2. CT scan abdomen/pelvis with oral contrast 3. EGD with dilation to be performed tomorrow 4. NPO after midnight 5. IV fluids Nurse practitioner note has been reviewed by physician. Signing provider agrees with the documented findings, assessment, and plan of care. Past Medical History Past Medical History: Chest Pain / Angina, CVA/TIA, Fibromyalgia, GERD/Reflux, Hypertension, Myocardial Infarction ([place]), Osteoarthritis (OA) Additional Past Medical History / Comment(s): EGD WITH DILATION 09/09/17, states frequent vomiting, dysphagia, HIATAL HERNIA, Chronic pain syndrome. HEMORRHOIDS. "RAPID HEART BEAT OCC".anxiety/dep, TIA 20 YEARS, HERNIATED DISC LOWER BACK. IN 2006 , fall/broke rt foot/rt wrist-was in traction and casted but no sx Last Myocardial Infarction Date:: 05/25/16 History of Any Multi-Drug Resistant Organisms: None Reported Past Surgical History: Back Surgery, Bariatric Surgery, Breast Surgery, Cholecystectomy, Heart Catheterization With Stent, Hysterectomy, Tonsillectomy, Tubal Ligation Additional Past Surgical History / Comment(s): Lap band SEPTEMBER 2008, removed 05/12. Plantar fascia x2 mortons neuroma, panniculectomy,heart stent x1 COLONOSCOPY/EGD, HEMORRHOIDS, CERVICAL FUSION-PLATE, BREAST REDUCTION SX X2, LIPOMAS, LT SHOULDER SX, HEMALATHA THUMB JOINT REPLACEMENTS. gris-n-y gastric bypass Past Anesthesia/Blood Transfusion Reactions: Previous Problems w/ Anesthesia Additional Past Anesthesia/Blood Transfusion Reaction / Comm: "surgical awareness","early waking "takes a lot of anesthesia", cervical fusion-states some limits in neck movement - states no problems with intubation in previous surgeries Date of Last Stent Placement:: 05/25/16 Smoking Status: Never smoker - Past Family History Father Family Medical History: Cancer, Coronary Artery Disease (CAD), Hypertension Additional Family Medical History / Comment(s): CABG, COLON/bladder CANCER Mother Family Medical History: Cancer, Renal Disease Additional Family Medical History / Comment(s): metastatic breast cancer, heart disease,.was 3 ppd smoker Medications and Allergies Home Medications Medication Instructions Recorded Confirmed Type Cyclobenzaprine [Flexeril] 10 mg PO BID PRN 04/07/16 05/19/18 History DULoxetine HCL [Cymbalta] 60 mg PO HS 04/07/16 05/19/18 History LORazepam [Ativan] 0.5 mg PO BID PRN 04/07/16 05/19/18 History Hydrocodone/Acetaminophen [[place] 1 - 2 tab PO Q4-6H PRN 05/25/16 05/19/18 History 5-325] Nitroglycerin Sl Tabs [Nitrostat] 0.4 mg SUBLINGUAL Q5M PRN #25 tab 05/28/16 Rx Aspirin [Adult Low Dose Aspirin EC] 162 mg PO QAM 09/07/17 05/19/18 History Atorvastatin [Lipitor] 20 mg PO HS 05/19/18 05/19/18 History Ferrous Sulfate/Vit C 1 tab PO HS 05/19/18 05/19/18 History Furosemide [Lasix] 20 mg PO DAILY PRN 05/19/18 05/19/18 History Isosorbide Mononitrate ER [Imdur] 30 mg PO HS 05/19/18 05/19/18 History Losartan Potassium 25 mg PO HS 05/19/18 05/19/18 History Metoprolol Succinate (ER) [Toprol 50 mg PO HS 05/19/18 05/19/18 History Xl] Potassium Chloride 8 meq PO DAILY PRN 05/19/18 05/19/18 History Vitamin A 8,000 unit PO HS 05/19/18 05/19/18 History Allergies Allergy/AdvReac Type Severity Reaction Status Date / Time adhesive tape Allergy peels skin Verified 05/19/18 14:11 off Surgical - Exam Vital Signs Temp Pulse Resp BP Pulse Ox 98.3 F 67 18 163/91 100 05/19/18 13:03 05/19/18 13:03 05/19/18 13:03 05/19/18 13:03 05/19/18 13:03 Results - Labs 05/19/18 13:22 05/19/18 13:22 Abnormal Lab Results - Last 24 Hours (Table) 05/19/18 05/19/18 Range/Units 13:22 13:22 APTT 20.2 L (22.0-30.0) sec Chloride 110 H (98-107) mmol/L BUN 21 H (7-17) mg/dL Diabetes panel 05/19/18 05/19/18 Range/Units 13:22 13:22 Sodium 142 (137-145) mmol/L Potassium 4.7 (3.5-5.1) mmol/L Chloride 110 H (98-107) mmol/L Carbon Dioxide 24 (22-30) mmol/L BUN 21 H (7-17) mg/dL Creatinine 0.77 (0.52-1.04) mg/dL Glucose 81 (74-99) mg/dL Calcium 9.8 (8.4-10.2) mg/dL AST 34 (14-36) U/L ALT 34 (9-52) U/L Alkaline Phosphatase 102 (38-126) U/L Total Protein 6.7 (6.3-8.2) g/dL Albumin 3.8 (3.5-5.0) g/dL Triglycerides 73 (<150) mg/dL HDL Cholesterol 60 (40-60) mg/dL Calcium panel 05/19/18 Range/Units 13:22 Calcium 9.8 (8.4-10.2) mg/dL Albumin 3.8 (3.5-5.0) g/dL Pituitary panel 05/19/18 Range/Units 13:22 Sodium 142 (137-145) mmol/L Potassium 4.7 (3.5-5.1) mmol/L Chloride 110 H (98-107) mmol/L Carbon Dioxide 24 (22-30) mmol/L BUN 21 H (7-17) mg/dL Creatinine 0.77 (0.52-1.04) mg/dL Glucose 81 (74-99) mg/dL Calcium 9.8 (8.4-10.2) mg/dL Adrenal panel 05/19/18 Range/Units 13:22 Sodium 142 (137-145) mmol/L Potassium 4.7 (3.5-5.1) mmol/L Chloride 110 H (98-107) mmol/L Carbon Dioxide 24 (22-30) mmol/L BUN 21 H (7-17) mg/dL Creatinine 0.77 (0.52-1.04) mg/dL Glucose 81 (74-99) mg/dL Calcium 9.8 (8.4-10.2) mg/dL Total Bilirubin 0.6 (0.2-1.3) mg/dL AST 34 (14-36) U/L ALT 34 (9-52) U/L Alkaline Phosphatase 102 (38-126) U/L Total Protein 6.7 (6.3-8.2) g/dL Albumin 3.8 (3.5-5.0) g/dL Assessment and Plan (1) Epigastric pain Current Visit: Yes Status: Acute Code(s): R10.13 - EPIGASTRIC PAIN SNOMED Code(s): 54634157 (2) Back pain Current Visit: Yes Status: Acute Code(s): M54.9 - DORSALGIA, UNSPECIFIED SNOMED Code(s): 819140362 (3) Obesity (BMI 30.0-34.9) Current Visit: Yes Status: Acute Code(s): E66.9 - OBESITY, UNSPECIFIED SNOMED Code(s): 820897249785547 (4) Morbid obesity Current Visit: No Status: Acute Code(s): E66.01 - MORBID (SEVERE) OBESITY DUE TO EXCESS CALORIES SNOMED Code(s): 859444065 (5) S/P gastric bypass Current Visit: No Status: Acute Code(s): Z98.84 - BARIATRIC SURGERY STATUS SNOMED Code(s): 020679086 (6) S/P right coronary artery (RCA) stent placement Current Visit: No Status: Acute Code(s): Z95.5 - PRESENCE OF CORONARY ANGIOPLASTY IMPLANT AND GRAFT SNOMED Code(s): 32825528497607 (7) Status post gastric banding surgery Current Visit: No Status: Acute Code(s): Z98.84 - BARIATRIC SURGERY STATUS SNOMED Code(s): 693410108 (8) Dysphagia Current Visit: No Status: Chronic Code(s): R13.10 - DYSPHAGIA, UNSPECIFIED SNOMED Code(s): 98435997 (9) History of adjustable gastric banding Current Visit: No Status: Chronic Code(s): Z98.84 - BARIATRIC SURGERY STATUS SNOMED Code(s): 612984180 (10) Hypertension Current Visit: No Status: Chronic Code(s): I10 - ESSENTIAL (PRIMARY) HYPERTENSION SNOMED Code(s): 44124572 <Ladonna Rebolledo N - Last Filed: 05/20/18 16:59> Surgical - Exam Vital Signs Temp Pulse Resp BP Pulse Ox 98.3 F 67 18 163/91 100 05/19/18 13:03 05/19/18 13:03 05/19/18 13:03 05/19/18 13:03 05/19/18 13:03 Results - Labs 05/19/18 13:22 05/19/18 13:22 Diabetes panel 05/19/18 Range/Units 13:22 Triglycerides 73 (<150) mg/dL HDL Cholesterol 60 (40-60) mg/dL Assessment and Plan Plan: Recommend EGD for atypical chest pain. She has high risk for gastrojejunal ulcers. Protonix recommended.
[2018-05-20] MEDS: PANTOPRAZOLE 40 MG TABLET PO SCH ×2 (13:45→16:31)
--- NOTE | 2018-05-20 19:45 | P.HPIM ---
History of Present Illness H&P Date: 05/20/18 Chief Complaint: Chest pain History of presenting complaint: This is a very pleasant 67 year patient follows with Dr. Christos Munoz. 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 Chronic stable medical conditions include fibromyalgia, GERD, hypertension, osteoarthritis, hiatal hernia, chronic pain syndrome herniated disc in the lower back. Patient has known coronary artery disease with a stent. Patient is a 2 day history of chest pain. Describes it from her throat down to the end of the sternum. It is more sharp in nature. And was a deep breath that is pleuritic in nature. No cough. No fever and chills. She feels is worse with bending over. No dizziness or lightheadedness. Some nausea was present. Not really related to exertion. Admitted to rule out a cardiac cause. Also surgery was consulted. Review of systems: GEN.: Tired EYES: None HEENT: None NECK: None RESPIRATORY: As above CARDIOVASCULAR: As above GASTROINTESTINAL: None GENITOURINARY: None MUSCULOSKELETAL: Pain in the joint LYMPHATICS: None HEMATOLOGICAL: None PSYCHIATRY: Anxiety depression controlled NEUROLOGICAL: None Past medical history: Fibromyalgia, GERD, hypertension, osteoarthritis, E sophageal stricture with dilatation, hiatal hernia, chronic pain syndrome, hemorrhoids, anxiety depression, herniated disc in the lower back in 2006, Social history: Does not smoke or drink alcohol. Lives alone. Family history: Coronary artery disease,colon Bladder cancer Physical examination: VITAL SIGNS: [90.3, 67, 18, 163/91, 100% on 2 L GENERAL: BMI 31.8, well built, laying in bed, comfortable. EYES: Pupils equal. Conjunctiva normal. HEENT: External appearance of nose and ears normal, oral cavity grossly normal. NECK: JVD not raised; masses not palpable. HEART: First and second heart sounds are normal; no edema. LUNGS: Respiratory rate normal; clear to auscultation. ABDOMEN: Soft, nontender, liver spleen not palpable, no masses palpable. LYMPHATICS: No lymph nodes palpable in the axilla and neck. PSYCH: Alert and oriented x3; mood and affect normal. NEUROLOGICAL: Cranial nerves grossly intact; no facial asymmetry, power and sensation grossly intact. Investigations reviewed in the clinical context: White count 4.9, hemoglobin 11.7, potassium 4.7, BUN 21, creatinine 0.77 Troponin I 3 negative proBNP 440 Chest x-ray-film personally reviewed by me, lung freitas clear, some elevation of the right diaphragm 2-D echo shows EF of 45-50% EKG-tracing personally reviewed by me shows normal sinus rhythm Computed tomography scan of the abdomen-partial gastrectomy with contrast passing into the small bowel Assessment: -Atypical chest pain. But somewhat noncardiac features. Cardiology cardiology was consulted to rule out a cardiac cause of the same. -Chronic fibromyalgia -GERD -Essential hypertension -Primary osteoarthritis -Hiatal hernia -Chronic pain syndrome -Anxiety depression not otherwise specified -Obesity BMI of 31.8 Plan: Cardiology and general surgery were both consulted. Home medications are resumed. Patient was seen by Dr. Mtz. Did not feel this is a cardiac presentation. Also seen by Dr. Bryan from general surgery. . Other home medications are resumed. Care was discussed with the patient. Questions were answered. Dr. Bryan follows planning to proceed with the EGD. This is being planned for tomorrow. Past Medical History Past Medical History: Chest Pain / Angina, CVA/TIA, Fibromyalgia, GERD/Reflux, Hypertension, Myocardial Infarction (DC), Osteoarthritis (OA) Additional Past Medical History / Comment(s): EGD WITH DILATION 09/09/17, states frequent vomiting, dysphagia, HIATAL HERNIA, Chronic pain syndrome. HEMORRHOIDS. "RAPID HEART BEAT OCC".anxiety/dep, TIA 20 YEARS, HERNIATED DISC LOWER BACK. IN 2006 , fall/broke rt foot/rt wrist-was in traction and casted but no sx Last Myocardial Infarction Date:: 05/25/16 History of Any Multi-Drug Resistant Organisms: None Reported Past Surgical History: Back Surgery, Bariatric Surgery, Breast Surgery, Cholecystectomy, Heart Catheterization With Stent, Hysterectomy, Tonsillectomy, Tubal Ligation Additional Past Surgical History / Comment(s): Lap band SEPTEMBER 2008, removed 05/12. Plantar fascia x2 mortons neuroma, panniculectomy,heart stent x1 COLONOSCOPY/EGD, HEMORRHOIDS, CERVICAL FUSION-PLATE, BREAST REDUCTION SX X2, LIPOMAS, LT SHOULDER SX, HEMALATHA THUMB JOINT REPLACEMENTS. gris-n-y gastric bypass Past Anesthesia/Blood Transfusion Reactions: Previous Problems w/ Anesthesia Additional Past Anesthesia/Blood Transfusion Reaction / Comment(s): "surgical awareness","early waking "takes a lot of anesthesia", cervical fusion-states some limits in neck movement - states no problems with intubation in previous surgeries Date of Last Stent Placement:: 05/25/16 Smoking Status: Never smoker - Past Family History Father Family Medical History: Cancer, Coronary Artery Disease (CAD), Hypertension Additional Family Medical History / Comment(s): CABG, COLON/bladder CANCER Mother Family Medical History: Cancer, Renal Disease Additional Family Medical History / Comment(s): metastatic breast cancer, heart disease,.was 3 ppd smoker Medications and Allergies Home Medications Medication Instructions Recorded Confirmed Type Cyclobenzaprine [Flexeril] 10 mg PO BID PRN 04/07/16 05/19/18 History DULoxetine HCL [Cymbalta] 60 mg PO HS 04/07/16 05/19/18 History LORazepam [Ativan] 0.5 mg PO BID PRN 04/07/16 05/19/18 History Hydrocodone/Acetaminophen [[place] 1 - 2 tab PO Q4-6H PRN 05/25/16 05/19/18 History 5-325] Nitroglycerin Sl Tabs [Nitrostat] 0.4 mg SUBLINGUAL Q5M PRN #25 tab 05/28/16 Rx Aspirin [Adult Low Dose Aspirin EC] 162 mg PO QAM 09/07/17 05/19/18 History Atorvastatin [Lipitor] 20 mg PO HS 05/19/18 05/19/18 History Ferrous Sulfate/Vit C 1 tab PO HS 05/19/18 05/19/18 History Furosemide [Lasix] 20 mg PO DAILY PRN 05/19/18 05/19/18 History Isosorbide Mononitrate ER [Imdur] 30 mg PO HS 05/19/18 05/19/18 History Losartan Potassium 25 mg PO HS 05/19/18 05/19/18 History Metoprolol Succinate (ER) [Toprol 50 mg PO HS 05/19/18 05/19/18 History Xl] Potassium Chloride 8 meq PO DAILY PRN 05/19/18 05/19/18 History Vitamin A 8,000 unit PO HS 05/19/18 05/19/18 History Allergies Allergy/AdvReac Type Severity Reaction Status Date / Time adhesive tape Allergy peels skin Verified 05/19/18 14:11 off Physical Exam Vitals: Vital Signs Temp Pulse Pulse Resp BP BP Pulse Ox 05/20/18 12:00 98.4 F 66 18 154/78 94 L 05/20/18 08:00 98 F 64 16 130/75 97 05/20/18 04:00 97.8 F 66 15 112/68 99 05/20/18 00:00 64 15 05/19/18 23:20 98.3 F 64 15 122/67 96 05/19/18 20:00 82 18 05/19/18 17:15 98.5 F 82 18 156/84 99 05/19/18 16:00 67 17 151/84 99 05/19/18 15:30 64 18 155/80 100 05/19/18 15:00 68 16 137/85 99 Intake and Output 05/19/18 05/20/18 05/20/18 22:59 06:59 14:59 Intake Total 200 0 Balance 200 0 Intake: Oral 200 0 Other: # Voids 1 1 Results CBC & Chem 7: 05/19/18 13:22 05/19/18 13:22 Thrombosis Risk Factor Assmnt - Choose All That Apply Any of the Below Risk Factors Present?: Yes Each Factor Represents 1 point: Obesity (BMI >25) Other Risk Factors: Yes Each Risk Factor Represents 2 Points: Age 61-74 years Thrombosis Risk Factor Assessment Total Risk Factor Score: 3 Thrombosis Risk Factor Assessment Level: Moderate Risk
[2018-05-20] MEDS: LOSARTAN 25 MG TAB PO SCH (21:14)
[2018-05-20] MEDS: METOPROLOL SUCCINATE (ER) 50 MG TAB.ER.24H PO SCH (21:14)
[2018-05-20] MEDS: DULoxetine HCL 60 MG CAPSULE.DR PO SCH (21:15)
[2018-05-20] MEDS: ATORVASTATIN 20 MG TAB PO SCH (21:15)
[2018-05-20] MEDS: ISOSORBIDE MONONITRATE ER 30 MG TAB.ER.24H PO SCH (21:17)
[2018-05-20] MEDS: VITAMIN A 10,000 UNIT CAPSULE PO SCH (21:28)
[2018-05-21] MEDS: PANTOPRAZOLE 40 MG TABLET PO SCH (08:06)
[2018-05-21] MEDS: ASPIRIN 81 MG PO SCH (08:06)
[2018-05-21 08:40] VITALS: RESP 18; TEMP 98
--- NOTE | 2018-05-21 10:28 | P.PN ---
<Lea Reich - Last Filed: 05/21/18 10:24> Subjective Progress Note Date: 05/21/18 CHIEF COMPLAINT: Chest pain, back pain HISTORY OF PRESENT ILLNESS: Patient examined at the bedside. She reports her pain has significantly improved today. Denies back pain. Denies nausea or vomiting. She underwent CT abdomen and pelvis yesterday revealing postsurgical cahnges of partial gastrectomy with contrast passing into small bowel with no evidence of obstruction or contrast extravasation. Proximal esophagus is nondilated. Vital signs are stable. She is scheduled for EGD today. PHYSICAL EXAM: VITAL SIGNS: Currently stable. GENERAL: Well-developed in no acute distress. HEENT: No sclera icterus. Extraocular movements grossly intact. Moist buccal mucosa. Head is atraumatic, normocephalic. Hears conversational speech. No nasal drainage. NECK: Supple without lymphadenopathy. CHEST: Non-labored respirations and equal bilateral excursions. CARDIOVASCULAR: Regular rate with regular rhythm. Palpable 2+ radial pulses. ABDOMEN: Soft. Nondistended. Positive bowel sounds x 4 quadrants. MUSCULOSKELETAL: No clubbing, cyanosis or edema. NEUROLOGIC: No focal or lateralizing signs. Cranial nerves II through XII grossly intact. PSYCH: Appropriate affect. Alert and oriented to person, place and time. SKIN: Well perfused. Good skin turgor. ASSESSMENT: 1. Epigastric pain with radiation to midback in a patient with history of Jac- en-Y gastric bypass on daily aspirin therapy who has not taken her PPI therapy in over a week 2. History of EGD with balloon dilation secondary to dysphasia and gastrojejunal stricture, September 2017 3. History of Jac-en-Y gastric bypass, 2017 4. History of lap band, 2008, with subsequent removal of lap in 2016 5. Gastroesophageal reflux disease 6. History of myocardial infarction with stent placement PLAN: 1. Continue Protonix 40mg BID (Hospital does not carry omeprazole) 2. Patient scheduled for EGD today Nurse practitioner note has been reviewed by physician. Signing provider agrees with the documented findings, assessment, and plan of care. Objective - Vital Signs Vital signs: Vital Signs Temp 98.0 F 05/21/18 08:00 Pulse 64 05/21/18 08:00 Resp 18 05/21/18 08:00 BP 117/71 05/21/18 08:00 Pulse Ox 97 05/21/18 08:00 Intake & Output 05/20/18 05/21/18 05/21/18 18:59 06:59 18:59 Intake Total 1080 Balance 1080 Intake: Oral 1080 Other: # Voids 2 2 2 - Labs CBC & Chem 7: 05/19/18 13:22 05/19/18 13:22 Assessment and Plan (1) Epigastric pain Status: Acute Code(s): R10.13 - EPIGASTRIC PAIN SNOMED Code(s): 16953975 (2) Back pain Status: Acute Code(s): M54.9 - DORSALGIA, UNSPECIFIED SNOMED Code(s): 283224331 (3) Obesity (BMI 30.0-34.9) Status: Acute Code(s): E66.9 - OBESITY, UNSPECIFIED SNOMED Code(s): 701555789910874 (4) Morbid obesity Status: Acute Code(s): E66.01 - MORBID (SEVERE) OBESITY DUE TO EXCESS CALORIES SNOMED Code(s): 451011005 (5) S/P gastric bypass Status: Acute Code(s): Z98.84 - BARIATRIC SURGERY STATUS SNOMED Code(s): 750031635 (6) S/P right coronary artery (RCA) stent placement Status: Acute Code(s): Z95.5 - PRESENCE OF CORONARY ANGIOPLASTY IMPLANT AND GRAFT SNOMED Code(s): 03788843833266 (7) Status post gastric banding surgery Status: Acute Code(s): Z98.84 - BARIATRIC SURGERY STATUS SNOMED Code(s): 534473497 (8) Dysphagia Status: Chronic Code(s): R13.10 - DYSPHAGIA, UNSPECIFIED SNOMED Code(s): 61649935 (9) History of adjustable gastric banding Status: Chronic Code(s): Z98.84 - BARIATRIC SURGERY STATUS SNOMED Code(s): 383040406 (10) Hypertension Status: Chronic Code(s): I10 - ESSENTIAL (PRIMARY) HYPERTENSION SNOMED Code( s): 84022151 <Ladonna Rebolledo N - Last Filed: 05/23/18 12:20> Objective - Vital Signs Vital signs: Vital Signs Temp 98.0 F 05/21/18 08:00 Pulse 66 05/21/18 12:30 Resp 18 05/21/18 12:00 BP 157/88 05/21/18 12:30 Pulse Ox 97 05/21/18 08:00 - Labs CBC & Chem 7: 05/19/18 13:22 05/19/18 13:22 Assessment and Plan Plan: Patient cleared from a surgical standpoint for discharge and recommend heel painter.
[2018-05-21] MEDS ORDERED: IV FLUID CONTINUATION 1,000 ML IV ONE (10:41)
[2018-05-21] MEDS ORDERED: PROPOFOL 10 MG/ML 20 ML VIAL IV ONE (10:51)
--- NOTE | 2018-05-21 11:11 | P.PCN ---
Date of Procedure: 05/21/18 Description of Procedure: PREOPERATIVE DIAGNOSIS: Dysphagia Epigastric abdominal pain Gastroesophageal reflux disease. Chronic NSAID use POSTOPERATIVE DIAGNOSIS: Dysphagia Epigastric abdominal pain Gastroesophageal reflux disease. 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 SURGEON: Ladonna Rebolledo MD ANESTHESIA: MAC. INDICATIONS: The patient is a 67-year-old female who presents with a history of dysphagia, epigastric abdominal pain gastric bypass including new-onset nausea and vomiting. Benefits and risks of the procedure were described. Informed consent was obtained. DESCRIPTION: The patient was brought into the endoscopy suite and laid in the left lateral decubitus position. After a timeout was confirmed, the procedure was initiated. An Olympus gastroscope was passed along the posterior oropharynx down to the distal esophagus where the squamocolumnar junction was unremarkable. The gastric pouch was entered. A gastrojejunal stricture of 12 mm was found as the adult gastroscope was 9.5 mm in size. A [employer] balloon dilator was placed through the scope. Final insufflation up to 20 mm was performed with a total of 2 minutes. The scope was advanced up to 60 cm from the incisors into the Jac limb. The mucosa of the gastrojejunal anastomosis was intact. No chronic gastrojejunal marginal ulcer was encountered. No full-thickness injury was encountered. The GI tract was desufflated. The patient tolerated the procedure well. FINDINGS: Stricture of approximately 12 mm encountered. No chronic gastrojejunal ulceration encountered. Successful balloon dilatation to 20 mm. Gastric pouch 3 cm. RECOMMENDATIONS: Upper endoscopy as needed
[2018-05-21 12:32] VITALS: BP 157/88; PULSE 66
--- NOTE | 2018-05-22 08:56 | DS ---
DISCHARGE SUMMARY DATE OF ADMISSION: May 19, 2018. DATE OF DISCHARGE: May 21, 2018. FINAL DIAGNOSES: 1. 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 2. Atypical chest pain. 3. Chronic fibromyalgia. 4. Gastroesophageal reflux disease. 5. Essential hypertension. 6. Primary osteoarthritis. 7. Hiatal hernia. 8. Chronic pain syndrome. 9. Anxiety, depression not otherwise specified. 10.Obesity; BMI 31.8. CONSULTATION: Dr. Rebolleod from General surgery, Dr. Bentley from Cardiology. PROCEDURE: EGD with gastrojejunal stricture dilated. HOSPITAL COURSE: This patient presented with atypical features. Seen by Dr. Rebolledo. Did carry out the above procedure. Per Cardiology, this is not felt to be cardiac. Patient did have a 2-D echocardiogram that showed EF to 45-50 percent. Basal inferolateral hypokinesia was noted. The patient is seen by Dr. Bentley from Cardiology. The patient was cleared by them to be discharged. It was felt more to be Gastroenterology. Dr. Rebolledo carry on the above procedure. The patient is feeling well at the time of discharge. On examination afebrile, blood pressure 157/88. ABDOMEN: Soft, nontender. DISCHARGE MEDICATIONS: 1. Flexeril 10 mg b.i.d. p.r.n. 2. Cymbalta 60 mg q.h.s. 3. Ativan 0.5 p.o. b.i.d. p.r.n. 4. [place] 5 1-2 tablets q.6h p.r.n. 5. Nitrostat 0.4 sublingual q.5 p.r.n. 6. Aspirin 162 mg a day. 7. Lipitor 20 mg q.h.s. 8. Iron with vitamin C 1 tablet p.o. at bedtime. 9. Lasix 20 mg a day p.r.n. 10.Imdur ER 30 mg q.h.s. 11.Losartan 25 mg p.o. q.h.s. 12.Toprol-XL 50 mg p.o. q.h.s. 13.Potassium 8 mEq p.o. daily p.r.n. 14.Vitamin A 8000 units p.o. q.h.s. 15.Omeprazole 20 mg p.o. daily. FOLLOWUP: With Cardiology in 1 week. Follow up with Dr. Christos Munoz in 3 days. Follow up with Dr. Rebolledo in 2 weeks. Diet as per Dr. Rebolledo. Copy to Christos Munoz. MMODL / IJN: [id number] /
== END 2018-05-21 14:42 ==
LOC: EC 13:00 → 1SOBS 16:42
PROVIDERS: ADMIT Hospitalist; ATTEND Hospitalist
DX: K91.89 Other postprocedural complications and disorders of digestive system (principal); R07.89 Other chest pain; Z98.84 Bariatric surgery status; I10 Essential (primary) hypertension; M54.9 Dorsalgia, unspecified; E66.01 Morbid (severe) obesity due to excess calories; Z68.38 Body mass index [BMI] 38.0-38.9, adult; R13.10 Dysphagia, unspecified; M79.7 Fibromyalgia; K44.9 Diaphragmatic hernia without obstruction or gangrene; K21.9 Gastro-esophageal reflux disease without esophagitis; G89.4 Chronic pain syndrome; I25.10 Atherosclerotic heart disease of native coronary artery without angina pectoris; M19.90 Unspecified osteoarthritis, unspecified site; M19.91 Primary osteoarthritis, unspecified site; F32.9 Major depressive disorder, single episode, unspecified; F41.9 Anxiety disorder, unspecified; I25.2 Old myocardial infarction; Z79.82 Long term (current) use of aspirin; Z79.1 Long term (current) use of non-steroidal anti-inflammatories (NSAID); Z79.899 Other long term (current) drug therapy; Z91.048 Other nonmedicinal substance allergy status; Z90.3 Acquired absence of stomach [part of]; Z95.5 Presence of coronary angioplasty implant and graft; Z90.49 Acquired absence of other specified parts of digestive tract; Z90.710 Acquired absence of both cervix and uterus; Z96.698 Presence of other orthopedic joint implants; Z86.73 Personal history of transient ischemic attack (TIA), and cerebral infarction without residual deficits; Z80.3 Family history of malignant neoplasm of breast; Z80.9 Family history of malignant neoplasm, unspecified; Z80.52 Family history of malignant neoplasm of bladder; Z80.0 Family history of malignant neoplasm of digestive organs; Z82.49 Family history of ischemic heart disease and other diseases of the circulatory system; M51.26 Other intervertebral disc displacement, lumbar region; Z81.2 Family history of tobacco abuse and dependence; Z84.1 Family history of disorders of kidney and ureter
CPT/HCPCS: 96361 ×3; 96374; 99285; 36415; 93005; 93306; 85379; 83880; 80061; 80053; 82150; 82550 ×2; 82553 ×2; 83690; 83735; 84484 ×2; 85025; 85610; 85730; 71046; 74176; 43245; G0378 ×3; J2270; J2704; C1726

== ENCOUNTER → 2018-10-06 | Outpatient (CLI) | payer MEDICARE ==
[2018-10-06 14:44] LABS: HCT 37.1 % (34.0-46.0); HGB 11.9 gm/dL (11.4-16.0); MCH 30.1 pg (25.0-35.0); MCV 93.9 fL (80.0-100.0); Platelet Count 193 k/uL (150-450); RBC 3.95 m/uL (3.80-5.40); WBC 3.9 k/uL (3.8-10.6)
[2018-10-06 14:52] LABS: Potassium 5.3 mmol/L (3.5-5.1)
== END ==
LOC: LABPAT 13:20
PROVIDERS: ATTEND Anesthesiology
DX: Z01.812 Encounter for preprocedural laboratory examination (principal)
CPT/HCPCS: 36415; 80051; 85027

== ENCOUNTER 2018-10-08 12:43 | Day surgery (SDC) | payer MEDICARE ==
[2018-10-05 12:20] VITALS: BMI 31.7
--- NOTE | 2018-10-07 23:13 | P.GSHP ---
History of Present Illness H&P Date: 10/08/18 CHIEF COMPLAINT: History of intra-abdominal adhesions HISTORY OF PRESENT ILLNESS: The patient is a 67-year-old female who presents with history of intra-abdominal adhesions from multiple prior surgeries including increasing abdominal pain. She now presents for diagnostic laparoscopy including lysis of adhesions. PAST MEDICAL HISTORY: Please see list. PAST SURGICAL HISTORY: Please see list. MEDICATIONS: Please see list. ALLERGIES: Please see list. SOCIAL HISTORY: No illicit drug use FAMILY HISTORY: No reports of Crohn disease or ulcerative colitis. REVIEW OF ORGAN SYSTEMS: CONSTITUTIONAL: No reports of fevers or chills. GI: Denies any blood in stools or constipation. PHYSICAL EXAM: VITAL SIGNS: Stable GENERAL: Well-developed pleasant and in no acute distress. HEENT: No scleral icterus. Extraocular movements grossly intact. Moist buccal mucosa. NECK: Supple without lymphadenopathy. CHEST: Unlabored respirations. Equal bilateral excursions. CARDIOVASCULAR: Regular rate and rhythm. Distal 2+ pulses. ABDOMEN: Soft, diffuse abdominal tenderness. No peritonitis. MUSCULOSKELETAL: No clubbing, cyanosis, or edema. ASSESSMENT: 1. Diffuse abdominal pain. 2. History of multiple abdominal surgeries. 3. Intra-abdominal adhesions. PLAN: 1. Robotic lysis of adhesions were described in detail including risk of injury to the intestine, need for further surgery, and open technique. 2. DVT prophylaxis. 3. Antibiotic prophylaxis. Past Medical History Past Medical History: Chest Pain / Angina, CVA/TIA, Fibromyalgia, GERD/Reflux, Hypertension, Myocardial Infarction ([place]), Osteoarthritis (OA) Additional Past Medical History / Comment(s): HIATAL HERNIA, HX OF EGD WITH DILATION, CHRONIC PAIN SYNDROME, OCCASIONAL RAPID HEART BEAR., TIA 20 YRS AGO., HERNIATED DISC LOWER BACK. HX OF FALL WITH FX RIGHT FOOT & RIGHT WRIST., HARDWARE IN NECK WITH LIMITED ROM., STATES ADHESIONS FROM PREVIOUS SURGERY . Last Myocardial Infarction Date:: 05/25/16 History of Any Multi-Drug Resistant Organisms: None Reported Past Surgical History: Back Surgery, Bariatric Surgery, Breast Surgery, Cholecystectomy, Heart Catheterization With Stent, Hysterectomy, Tonsillectomy, Tubal Ligation Additional Past Surgical History / Comment(s): Lap band SEPTEMBER 2008, removed 05/12/16. Plantar fascia x2 mortons neuroma, panniculectomy,heart stent x1 ,COLONOSCOPY/EGD WITH DILATION., HEMORRHOIDS, CERVICAL FUSION-PLATE, BREAST REDUCTION SX X2, LIPOMAS, LT SHOULDER SX WITH HARDWARE., HEMALATHA THUMB JOINT REPLACEMENTS. gris-n-y gastric bypass 07-06-17 Past Anesthesia/Blood Transfusion Reactions: Previous Problems w/ Anesthesia Additional Past Anesthesia/Blood Transfusion Reaction / Comment(s): "surgical awareness","early waking "takes a lot of anesthesia", cervical fusion-states no problems with intubation in previous surgeries Date of Last Stent Placement:: 05/25/16 Past Psychological History: Anxiety, Depression Additional Psychological History / Comment(s): PT STATED SHE HAS HAD DEPRESSION SINCE AGE 13. Smoking Status: Never smoker Past Alcohol Use History: None Reported Past Drug Use History: None Reported - Past Family History Father Family Medical History: Cancer, Coronary Artery Disease (CAD), Hypertension Additional Family Medical History / Comment(s): CABG, COLON/bladder CANCER Mother Family Medical History: Cancer, Renal Disease Additional Family Medical History / Comment(s): metastatic breast cancer, heart disease,.was 3 ppd smoker Medications and Allergies Home Medications Medication Instructions Recorded Confirmed Type Cyclobenzaprine [Flexeril] 10 mg PO TID PRN 04/07/16 10/05/18 History DULoxetine HCL [Cymbalta] 60 mg PO HS 04/07/16 10/05/18 History LORazepam [Ativan] 0.5 mg PO BID PRN 04/07/16 10/05/18 History Hydrocodone/Acetaminophen [[place] 1 - 2 tab PO Q4-6H PRN 05/25/16 10/05/18 History 5-325] Nitroglycerin Sl Tabs [Nitrostat] 0.4 mg SUBLINGUAL Q5M PRN #25 tab 05/28/16 10/05/18 Rx Aspirin [Adult Low Dose Aspirin EC] 81 mg PO BID 09/07/17 10/05/18 History Ferrous Sulfate/Vit C 1 tab PO DAILY 05/19/18 10/05/18 History Isosorbide Mononitrate ER [Imdur] 30 mg PO DAILY 05/19/18 10/05/18 History Omeprazole 20 mg PO DAILY #30 cap 05/21/18 10/05/18 Rx Atorvastatin [Lipitor] 40 mg PO HS 10/05/18 10/05/18 History Hydrochlorothiazide 12.5 mg PO DAILY PRN 10/05/18 10/05/18 History Metoprolol Tartrate [Lopressor] 50 mg PO HS 10/05/18 10/05/18 History Multivitamin [Multivitamins Adult 1 each PO DAILY 10/05/18 10/05/18 History Gummies] Potassium Chloride 8 meq PO DAILY PRN 10/05/18 10/05/18 History Allergies Allergy/AdvReac Type Severity Reaction Status Date / Time adhesive tape Allergy peels skin Verified 10/05/18 11:33 off
[~2018-10-08 12:43] MED LIST changes: +DEXAMETHASONE SOD PHOSPHATE 10 MG/ML 1 ML VIAL IV ONE; +HEPARIN SODIUM,PORCINE 5,000 UNIT/ML 1 ML VIAL SQ ONE; -LACTATED RINGERS 1,000 ML IV SCH; +MIDAZOLAM 2 MG/2 ML VIAL IV PRN; +ONDANSETRON 4 MG/2 ML VIAL IVP ONE; +Pre Op ABX Message 1 EACH MISC MISCELLANE ONE; +ceFAZolin IN SWFI 2 GM/20 ML SYRINGE IVP ONE; +fentaNYL (PF) 50 MCG/ML 2 ML AMP IV PRN
[2018-10-08] MEDS: LACTATED RINGERS 1,000 ML IV SCH ×2 (13:22→18:28)
[2018-10-08 15:01] VITALS: RESP 16
[2018-10-08] MEDS ORDERED: LIDOCAINE 1% INJ 10MG/ML (20 ML MDV) ONE (16:11)
[2018-10-08] MEDS ORDERED: ROCURONIUM BROMIDE 10 MG/ML 10 ML VIAL IV ONE (16:11)
[2018-10-08] MEDS ORDERED: NEOSTIGMINE 1 MG/ML 10 ML VIAL ONE (16:11)
[2018-10-08] MEDS ORDERED: GLYCOPYRROLATE 0.2 MG/ML 2 ML VIAL ONE (16:11)
[2018-10-08] MEDS ORDERED: fentaNYL (PF) 50 MCG/ML 2 ML AMP ONE (16:11)
[2018-10-08] MEDS ORDERED: SUCCINYLCHOLINE CHLORIDE 100 MG/5 ML SYR IV ONE (16:11)
[2018-10-08] MEDS ORDERED: MIDAZOLAM 2 MG/2 ML VIAL ONE (16:11)
[2018-10-08] MEDS ORDERED: PROPOFOL 10 MG/ML 20 ML VIAL IV ONE (16:11)
[2018-10-08] MEDS ORDERED: BUPIVACAINE-EPI 0.5%-1:200,000 10 ML VIAL SQ ONE (16:42)
[2018-10-08] MEDS ORDERED: LACTATED RINGERS 1,000 ML IV ONE (17:13)
[2018-10-08 17:59] VITALS: TEMP 97.2
--- NOTE | 2018-10-08 18:11 | P.OP ---
Date of Procedure: 10/08/18 Preoperative Diagnosis: History of multiple abdominal surgeries, peritoneal adhesions, generalized abdominal pain Postoperative Diagnosis: same Procedure(s) Performed: Robotic lysis of adhesions, over 30 minutes, extensive Anesthesia: MARGARETA, local Surgeon: Ladonna Rebolledo Estimated Blood Loss (ml): 10 Pathology: none sent Condition: stable Operative Findings: 1. Midline including right lateral abdominal wall with complete adhesions of omentum to abdominal wall. 2. At left lower quadrant, sigmoid colon adherent to left lower abdominal wall 3. Internal hernia involving sigmoid colon and greater omentum at the left lower abdomen, excised for risk for bowel obstruction 4. Hernandez defect obliterated 5. Jejunojejunostomy defect obliterated 6. Adhesion to left upper abdominal wall of gastrojejunostomy anastomosis also lysed consistent with patient's location of pain 7. Console time 30 minutes 8. Double dock technique upper and lower abdomen Plan - Discharge Summary Discharge Rx Participant: No New Discharge Prescriptions: New Bisacodyl [Dulcolax] 5 mg PO DAILY PRN #10 tablet.dr PRN Reason: Constipation Simethicone 40 mg/0.6 ml Drops [Mylicon Drops] 40 mg PO PCHS PRN #30 ml PRN Reason: Gas Acetaminophen [Tylenol] 325 mg PO Q4H #30 tab HYDROcodone/APAP 5-325MG [[place] 5-325] 1 tab PO Q6HR PRN 3 Days #10 tab PRN Reason: Pain Continue LORazepam [Ativan] 0.5 mg PO BID PRN PRN Reason: Anxiety Cyclobenzaprine [Flexeril] 10 mg PO TID PRN PRN Reason: Muscle Spasm DULoxetine HCL [Cymbalta] 60 mg PO HS Hydrocodone/Acetaminophen [[place] 5-325] 1 - 2 tab PO Q4-6H PRN PRN Reason: Pain Nitroglycerin Sl Tabs [Nitrostat] 0.4 mg SUBLINGUAL Q5M PRN #25 tab PRN Reason: Chest Pain Aspirin [Adult Low Dose Aspirin EC] 81 mg PO BID Isosorbide Mononitrate ER [Imdur] 30 mg PO DAILY Ferrous Sulfate/Vit C 1 tab PO DAILY Omeprazole 20 mg PO DAILY #30 cap Atorvastatin [Lipitor] 40 mg PO HS Metoprolol Tartrate [Lopressor] 50 mg PO HS Potassium Chloride 8 meq PO DAILY PRN PRN Reason: leg cramps Multivitamin [Multivitamins Adult Gummies] 1 each PO DAILY Hydrochlorothiazide 12.5 mg PO DAILY PRN PRN Reason: Edema Discharge Medication List Cyclobenzaprine [Flexeril] 10 mg PO TID PRN 04/07/16 [History] DULoxetine HCL [Cymbalta] 60 mg PO HS 04/07/16 [History] LORazepam [Ativan] 0.5 mg PO BID PRN 04/07/16 [History] Hydrocodone/Acetaminophen [[place] 5-325] 1 - 2 tab PO Q4-6H PRN 05/25/16 [History] Nitroglycerin Sl Tabs [Nitrostat] 0.4 mg SUBLINGUAL Q5M PRN #25 tab 05/28/16 [Rx] Aspirin [Adult Low Dose Aspirin EC] 81 mg PO BID 09/07/17 [History] Ferrous Sulfate/Vit C 1 tab PO DAILY 05/19/18 [History] Isosorbide Mononitrate ER [Imdur] 30 mg PO DAILY 05/19/18 [History] Omeprazole 20 mg PO DAILY #30 cap 05/21/18 [Rx] Atorvastatin [Lipitor] 40 mg PO HS 10/05/18 [History] Hydrochlorothiazide 12.5 mg PO DAILY PRN 10/05/18 [History] Metoprolol Tartrate [Lopressor] 50 mg PO HS 10/05/18 [History] Multivitamin [Multivitamins Adult Gummies] 1 each PO DAILY 10/05/18 [History] Potassium Chloride 8 meq PO DAILY PRN 10/05/18 [History] Acetaminophen [Tylenol] 325 mg PO Q4H #30 tab 10/08/18 [Rx] Bisacodyl [Dulcolax] 5 mg PO DAILY PRN #10 tablet. 10/08/18 [Rx] HYDROcodone/APAP 5-325MG [[place] 5-325] 1 tab PO Q6HR PRN 3 Days #10 tab 10/08/18 [Rx] Simethicone 40 mg/0.6 ml Drops [Mylicon Drops] 40 mg PO PCHS PRN #30 ml 10/08/18 [Rx] Follow up Appointment(s)/Referral(s): Ladonna Rebolledo MD [STAFF PHYSICIAN] - 10/12/18 Patient Instructions/Handouts: Lysis of Abdominal Adhesions (DC) Activity/Diet/Wound Care/Special Instructions: May shower. No bathtub soaks until October 18. No lifting over 10 pounds for 10 days, October 18. Use simethicone gas drops for gain pains after surgery. Diet as tolerated. Please contact your pain provider for any increased in strength/dosage of your current medications. Discharge Disposition: HOME SELF-CARE
[2018-10-08 18:56] VITALS: BP 116/70; PULSE 62
== END 2018-10-08 19:13 | disposition home or self-care (01) ==
LOC: OR 12:43
PROVIDERS: ATTEND Surgery Plastic and Reconstructive Surgery
DX: K66.0 Peritoneal adhesions (postprocedural) (postinfection) (principal); I10 Essential (primary) hypertension; E78.5 Hyperlipidemia, unspecified; K21.9 Gastro-esophageal reflux disease without esophagitis; M79.7 Fibromyalgia; K44.9 Diaphragmatic hernia without obstruction or gangrene; M19.90 Unspecified osteoarthritis, unspecified site; I25.2 Old myocardial infarction; Z86.73 Personal history of transient ischemic attack (TIA), and cerebral infarction without residual deficits; I25.119 Atherosclerotic heart disease of native coronary artery with unspecified angina pectoris; G89.4 Chronic pain syndrome; Z98.1 Arthrodesis status; M51.26 Other intervertebral disc displacement, lumbar region; Z95.5 Presence of coronary angioplasty implant and graft; Z90.49 Acquired absence of other specified parts of digestive tract; Z98.51 Tubal ligation status; Z90.710 Acquired absence of both cervix and uterus; Z98.84 Bariatric surgery status; F41.9 Anxiety disorder, unspecified; F32.9 Major depressive disorder, single episode, unspecified; Z82.49 Family history of ischemic heart disease and other diseases of the circulatory system; Z80.0 Family history of malignant neoplasm of digestive organs; Z80.52 Family history of malignant neoplasm of bladder; Z80.3 Family history of malignant neoplasm of breast; Z79.82 Long term (current) use of aspirin; Z79.891 Long term (current) use of opiate analgesic; Z79.899 Other long term (current) drug therapy; Z91.09 Other allergy status, other than to drugs and biological substances
CPT/HCPCS: 84132; 49329; J2250; J1644; J1100; J2710; J2405; J2001; J3010; J0330; J2704; J0690

== ENCOUNTER → 2020-12-25 | Outpatient (CLI) | payer MEDICARE ==
[2020-12-25 21:31] LABS: Chol/HDL Ratio 1.79; LDL Cholesterol,Calculated 42.4 mg/dL (0.0-131.0); VLDL Calculation 14.6 mg/dL (5.00-40.00)
== END | disposition home or self-care (01) ==
LOC: LABWHC1 10:32
PROVIDERS: ATTEND Internal Medicine Clinical Cardiac Electrophysiology
DX: E78.5 Hyperlipidemia, unspecified (principal); I25.10 Atherosclerotic heart disease of native coronary artery without angina pectoris; R00.2 Palpitations
CPT/HCPCS: 36415; 80061; 84443

== ENCOUNTER → 2021-08-05 | Outpatient (CLI) | payer MEDICARE ==
[2021-08-05 15:50] LABS: Appearance,Urine Turbid (Clear); Bilirubin,Urine Negative (Negative); Blood,Urine Large (Negative); Color,Urine Yellow; Glucose,Urine (UA) Negative (Negative); Hyaline Casts,Urine 22 /lpf (0-2); Ketones,Urine Trace (Negative); Leukocyte Esterase,Urine Large (Negative); Mucus,Urine Few /hpf; Nitrite,Urine Negative (Negative); PH, Urine 5.5 (5.0-8.0); Protein,Urine 2+ (Negative); RBC,Urine >182 /hpf (0-5); WBC,Urine >182 /hpf (0-5)
[2021-08-05 22:49] LABS: Anion Gap 10.5 mmol/L (10.00-18.00); BUN/Creat Ratio 15.08 Ratio (12.00-20.00); Blood Urea Nitrogen 18.1 mg/dL (9.0-27.0); Calcium 9.5 mg/dL (8.7-10.3); Carbon Dioxide 21.5 mmol/L (20.0-27.5); Non-African American GFR(CKD) 45.8 (60.0-200.0); Potassium 4.5 mmol/L (3.5-5.5)
[2021-08-05 23:11] LABS: Basophils # (A) 0.03 X 10*3/uL (0.00-0.10); Basophils % (A) 0.6 %; Eosinophils # (A) 0.11 X 10*3/uL (0.04-0.35); Eosinophils % (A) 2.3 %; HCT 38.7 % (37.2-46.3); HGB 11.8 g/dL (12.0-15.0); Immature Grans, Automated 0.2 %; Lymphocytes # (A) 1.45 X 10*3/uL (0.90-5.00); Lymphocytes % (A) 29.8 %; MCH 29.1 pg (27.0-32.0); MCHC 30.5 g/dL (32.0-37.0); MCV 95.6 fL (80.0-97.0); Mean Platelet Volume 13.4 fL (9.5-12.2); Monocytes # (A) 0.25 X 10*3/uL (0.20-1.00); Monocytes % (A) 5.1 %; NRBC Per 100 WBC 0 /100 WBCS (0.0-0.0); Neutrophils # (A) 3.02 X 10*3/uL (1.80-7.70); Platelet Count 181 X 10*3/uL (140-440); RBC 4.05 X 10*6/uL (4.10-5.20); RDW 14.5 % (11.5-14.5); WBC 4.87 X 10*3/uL (4.50-10.00)
== END | disposition home or self-care (01) ==
LOC: LABWHC1 14:22
PROVIDERS: ATTEND Urology
DX: Z01.812 Encounter for preprocedural laboratory examination (principal); N20.0 Calculus of kidney
CPT/HCPCS: 36415; 80048; 81001; 85025; 87086

== ENCOUNTER 2021-08-14 07:54 | Observation (INO) | payer MEDICARE ==
[2021-08-12 15:55] VITALS: BMI 34.2
--- NOTE | 2021-08-13 17:23 | P.GSHP ---
History of Present Illness H&P Date: 08/13/21 70 yo female was in the hospital for a uti A large non obstructing right renal stone was identified[>2cm]. She came to see me and was given treatment options. SHe comes for a right pcnl. The alternatives,risks and complications were discussed. - Constitutional Constitutional: Denies chills, Denies fever - EENT Eyes: denies blurred vision, denies pain Ears, nose, mouth and throat: Denies headache, Denies sore throat - Cardiovascular Cardiovascular: Denies chest pain, Denies shortness of breath - Respiratory Respiratory: Denies cough, Denies 7 - Gastrointestinal Gastrointestinal: Denies abdominal pain, Denies diarrhea, Denies nausea, Denies vomiting - Genitourinary (Female) Genitourinary: Denies dysuria, Denies hematuria - Genitourinary (Male) Genitourinary: Denies dysuria, Denies hematuria - Musculoskeletal Musculoskeletal: Denies myalgias - Integumentary Integumentary: Denies pruritus, Denies rash - Neurological Neurological: Denies numbness, Denies weakness - Psychiatric Psychiatric: Denies anxiety, Denies depression - Endocrine Endocrine: Denies fatigue, Denies weight change Past Medical History Past Medical History: Chest Pain / Angina, CVA/TIA, Fibromyalgia, GERD/Reflux, Hypertension, Myocardial Infarction ([place]), Osteoarthritis (OA) Additional Past Medical History / Comment(s): TIA over 20 yrs ago, occasional rapid heart beat, gastric strictures/dysphagia/hiatal hernia with EGDs with dilations, chronic generalized pain/low back pain/herniated disc in lower back, limited ROM neck/had fusion with plate, KIDNEY STONES Last Myocardial Infarction Date:: 05/25/16 History of Any Multi-Drug Resistant Organisms: None Reported Past Surgical History: Back Surgery, Bariatric Surgery, Breast Surgery, Cholecystectomy, Heart Catheterization With Stent, Hysterectomy, Tonsillectomy, Tubal Ligation Additional Past Surgical History / Comment(s): Lap banding then removal, Jac-en-y, EGDs/dilations, colonoscopies, hemorrhoidectomy, bilateral surgery for plantar fascitis/whittaker's neuromas, lipomas removed, bilateral breast reductions. Past Anesthesia/Blood Transfusion Reactions: Previous Problems w/ Anesthesia Additional Past Anesthesia/Blood Transfusion Reaction / Comment(s): "surgical awareness","early waking "takes a lot of anesthesia" Date of Last Stent Placement:: 05/25/16 Smoking Status: Never smoker - Past Family History Father Family Medical History: Cancer, Coronary Artery Disease (CAD), Hypertension Additional Family Medical History / Comment(s): CABG, COLON/bladder CANCER Mother Family Medical History: Cancer, Coronary Artery Disease (CAD), Renal Disease Additional Family Medical History / Comment(s): metastatic breast cancer, heart disease,.was 3 ppd smoker Medications and Allergies Home Medications Medication Instructions Recorded Confirmed Type Cyclobenzaprine [Flexeril] 10 mg PO TID PRN 04/07/16 08/12/21 History DULoxetine HCL [Cymbalta] 60 mg PO HS 04/07/16 08/12/21 History Nitroglycerin Sl Tabs [Nitrostat] 0.4 mg SUBLINGUAL Q5M PRN #25 tab 05/28/16 08/12/21 Rx Isosorbide Mononitrate ER [Imdur] 30 mg PO DAILY 05/19/18 08/12/21 History Atorvastatin [Lipitor] 40 mg PO HS 10/05/18 08/12/21 History Metoprolol Tartrate [Lopressor] 50 mg PO HS 10/05/18 08/12/21 History Multivitamin [Multivitamins Adult 1 tab PO DAILY 10/05/18 08/12/21 History Gummies] ALPRAZolam [Xanax] 0.25 mg PO BID PRN 07/10/21 08/12/21 History Aspirin 81 mg PO DAILY 07/10/21 08/12/21 History HYDROcodone/APAP 5-325MG [[place] 1 - 2 tab PO QID PRN 07/10/21 08/12/21 History 5-325] Omeprazole 20 mg PO DAILY PRN 07/10/21 08/12/21 History Topiramate [Topamax] 100 mg PO DAILY 07/10/21 08/12/21 History buPROPion HCL [Wellbutrin XL] 300 mg PO DAILY 07/10/21 08/12/21 History Cefuroxime Axetil [Ceftin] 500 mg PO BID #14 tab 07/13/21 08/12/21 Rx Allergies Allergy/AdvReac Type Severity Reaction Status Date / Time adhesive tape Allergy peels skin Verified 08/12/21 15:40 off Surgical - Exam - General well developed, well nourished, no distress - Eyes normal ocular movement, no icteric - ENT no hearing loss, no congestion - Neck no masses, trachea midline - Respiratory normal respiratory effort, clear to auscultation - Abdomen Abdomen: soft, non tender, no guarding, no rigid, no rebound - Integumentary no rash, no abnormal pigmentation - Neurologic no disoriented, no combative - Psychiatric oriented to time, oriented to person, oriented to place, speech is normal, memory intact Results - Imaging CT scan - abdomen: report reviewed, image reviewed CT scan - pelvis: report reviewed, image reviewed Assessment and Plan Assessment: Impression: right renal stone, large Plan: PCNL right
[~2021-08-14 07:54] MED LIST changes: +AMPICILLIN 1,000 MG in SODIUM CHLORIDE 0.9% 50 ML IVPB PRN; -DEXAMETHASONE SOD PHOSPHATE 10 MG/ML 1 ML VIAL IV ONE; +DEXAMETHASONE SOD PHOSPHATE 4 MG/ML 1 ML VIAL IV ONE; +GENTAMICIN 100 MG in SODIUM CHLORIDE 0.9% 100 ML IVPB PRN; -HEPARIN SODIUM,PORCINE 5,000 UNIT/ML 1 ML VIAL SQ ONE; -LIDOCAINE 1% 20 ML VIAL (10MG/ML) FOR IV START INTRADERMA PRN; -MIDAZOLAM 2 MG/2 ML VIAL IV PRN; -Pre Op ABX Message 1 EACH MISC MISCELLANE ONE; -ceFAZolin IN SWFI 2 GM/20 ML SYRINGE IVP ONE; -fentaNYL (PF) 50 MCG/ML 2 ML AMP IV PRN
[2021-08-14] MEDS ORDERED: SUCCINYLCHOLINE CHLORIDE 100 MG/5 ML SYR IV ONE (08:46)
[2021-08-14] MEDS ORDERED: NEOSTIGMINE 1 MG/ML 10 ML VIAL ONE (08:46)
[2021-08-14] MEDS ORDERED: PROPOFOL 10 MG/ML 20 ML VIAL IV ONE (08:46)
[2021-08-14] MEDS ORDERED: GLYCOPYRROLATE 0.2 MG/ML 2 ML VIAL ONE (08:46)
[2021-08-14] MEDS ORDERED: MIDAZOLAM 2 MG/2 ML VIAL ONE (08:46)
[2021-08-14] MEDS ORDERED: fentaNYL (PF) 50 MCG/ML 2 ML AMP ONE (08:46)
[2021-08-14] MEDS ORDERED: LIDOCAINE 1% INJ 10MG/ML (20 ML MDV) ONE (08:46)
[2021-08-14] MEDS ORDERED: ROCURONIUM 10 MG/ML (5 ML VIAL) IV ONE (08:46)
[2021-08-14] MEDS: LACTATED RINGERS 1,000 ML IV SCH ×2 (08:47→15:18)
[2021-08-14] MEDS ORDERED: IOPAMIDOL-370 50ML BTL IRRIGATION ONE (09:08)
[2021-08-14] MEDS ORDERED: ALPRAZolam 0.25 MG TAB PO PRN (10:12)
[2021-08-14] MEDS ORDERED: NITROGLYCERIN SL TABS 0.4 MG TAB SUBLINGUAL PRN (10:12)
[2021-08-14] MEDS ORDERED: PANTOPRAZOLE 40 MG TABLET PO PRN (10:12)
[2021-08-14] MEDS ORDERED: CYCLOBENZAPRINE 10 MG TAB PO PRN (10:12)
[2021-08-14] MEDS ORDERED: MAG HYDROX/AL HYDROX/SIMETH 30 ML CUP PO PRN (10:15)
[2021-08-14] MEDS ORDERED: ONDANSETRON 4 MG/2 ML VIAL IVP PRN (10:15)
[2021-08-14] MEDS ORDERED: ACETAMINOPHEN TAB 325 MG TAB PO PRN (10:15)
[2021-08-14] MEDS ORDERED: NALOXONE 0.4 MG/ML 1 ML VIAL IV PRN (10:17)
[2021-08-14] MEDS ORDERED: KETOROLAC 15 MG/ML 1 ML VIAL IVP PRN (10:17)
--- NOTE | 2021-08-14 10:25 | P.OP ---
Date of Procedure: 08/14/21 Preoperative Diagnosis: right renal stone large[>2cm] Postoperative Diagnosis: same Procedure(s) Performed: cysto with right ureteral catheter, percutaneous nephrostomy right, Dr. Franks, percutaneous nephrostolithotomy with ultrasound, placement of 10 J nephrostomy Anesthesia: SOPHIE Surgeon: Matt Olson Estimated Blood Loss (ml): 50 Pathology: other (Stone) Condition: stable Disposition: PACU Indications for Procedure: Patient is 70. She has a painful right renal pelvic stone (greater than 2 cm) and she comes for percutaneous nephrostolithotomy Description of Procedure: Patient brought the operating suite. She's given general anesthesia on the transport gurney. She's placed in a frog position with a sterile prep and drape. Cystoscopy Foroblique lens and 21-Turkmen sheath identifies a normal urethra. The right ureteral orifice is identified. It is intubated with an 035 ureteral wire. I removed the cystoscope. Over the wires passed a 5-Turkmen occluding balloon catheter up into the renal pelvis. The wires removed. It is secured to a Royal catheter after the cystoscope was removed The patient placed in prone position with care to airways and extremities. Dr. Franks of radiology performed percutaneous access to a right middle pole calyx. I dilate the tract to 30-Turkmen. Introduced the working sheath in the collecting system. Clot is removed. The large renal pelvic stone was identified. With ultrasound was broken into multiple smaller pieces. The smaller pieces were grasped and removed from the collecting system. I then pass a flexible nephroscope throughout the collecting system and see no remaining stones. Over the working wire a 10 J nephrostomy tube was placed in the renal pelvis. The secured the skin with 2-0 silk. Patient awake and returned recovery in good condition. Blood loss is less than 50 mL. She tolerated procedure well.
[2021-08-14] MEDS: HYDROmorphone 0.5 MG/0.5 ML SYRINGE IVP PRN ×2 (10:56→12:20)
[2021-08-14] MEDS ORDERED: HYDROmorphone PCA 10 MG/50 ML BAG IV PRN (11:00)
--- NOTE | 2021-08-14 13:31 | FL ---
EXAMINATION TYPE: FL Perc Nephrostomy New Access DATE OF EXAM: 08/14/2021 COMPARISON: NONE HISTORY: Hydronephrosis, right-sided nephrolithiasis. PROCEDURE: Maximal barrier technique was utilized, hand hygiene obtained with soap and water and alcohol-based h and rub. The skin overlying the right kidney was localized using fluoroscopy and the overlying skin prepped and draped. Skin amos was made with a scalpel. Access was gained under fluoroscopy, followin g placement of a ureteral occlusion balloon by the referring clinician and instillation of air in the renal collecting system with a 21-gauge needle to the right kidney. A suitable posterior calyx was chosen. A 0.018 inch wire was advanced. The access site was dilated , access site was upsized, saf ety wire deployed and subsequently a sheath was advanced into the renal pelvis following dilation wit h balloon along the tract. The patient underwent nephrolithotomy by the referring clinician. The pa tient remained in stable condition without complication. The patient was discharged to observation i n the care of anesthesia. 4 minutes fluoroscopy time, 4 intraoperative C-arm images document the procedure IMPRESSION: STATUS POST NEPHROSTOMY PLACEMENT FOR NEPHROLITHOTOMY WITH FLUOROSCOPIC GUIDANCE. THIS PROCEDURE PER FORMED BY THE UNDERSIGNED.
[2021-08-14] MEDS: DEXTROSE 5%-0.45% NACL 1,000 ML IV SCH (15:17)
[2021-08-14] MEDS: CEPHALEXIN 500 MG CAP PO SCH ×2 (15:17→21:04)
[2021-08-14] MEDS ORDERED: DULoxetine HCL 60 MG CAPSULE.DR PO SCH (21:00)
[2021-08-14] MEDS ORDERED: ATORVASTATIN 40 MG TAB PO SCH (21:00)
[2021-08-14] MEDS ORDERED: METOPROLOL TARTRATE 50 MG TAB PO SCH (21:00)
[2021-08-15] MEDS: DEXTROSE 5%-0.45% NACL 1,000 ML IV SCH ×2 (00:03→07:53)
[2021-08-15 02:45] VITALS: RESP 15
[2021-08-15] MEDS ORDERED: HYDROcodone/APAP 5-325MG 1 EACH TAB PO PRN (07:28)
--- NOTE | 2021-08-15 07:30 | P.DS ---
Providers Date of admission: 08/14/21 15:35 Attending physician: Matt Olson Primary care physician: Christos Munoz MD Hospital Course: The patient was admitted yesterday for a right percutaneous nephrostolithotomy. She underwent this without difficulty. She did well over the night. Her pain for the most part is controlled. She has however on chronic pain medication so I expect a little bit of discomfort. Urine is cleared. She is afebrile with stable vital signs. She would like to go home. She'll be discharged home with the nephrostomy tube. I'll see her on Thursday to pull the tube. Postoperative instructions of been given. She has pain medicine at home she uses for her fibromyalgia. This will control any discomfort that she may have. Postoperative instructions been given. Condition is good. Patient Condition at Discharge: Good Plan - Discharge Summary Discharge Rx Participant: No New Discharge Prescriptions: No Action Cyclobenzaprine [Flexeril] 10 mg PO TID PRN PRN Reason: Muscle Spasm DULoxetine HCL [Cymbalta] 60 mg PO HS Nitroglycerin Sl Tabs [Nitrostat] 0.4 mg SUBLINGUAL Q5M PRN #25 tab PRN Reason: Chest Pain Isosorbide Mononitrate ER [Imdur] 30 mg PO DAILY Atorvastatin [Lipitor] 40 mg PO HS Metoprolol Tartrate [Lopressor] 50 mg PO HS Multivitamin [Multivitamins Adult Gummies] 1 tab PO DAILY Aspirin 81 mg PO DAILY Omeprazole 20 mg PO DAILY PRN PRN Reason: Heartburn Cefuroxime Axetil [Ceftin] 500 mg PO BID #14 tab Topiramate [Topamax] 100 mg PO DAILY buPROPion HCL [Wellbutrin XL] 300 mg PO DAILY ALPRAZolam [Xanax] 0.25 mg PO BID PRN PRN Reason: Anxiety HYDROcodone/APAP 5-325MG [[place] 5-325] 1 - 2 tab PO QID PRN PRN Reason: Pain Discharge Medication List Cyclobenzaprine [Flexeril] 10 mg PO TID PRN 04/07/16 [History] DULoxetine HCL [Cymbalta] 60 mg PO HS 04/07/16 [History] Nitroglycerin Sl Tabs [Nitrostat] 0.4 mg SUBLINGUAL Q5M PRN #25 tab 02/01/17 [Rx] Isosorbide Mononitrate ER [Imdur] 30 mg PO DAILY 05/19/18 [History] Atorvastatin [Lipitor] 40 mg PO HS 10/05/18 [History] Metoprolol Tartrate [Lopressor] 50 mg PO HS 10/05/18 [History] Multivitamin [Multivitamins Adult Gummies] 1 tab PO DAILY 10/05/18 [History] ALPRAZolam [Xanax] 0.25 mg PO BID PRN 07/10/21 [History] Aspirin 81 mg PO DAILY 07/10/21 [History] HYDROcodone/APAP 5-325MG [[place] 5-325] 1 - 2 tab PO QID PRN 07/10/21 [History] Omeprazole 20 mg PO DAILY PRN 07/10/21 [History] Topiramate [Topamax] 100 mg PO DAILY 07/10/21 [History] buPROPion HCL [Wellbutrin XL] 300 mg PO DAILY 07/10/21 [History] Cefuroxime Axetil [Ceftin] 500 mg PO BID #14 tab 07/13/21 [Rx] Follow up Appointment(s)/Referral(s): Matt Olson MD [STAFF PHYSICIAN] - 08/19/21 (home with n tube) Discharge Disposition: HOME SELF-CARE
[2021-08-15] MEDS: LACTATED RINGERS 1,000 ML IV SCH (07:55)
[2021-08-15 08:05] VITALS: BP 142/83; PULSE 61; TEMP 98
[2021-08-15] MEDS: CEPHALEXIN 500 MG CAP PO SCH (08:18)
[2021-08-15] MEDS ORDERED: TOPIRAMATE 100 MG TAB PO SCH (09:00)
[2021-08-15] MEDS ORDERED: buPROPion XL 300 MG TAB.ER.24H PO SCH (09:00)
[2021-08-15] MEDS ORDERED: ISOSORBIDE MONONITRATE ER 30 MG TAB.ER.24H PO SCH (09:00)
== END 2021-08-15 11:58 | disposition home or self-care (01) ==
LOC: OR 07:54 → 4SSUR 10:12 → OR 15:35 → 4SSUR 15:35
PROVIDERS: ADMIT Urology; ATTEND Urology
DX: N20.0 Calculus of kidney (principal); N13.30 Unspecified hydronephrosis; M79.7 Fibromyalgia; K21.9 Gastro-esophageal reflux disease without esophagitis; I10 Essential (primary) hypertension; I25.2 Old myocardial infarction; M19.90 Unspecified osteoarthritis, unspecified site; R00.0 Tachycardia, unspecified; R13.10 Dysphagia, unspecified; K44.9 Diaphragmatic hernia without obstruction or gangrene; I25.10 Atherosclerotic heart disease of native coronary artery without angina pectoris; G89.29 Other chronic pain; M54.50 Low back pain, unspecified; Z79.899 Other long term (current) drug therapy; Z79.82 Long term (current) use of aspirin; Z91.048 Other nonmedicinal substance allergy status; Z87.442 Personal history of urinary calculi; Z87.440 Personal history of urinary (tract) infections; Z86.73 Personal history of transient ischemic attack (TIA), and cerebral infarction without residual deficits; Z98.1 Arthrodesis status; Z90.49 Acquired absence of other specified parts of digestive tract; Z90.710 Acquired absence of both cervix and uterus; Z95.5 Presence of coronary angioplasty implant and graft; Z98.84 Bariatric surgery status; Z80.52 Family history of malignant neoplasm of bladder; Z82.49 Family history of ischemic heart disease and other diseases of the circulatory system; Z80.0 Family history of malignant neoplasm of digestive organs; Z84.1 Family history of disorders of kidney and ureter; Z80.3 Family history of malignant neoplasm of breast
CPT/HCPCS: 86900; 86901; 86850; 82365; 50432; G0378 ×2; C1769 ×3; C2628; C1729 ×2; J2250; J1100; J2710; J2405; J2001; J3010; J1580; J0290; J1885; J0330; J2704; J1170 ×2; Q9967

== ENCOUNTER 2021-08-24 01:05 | Inpatient (IN) | payer MEDICARE ==
[2021-08-24] MEDS ORDERED: NITROGLYCERIN SL TABS 0.4 MG TAB SUBLINGUAL PRN ×2 (01:13→03:11)
[2021-08-24] MEDS ORDERED: HEPARIN SODIUM 1,000 UN/ML (10ML VL) IV PRN (01:15)
[2021-08-24] MEDS ORDERED: HEPARIN SOD,PORK IN 0.45% NACL 25,000 UNIT in 0.45% NACL 1 250ML.BAG IV SCH (01:15)
[2021-08-24] MEDS ORDERED: HEPARIN SODIUM 1,000 UN/ML (10ML VL) IV ONE (01:15)
[2021-08-24] MEDS ORDERED: ATORVASTATIN 80 MG TAB PO STA (01:17)
[2021-08-24] MEDS ORDERED: HEPARIN SODIUM 1,000 UN/ML (10ML VL) ONE (01:36)
--- NOTE | 2021-08-24 01:37 | ED ---
Chest Pain HPI - General Chief Complaint: Chest Pain Stated Complaint: STEMI Time Seen by Provider: 08/24/21 01:12 Source: patient, EMS - History of Present Illness Initial Comments: This patient is 70-year-old woman with history of previous UT requiring stent placement. She presents with right-sided chest pain radiating to her right arm. Symptoms started between 8 and 9 tonight while she was at rest. When the symptoms worsened family called EMS and transported her here. The telemetry ECG will was concerning for STEMI and Housing Director activated prior to arrival. MD Complaint: chest pain Onset/Timin -: hour(s) Onset: during rest Pain Location: right chest Pain Radiation: RUE Severity: moderate Quality: aching Consistency: constant Improves With: nothing Worsens With: nothing Anginal Symptoms: dyspnea Treatments Prior to Arrival: aspirin, nitroglycerin - Related Data Home Medications Medication Instructions Recorded Confirmed Cyclobenzaprine [Flexeril] 10 mg PO TID PRN 04/07/16 08/24/21 DULoxetine HCL [Cymbalta] 60 mg PO HS 04/07/16 08/24/21 Isosorbide Mononitrate ER [Imdur] 30 mg PO DAILY 05/19/18 08/24/21 Multivitamin [Multivitamins Adult 1 tab PO DAILY 10/05/18 08/24/21 Gummies] ALPRAZolam [Xanax] 0.25 mg PO BID PRN 07/10/21 08/24/21 Aspirin 81 mg PO DAILY 07/10/21 08/24/21 HYDROcodone/APAP 5-325MG [[place] 1 - 2 tab PO QID PRN 07/10/21 08/24/21 5-325] Omeprazole 20 mg PO DAILY PRN 07/10/21 08/24/21 Topiramate [Topamax] 100 mg PO HS 07/10/21 08/24/21 buPROPion HCL [Wellbutrin XL] 300 mg PO DAILY 07/10/21 08/24/21 Losartan [Cozaar] 75 mg PO DAILY 08/24/21 08/24/21 Metoprolol Succinate (ER) [Toprol 50 mg PO HS 08/24/21 08/24/21 XL] Nitroglycerin Sl Tabs [Nitrostat] 0.4 mg SL Q5M PRN 08/24/21 08/24/21 Previous Rx's Medication Instructions Recorded Atorvastatin [Lipitor] 80 mg PO HS 90 Days #90 tab 08/26/21 Spironolactone [Aldactone] 25 mg PO DAILY 90 Days #90 tab 08/26/21 Ticagrelor [Brilinta] 90 mg PO BID 30 Days #60 tab 08/26/21 Allergies Allergy/AdvReac Type Severity Reaction Status Date / Time adhesive tape Allergy peels skin Verified 08/24/21 11:34 off Review of Systems ROS Statement: Those systems with pertinent positive or pertinent negative responses have been documented in the HPI. ROS Other: All systems not noted in ROS Statement are negative. Constitutional: Denies: fever, chills Respiratory: Reports: dyspnea. Denies: cough Cardiovascular: Reports: chest pain. Denies: palpitations, orthopnea, edema, syncope Gastrointestinal: Denies: abdominal pain, vomiting Genitourinary: Denies: dysuria, hematuria Musculoskeletal: Denies: back pain Skin: Denies: rash Neurological: Denies: headache, weakness, numbness EKG Findings - EKG Results: EKG: interpreted by ERMD, sinus rhythm, normal axis EKG shows: bradycardia (Rate 57 bpm) - UT, Pacemaker, Normal: Myocardial infarction: inferior UT (acute or recent) Past Medical History Past Medical History: Chest Pain / Angina, CVA/TIA, Fibromyalgia, GERD/Reflux, Hypertension, Myocardial Infarction ([place]), Osteoarthritis (OA) Additional Past Medical History / Comment(s): TIA over 20 yrs ago, occasional rapid heart beat, gastric strictures/dysphagia/hiatal hernia with EGDs with dilations, chronic generalized pain/low back pain/herniated disc in lower back, limited ROM neck/had fusion with plate, KIDNEY STONES Last Myocardial Infarction Date:: 05/25/16 History of Any Multi-Drug Resistant Organisms: None Reported Past Surgical History: Back Surgery, Bariatric Surgery, Breast Surgery, Cholecystectomy, Heart Catheterization With Stent, Hysterectomy, Tonsillectomy, Tubal Ligation Additional Past Surgical History / Comment(s): Lap banding then removal, Jac-en-y, EGDs/dilations, colonoscopies, hemorrhoidectomy, bilateral surgery for plantar fascitis/whittaker's neuromas, lipomas removed, bilateral breast reductions. Past Anesthesia/Blood Transfusion Reactions: Previous Problems w/ Anesthesia Additional Past Anesthesia/Blood Transfusion Reaction / Comment(s): "surgical awareness","early waking "takes a lot of anesthesia" Date of Last Stent Placement:: 05/25/16 Past Psychological History: Anxiety, Depression Smoking Status: Never smoker Past Alcohol Use History: None Reported Past Drug Use History: None Reported - Past Family History Father Family Medical History: Cancer, Coronary Artery Disease (CAD), Hypertension Additional Family Medical History / Comment(s): CABG, COLON/bladder CANCER Mother Family Medical History: Cancer, Coronary Artery Disease (CAD), Renal Disease Additional Family Medical History / Comment(s): metastatic breast cancer, heart disease,.was 3 ppd smoker General Exam General appearance: alert, in no apparent distress Head exam: Present: atraumatic, normocephalic Eye exam: Present: normal appearance. Absent: scleral icterus, conjunctival injection Neck exam: Present: normal inspection Respiratory exam: Present: normal lung sounds bilaterally. Absent: respiratory distress, wheezes, rales, rhonchi, stridor Cardiovascular Exam: Present: regular rate, normal rhythm, normal heart sounds. Absent: systolic murmur, diastolic murmur, rubs, gallop GI/Abdominal exam: Present: soft. Absent: distended, tenderness, guarding, rebound, rigid, mass Extremities exam: Present: normal inspection, normal capillary refill. Absent: pedal edema, calf tenderness Back exam: Present: normal inspection Neurological exam: Present: alert Skin exam: Present: warm, dry, intact, normal color. Absent: rash Course Vital Signs 08/24/21 08/24/21 08/24/21 01:06 01:27 02:02 Temperature 97.5 F L Pulse Rate 81 65 65 Respiratory 18 20 18 Rate Blood Pressure 119/81 112/87 117/84 O2 Sat by Pulse 99 95 95 Oximetry Critical Care Time Critical Care Time: Yes (35 minutes) Disposition Clinical Impression: ST elevation myocardial infarction (STEMI), Chest pain Disposition: ADMITTED IP TO THIS HOSP Condition: Critical Is patient prescribed a controlled substance at d/c from ED?: No
--- NOTE | 2021-08-24 01:39 | P.CRDCN ---
History of Present Illness History of present illness: HISTORY OF PRESENTING ILLNESS This is a pleasant 70-year-old with past medical history significant for coronary artery disease status post prior PCI of RCA 05/25/2016, TIA, fibromyalgia, hiatal hernia, hypertension, hyperlipidemia, kidney stones status post nephrostolithotomy and surgery approximately one week ago. She follows in the office with Dr Bentley. Patient states she had been feeling fine up until tonight at approximately 11 PM she started having chest pain and pressure simil ar to her prior OR. In 2016 she had a inferior STEMI and underwent PCI of the RCA. She denies any similar symptoms since then however dates current symptoms feel similar. She admits to mild shortness breath and no diaphoresis. EKG from EMS showed ST elevation therefore catheterization lab was activated. EKG shows normal sinus rhythm and small Q waves inferiorly with ST elevation and reciproca l changes. Chest x-ray shows no acute process. She received nitro with no improvement. Denies any residual hematuria from her recent kidney stone. Denies any recent changes to her medications. REVIEW OF SYSTEMS At the time of my exam: CONSTITUTIONAL: Denies fever or chills. CARDIOVASCULAR: +chest pain, +shortness of breath, no orthopnea, PND or palpitations. RESPIRATORY: Denies cough. GASTROINTESTINAL: Denies abdominal pain, diarrhea, constipation, nausea or vomiting. MUSCULOSKELETAL: Denies myalgias. NEUROLOGIC: Denies numbness, tingling or weakness. ENDOCRINE: Denies fatigue, weight change, polydipsia or polyurina. GENITOURINARY: Denies burning, no hematuria or urgency with micturation. HEMATOLOGIC: Denies history of anemia or bleeding. PHYSICAL EXAMINATION Vital signs reviewed. CONSTITUTIONAL: Mild distress. HEENT: Head is normocephalic. Pupils are equal, round. Sclerae anicteric. Mucous membranes of the mouth are moist. No JVD. No carotid bruit. CHEST EXAMINATION: Lungs are clear to auscultation. No chest wall tenderness is noted on palpation or with deep breathing. HEART EXAMINATION: Regular rate and rhythm. S1, S2 heard. No murmurs, gallops or rub. ABDOMEN: Soft, nontender. Positive bowel sounds. EXTREMITIES: 2+ peripheral pulses, no lower extremity edema and no calf tenderness. NEUROLOGIC EXAMINATION: Patient is awake, alert and oriented x3. ASSESSMENT 1. Acute inferior STEMI 2. Coronary artery disease with prior history of PCI RCA April 2016 3. TIA 4. Recent kidney stone and nephrostolithotomy 08/14/2021 5. Hypertension 6. Hyperlipidemia 7. Recent workup of headaches PLAN Discussed findings of EKG with patient with a inferior STEMI and recommendations were urgent heart catheterization. Patient is agreeable. Aspirin, heparin, high intensity statin. Urgent heart catheterization and further recommendations follow. Past Medical History Past Medical History: Chest Pain / Angina, CVA/TIA, Fibromyalgia, GERD/Reflux, Hypertension, Myocardial Infarction ([place]), Osteoarthritis ([place]) Additional Past Medical History / Comment(s): TIA over 20 yrs ago, occasional rapid heart beat, gastric strictures/dysphagia/hiatal hernia with EGDs with dilations, chronic generalized pain/low back pain/herniated disc in lower back, limited ROM neck/had fusion with plate, KIDNEY STONES Last Myocardial Infarction Date:: 05/25/16 History of Any Multi-Drug Resistant Organisms: None Reported Past Surgical History: Back Surgery, Bariatric Surgery, Breast Surgery, Cholecystectomy, Heart Catheterization With Stent, Hysterectomy, Tonsillectomy, Tubal Ligation Additional Past Surgical History / Comment(s): Lap banding then removal, Jac-en-y, EGDs/dilations, colonoscopies, hemorrhoidectomy, bilateral surgery for plantar fascitis/whittaker's neuromas, lipomas removed, bilateral breast reductions. Past Anesthesia/Blood Transfusion Reactions: Previous Problems w/ Anesthesia Additional Past Anesthesia/Blood Transfusion Reaction / Comment(s): "surgical awareness","early waking "takes a lot of anesthesia" Date of Last Stent Placement:: 05/25/16 Past Psychological History: Anxiety, Depression Smoking Status: Never smoker Past Alcohol Use History: None Reported Past Drug Use History: None Reported - Past Family History Father Family Medical History: Cancer, Coronary Artery Disease (CAD), Hypertension Additional Family Medical History / Comment(s): CABG, COLON/bladder CANCER Mother Family Medical History: Cancer, Coronary Artery Disease (CAD), Renal Disease Additional Family Medical History / Comment(s): metastatic breast cancer, heart disease,.was 3 ppd smoker Medications and Allergies Home Medications Medication Instructions Recorded Confirmed Type Cyclobenzaprine [Flexeril] 10 mg PO TID PRN 04/07/16 08/12/21 History DULoxetine HCL [Cymbalta] 60 mg PO HS 04/07/16 08/12/21 History Nitroglycerin Sl Tabs [Nitrostat] 0.4 mg SUBLINGUAL Q5M PRN #25 tab 05/28/16 08/12/21 Rx Isosorbide Mononitrate ER [Imdur] 30 mg PO DAILY 05/19/18 08/12/21 History Atorvastatin [Lipitor] 40 mg PO HS 10/05/18 08/12/21 History Metoprolol Tartrate [Lopressor] 50 mg PO HS 10/05/18 08/12/21 History Multivitamin [Multivitamins Adult 1 tab PO DAILY 10/05/18 08/12/21 History Gummies] ALPRAZolam [Xanax] 0.25 mg PO BID PRN 07/10/21 08/12/21 History Aspirin 81 mg PO DAILY 07/10/21 08/12/21 History HYDROcodone/APAP 5-325MG [[place] 1 - 2 tab PO QID PRN 07/10/21 08/12/21 History 5-325] Omeprazole 20 mg PO DAILY PRN 07/10/21 08/12/21 History Topiramate [Topamax] 100 mg PO DAILY 07/10/21 08/12/21 History buPROPion HCL [Wellbutrin XL] 300 mg PO DAILY 07/10/21 08/12/21 History Cefuroxime Axetil [Ceftin] 500 mg PO BID #14 tab 07/13/21 08/12/21 Rx Allergies Allergy/AdvReac Type Severity Reaction Status Date / Time adhesive tape Allergy peels skin Verified 08/24/21 01:16 off Physical Exam Vitals: Vital Signs Temp Pulse Resp BP Pulse Ox 08/24/21 01:27 65 20 112/87 95 08/24/21 01:06 97.5 F L 81 18 119/81 99 Intake and Output 08/23/21 08/23/21 08/24/21 14:59 22:59 06:59 Other: Weight 87.997 kg Results Current Medications Generic Name Dose Route Start Last Admin Trade Name Freq PRN Reason Stop Dose Admin Heparin Sodium (Porcine) 0 unit 08/24/21 01:15 Heparin Sodium 1,000 Un/Ml (10ml Vl) IV PER PROTOCOL PRN Low PTT Protocol Heparin Sodium/Sodium Chloride 250 mls @ 9.996 mls/hr 08/24/21 01:15 25,000 unit/ Sodium Chloride IV .Q24H [facility] Protocol 11.36 UNITS/KG/HR Nitroglycerin 0.4 mg 08/24/21 01:13 Nitroglycerin Sl Tabs 0.4 Mg Tab SUBLINGUAL Q5M PRN Chest Pain Intake and Output 08/23/21 08/23/21 08/24/21 14:59 22:59 06:59 Other: Weight 87.997 kg Patient Weight 08/24/21 06:59 Weight 87.997 kg
--- NOTE | 2021-08-24 01:41 | XR ---
EXAMINATION TYPE: XR chest 1V portable DATE OF EXAM: 08/24/2021 COMPARISON: 05/19/2018 HISTORY: Chest pain TECHNIQUE: FINDINGS: Heart and mediastinum are normal. Lungs are clear. Diaphragm is normal. Pulmonary vasculari ty is normal. IMPRESSION: No active cardiopulmonary disease. No change.
[2021-08-24] MEDS ORDERED: fentaNYL (PF) 50 MCG/ML 2 ML AMP ONE (01:43)
[2021-08-24] MEDS ORDERED: LIDOCAINE 1% INJ 10MG/ML (20 ML MDV) SQ ONE (01:44)
[2021-08-24] MEDS ORDERED: SODIUM CHLORIDE 0.9% 1,000 ML IV ONE (01:44)
[2021-08-24 01:45] LABS: Basophils % (A) 0 %; Eosinophils # (A) 0.1 k/uL (0-0.7); Eosinophils % (A) 2 %; HCT 35.2 % (34.0-46.0); HGB 11.2 gm/dL (11.4-16.0); Hypochromasia Slight; Lymphocytes # (A) 1.2 k/uL (1.0-4.8); Lymphocytes % (A) 19 %; MCH 30.1 pg (25.0-35.0); MCHC 31.8 g/dL (31.0-37.0); MCV 94.7 fL (80.0-100.0); Mean Platelet Volume 9.2; Monocytes # (A) 0.2 k/uL (0-1.0); Monocytes % (A) 3 %; Neutrophils # (A) 4.6 k/uL (1.3-7.7); Neutrophils % (A) 74 %; Platelet Count 280 k/uL (150-450); RBC 3.72 m/uL (3.80-5.40); RDW 14.7 % (11.5-15.5); WBC 6.2 k/uL (3.8-10.6)
[2021-08-24] MEDS ORDERED: MIDAZOLAM 2 MG/2 ML VIAL IV ONE (01:45)
[2021-08-24] MEDS ORDERED: fentaNYL (PF) 50 MCG/ML 2 ML AMP IV ONE (01:45)
[2021-08-24] MEDS ORDERED: VERAPAMIL SYRINGE (5 MG/10 ML) INTRAARTER ONE (01:46)
[2021-08-24] MEDS ORDERED: TICAGRELOR 90 MG TAB PO ONE (01:48)
[2021-08-24] MEDS: HEPARIN SODIUM 1,000 UN/ML (10ML VL) IV ONE ×3 (01:49→02:16)
[2021-08-24] MEDS ORDERED: TICAGRELOR 90 MG TAB ONE (01:50)
[2021-08-24] MEDS ORDERED: PHENYLEPHRINE-0.9% NACL SYG 1,000 MCG/10 ML SYRINGE IV ONE (01:51)
[2021-08-24 01:57] LABS: Albumin 3.7 g/dL (3.5-5.0); Calcium 8.8 mg/dL (8.4-10.2); Potassium 3.7 mmol/L (3.5-5.1); Total Bilirubin 0.6 mg/dL (0.2-1.3)
[2021-08-24] MEDS: NITROGLYCERIN 1000MCG/10ML SYRINGE INTRACORON ONE ×3 (02:12→02:40)
[2021-08-24 02:17] LABS: Prothrombin Time 10.5 sec (9.0-12.0)
[2021-08-24] MEDS ORDERED: ONDANSETRON 4 MG/2 ML VIAL ONE (02:21)
[2021-08-24] MEDS ORDERED: ONDANSETRON 4 MG/2 ML VIAL IVP ONE (02:23)
[2021-08-24 02:28] LABS: Partial Thromboplastin Time 18.8 sec (22.0-30.0)
[2021-08-24] MEDS ORDERED: IOPAMIDOL-370 125ML BTL INJ ONE (02:44)
[2021-08-24] MEDS ORDERED: IOPAMIDOL-370 50ML BTL INJ ONE (02:57)
[2021-08-24] MEDS ORDERED: RX INFO: IV CONTRAST WAS GIVEN 1 EACH MISC MISCELLANE PRN (03:11)
[2021-08-24] MEDS ORDERED: MAG HYDROX/AL HYDROX/SIMETH 30 ML CUP PO PRN (03:11)
[2021-08-24 03:27] LABS: Glucose,Whole Blood 103 mg/dL (75-99)
--- NOTE | 2021-08-24 03:28 | P.PRCINT ---
Percutaneous Coronary Int. - Percutaneous Coronary Intervention Percutaneous Coronary Intervention: PROCEDURES PERFORMED: Left heart catheterization, bilateral coronary angiography, PCI proximal to distal RCA with overlapping 3.5 x 18 mm, 3.5 x 38 mm, 2.5 x 15 mm Xience JOHNATHON, postdilated with a 4.0 NC and 3.5 NC balloons, aspiration thrombectomy with Penumbra catheter, IVUS INDICATION: Inferior STEMI HISTORY: Patient is a pleasant 7-year-old female with history of hypertension, hyperlipidemia, coronary artery disease with prior PCI of the RCA with a 2.5 mm stent in 2017. She recently had a urologic seizure for kidney stone 10 days ago and had stopped her aspirin at that time. Patient developed acute onset of chest pain 08/23/21 at approximately 11 PM and presented to ER with inferior STEMI. CONSENT:I have discussed the risks, benefits and alternative therapies for the above-mentioned procedure and for both sedation/analgesia as well as necessary blood product administration, if indicated, as they pertain to this patient. The patient has indicated understanding and acceptance of the risks and proced ures discussed. PROCEDURE: After the risks, benefits and alternatives of the above mentioned procedure explained in detail with the patient, informed consent was obtained. Patient was taken to the catheterization lab and prepped and draped in usual fashion. 1% lidocaine was used to anesthetize the right radial artery. A 6- [place]anian sheath was placed in the right radial artery using modified Seldinger technique. A 6-T[place]anian AL 0.75 guide was disease in gauge the RCA. There was 100% occlusion of the mid RCA at the level of the previously placed stent with extensive thrombus. A 2.5 x 12 mm balloon was used to predilate the stent. Due to extensive thrombus burden aspiration thrombectomy was performed with a Penumbra catheter. Secondary to concern of stent thrombosis related to discontinuation of aspirin recently and underexpanded stent with diffuse disease throughout the entire RCA long stenting with normal to normal artery was recommended. Therefore overlapping 3.5 x 18 mm proximally, 3.5 x 38 mm mid and 2.5 x 15 mm Xience JOHNATHON distal were placed in the proximal to distal RCA. The proximal and mid stents were postdilated with a 4.0 noncompliant balloon and the mid to distal stents were postdilated with a 3.5 noncompliant balloon. IVUS was performed secondary to disease noted at the end of the 3.5 x 38mm stent and there was significant stenosis and therefore this was also covered. The wire was then pulled and final angiograms were performed. Preintervention there was JOIE 0 flow and 100% stenosis and postintervention there was 0% stenosis and JOIE-3 flow. Left coronary angiography was performed with a 5-[place] JL 4.0 catheter. The 5- [place] FL4 catheter was inserted into the left ventricle and pressure measurements were obtained. The right radial sheath was removed and a TR band was placed with hemostasis achieved. The patient tolerated the procedure well. Patient was transported back to the post catheterization holding area in stable condition. Conscious Sedation: Patient was monitored under the direct supervision of vision of myself for conscious sedation using Versed and fentanyl for a total duration of 71 minutes HEMODYNAMICS: Aorta 94/88 LV: 110/15, LVEDP 17 SELECTIVE CORONARY ARTERIOGRAPHY: LEFT MAIN: The left main is a large caliber vessel which bifurcates into the LAD and circumflex. There is no significant stenosis. LEFT ANTERIOR DESCENDING CORONARY ARTERY: LAD is a large caliber vessel which wraps around to the apex. There is diffuse mild 30% proximal LAD stenosis and mid and distal LAD 20-30% stenosis. Diagonal 1 is small caliber and has diffuse proximal to mid 70-80% stenosis. LEFT CIRCUMFLEX CORONARY ARTERY: Left circumflex is a moderate caliber vessel with diffuse 20-30% stenosis. OM1 is small caliber and has an ostial 60-70% stenosis.. RIGHT CORONARY ARTERY: The right coronary artery is a large caliber vessel which gives off a PDA and PLV branch and is the dominant vessel. There is 100% mid RCA stenosis at the level of the prior stent. Otherwise there is diffuse proximal to distal 40-60% stenosis throughout. FINAL IMPRESSION: 1. CAD as described above including 100% RCA stenosis, 20-30% circumflex st enosis, OM1 60-70% stenosis, LAD 30% stenosis and small caliber diagonal 1 70- 80% stenosis 2. S/p successful PCI proximal to distal RCA with overlapping 3.5 x 18 mm, 3.5 x 38 mm, 2.5 x 15 mm Xience JOHNATHON, postdilated with a 4.0 NC and 3.5 NC balloons 3. Elevated left-sided filling pressure PLAN: 1. Aggressive risk factor modification per most recent ACC/AHA guidelines. 2. Continue dual antiplatelets for 12 months with aspirin and Brillinta. 3. Given small caliber OM1 60-70% and diagonal 1 70-80% stenosis involving the ostium would treat these medically unless patient has persistent angina despite antianginal medications may consider further assessment.
[2021-08-24] MEDS ORDERED: ZOLPIDEM 5 MG TAB PO PRN (04:00)
[2021-08-24] MEDS ORDERED: ATROPINE SULFATE 0.1 MG/ML 10ML SYRINGE IV PRN (05:00)
[2021-08-24] MEDS ORDERED: ACETAMINOPHEN TAB 325 MG TAB PO PRN (07:33)
[2021-08-24 08:24] LABS: Calcium 8.7 mg/dL (8.4-10.2)
[2021-08-24 08:37] LABS: Potassium 4.4 mmol/L (3.5-5.1)
[2021-08-24] MEDS: TICAGRELOR 90 MG TAB PO SCH ×2 (08:56→20:14)
[2021-08-24] MEDS: METOPROLOL TARTRATE 50 MG TAB PO SCH ×2 (08:57→20:14)
[2021-08-24] MEDS: ASPIRIN 81 MG PO SCH (08:57)
[2021-08-24] MEDS ORDERED: ALPRAZolam 0.25 MG TAB PO PRN (09:18)
[2021-08-24] MEDS ORDERED: PANTOPRAZOLE 40 MG TABLET PO PRN (09:18)
[2021-08-24] MEDS: MULTIVITAMINS, THERA 1 EACH TAB PO SCH (09:46)
[2021-08-24] MEDS: TOPIRAMATE 100 MG TAB PO SCH (10:03)
[2021-08-24] MEDS: buPROPion XL 300 MG TAB.ER.24H PO SCH (10:03)
[2021-08-24] MEDS: HYDROcodone/APAP 5-325MG 1 EACH TAB PO PRN ×3 (10:07→20:14)
[2021-08-24] MEDS: SODIUM CHLORIDE 0.9% 1,000 ML in EMPTY BAG 1 BAG IV SCH (12:48)
--- NOTE | 2021-08-24 13:33 | CA ---
Transthoracic Echo Report Name: Lois Napoles Age: 70 Gender: F : 1950 Exam Date: 08/24/2021 11:52 Exam Location: [facility] Ht (in): 70 Wt (lb): 202 Ordering Physician: Leidy Roblero Attending/Referring Phys: Trumpet Teacher Karen Fishman RDCS Procedure CPT: Indications: stemi Cardiac Hx: Hx of stents Technical Quality: Technically difficult study Contrast 1: Lumason Total Dose (mL): .25 Contrast 2: Total Dose (mL): MEASUREMENTS (Male / Female) Normal Values 2D ECHO LV Diastolic Diameter PLAX 4.3 cm 4.2 - 5.9 / 3.9 - 5.3 cm LV Systolic Diameter PLAX 3.4 cm IVS Diastolic Thickness 0.9 cm 0.6 - 1.0 / 0.6 - 0.9 cm LVPW Diastolic Thickness 1.3 cm 0.6 - 1.0 / 0.6 - 0.9 cm LV Relative Wall Thickness 0.5 M-MODE Aortic Root Diameter MM 3.2 cm LA Systolic Diameter MM 2.7 cm LA Ao Ratio MM 0.8 MV E Point Septal Separation 1.7 cm AV Cusp Separation MM 2.0 cm DOPPLER AV Peak Velocity 88.7 cm/s AV Peak Gradient 3.1 mmHg MV Area PHT 3.1 cm MR Peak Velocity 87.8 cm/s MR Peak Gradient 3.1 mmHg Mitral E Point Velocity 60.3 cm/s Mitral A Point Velocity 33.6 cm/s Mitral E to A Ratio 1.8 MV Deceleration Time 241.2 ms TR Peak Velocity 136.2 cm/s TR Peak Gradient 7.4 mmHg Right Ventricular Systolic Press 11.7 mmHg FINDINGS Left Ventricle Moderately increased posterior wall thickness. Left ventricular ejection fraction is estimated at 35-40% Mid to basal inferoseptal is hypokinetic and mid to basal inferolateral is hypokinetic.. Right Ventricle The right ventricle is normal in size and function. Right Atrium The right atrium is normal in size. Left Atrium The left atrium is normal in size. Mitral Valve Structurally normal mitral valve without significant stenosis or prolapse. There is a trace mitral regurgitation. Aortic Valve Structurally normal aortic valve without significant sclerosis or stenosis. There is no aortic regurgitation. Tricuspid Valve Structurally normal tricuspid valve without significant stenosis. Pulmonary artery systolic pressure is normal. Trace tricuspid regurgitation. Pulmonic Valve Structurally normal pulmonic valve without significant stenosis. There is no pulmonic regurgitation. Pericardium Normal pericardium without effusion. Aorta Normal aortic root dimension. CONCLUSIONS Ischemic cardiomyopathy with moderate to severe LV systolic dysfunction secondary to prior inferior and inferolateral myocardial infarction. Previewed by: Dr. Aubrey Mike MD (Electronically Signed) Final Date: 24 August 2021 13:32
[2021-08-24 14:03] VITALS: BMI 36.6
--- NOTE | 2021-08-24 14:21 | PN ---
PROGRESS NOTE This 70-year-old lady presented to hospital with acute inferior wall myocardial infarction, underwent emergent cardiac catheterization and angioplasty of right coronary artery. At the time of my evaluation this morning, patient appears comfortable at rest, free of chest pain. Hemodynamically stable. Current medications include aspirin, Lipitor 80 mg daily, Lopressor 50 b.i.d., Brilinta 90 b.i.d., Topamax 100 mg daily and Ambien. On exam, comfortable at rest. Vital signs are stable. Chest exam reveals good air entry bilaterally. Heart exam reveals first and second heart sounds. No gallop. Abdomen is soft. Examination of extremities reveals mild edema. Peripheral pulses are felt. Labs show that the hemoglobin is 11.2, platelet count is 280, potassium is 4.4, creatinine is 0.95. Echo is pending at this time. Right radial artery access site shows a small hematoma, but this has been stable. ASSESSMENT: Acute inferior wall myocardial infarction, status post catheterization and angioplasty. Patient will continue on aspirin, Lipitor, Brilinta, Lopressor, and resume the losartan. MMODL / IJN: [id number] /
--- NOTE | 2021-08-24 15:40 | P.HPIM ---
History of Present Illness H&P Date: 08/24/21 Chief Complaint: Chest pain Hospital course: Patient is a pleasant 70-year-old female, follows with Dr. Christos Munoz. Chronic stable medical conditions include chronic fibromyalgia, GERD, essential hypertension, primary osteoarthritis, CAD. History giving patient's washing her hair when the right thumb started aching started feeling uncomfortable than the right chest aren't hurting. Patient started feeling faint short of breath shaking perspiration. Told the called the EMS. Came to the ER was found to have ST elevation [place]. Patient was taken to the cardiac lab intern by Dr. Brown and successful angioplasty stenting was done to the RCA. This morning patient is in the ICU. Sitting up in a chair. No chest pain or shortness of breath. Review of systems: GEN.: Tired EYES: None HEENT: None NECK: None RESPIRATORY: None CARDIOVASCULAR: As above GASTROINTESTINAL: None GENITOURINARY: None MUSCULOSKELETAL: Joint pains LYMPHATICS: None HEMATOLOGICAL: None PSYCHIATRY: None NEUROLOGICAL: None Past medical history to include: Chronic fibromyalgia, GERD, essential hypertension, primary osteoarthritis, CAD with stent, anxiety depression Social history: . No smoking or alcohol. Family history: CAD, hypertension, colon and bladder cancer Physical examination: VITAL SIGNS: 98.1, 60, 12, 120/99, 96% room air GENERAL: BMI 36.6, sitting up in a chair, awake. EYES: Pupils equal. Conjunctiva normal. HEENT: External appearance of nose and ears normal, oral cavity grossly normal. NECK: JVD not raised; masses not palpable. HEART: First and second heart sounds are normal; no edema. LUNGS: Respiratory rate normal; clear to auscultation. ABDOMEN: Soft, nontender, liver spleen not palpable, no masses palpable. PSYCH: Alert and oriented x3; mood and affect normal. MUSCULOSKELETAL:No Clubbing/cyanosis;muscles-grossly intact, evidence of OA NEUROLOGICAL: Cranial nerves grossly intact; no facial asymmetry, power and sensation grossly intact. LYMPHATICS: No lymph nodes palpable in the axilla and neck . INVESTIGATIONS, reviewed in the clinical context: White count 6.2 hemoglobin 11.2 platelets 280 potassium 4.4 BUN 15 creatinine 0.95 Troponin I 0.020 EKG tracing personally reviewed by me-normal sinus rhythm. ST elevation inferior leads Chest x-ray film personally reviewed by me-lungs clear. Some elevation of right diaphragm Assessment and plan: -Acute ST elevation myocardial infarction of the inferior wall. Successful i stenting to RCA by Dr. Brown. Aspirin. brilinta -CAD with a prior history of stent Aspirin, Lipitor, Lopressor 50 mg twice a day -Chronic fibromyalgia [place] when necessary -GERD Omeprazole -Essential hypertension Lopressor. Cozaar -Primary osteoarthritis Pain medication as needed -Chronic low back pain from herniated disc Pain medications as needed -Obesity BMI 36.6 Weight loss measures -Anxiety depression Wellbutrin XL 300 mg a day Topamax 100 mg daily at bedtime. Cymbalta 60 mg daily at bedtime Xanax when necessary Status post stent to RCA. Patient received IV heparin. Currently on aspirin, Brilinta, Lopressor, beta maria, other home medications resumed. Care was discussed with the patient. Questions answered. Follow with cardiology. Given the complexity and severity of patient's condition expect the patient to be in the hospital at least for 2 overnights Past Medical History Past Medical History: Chest Pain / Angina, CVA/TIA, Fibromyalgia, GERD/Reflux, Hypertension, Myocardial Infarction ([place]), Osteoarthritis (OA) Additional Past Medical History / Comment(s): TIA over 20 yrs ago, occasional rapid heart beat, gastric strictures/dysphagia/hiatal hernia with EGDs with dilations, chronic generalized pain/low back pain/herniated disc in lower back, limited ROM neck/had fusion with plate, KIDNEY STONES Last Myocardial Infarction Date:: 05/25/16 History of Any Multi-Drug Resistant Organisms: None Reported Past Surgical History: Back Surgery, Bariatric Surgery, Breast Surgery, Cholecystectomy, Heart Catheterization With Stent, Hysterectomy, Tonsillectomy, Tubal Ligation Additional Past Surgical History / Comment(s): Lap banding then removal, Jac-en-y, EGDs/dilations, colonoscopies, hemorrhoidectomy, bilateral surgery for plantar fascitis/whittaker's neuromas, lipomas removed, bilateral breast reductions. Past Anesthesia/Blood Transfusion Reactions: Previous Problems w/ Anesthesia Additional Past Anesthesia/Blood Transfusion Reaction / Comment(s): "surgical awareness","early waking "takes a lot of anesthesia" Date of Last Stent Placement:: 05/25/16 Past Psychological History: Anxiety, Depression Additional Psychological History / Comment(s): Pt resides with her spouse. She uses no assistive device. She drives. Pt has had depression since age 13 yrs. She states her depression is currently stable. Smoking Status: Never smoker Past Alcohol Use History: None Reported Past Drug Use History: None Reported - Past Family History Father Family Medical History: Cancer, Coronary Artery Disease (CAD), Hypertension Additional Family Medical History / Comment(s): CABG, COLON/bladder CANCER Mother Family Medical History: Cancer, Coronary Artery Disease (CAD), Renal Disease Additional Family Medical History / Comment(s): metastatic breast cancer, heart disease,.was 3 ppd smoker Medications and Allergies Home Medications Medication Instructions Recorded Confirmed Type Cyclobenzaprine [Flexeril] 10 mg PO TID PRN 04/07/16 08/24/21 History DULoxetine HCL [Cymbalta] 60 mg PO HS 04/07/16 08/24/21 History Isosorbide Mononitrate ER [Imdur] 30 mg PO DAILY 05/19/18 08/24/21 History Atorvastatin [Lipitor] 40 mg PO HS 10/05/18 08/24/21 History Multivitamin [Multivitamins Adult 1 tab PO DAILY 10/05/18 08/24/21 History Gummies] ALPRAZolam [Xanax] 0.25 mg PO BID PRN 07/10/21 08/24/21 History Aspirin 81 mg PO DAILY 07/10/21 08/24/21 History HYDROcodone/APAP 5-325MG [[place] 1 - 2 tab PO QID PRN 07/10/21 08/24/21 History 5-325] Omeprazole 20 mg PO DAILY PRN 07/10/21 08/24/21 History Topiramate [Topamax] 100 mg PO HS 07/10/21 08/24/21 History buPROPion HCL [Wellbutrin XL] 300 mg PO DAILY 07/10/21 08/24/21 History Losartan [Cozaar] 75 mg PO DAILY 08/24/21 08/24/21 History Metoprolol Succinate (ER) [Toprol 50 mg PO HS 08/24/21 08/24/21 History Xl] Nitroglycerin Sl Tabs [Nitrostat] 0.4 mg SL Q5M PRN 08/24/21 08/24/21 History Allergies Allergy/AdvReac Type Severity Reaction Status Date / Time adhesive tape Allergy peels skin Verified 08/24/21 11:34 off Physical Exam Vitals: Vital Signs Temp Pulse Pulse Resp BP BP Pulse Ox 08/24/21 11:10 59 L 20 139/87 99 08/24/21 10:20 56 L 12 121/99 99 08/24/21 10:00 60 30 H 92 L 08/24/21 09:00 56 L 10 L 120/99 96 08/24/21 08:15 63 12 99 08/24/21 08:00 98.1 F 57 L 12 137/87 98 08/24/21 07:00 62 13 131/78 99 08/24/21 06:56 63 12 127/86 08/24/21 06:00 64 21 131/84 99 08/24/21 05:56 66 22 137/88 08/24/21 05:00 98.1 F 63 22 137/88 99 08/24/21 04:56 98.1 F 63 22 137/88 08/24/21 04:26 63 21 100 08/24/21 04:00 62 15 144/104 99 08/24/21 03:56 65 100 08/24/21 03:41 97.5 F L 79 21 144/104 97 08/24/21 03:30 79 21 144/104 97 08/24/21 03:24 28 H 08/24/21 02:02 65 18 117/84 95 08/24/21 01:27 65 20 112/87 95 08/24/21 01:06 97.5 F L 81 18 119/81 99 Intake and Output 08/23/21 08/24/21 08/24/21 22:59 06:59 14:59 Intake Total 866 448 Output Total 300 300 Balance 566 148 Intake: IV 500 355 Sodium Chloride 0.9% 1, 355 000 ml In Empty Bag 1 bag @ 1 ML/KG/HR 87.997 mls/ hr IV .[id number] JORGE A Rx#: [id number] Intake, IV Titration 366 93 Amount Sodium Chloride 0.9% 1, 366 93 000 ml In Empty Bag 1 bag @ 1 ML/KG/HR 87.997 mls/ hr IV .[id number] JORGE A Rx#: [id number] Output: Urine 300 300 Other: Voiding Method Bedpan Toilet # Voids 1 1 Weight 93.8 kg Results CBC & Chem 7: 08/24/21 01:13 08/24/21 07:38 Labs: Abnormal Lab Results - Last 24 Hours (Table) 08/24/21 08/24/21 08/24/21 Range/Units 01:13 01:13 01:25 RBC 3.72 L (3.80-5.40) m/uL Hgb 11.2 L (11.4-16.0) gm/dL APTT 18.8 L (22.0-30.0) sec Chloride 111 H (98-107) mmol/L Carbon Dioxide 18 L (22-30) mmol/L BUN 19 H (7-17) mg/dL Creatinine 1.08 H (0.52-1.04) mg/dL Glucose 125 H (74-99) mg/dL POC Glucose (mg/dL) (75-99) mg/dL 08/24/21 08/24/21 Range/Units 03:21 07:38 RBC (3.80-5.40) m/uL Hgb (11.4-16.0) gm/dL APTT (22.0-30.0) sec Chloride 113 H (98-107) mmol/L Carbon Dioxide 17 L (22-30) mmol/L BUN (7-17) mg/dL Creatinine (0.52-1.04) mg/dL Glucose 109 H (74-99) mg/dL POC Glucose (mg/dL) 103 H (75-99) mg/dL Thrombosis Risk Factor Assmnt - Choose All That Apply Any of the Below Risk Factors Present?: Yes Each Factor Represents 1 point: Acute [place], Obesity (BMI >25), Sepsis (< 1month) Other Risk Factors: Yes (prev tia) Each Risk Factor Represents 2 Points: Age 61-74 years Other congenital or acquired thrombophilia - If yes, enter type in comment: No Thrombosis Risk Factor Assessment Total Risk Factor Score: 5 Thrombosis Risk Factor Assessment Level: High Risk
[2021-08-24] MEDS: DULoxetine HCL 60 MG CAPSULE.DR PO SCH (20:13)
[2021-08-24] MEDS: ATORVASTATIN 80 MG TAB PO SCH (20:14)
[2021-08-25] MEDS: SODIUM CHLORIDE 0.9% 1,000 ML in EMPTY BAG 1 BAG IV SCH (05:59)
[2021-08-25] MEDS: HYDROcodone/APAP 5-325MG 1 EACH TAB PO PRN ×3 (08:27→18:32)
[2021-08-25] MEDS: TICAGRELOR 90 MG TAB PO SCH ×2 (08:27→20:17)
[2021-08-25] MEDS: MULTIVITAMINS, THERA 1 EACH TAB PO SCH (08:27)
[2021-08-25] MEDS: ASPIRIN 81 MG PO SCH (08:27)
[2021-08-25] MEDS: METOPROLOL TARTRATE 50 MG TAB PO SCH ×2 (08:28→20:17)
[2021-08-25] MEDS: buPROPion XL 300 MG TAB.ER.24H PO SCH (08:29)
[2021-08-25] MEDS: TOPIRAMATE 100 MG TAB PO SCH (08:31)
[2021-08-25 10:28] LABS: Calcium 8.7 mg/dL (8.4-10.2); Potassium 4.6 mmol/L (3.5-5.1)
--- NOTE | 2021-08-25 10:35 | P.PN ---
Progress Note - Text Progress Note Date: 08/25/21 Chief Complaint: Chest pain Hospital course: Patient is a pleasant 70-year-old female, follows with Dr. Christos Munoz. Chronic stable medical conditions include chronic fibromyalgia, GERD, essential hypertension, primary osteoarthritis, CAD. History giving patient's washing her hair when the right thumb started aching started feeling uncomfortable than the right chest aren't hurting. Patient started feeling faint short of breath shaking perspiration. Told the called the EMS. Came to the ER was found to have ST elevation [place]. Patient was taken to the cardiac labor relations director by Dr. Brown and successful angioplasty stenting was done to the RCA. This morning patient is in the ICU. Sitting up in a chair. No chest pain or shortness of breath. August 25: ICU: No chest pain or shortness breath. Up to the bathroom. Feeling better. Sinus rhythm. Active Medications Acetaminophen (Acetaminophen Tab 325 Mg Tab) 650 mg PO Q4HR PRN PRN Reason: Fever and/ or Pain Hydrocodone Bitart/Acetaminophen (Hydrocodone/Apap 5-325mg 1 Each Tab) 1 - 2 each PO QID PRN PRN Reason: Pain Last Admin: 08/25/21 08:27 Dose: 2 each Documented by: Al Hydroxide/Mg Hydroxide (Mag Hydrox/Al Hydrox/Simeth 30 Ml Cup) 30 ml PO Q4HR PRN PRN Reason: Heartburn Alprazolam (Alprazolam 0.25 Mg Tab) 0.25 mg PO BID PRN PRN Reason: Anxiety Aspirin (Aspirin 81 Mg) 81 mg PO DAILY [facility] Last Admin: 08/25/21 08:27 Dose: 81 mg Documented by: Atorvastatin Calcium (Atorvastatin 80 Mg Tab) 80 mg PO [facility] Last Admin: 08/24/21 20:14 Dose: 80 mg Documented by: Atropine Sulfate (Atropine Sulfate 0.1 Mg/Ml 10ml Syringe) 0.5 mg IV ONCE PRN PRN Reason: Symptomatic Bradycardia Bupropion HCl (Bupropion Xl 300 Mg Tab.Er.24h) 300 mg PO DAILY [facility] Last Admin: 08/25/21 08:29 Dose: 300 mg Documented by: Cyclobenzaprine HCl (Cyclobenzaprine 10 Mg Tab) 10 mg PO TID PRN PRN Reason: Muscle Spasm Duloxetine HCl (Duloxetine Hcl 60 Mg Capsule.) 60 mg PO [facility] Last Admin: 08/24/21 20:13 Dose: 60 mg Documented by: Heparin Sodium (Porcine) (Heparin Sodium 1,000 Un/Ml (10ml Vl)) 0 unit IV PER PROTOCOL PRN; Protocol PRN Reason: Low PTT Metoprolol Tartrate (Metoprolol Tartrate 50 Mg Tab) 50 mg PO BID [facility] Last Admin: 08/25/21 08:28 Dose: 50 mg Documented by: Miscellaneous Information (Rx Info: Iv Contrast Was Given 1 Each Misc) 1 each MISCELLANE DAILY PRN PRN Reason: Per Protocol Stop: 08/26/21 03:11 Multivitamins (Multivitamins, Thera 1 Each Tab) 1 each PO DAILY [facility] Last Admin: 08/25/21 08:27 Dose: 1 each Documented by: Nitroglycerin (Nitroglycerin Sl Tabs 0.4 Mg Tab) 0.4 mg SUBLINGUAL Q5M PRN PRN Reason: Chest Pain Nitroglycerin (Nitroglycerin Sl Tabs 0.4 Mg Tab) 0.4 mg SUBLINGUAL Q5M PRN PRN Reason: Chest Pain Pantoprazole Sodium (Pantoprazole 40 Mg Tablet) 40 mg PO DAILY PRN PRN Reason: Heartburn Ticagrelor (Ticagrelor 90 Mg Tab) 90 mg PO BID [facility]; Protocol Last Admin: 08/25/21 08:27 Dose: 90 mg Documented by: Topiramate (Topiramate 100 Mg Tab) 100 mg PO HS JORGE A Zolpidem Tartrate (Zolpidem 5 Mg Tab) 5 mg PO HS PRN PRN Reason: Insomnia Past medical history to include: Chronic fibromyalgia, GERD, essential hypertension, primary osteoarthritis, CAD with stent, anxiety depression Social history: . No smoking or alcohol. Family history: CAD, hypertension, colon and bladder cancer Physical examination: VITAL SIGNS: 98.1, 58, 14, 124/76, 96% room air GENERAL:, sitting up in bed, awake. EYES: Pupils equal. Conjunctiva normal. HEENT: External appearance of nose and ears normal, oral cavity grossly normal. NECK: JVD not raised; masses not palpable. HEART: First and second heart sounds are normal; no edema. LUNGS: Respiratory rate normal; clear to auscultation. ABDOMEN: Soft, nontender, liver spleen not palpable, no masses palpable. PSYCH: Alert and oriented x3; mood and affect normal. MUSCULOSKELETAL:No Clubbing/cyanosis;muscles-grossly intact, evidence of OA . INVESTIGATIONS, reviewed in the clinical context: August 25: Potassium 4.6 creatinine 1.09 bicarb 18 White count 6.2 hemoglobin 11.2 platelets 280 potassium 4.4 BUN 15 creatinine 0.95 Troponin I 0.020 EKG tracing personally reviewed by me-normal sinus rhythm. ST elevation inferior leads Chest x-ray film personally reviewed by me-lungs clear. Some elevation of right diaphragm Assessment and plan: -Acute ST elevation myocardial infarction of the inferior wall. Successful i stenting to RCA by Dr. Brown. Aspirin. brilinta -CAD with a prior history of stent Aspirin, Lipitor, Lopressor 50 mg twice a day -Chronic fibromyalgia [place] when necessary -GERD Omeprazole -Essential hypertension Lopressor. Cozaar -Primary osteoarthritis Pain medication as needed -Chronic low back pain from herniated disc Pain medications as needed -Obesity BMI 36.6 Weight loss measures -Metabolic acidosis Start sodium bicarbonate by mouth -Anxiety depression Wellbutrin XL 300 mg a day Topamax 100 mg daily at bedtime. Cymbalta 60 mg daily at bedtime Xanax when necessary Status post stent to RCA. Continue aspirin, Brilinta, Lopressor, beta maria, Care was discussed with the patient. Add sodium bicarbonate. Activity as tolerated..
[2021-08-25] MEDS: CYCLOBENZAPRINE 10 MG TAB PO PRN ×2 (12:51→20:17)
--- NOTE | 2021-08-25 18:42 | PN ---
PROGRESS NOTE FOLLOW-UP NOTE: This 70-year-old lady is admitted to hospital with acute inferior wall myocardial infarction. She underwent emergent cardiac catheterization and angioplasty of right coronary artery. She is doing well and is free of cardiac symptoms, feels somewhat depressed about all the things that have been going on in her life for the last 3 months. She is currently on Cymbalta and Wellbutrin. Current medications include aspirin, Lipitor, Lopressor 50 b.i.d. and Brilinta 90 mg b.i.d. On exam, comfortable at rest. Vital signs are stable. Chest exam reveals good air entry bilaterally. Heart exam reveals first and second heart sounds. No gallop. Abdomen is soft. Examination of extremities did not reveal any edema. Peripheral pulses are felt. Labs show a potassium of 4.6. Creatinine is 1. Hemoglobin is 11.2. ASSESSMENT: Acute inferior wall myocardial infarction, status post catheterization and angioplasty of [place] right coronary artery. Patient is doing well clinically. An echocardiogram showed moderate to severe LV systolic dysfunction with an ejection fraction of 35% to 40%. Patient can be discharged home on Thursday with outpatient followup. MARITZA / CHLOÉN: [id number] /
[2021-08-25] MEDS: DULoxetine HCL 60 MG CAPSULE.DR PO SCH (20:17)
[2021-08-25] MEDS: ATORVASTATIN 80 MG TAB PO SCH (20:17)
[2021-08-25 20:33] VITALS: RESP 18
[2021-08-25] MEDS ORDERED: TOPIRAMATE 100 MG TAB PO SCH (21:00)
[2021-08-26] MEDS: TICAGRELOR 90 MG TAB PO SCH (08:40)
[2021-08-26] MEDS: MULTIVITAMINS, THERA 1 EACH TAB PO SCH (08:40)
[2021-08-26] MEDS: METOPROLOL TARTRATE 50 MG TAB PO SCH (08:40)
[2021-08-26] MEDS: ASPIRIN 81 MG PO SCH (08:41)
[2021-08-26] MEDS: HYDROcodone/APAP 5-325MG 1 EACH TAB PO PRN ×2 (08:41→13:00)
[2021-08-26] MEDS: buPROPion XL 300 MG TAB.ER.24H PO SCH (08:42)
[2021-08-26] MEDS ORDERED: SPIRONOLACTONE 25 MG TAB PO SCH (09:00)
[2021-08-26 10:57] VITALS: BP 137/67; PULSE 62; TEMP 98.2
--- NOTE | 2021-08-26 11:36 | P.PN ---
Subjective This is a pleasant 70-year-old with past medical history significant for coronary artery disease status post prior PCI of RCA 05/25/2016, TIA, fibrom yalgia, hiatal hernia, hypertension, hyperlipidemia, kidney stones status post nephrostolithotomy and surgery approximately one week ago. She follows in the office with Dr Bentley. Patient presented emergency department on 08/24/2021 with chest pain. Was found to have an acute inferior STEMI. She underwent cardiac catheterization with Dr. Brown which revealed CAD with 100% RCA stenosis, 20-30% circumflex stenosis, OM1 60-70% stenosis, LAD 30% stenosis and small caliber diagonal 1 70-80% stenosis. She underwent successful PCI proximal to distal RCA. Echocardiogram revealed EF of 3540% Patient seen and examined at bedside, no acute distress. She denies any chest pain, shortness of breath, leg numbness, dizziness. She has no complaints. Her vital signs are stable. She is maintaining sinus mechanism. GENERAL: Well-appearing, well-nourished and in no acute distress. NECK: Supple without JVD or thyromegaly. LUNGS: Breath sounds clear to auscultation bilaterally. Respiration equal and unlabored. No wheezes, rales or rhonchi. HEART: Regular rate and rhythm without murmurs, rubs or gallops. S1 and S2 heard. EXTREMITIES: Normal range of motion, no edema. No clubbing or cyanosis. Peripheral pulses intact. SKIN: Right radial artery cath site, clean dry intact 2+ pulses ASSESSMENT Acute inferior STEMI s/p PCI RCA on 08/24/21 Coronary artery disease with prior history of PCI RCA April 2016 History of TIA Recent kidney stone and nephrostolithotomy 08/14/2021 Hypertension Hyperlipidemia PLAN Continue dual antiplatelet therapy with aspirin and Brilinta. Case management consulted for coverage Continue home statin, beta maria and losartan Add Spironolactone 25mg daily Recommend checking BMP in 1 week. Script given to patient. From cardiology perspective, patient stable to be discharged home. Follow up outpatient with Dr. Bentley in one week Nurse Practitioner note has been reviewed, I agree with a documented findings and plan of care. Patient was seen and examined. Objective - Vital Signs Vital signs: Vital Signs Temp 97.3 F L 08/26/21 04:00 Pulse 61 08/26/21 04:00 Resp 18 08/26/21 04:00 BP 115/65 08/26/21 04:00 Pulse Ox 95 08/26/21 04:00 Intake & Output 08/25/21 08/26/21 08/26/21 18:59 06:59 18:59 Intake Total 356 Output Total 0 Balance 356 Intake: Oral 356 Output: Urine 0 Other: Voiding Method Toilet Toilet # Voids 2 - Labs CBC & Chem 7: 08/24/21 01:13 08/25/21 09:55 Labs: Abnormal Lab Results - Last 24 Hours (Table) 08/25/21 Range/Units 09:55 Chloride 113 H (98-107) mmol/L Carbon Dioxide 18 L (22-30) mmol/L Creatinine 1.09 H (0.52-1.04) mg/dL
--- NOTE | 2021-08-26 16:41 | P.DS ---
Providers Date of admission: 08/24/21 02:15 Expected date of discharge: 08/26/21 Attending physician: Caden Rae Consults: 08/24/21 01:13 Consult Physician Stat Consulting Provider: Yasmine Olsen Consult Reason/Comments: STEMI ACTIVATION COMPLETE Do you want consulting provider notified?: Yes 08/24/21 03:11 Consult Physician Routine Consulting Provider: Cardiology Pretty Consult Reason/Comments: Post Interventional patient Do you want consulting provider notified?: Already Contacted Primary care physician: Christos Munoz MD Hospital Course: Chief Complaint: Chest pain Hospital course: Patient is a pleasant 70-year-old female, follows with Dr. Christos Munoz. Chronic stable medical conditions include chronic fibromyalgia, GERD, essential hypertension, primary osteoarthritis, CAD. History giving patient's washing her hair when the right thumb started aching started feeling uncomfortable than the right chest aren't hurting. Patient started feeling faint short of breath shaking perspiration. Told the called the EMS. Came to the ER was found to have ST elevation SC. Patient was taken to the cardiac lab animal technologist by Dr. Brown and successful angioplasty stenting was done to the RCA. This morning patient is in the ICU. Sitting up in a chair. No chest pain or shortness of breath. August 1: ICU: No chest pain or shortness breath. Up to the bathroom. Feeling better. Sinus rhythm. August 2: Doing well. Up and about. No cardiac symptoms. Cleared by cardiology for discharge. Discussed with patient. Discussion and discharge planning more than 35 minutes Past medical history to include: Chronic fibromyalgia, GERD, essential hypertension, primary osteoarthritis, CAD with stent, anxiety depression Social history: . No smoking or alcohol. Family history: CAD, hypertension, colon and bladder cancer Physical examination: VITAL SIGNS: 98.2, 62, 18, 137/67, 99% room air GENERAL:, sitting up in bed, awake. EYES: Pupils equal. Conjunctiva normal. HEENT: External appearance of nose and ears normal, oral cavity grossly normal. NECK: JVD not raised; masses not palpable. HEART: First and second heart sounds are normal; no edema. LUNGS: Respiratory rate normal; clear to auscultation. ABDOMEN: Soft, nontender, liver spleen not palpable, no masses palpable. PSYCH: Alert and oriented x3; mood and affect normal. MUSCULOSKELETAL:No Clubbing/cyanosis;muscles-grossly intact, evidence of OA . INVESTIGATIONS, reviewed in the clinical context: August 25: Potassium 4.6 creatinine 1.09 bicarb 18 White count 6.2 hemoglobin 11.2 platelets 280 potassium 4.4 BUN 15 creatinine 0.95 Troponin I 0.020 EKG tracing personally reviewed by me-normal sinus rhythm. ST elevation inferior leads Chest x-ray film personally reviewed by me-lungs clear. Some elevation of right diaphragm Assessment and plan: -Acute ST elevation myocardial infarction of the inferior wall. Successful i stenting to RCA by Dr. Brown. Aspirin. brilinta -CAD with a prior history of stent Aspirin, Lipitor, Lopressor 50 mg twice a day -Chronic fibromyalgia Webb when necessary -GERD Omeprazole -Essential hypertension Lopressor. Cozaar -Primary osteoarthritis Pain medication as needed -Chronic low back pain from herniated disc Pain medications as needed -Obesity BMI 36.6 Weight loss measures -Metabolic acidosis Start sodium bicarbonate by mouth -Anxiety depression Wellbutrin XL 300 mg a day Topamax 100 mg daily at bedtime. Cymbalta 60 mg daily at bedtime Xanax when necessary Disposition: Home Plan - Discharge Summary New Discharge Prescriptions: New Ticagrelor [Brilinta] 90 mg PO BID 30 Days #60 tab Atorvastatin [Lipitor] 80 mg PO HS 90 Days #90 tab Spironolactone [Aldactone] 25 mg PO DAILY 90 Days #90 tab Continue Cyclobenzaprine [Flexeril] 10 mg PO TID PRN PRN Reason: Muscle Spasm DULoxetine HCL [Cymbalta] 60 mg PO HS Isosorbide Mononitrate ER [Imdur] 30 mg PO DAILY Multivitamin [Multivitamins Adult Gummies] 1 tab PO DAILY Aspirin 81 mg PO DAILY Omeprazole 20 mg PO DAILY PRN PRN Reason: Heartburn Nitroglycerin Sl Tabs [Nitrostat] 0.4 mg SL Q5M PRN PRN Reason: Chest Pain Metoprolol Succinate (ER) [Toprol XL] 50 mg PO HS Topiramate [Topamax] 100 mg PO HS buPROPion HCL [Wellbutrin XL] 300 mg PO DAILY ALPRAZolam [Xanax] 0.25 mg PO BID PRN PRN Reason: Anxiety HYDROcodone/APAP 5-325MG [[place] 5-325] 1 - 2 tab PO QID PRN PRN Reason: Pain Losartan [Cozaar] 75 mg PO DAILY Discontinued Atorvastatin [Lipitor] 40 mg PO HS Discharge Medication List Cyclobenzaprine [Flexeril] 10 mg PO TID PRN 04/07/16 [History] DULoxetine HCL [Cymbalta] 60 mg PO HS 04/07/16 [History] Isosorbide Mononitrate ER [Imdur] 30 mg PO DAILY 05/19/18 [History] Multivitamin [Multivitamins Adult Gummies] 1 tab PO DAILY 10/05/18 [History] ALPRAZolam [Xanax] 0.25 mg PO BID PRN 07/10/21 [History] Aspirin 81 mg PO DAILY 07/10/21 [History] HYDROcodone/APAP 5-325MG [[place] 5-325] 1 - 2 tab PO QID PRN 07/10/21 [History] Omeprazole 20 mg PO DAILY PRN 07/10/21 [History] Topiramate [Topamax] 100 mg PO HS 07/10/21 [History] buPROPion HCL [Wellbutrin XL] 300 mg PO DAILY 07/10/21 [History] Losartan [Cozaar] 75 mg PO DAILY 08/24/21 [History] Metoprolol Succinate (ER) [Toprol XL] 50 mg PO HS 08/24/21 [History] Nitroglycerin Sl Tabs [Nitrostat] 0.4 mg SL Q5M PRN 08/24/21 [History] Atorvastatin [Lipitor] 80 mg PO HS 90 Days #90 tab 08/26/21 [Rx] Spironolactone [Aldactone] 25 mg PO DAILY 90 Days #90 tab 08/26/21 [Rx] Ticagrelor [Brilinta] 90 mg PO BID 30 Days #60 tab 08/26/21 [Rx] Follow up Appointment(s)/Referral(s): Stewart Bentley MD [STAFF PHYSICIAN] - 1 Week (Office will call with appointment date and time) Christos Munoz MD [Primary Care Provider] - 1-2 days (Office will call you with appointment date and time of follow appointment) Ambulatory/Diagnostic Orders: Basic Metabolic Panel [LAB.AMB] Time Frame: 1 Week, Location: None Selected Patient Instructions/Handouts: Heart Catheterization (DC), After Radial Heart Catheterization (GEN) Discharge Disposition: HOME SELF-CARE
== END 2021-08-26 13:45 | disposition home or self-care (01) | DRG 247 ==
LOC: EC 01:05 → 2SICU 02:15 → 3SCARD 08-25 10:54
PROVIDERS: ADMIT Hospitalist; ATTEND Hospitalist
PROC: 027036Z Dilation of Coronary Artery, One Artery with Three Drug-eluting Intraluminal Devices, Percutaneous Approach (ICD-10-PCS; principal; 2021-08-24 01:32)
PROC: B240ZZ3 Ultrasonography of Single Coronary Artery, Intravascular (ICD-10-PCS; principal; 2021-08-24 01:32)
PROC: B2111ZZ Fluoroscopy of Multiple Coronary Arteries using Low Osmolar Contrast (ICD-10-PCS; principal; 2021-08-24 01:32)
PROC: 02C03ZZ Extirpation of Matter from Coronary Artery, One Artery, Percutaneous Approach (ICD-10-PCS; principal; 2021-08-24 01:32)
PROC: 4A023N7 Measurement of Cardiac Sampling and Pressure, Left Heart, Percutaneous Approach (ICD-10-PCS; principal; 2021-08-24 01:32)
DX: I21.19 ST elevation (STEMI) myocardial infarction involving other coronary artery of inferior wall (principal); E87.2 Acidosis; E66.9 Obesity, unspecified; I25.10 Atherosclerotic heart disease of native coronary artery without angina pectoris; Z68.36 Body mass index [BMI] 36.0-36.9, adult; I10 Essential (primary) hypertension; E78.5 Hyperlipidemia, unspecified; G89.29 Other chronic pain; M54.50 Low back pain, unspecified; M79.7 Fibromyalgia; K21.9 Gastro-esophageal reflux disease without esophagitis; I25.2 Old myocardial infarction; K44.9 Diaphragmatic hernia without obstruction or gangrene; R13.10 Dysphagia, unspecified; M62.838 Other muscle spasm; F41.9 Anxiety disorder, unspecified; F32.A Depression, unspecified; M19.91 Primary osteoarthritis, unspecified site; G47.00 Insomnia, unspecified; Z79.82 Long term (current) use of aspirin; Z79.899 Other long term (current) drug therapy; Z95.5 Presence of coronary angioplasty implant and graft; Z86.73 Personal history of transient ischemic attack (TIA), and cerebral infarction without residual deficits; Z87.442 Personal history of urinary calculi; Z98.1 Arthrodesis status; Z98.84 Bariatric surgery status; Z90.49 Acquired absence of other specified parts of digestive tract; Z87.19 Personal history of other diseases of the digestive system; Z90.710 Acquired absence of both cervix and uterus; Z90.89 Acquired absence of other organs; Z98.51 Tubal ligation status; Z87.42 Personal history of other diseases of the female genital tract; Z87.39 Personal history of other diseases of the musculoskeletal system and connective tissue; Z86.018 Personal history of other benign neoplasm; Z98.890 Other specified postprocedural states; Z71.3 Dietary counseling and surveillance; Z91.048 Other nonmedicinal substance allergy status; Z82.49 Family history of ischemic heart disease and other diseases of the circulatory system; Z80.52 Family history of malignant neoplasm of bladder; Z80.0 Family history of malignant neoplasm of digestive organs; Z84.89 Family history of other specified conditions; Z84.1 Family history of disorders of kidney and ureter; Z81.2 Family history of tobacco abuse and dependence
CPT/HCPCS: 36415; 71045; 80048; 80053; 84484; 85025; 85610; 85730; 92973; 92978; 93005; 93306; 93458; 96365; 99291

== ENCOUNTER 2021-12-07 12:42 | Emergency (ER) | payer MEDICARE ==
[2021-12-07 12:51] VITALS: BP 128/85; PULSE 70; RESP 16; TEMP 98.3
--- NOTE | 2021-12-07 14:32 | ED ---
General Adult HPI - General Source: patient, RN notes reviewed, old records reviewed Mode of arrival: ambulatory Limitations: no limitations <Mal Snowden - Last Filed: 12/07/21 14:29> <Angelica Benavidez - Last Filed: 12/07/21 14:43> - General Chief complaint: Recheck/Abnormal Lab/Rx Stated complaint: eye infection Time Seen by Provider: 12/07/21 13:45 - History of Present Illness Initial comments: This is a 71-year-old female who presents emergency Department with blood covering her whole sclera in the right eye. She also complained of a little pressure in the corner of her left eye. Patient states her vision is normal. Patient wanted to come in and be evaluated she does not remember any trauma to the eye. Patient states she is on a blood thinner but cannot remember what it is. Patient denies any other problems at this time. (Mal Snowden) - Related Data Home Medications Medication Instructions Recorded Confirmed Cyclobenzaprine [Flexeril] 10 mg PO TID PRN 04/07/16 08/24/21 DULoxetine HCL [Cymbalta] 60 mg PO HS 04/07/16 08/24/21 Isosorbide Mononitrate ER [Imdur] 30 mg PO DAILY 05/19/18 08/24/21 Multivitamin [Multivitamins Adult 1 tab PO DAILY 10/05/18 08/24/21 Gummies] ALPRAZolam [Xanax] 0.25 mg PO BID PRN 07/10/21 08/24/21 Aspirin 81 mg PO DAILY 07/10/21 08/24/21 HYDROcodone/APAP 5-325MG [[place] 1 - 2 tab PO QID PRN 07/10/21 08/24/21 5-325] Omeprazole 20 mg PO DAILY PRN 07/10/21 08/24/21 Topiramate [Topamax] 100 mg PO HS 07/10/21 08/24/21 buPROPion HCL [Wellbutrin XL] 300 mg PO DAILY 07/10/21 08/24/21 Losartan [Cozaar] 75 mg PO DAILY 08/24/21 08/24/21 Metoprolol Succinate (ER) [Toprol 50 mg PO HS 08/24/21 08/24/21 XL] Nitroglycerin Sl Tabs [Nitrostat] 0.4 mg SL Q5M PRN 08/24/21 08/24/21 Previous Rx's Medication Instructions Recorded Atorvastatin [Lipitor] 80 mg PO HS 90 Days #90 tab 08/26/21 Spironolactone [Aldactone] 25 mg PO DAILY 90 Days #90 tab 08/26/21 Ticagrelor [Brilinta] 90 mg PO BID 30 Days #60 tab 08/26/21 Allergies Allergy/AdvReac Type Severity Reaction Status Date / Time adhesive tape Allergy peels skin Verified 12/07/21 12:51 off Review of Systems ROS Other: All systems not noted in ROS Statement are negative. <Mal Snowden - Last Filed: 12/07/21 14:29> ROS Other: All systems not noted in ROS Statement are negative. <Angelica Benavidez - Last Filed: 12/07/21 14:43> ROS Statement: Those systems with pertinent positive or pertinent negative responses have been documented in the HPI. Past Medical History Past Medical History: Chest Pain / Angina, CVA/TIA, Fibromyalgia, GERD/Reflux, Hypertension, Myocardial Infarction ([place]), Osteoarthritis (OA) Additional Past Medical History / Comment(s): TIA over 20 yrs ago, occasional rapid heart beat, gastric strictures/dysphagia/hiatal hernia with EGDs with dilations, chronic generalized pain/low back pain/herniated disc in lower back, limited ROM neck/had fusion with plate, KIDNEY STONES Last Myocardial Infarction Date:: 05/25/16 History of Any Multi-Drug Resistant Organisms: None Reported Past Surgical History: Back Surgery, Bariatric Surgery, Breast Surgery, Ch olecystectomy, Heart Catheterization With Stent, Hysterectomy, Tonsillectomy, Tubal Ligation Additional Past Surgical History / Comment(s): Lap banding then removal, Jac-en-y, EGDs/dilations, colonoscopies, hemorrhoidectomy, bilateral surgery for plantar fascitis/whittaker's neuromas, lipomas removed, bilateral breast reductions. Past Anesthesia/Blood Transfusion Reactions: Previous Problems w/ Anesthesia Additional Past Anesthesia/Blood Transfusion Reaction / Comment(s): "surgical awareness","early waking "takes a lot of anesthesia" Date of Last Stent Placement:: 05/25/16 Past Psychological History: Anxiety, Depression Smoking Status: Never smoker Past Alcohol Use History: None Reported Past Drug Use History: None Reported - Past Family History Father Family Medical History: Cancer, Coronary Artery Disease (CAD), Hypertension Additional Family Medical History / Comment(s): CABG, COLON/bladder CANCER Mother Family Medical History: Cancer, Coronary Artery Disease (CAD), Renal Disease Additional Family Medical History / Comment(s): metastatic breast cancer, heart disease,.was 3 ppd smoker <Mal Snowden - Last Filed: 12/07/21 14:29> General Exam Limitations: no limitations <Mal Snowden - Last Filed: 12/07/21 14:29> Eye exam: Present: other (IOP exam with Tonopen right 9 mmHg, left 11 mmHg) <Angelica Benavidez - Last Filed: 12/07/21 14:43> - General Exam Comments Initial Comments: GENERAL Patient is well-developed and well-nourished. Patient is in mild distress. EYES Patient's pupils are equal and round. Extraocular motion is intact. Patient's sclera is completely covered with a consult conjunctival hemorrhage in the left eye. Patient's pressures in both eyes were within normal range. Patient's visual acuity was 20/20 bilaterally SKIN Unremarkable NEURO The patient is alert and oriented 3 PYSCH Patient has normal interpersonal interactions. MUSCULOSKELETAL All 4 extremities have full range of motion (Mal Snowden) Course Vital Signs 12/07/21 12:47 Temperature 98.3 F Pulse Rate 70 Respiratory 16 Rate Blood Pressure 128/85 O2 Sat by Pulse 100 Oximetry Disposition Is patient prescribed a controlled substance at d/c from ED?: No Time of Disposition: 14:32 <Mal Snowden - Last Filed: 12/07/21 14:29> <Angelica Benavidez - Last Filed: 12/07/21 14:43> Clinical Impression: Subconjunctival hemorrhage Disposition: HOME SELF-CARE Condition: Good Instructions (If sedation given, give patient instructions): Subconjunctival Hemorrhage (ED) Referrals: Christos Munoz MD [Primary Care Provider] - 1-2 days
== END 2021-12-07 14:57 | disposition home or self-care (01) ==
LOC: EC 12:42
DX: H11.31 Conjunctival hemorrhage, right eye (principal); K21.9 Gastro-esophageal reflux disease without esophagitis; I10 Essential (primary) hypertension; Z86.73 Personal history of transient ischemic attack (TIA), and cerebral infarction without residual deficits; Z79.83 Long term (current) use of bisphosphonates; Z82.49 Family history of ischemic heart disease and other diseases of the circulatory system; Z91.048 Other nonmedicinal substance allergy status

== ENCOUNTER 2022-01-09 19:31 | Inpatient (IN) | payer MEDICARE ==
[2022-01-09] MEDS ORDERED: HYDROmorphone 0.5 MG/0.5 ML SYRINGE IVP STA (22:09)
--- NOTE | 2022-01-09 22:13 | XR ---
EXAMINATION TYPE: XR chest 1V DATE OF EXAM: 01/09/2022 COMPARISON: 08/24/2021 HISTORY: Chest pain TECHNIQUE: Single view FINDINGS: Heart is normal. Lungs are clear. Diaphragm is normal. Bony thorax is intact. There is cerv ical spine fusion surgery. No pleural effusion. IMPRESSION: No active cardiopulmonary disease. Normal heart. No change.
--- NOTE | 2022-01-09 22:14 | XR ---
RESULT: HISTORY: fall swelling TECHNIQUE: AP view of the pelvis with 2 views of the left hip. 3 views of the left knee. 3 views of the left ankle. COMPARISON: None. FINDINGS: There is valgus angulated and impacted left femoral neck fracture. No evidence of dislocation. No acute fracture the left knee or ankle. Otherwise the visualized joint spaces are grossly preserved . IMPRESSION: Left femoral neck fracture. No acute fracture of the left knee or ankle.
[2022-01-09] MEDS ORDERED: NALOXONE 0.4 MG/ML 1 ML VIAL IV PRN (22:26)
--- NOTE | 2022-01-09 22:30 | ED ---
General Adult HPI - General Chief complaint: Extremity Injury, Lower Stated complaint: Fall-L leg(hip to foot)injury Time Seen by Provider: 01/09/22 22:00 Source: patient, RN notes reviewed, old records reviewed Mode of arrival: wheelchair Limitations: no limitations - History of Present Illness Initial comments: 71-year-old female presents status post mechanical fall while walking in a parking lot, fell injuring her left lower extremity predominantly left hip. She came through ambulatory triage.she was unable to bear weight on the left leg. No head or neck trauma. She is on antiplatelet agent with history of CAD status post stenting in July of this year. No chest pain or abdominal pain. No syncopal episode, no preceding palpitations. This was mechanical fall. - Related Data Home Medications Medication Instructions Recorded Confirmed Cyclobenzaprine [Flexeril] 10 mg PO TID PRN 04/07/16 08/24/21 DULoxetine HCL [Cymbalta] 60 mg PO HS 04/07/16 08/24/21 Isosorbide Mononitrate ER [Imdur] 30 mg PO DAILY 05/19/18 08/24/21 Multivitamin [Multivitamins Adult 1 tab PO DAILY 10/05/18 08/24/21 Gummies] ALPRAZolam [Xanax] 0.25 mg PO BID PRN 07/10/21 08/24/21 Aspirin 81 mg PO DAILY 07/10/21 08/24/21 HYDROcodone/APAP 5-325MG [[place] 1 - 2 tab PO QID PRN 07/10/21 08/24/21 5-325] Omeprazole 20 mg PO DAILY PRN 07/10/21 08/24/21 Topiramate [Topamax] 100 mg PO HS 07/10/21 08/24/21 buPROPion HCL [Wellbutrin XL] 300 mg PO DAILY 07/10/21 08/24/21 Losartan [Cozaar] 75 mg PO DAILY 08/24/21 08/24/21 Metoprolol Succinate (ER) [Toprol 50 mg PO HS 08/24/21 08/24/21 XL] Nitroglycerin Sl Tabs [Nitrostat] 0.4 mg SL Q5M PRN 08/24/21 08/24/21 Previous Rx's Medication Instructions Recorded Atorvastatin [Lipitor] 80 mg PO HS 90 Days #90 tab 05/02/22 Spironolactone [Aldactone] 25 mg PO DAILY 90 Days #90 tab 08/26/21 Ticagrelor [Brilinta] 90 mg PO BID 30 Days #60 tab 08/26/21 Allergies Allergy/AdvReac Type Severity Reaction Status Date / Time adhesive tape Allergy peels skin Verified 01/09/22 21:09 off Review of Systems ROS Statement: Those systems with pertinent positive or pertinent negative responses have been documented in the HPI. ROS Other: All systems not noted in ROS Statement are negative. Past Medical History Past Medical History: Chest Pain / Angina, CVA/TIA, Fibromyalgia, GERD/Reflux, Hypertension, Myocardial Infarction ([place]), Osteoarthritis (OA) Additional Past Medical History / Comment(s): TIA over 20 yrs ago, occasional rapid heart beat, gastric strictures/dysphagia/hiatal hernia with EGDs with dilations, chronic generalized pain/low back pain/herniated disc in lower back, limited ROM neck/had fusion with plate, KIDNEY STONES Last Myocardial Infarction Date:: 05/25/16 History of Any Multi-Drug Resistant Organisms: None Reported Past Surgical History: Back Surgery, Bariatric Surgery, Breast Surgery, Cholecystectomy, Heart Catheterization With Stent, Hysterectomy, Tonsillectomy, Tubal Ligation Additional Past Surgical History / Comment(s): Lap banding then removal, Jac-en-y, EGDs/dilations, colonoscopies, hemorrhoidectomy, bilateral surgery for plantar fascitis/whittaker's neuromas, lipomas removed, bilateral breast reductions. Past Anesthesia/Blood Transfusion Reactions: Previous Problems w/ Anesthesia Additional Past Anesthesia/Blood Transfusion Reaction / Comment(s): "surgical awareness","early waking "takes a lot of anesthesia" Date of Last Stent Placement:: 05/25/16 Past Psychological History: Anxiety, Depression Smoking Status: Never smoker Past Alcohol Use History: None Reported Past Drug Use History: None Reported - Past Family History Father Family Medical History: Cancer, Coronary Artery Disease (CAD), Hypertension Additional Family Medical History / Comment(s): CABG, COLON/bladder CANCER Mother Family Medical History: Cancer, Coronary Artery Disease (CAD), Renal Disease Additional Family Medical History / Comment(s): metastatic breast cancer, heart disease,.was 3 ppd smoker General Exam Limitations: no limitations General appearance: alert, in no apparent distress Head exam: Present: atraumatic, normocephalic Eye exam: Present: normal appearance, PERRL ENT exam: Present: normal exam Neck exam: Present: normal inspection. Absent: tenderness, meningismus Respiratory exam: Present: normal lung sounds bilaterally. Absent: respiratory distress, wheezes Cardiovascular Exam: Present: regular rate, normal rhythm GI/Abdominal exam: Present: soft. Absent: distended, tenderness, guarding Extremities exam: Present: other (left lower extremity, pain with any range of motion of the left hip, the knee and ankle are grossly intact no deformity, distal pulses 2+) Neurological exam: Present: alert, oriented X3, CN II-XII intact. Absent: motor sensory deficit Psychiatric exam: Present: normal affect, normal mood Skin exam: Present: warm, dry, intact. Absent: cyanosis, diaphoretic Course Vital Signs 01/09/22 21:03 Temperature 98.1 F Pulse Rate 100 Respiratory 20 Rate Blood Pressure 125/77 O2 Sat by Pulse 100 Oximetry EKG Findings - EKG Comments: EKG Findings:: EKG: Sinus rhythm rate of 65, AK interval 149, QRS duration 90, QTC [address] segment elevation Medical Decision Making - Medical Decision Making x-ray performed a left lower extremity, showing a left femoral neck fracture, no other acute bony abnormality. Case discussed with Pepper lemus for [facility]. Patient will be admitted to orthopedics with cardiology on consultation given the recent stenting and antiplatelet agent. . Preoperative laboratory testing pending Disposition Clinical Impression: Fracture of femoral neck, left Disposition: ADMITTED IP TO THIS HOSP Condition: Stable Is patient prescribed a controlled substance at d/c from ED?: No Referrals: Christos Munoz MD [Primary Care Provider] - 1-2 days Time of Disposition: 22:30
[2022-01-09 22:43] LABS: Basophils % (A) 0 %; Eosinophils # (A) 0.2 k/uL (0-0.7); Eosinophils % (A) 2 %; HCT 38.8 % (34.0-46.0); Hypochromasia Slight; Lymphocytes # (A) 1.1 k/uL (1.0-4.8); Lymphocytes % (A) 15 %; MCH 29.8 pg (25.0-35.0); MCV 96.2 fL (80.0-100.0); Mean Platelet Volume 10.9; Monocytes # (A) 0.3 k/uL (0-1.0); Monocytes % (A) 4 %; Neutrophils % (A) 79 %; Platelet Count 177 k/uL (150-450); RBC 4.03 m/uL (3.80-5.40); RDW 14.7 % (11.5-15.5); WBC 7.6 k/uL (3.8-10.6)
[2022-01-09] MEDS: SODIUM CHLORIDE 0.9% 1,000 ML IV SCH (22:55)
[2022-01-09 22:56] LABS: Albumin 4.1 g/dL (3.5-5.0); Calcium 9.5 mg/dL (8.4-10.2); Potassium 4.4 mmol/L (3.5-5.1); Total Bilirubin 0.3 mg/dL (0.2-1.3); Total Protein 6.6 g/dL (6.3-8.2)
[2022-01-09 23:06] LABS: Partial Thromboplastin Time 23.5 sec (22.0-30.0); Prothrombin Time 10.5 sec (9.0-12.0)
[2022-01-10] MEDS: HYDROmorphone 0.5 MG/0.5 ML SYRINGE IVP PRN ×5 (01:59→17:48)
[2022-01-10] MEDS ORDERED: PANTOPRAZOLE 40 MG TABLET PO PRN (08:35)
[2022-01-10] MEDS ORDERED: ALPRAZolam 0.25 MG TAB PO PRN (08:35)
[2022-01-10] MEDS ORDERED: NITROGLYCERIN SL TABS 0.4 MG TAB SUBLINGUAL PRN (08:35)
--- NOTE | 2022-01-10 08:57 | P.CONS ---
History of Present Illness - Reason for Consult Consult date: 01/10/22 medical managment - Chief Complaint left hip fracture - History of Present Illness Patient is a 71-year-old female with history of hypertension, CAD s/p stent to RCA on 09/15, systolic CHF 35-40%, chronic fibromyalgia, and anxiety/depression presenting with mechanical fall. She claims that she was out with family watching football, and tripped over while returning back to her car. She denies any chest pain, all patients, lightheadedness, or shortness of breath prior to falling. Immediately after fall, she has severe left hip pain and difficulty weightbearing on the left side. In the ED, she was found to have a left femoral neck fracture based on x-ray findings. Currently her pain is about 8/10. She denies any numbness or paresthesia down her left leg. Patient is scheduled for a left hip replacement. [facility] is being consulted for medical management. In terms of cardiac history, patient had a recent STEMI requiring stent to RCA on 09/15. Echo during that hospitalization showed LVEF of 35-40%. She denies any shortness of breath or chest pain at rest. She denies any chest pain/pressure with exertion. However, she is only able to climb about one flight of stairs before getting short of breath. She denies any peripheral edema, orthopnea or PND. In the ED, patient was hemodynamically stable, afebrile. Laboratory workup showed a creatinine of 1.42, and the rest was unremarkable. Pertinent positives and negatives as discussed in HPI, a complete review of systems was performed and all other systems are negative. Vital signs reviewed General: nontoxic, no distress, appears at stated age Derm: warm, dry Head: atraumatic, normocephalic, symmetric Eyes: EOMI, no lid lag, anicteric sclera, pupils equal round reactive to light ENT: Nose and ears atraumatic, no thrush, no pharyngeal erythema Neck: No thyromegaly, no cervical lymphadenopathy, trachea midline, supple Mouth: no lip lesion, mucus membranes moist Cardiovascular: S1S2 reg, no murmur, trace peripheral edema Lungs: clear to auscultation bilateral, no rhonchi, no rales, no wheeze, no accessory muscle use Abdominal: soft, nontender to palpation, no guarding, no appreciable organomegaly, normal bowel sounds Ext: no gross muscle atrophy, unable to move left lower extremity due to extreme pain Neuro: CN II-XII grossly intact, light touch intact all 4 extremities Psych: Alert, oriented, appropriate affect Assessment/Plan: Acute left femoral neck fracture -Pain control -Ortho following, surgery either today or tomorrow Preoperative elevation -RCRI score of 2, 10.1% 30-day risk of , [place], cardiac arrest -Patient had a recent STEMI s/p RCA stent -Continue aspirin for now -Cardiology consultation for cardiac clearance, and management of DAPT -Holding losartan given RAJESH on CKD -Continue rest of the medications, unless specified differently by cardiology RAJESH on CKD -Baseline creatinine around 1 -Likely prerenal -Continue to monitor urine output and renal function CAD s/p stent -Aspirin and statin -Cardiology consult Hypertension -Holding losartan Chronic Systolic CHF -Continue metoprolol and Spironolactone -Patient currently euvolemic -Cardiology consult for further optimization Anxiety/depression -Continue home medications Obesity Likely osteoporosis DVT prophylaxis -If there is a plan for surgery tomorrow, will give patient Lovenox today, and hold for tomorrow. Thank you for allowing us to participate in the care of this pleasant patient. Do not hesitate to contact us with questions. Someone can be reached from the [facility] hospitalist group all hours of the day at [phone] or via [employer]. Past Medical History Past Medical History: Chest Pain / Angina, CVA/TIA, Fibromyalgia, GERD/Reflux, Hypertension, Myocardial Infarction ([place]), Osteoarthritis (OA) Additional Past Medical History / Comment(s): TIA over 20 yrs ago, occasional rapid heart beat, gastric strictures/dysphagia/hiatal hernia with EGDs with dilations, chronic generalized pain/low back pain/herniated disc in lower back, limited ROM neck/had fusion with plate, KIDNEY STONES Last Myocardial Infarction Date:: 05/25/16 History of Any Multi-Drug Resistant Organisms: None Reported Past Surgical History: Back Surgery, Bariatric Surgery, Breast Surgery, Cholecystectomy, Heart Catheterization With Stent, Hysterectomy, Tonsillectomy, Tubal Ligation Additional Past Surgical History / Comment(s): Lap banding then removal, Jac-en-y, EGDs/dilations, colonoscopies, hemorrhoidectomy, bilateral surgery for plantar fascitis/whittaker's neuromas, lipomas removed, bilateral breast reductions. Past Anesthesia/Blood Transfusion Reactions: Previous Problems w/ Anesthesia Additional Past Anesthesia/Blood Transfusion Reaction / Comm: "surgical awareness","early waking "takes a lot of anesthesia" Date of Last Stent Placement:: 05/25/16 Past Psychological History: Anxiety, Depression Smoking Status: Never smoker Past Alcohol Use History: None Reported Past Drug Use History: None Reported - Past Family History Father Family Medical History: Cancer, Coronary Artery Disease (CAD), Hypertension Additional Family Medical History / Comment(s): CABG, COLON/bladder CANCER Mother Family Medical History: Cancer, Coronary Artery Disease (CAD), Renal Disease Additional Family Medical History / Comment(s): metastatic breast cancer, heart disease,.was 3 ppd smoker Medications and Allergies Home Medications Medication Instructions Recorded Confirmed Type Cyclobenzaprine [Flexeril] 10 mg PO TID PRN 04/07/16 01/10/22 History DULoxetine HCL [Cymbalta] 60 mg PO HS 04/07/16 01/10/22 History Multivitamin [Multivitamins Adult 1 tab PO DAILY 10/05/18 01/10/22 History Gummies] ALPRAZolam [Xanax] 0.25 mg PO BID PRN 07/10/21 01/10/22 History Aspirin 81 mg PO DAILY 07/10/21 01/10/22 History HYDROcodone/APAP 5-325MG [[place] 1 - 2 tab PO QID PRN 07/10/21 01/10/22 History 5-325] Omeprazole 20 mg PO DAILY PRN 07/10/21 01/10/22 History Topiramate [Topamax] 100 mg PO HS 07/10/21 01/10/22 History buPROPion HCL [Wellbutrin XL] 300 mg PO DAILY 07/10/21 01/10/22 History Losartan [Cozaar] 75 mg PO DAILY 08/24/21 01/10/22 History Metoprolol Succinate (ER) [Toprol 50 mg PO HS 08/24/21 01/10/22 History XL] Nitroglycerin Sl Tabs [Nitrostat] 0.4 mg SL Q5M PRN 08/24/21 01/10/22 History Atorvastatin [Lipitor] 80 mg PO HS 90 Days #90 tab 08/26/21 01/10/22 Rx Spironolactone [Aldactone] 25 mg PO DAILY 90 Days #90 tab 08/26/21 01/10/22 Rx Ticagrelor [Brilinta] 90 mg PO BID 30 Days #60 tab 08/26/21 01/10/22 Rx Allergies Allergy/AdvReac Type Severity Reaction Status Date / Time adhesive tape AdvReac peels skin Verified 01/10/22 07:18 off Physical Exam Vitals: Vital Signs Temp Pulse Resp BP Pulse Ox 01/10/22 06:00 69 18 139/77 99 01/09/22 23:00 97 16 158/78 96 01/09/22 22:54 68 18 109/89 99 01/09/22 21:03 98.1 F 100 20 125/77 100 Intake and Output 01/09/22 01/10/22 01/10/22 22:59 06:59 14:59 Other: Weight 81.647 kg Results CBC & Chem 7: 01/09/22 22:37 01/09/22 22:37 Labs: Abnormal Lab Results - Last 24 Hours (Table) 01/09/22 Range/Units 22:37 Chloride 109 H (98-107) mmol/L Carbon Dioxide 20 L (22-30) mmol/L BUN 20 H (7-17) mg/dL Creatinine 1.42 H (0.52-1.04) mg/dL Glucose 103 H (74-99) mg/dL
--- NOTE | 2022-01-10 09:42 | P.CRDCN ---
History of Present Illness Consult date: 01/10/22 History of present illness: HISTORY OF PRESENT ILLNESS: This is a 71-year-old female with a past medical history significant for coronary artery disease with previous stenting, ischemic cardiomyopathy with recovered ejection fraction, corneal hemorrhages, hypertension, and hyperlipidemia. Patient follows in the office with Dr. Bentley. We have been asked to see the patient in consultation for cardiac clearance. Patient examined at the bedside. Patient states she was walking to her car after watching a football game with her family and tripped and fell. Patient was found to have a left femoral neck fracture. Orthopedics is following and patient is scheduled for surgical intervention. The patient denies any chest pain or pressure. She denies any shortness of breath. Vital signs are stable. * EKG reveals sinus mechanism with no signs of acute ischemia * Chest xray no active cardio pulmonary disease * Laboratory data: WBC 7.6. Hemoglobin 12.0. Platelet count 177. Sodium 139. Potassium 4.4. BUN 20. Creatinine 1.42. * Current home cardiac medications include Lipitor 80 mg at night, Brilinta 90mg BID, losartan 75 mg daily, metoprolol succinate 50 mg at night, aspirin 81 mg daily, and Aldactone 25 mg daily * Most recent echocardiogram obtained in November 2021 revealed ejection fraction 55-60%, mild aortic regurgitation, mild mitral regurgitation, mild tricuspid regurgitation * Cardiac catheterization history: August 2021 with stenting and arthrectomy of the RCA REVIEW OF SYSTEMS: At the time of my exam: CONSTITUTIONAL: Denies fever or chills. HEENT: Denies blurred vision, vision changes, or eye pain. Denies hemoptysis CARDIOVASCULAR: Denies chest pain. Denies orthopnea. Denies PND. Denies palpitations RESPIRATORY: Denies shortness of breath. GASTROINTESTINAL: Denies abdominal pain. Denies nausea or vomiting. HEMATOLOGIC: Denies bleeding disorders. GENITOURINARY: Denies any blood in urine. SKIN: Denies pruitis. Denies rash. PHYSICAL EXAM: VITAL SIGNS: Reviewed. GENERAL: Well-developed in no acute distress. HEENT: Head is normocephalic. Pupils are equal, round. Sclerae anicteric. Mucous membranes of the mouth are moist. Neck supple. No JVD or thyromegaly LUNGS: Respirations even and unlabored. Lungs essentially clear to auscultation bilaterally. HEART: Regular rate and rhythm. S1 and S2 heard. ABDOMEN: Soft. Nondistended. Nontender. EXTREMITIES: No clubbing or cyanosis. Peripheral pulses intact. No lower extremity edema NEUROLOGIC: Awake and alert. Oriented x 3. ASSESSMENT: Acute left femoral neck fracture Coronary artery disease with previous stenting to the RCA, August 2021 History of ischemic cardio myopathy with recovered ejection fraction Acute kidney injury History of corneal hemorrhages Hypertension Hyperlipidemia PLAN: No need to repeat echocardiogram as this was performed in the office in November 2021 revealing ejection fraction 55-60% Continue aspirin. Hold Brilinta. Resume post surgery. Resume losartan at a lower dose of 25 mg daily due to acute kidney injury. Monitor kidney function and increase back to patient's home dose as tolerated Patient is currently euvolemic and has no complaints of angina There are no absolute contraindications for patient to proceed with surgery from a cardiac standpoint Nurse practitioner note has been reviewed by physician. Signing provider agrees with the documented findings, assessment, and plan of care. Past Medical History Past Medical History: Chest Pain / Angina, CVA/TIA, Fibromyalgia, GERD/Reflux, Hypertension, Myocardial Infarction ([place]), Osteoarthritis ([place]) Additional Past Medical History / Comment(s): TIA over 20 yrs ago, occasional r apid heart beat, gastric strictures/dysphagia/hiatal hernia with EGDs with dilations, chronic generalized pain/low back pain/herniated disc in lower back, limited ROM neck/had fusion with plate, KIDNEY STONES Last Myocardial Infarction Date:: 05/25/16 History of Any Multi-Drug Resistant Organisms: None Reported Past Surgical History: Back Surgery, Bariatric Surgery, Breast Surgery, Cholecystectomy, Heart Catheterization With Stent, Hysterectomy, Tonsillectomy, Tubal Ligation Additional Past Surgical History / Comment(s): Lap banding then removal, Jac-en-y, EGDs/dilations, colonoscopies, hemorrhoidectomy, bilateral surgery for plantar fascitis/whittaker's neuromas, lipomas removed, bilateral breast reductions. Past Anesthesia/Blood Transfusion Reactions: Previous Problems w/ Anesthesia Additional Past Anesthesia/Blood Transfusion Reaction / Comment(s): "surgical awareness","early waking "takes a lot of anesthesia" Date of Last Stent Placement:: 05/25/16 Past Psychological History: Anxiety, Depression Smoking Status: Never smoker Past Alcohol Use History: None Reported Past Drug Use History: None Reported - Past Family History Father Family Medical History: Cancer, Coronary Artery Disease (CAD), Hypertension Additional Family Medical History / Comment(s): CABG, COLON/bladder CANCER Mother Family Medical History: Cancer, Coronary Artery Disease (CAD), Renal Disease Additional Family Medical History / Comment(s): metastatic breast cancer, heart disease,.was 3 ppd smoker Medications and Allergies Home Medications Medication Instructions Recorded Confirmed Type Cyclobenzaprine [Flexeril] 10 mg PO TID PRN 04/07/16 01/10/22 History DULoxetine HCL [Cymbalta] 60 mg PO HS 04/07/16 01/10/22 History Multivitamin [Multivitamins Adult 1 tab PO DAILY 10/05/18 01/10/22 History Gummies] ALPRAZolam [Xanax] 0.25 mg PO BID PRN 07/10/21 01/10/22 History Aspirin 81 mg PO DAILY 07/10/21 01/10/22 History HYDROcodone/APAP 5-325MG [[place] 1 - 2 tab PO QID PRN 07/10/21 01/10/22 History 5-325] Omeprazole 20 mg PO DAILY PRN 07/10/21 01/10/22 History Topiramate [Topamax] 100 mg PO HS 07/10/21 01/10/22 History buPROPion HCL [Wellbutrin XL] 300 mg PO DAILY 07/10/21 01/10/22 History Losartan [Cozaar] 75 mg PO DAILY 08/24/21 01/10/22 History Metoprolol Succinate (ER) [Toprol 50 mg PO HS 08/24/21 01/10/22 History XL] Nitroglycerin Sl Tabs [Nitrostat] 0.4 mg SL Q5M PRN 08/24/21 01/10/22 History Atorvastatin [Lipitor] 80 mg PO HS 90 Days #90 tab 08/26/21 01/10/22 Rx Spironolactone [Aldactone] 25 mg PO DAILY 90 Days #90 tab 08/26/21 01/10/22 Rx Ticagrelor [Brilinta] 90 mg PO BID 30 Days #60 tab 08/26/21 01/10/22 Rx Allergies Allergy/AdvReac Type Severity Reaction Status Date / Time adhesive tape AdvReac peels skin Verified 01/10/22 07:18 off Physical Exam Vitals: Vital Signs Temp Pulse Resp BP Pulse Ox 01/10/22 06:00 69 18 139/77 99 01/09/22 23:00 97 16 158/78 96 01/09/22 22:54 68 18 109/89 99 01/09/22 21:03 98.1 F 100 20 125/77 100 Intake and Output 01/09/22 01/10/22 01/10/22 22:59 06:59 14:59 Other: Weight 81.647 kg Results 01/09/22 22:37 01/09/22 22:37 Cardiac Enzymes 01/09/22 Range/Units 22:37 AST 28 (14-36) U/L Coagulation 01/09/22 Range/Units 22:37 PT 10.5 (9.0-12.0) sec APTT 23.5 (22.0-30.0) sec CBC 01/09/22 Range/Units 22:37 WBC 7.6 (3.8-10.6) k/uL RBC 4.03 (3.80-5.40) m/uL Hgb 12.0 (11.4-16.0) gm/dL Hct 38.8 (34.0-46.0) % Plt Count 177 (150-450) k/uL Comprehensive Metabolic Panel 01/09/22 Range/Units 22:37 Sodium 139 (137-145) mmol/L Potassium 4.4 (3.5-5.1) mmol/L Chloride 109 H (98-107) mmol/L Carbon Dioxide 20 L (22-30) mmol/L BUN 20 H (7-17) mg/dL Creatinine 1.42 H (0.52-1.04) mg/dL Glucose 103 H (74-99) mg/dL Calcium 9.5 (8.4-10.2) mg/dL AST 28 (14-36) U/L ALT 24 (4-34) U/L Alkaline Phosphatase 100 (38-126) U/L Total Protein 6.6 (6.3-8.2) g/dL Albumin 4.1 (3.5-5.0) g/dL Current Medications Generic Name Dose Route Start Last Admin Trade Name Freq PRN Reason Stop Dose Admin Alprazolam 0.25 mg 01/10/22 08:35 Alprazolam 0.25 Mg Tab PO BID PRN Anxiety Aspirin 81 mg 01/10/22 09:00 Aspirin 81 Mg PO DAILY [facility] Atorvastatin Calcium 80 mg 01/10/22 21:00 Atorvastatin 80 Mg Tab PO HS [facility] Bupropion HCl 300 mg 01/10/22 09:00 Bupropion Xl 300 Mg Tab.Er.24h PO DAILY [facility] Duloxetine HCl 60 mg 01/10/22 21:00 Duloxetine Hcl 60 Mg Capsule.Dr PO HS [facility] Hydromorphone HCl 0.5 mg 01/09/22 22:26 01/10/22 06:28 Hydromorphone 0.5 Mg/0.5 Ml Syringe IVP 0.5 mg Q3HR PRN Administration Moderate Pain (Scale 4 to 6) Sodium Chloride 1,000 mls @ 75 mls/hr 01/09/22 22:30 01/09/22 22:55 Saline 0.9% IV 75 mls/hr .[id number] JORGE A Administration Losartan Potassium 25 mg 01/10/22 09:00 Losartan 25 Mg Tab PO DAILY [facility] Metoprolol Succinate 50 mg 01/10/22 21:00 Metoprolol Succinate (Er) 50 Mg Tab.Er.24h PO HS [facility] Multivitamins 1 each 01/10/22 09:00 Multivitamins, Thera 1 Each Tab PO DAILY [facility] Naloxone HCl 0.2 mg 01/09/22 22:26 Naloxone 0.4 Mg/Ml 1 Ml Vial IV Q2M PRN Opioid Reversal Nitroglycerin 0.4 mg 01/10/22 08:35 Nitroglycerin Sl Tabs 0.4 Mg Tab SUBLINGUAL Q5M PRN Chest Pain Pantoprazole Sodium 40 mg 01/10/22 08:35 Pantoprazole 40 Mg Tablet PO DAILY PRN Heartburn Spironolactone 25 mg 01/10/22 09:00 Spironolactone 25 Mg Tab PO DAILY [facility] Topiramate 100 mg 01/10/22 21:00 Topiramate 100 Mg Tab PO HS [facility] Intake and Output 01/09/22 01/10/22 01/10/22 22:59 06:59 14:59 Other: Weight 81.647 kg 01/09/22 22:37 01/09/22 22:37
--- NOTE | 2022-01-10 10:06 | P.HPOR ---
History of Present Illness H&P Date: 01/10/22 Chief Complaint: Left femoral neck fracture Patient is a 71-year-old female who presented to [facility] last night after falling and injuring her left lower extremity. Patient was apparently walking in a parking lot and missed a step and fell on her left side. Patient was unable to weight-bear after the injury, she is brought to [facility] emergency room for further evaluation. Imaging test demonstrated a displaced left subcapital femur fracture. Our orthopedic team was contacted regarding the patient. We are able to review the images, patient was admitted under our service with plan for surgical intervention. Consults were placed for both cardiology and internal medicine. Patient was evaluated in the emergency room today, she is resting comfortably in her bed. She states that most of the pain in the left lower extremity is with movement. She denied hitting her head during the fall, she never lost consciousness. Initial x-rays were also taken of the ankle and knee on the left side which showed no acute osseous abnormalities. She denies any upper extremity pain bilaterally, she denies any new onset cervical, thoracic or lumbar pain. Patient denies any previous orthopedic surgery to the left lower extremity. She does have a history of fibromyalgia. She does have a well- documented cardiac history. Currently has no obvious headaches, lightheadedness, chest pain, shortness of breath, nausea, vomiting, fever or chills. Review of Systems Constitutional: Reports as per HPI Past Medical History Past Medical History: Chest Pain / Angina, CVA/TIA, Fibromyalgia, GERD/Reflux, Hypertension, Myocardial Infarction ([place]), Osteoarthritis (OA) Additional Past Medical History / Comment(s): TIA over 20 yrs ago, occasional rapid heart beat, gastric strictures/dysphagia/hiatal hernia with EGDs with dilations, chronic generalized pain/low back pain/herniated disc in lower back, limited ROM neck/had fusion with plate, KIDNEY STONES Last Myocardial Infarction Date:: 05/25/16 History of Any Multi-Drug Resistant Organisms: None Reported Past Surgical History: Back Surgery, Bariatric Surgery, Breast Surgery, Cholecystectomy, Heart Catheterization With Stent, Hysterectomy, Tonsillectomy, Tubal Ligation Additional Past Surgical History / Comment(s): Lap banding then removal, Jac-en-y, EGDs/dilations, colonoscopies, hemorrhoidectomy, bilateral surgery for plantar fascitis/whittaker's neuromas, lipomas removed, bilateral breast reductions. Past Anesthesia/Blood Transfusion Reactions: Previous Problems w/ Anesthesia Additional Past Anesthesia/Blood Transfusion Reaction / Comment(s): "surgical awareness","early waking "takes a lot of anesthesia" Date of Last Stent Placement:: 05/25/16 Past Psychological History: Anxiety, Depression Smoking Status: Never smoker Past Alcohol Use History: None Reported Past Drug Use History: None Reported - Past Family History Father Family Medical History: Cancer, Coronary Artery Disease (CAD), Hypertension Additional Family Medical History / Comment(s): CABG, COLON/bladder CANCER Mother Family Medical History: Cancer, Coronary Artery Disease (CAD), Renal Disease Additional Family Medical History / Comment(s): metastatic breast cancer, heart disease,.was 3 ppd smoker Medications and Allergies Home Medications Medication Instructions Recorded Confirmed Type Cyclobenzaprine [Flexeril] 10 mg PO TID PRN 04/07/16 01/10/22 History DULoxetine HCL [Cymbalta] 60 mg PO HS 04/07/16 01/10/22 History Multivitamin [Multivitamins Adult 1 tab PO DAILY 10/05/18 01/10/22 History Gummies] ALPRAZolam [Xanax] 0.25 mg PO BID PRN 07/10/21 01/10/22 History Aspirin 81 mg PO DAILY 07/10/21 01/10/22 History HYDROcodone/APAP 5-325MG [[place] 1 - 2 tab PO QID PRN 07/10/21 01/10/22 History 5-325] Omeprazole 20 mg PO DAILY PRN 07/10/21 01/10/22 History Topiramate [Topamax] 100 mg PO HS 07/10/21 01/10/22 History buPROPion HCL [Wellbutrin XL] 300 mg PO DAILY 07/10/21 01/10/22 History Losartan [Cozaar] 75 mg PO DAILY 08/24/21 01/10/22 History Metoprolol Succinate (ER) [Toprol 50 mg PO HS 08/24/21 01/10/22 History XL] Nitroglycerin Sl Tabs [Nitrostat] 0.4 mg SL Q5M PRN 08/24/21 01/10/22 History Atorvastatin [Lipitor] 80 mg PO HS 90 Days #90 tab 08/26/21 01/10/22 Rx Spironolactone [Aldactone] 25 mg PO DAILY 90 Days #90 tab 08/26/21 01/10/22 Rx Ticagrelor [Brilinta] 90 mg PO BID 30 Days #60 tab 08/26/21 01/10/22 Rx Allergies Allergy/AdvReac Type Severity Reaction Status Date / Time adhesive tape AdvReac peels skin Verified 01/10/22 07:18 off Physical Examination Osteopathic Statement: *. No significant issues noted on an osteopathic structural exam other than those noted in the History and Physical/Consult. Left lower extremity: No obvious open lesions or sores are visualized, there is no symmetric and areas of erythema or soft tissue swelling Compartments of the upper leg both anterior and posterior are soft and compressible. The calf is soft, no tenderness with palpation Logroll maneuver reproduces severe pain in the left groin, she is unable to straight leg raise. She demonstrates mild tenderness with palpation to the proximal femur Patient is nontender with palpation to the knee, no effusion present. She is nontender with palpation to the lower leg, foot or ankle Range of motion of the knee was limited due to pain, plantar flexion, dorsifl exion, EHL, FHL are intact Sensory exam to light touch is intact throughout the extremity, dorsalis pedis pulses 2+ Results - Labs Labs: Abnormal Lab Results - Last 24 Hours (Table) 01/09/22 Range/Units 22:37 Chloride 109 H (98-107) mmol/L Carbon Dioxide 20 L (22-30) mmol/L BUN 20 H (7-17) mg/dL Creatinine 1.42 H (0.52-1.04) mg/dL Glucose 103 H (74-99) mg/dL H & H 01/09/22 Range/Units 22:37 Hgb 12.0 (11.4-16.0) gm/dL Hct 38.8 (34.0-46.0) % Coagulation 01/09/22 Range/Units 22:37 INR 1.0 (<1.2) Result Diagrams: 01/09/22 22:37 01/09/22 22:37 - Diagnostic results Hip x-ray: report reviewed, image reviewed (Images and reports reviewed of the left hip, demonstrate a displaced left subcapital femur fracture. Remaining hip joint remains intact.) Knee x-ray: report reviewed, image reviewed (No obvious fractures or dislocations present, no acute osseous abnormalities) Ankle/Foot x-ray: report reviewed, image reviewed (No acute fractures or dislocations present) Assessment and Plan Assessment: Displaced left subcapital femur fracture Status post fall from standing Multiple medical comorbidities Plan: Patient was seen and examined by myself at bedside and discussion was had regarding details of surgery. Risks and benefits of surgery including bleeding, infection, damage to surrounding tissue, dislocation, need for further surgery were discussed as well as risks of anesthesia including PE, DVT and even and patient wishes to proceed with surgery. We will plan to with a left hip hemiarthroplasty for her displaced femoral neck fracture. Patient is in good understanding and would like to proceed. Obtain consent prior to procedure, procedures scheduled for 01/11/2022 Medical recommendations along with cardiac clearance prior to surgery DVT prophylaxis, her oral anticoagulant has been held. She will receive Lovenox, we will then restart all medications after surgery Pain control, oral and IV medication as needed Urinary catheter placement Nonweightbearing left lower extremity at this time PT/OT evaluation after surgery Nothing by mouth after midnight Gentry Austin DO Orthopedic Surgeon Time with Patient: Less than 30
[2022-01-10] MEDS ORDERED: HYDROcodone/APAP 5-325MG 1 EACH TAB PO PRN (10:07)
[2022-01-10] MEDS ORDERED: ENOXAPARIN 40 MG/0.4 ML SYRINGE SQ STA (10:34)
[2022-01-10] MEDS: LOSARTAN 25 MG TAB PO SCH (12:56)
[2022-01-10] MEDS: buPROPion XL 300 MG TAB.ER.24H PO SCH (12:56)
[2022-01-10] MEDS: SPIRONOLACTONE 25 MG TAB PO SCH (12:56)
[2022-01-10] MEDS: MULTIVITAMINS, THERA 1 EACH TAB PO SCH (12:56)
[2022-01-10] MEDS: ASPIRIN 81 MG PO SCH (12:56)
[2022-01-10] MEDS: SODIUM CHLORIDE 0.9% 1,000 ML IV SCH (14:39)
[2022-01-10] MEDS: HYDROcodone/APAP 7.5-325MG 1 EACH TAB PO PRN ×2 (16:14→21:37)
--- NOTE | 2022-01-10 17:12 | P.HPOR ---
History of Present Illness H&P Date: 01/10/22 This patient is a 71-year-old female with a past medical history of hypertension, hyperlipidemia, CAD status-post stenting on Brilinta, that presented to [facility] emergency department on 01/09/22 with complaints of left hip pain following a fall. The patient states she was watching a family football game, and tripped in the parking lot. She was unable to get up on her own due to the pain, therefore EMS was called. Patient was transported to [facility] emergency department. X-rays in the emergency department revealed a left femoral neck fracture. She was initially admitted under the care of Dr. Austin, although due to family request, the patient's care has been transferred to Dr. Haskins for management of her left femoral neck fracture. Internal medicine and cardiology has been consulted for preoperative medical evaluation. Patient is examined bedside this afternoon. She is complaining of isolated left hip pain, although her pain is well-controlled at this time. Her family is bedside. She states she is relatively active and ambulates outside the home without a walking aide. She overall feels well this time. She did not hit her head when she fell. She denies left knee pain or left ankle pain. Vital signs stable. Past Medical History Past Medical History: Chest Pain / Angina, CVA/TIA, Fibromyalgia, GERD/Reflux, Hypertension, Myocardial Infarction ([place]), Osteoarthritis (OA) Additional Past Medical History / Comment(s): TIA over 20 yrs ago, occasional rapid heart beat, gastric strictures/dysphagia/hiatal hernia with EGDs with dilations, chronic generalized pain/low back pain/herniated disc in lower back, limited ROM neck/had fusion with plate, KIDNEY STONES Last Myocardial Infarction Date:: 05/25/16 History of Any Multi-Drug Resistant Organisms: None Reported Past Surgical History: Back Surgery, Bariatric Surgery, Breast Surgery, Cholecystectomy, Heart Catheterization With Stent, Hysterectomy, Tonsillectomy, Tubal Ligation Additional Past Surgical History / Comment(s): Lap banding then removal, Jac-en-y, EGDs/dilations, colonoscopies, hemorrhoidectomy, bilateral surgery for plantar fascitis/whittaker's neuromas, lipomas removed, bilateral breast reductions. Past Anesthesia/Blood Transfusion Reactions: Previous Problems w/ Anesthesia Additional Past Anesthesia/Blood Transfusion Reaction / Comment(s): "surgical awareness","early waking "takes a lot of anesthesia" Date of Last Stent Placement:: 05/25/16 Past Psychological History: Anxiety, Depression Smoking Status: Never smoker Past Alcohol Use History: None Reported Past Drug Use History: None Reported - Past Family History Father Family Medical History: Cancer, Coronary Artery Disease (CAD), Hypertension Additional Family Medical History / Comment(s): CABG, COLON/bladder CANCER Mother Family Medical History: Cancer, Coronary Artery Disease (CAD), Renal Disease Additional Family Medical History / Comment(s): metastatic breast cancer, heart disease,.was 3 ppd smoker Medications and Allergies Home Medications Medication Instructions Recorded Confirmed Type Cyclobenzaprine [Flexeril] 10 mg PO TID PRN 04/07/16 01/10/22 History DULoxetine HCL [Cymbalta] 60 mg PO HS 04/07/16 01/10/22 History Multivitamin [Multivitamins Adult 1 tab PO DAILY 10/05/18 01/10/22 History Gummies] ALPRAZolam [Xanax] 0.25 mg PO BID PRN 07/10/21 01/10/22 History Aspirin 81 mg PO DAILY 07/10/21 01/10/22 History HYDROcodone/APAP 5-325MG [[place] 1 - 2 tab PO QID PRN 07/10/21 01/10/22 History 5-325] Omeprazole 20 mg PO DAILY PRN 07/10/21 01/10/22 History Topiramate [Topamax] 100 mg PO HS 07/10/21 01/10/22 History buPROPion HCL [Wellbutrin XL] 300 mg PO DAILY 07/10/21 01/10/22 History Losartan [Cozaar] 75 mg PO DAILY 08/24/21 01/10/22 History Metoprolol Succinate (ER) [Toprol 50 mg PO HS 08/24/21 01/10/22 History XL] Nitroglycerin Sl Tabs [Nitrostat] 0.4 mg SL Q5M PRN 08/24/21 01/10/22 History Atorvastatin [Lipitor] 80 mg PO HS 90 Days #90 tab 08/26/21 01/10/22 Rx Spironolactone [Aldactone] 25 mg PO DAILY 90 Days #90 tab 08/26/21 01/10/22 Rx Ticagrelor [Brilinta] 90 mg PO BID 30 Days #60 tab 08/26/21 01/10/22 Rx Allergies Allergy/AdvReac Type Severity Reaction Status Date / Time adhesive tape AdvReac peels skin Verified 01/10/22 07:18 off Physical Examination On examination, the patient is lying in bed in no apparent distress. She is alert and oriented 3. Her head appears normocephalic and atraumatic. Her breathing appears nonlabored. On inspection of her bilateral upper extremities, there are no obvious deformities or signs of trauma. On inspection of her right lower extremity, there are no obvious deformities or signs of trauma. On in spection of her left hip, there are no lacerations or abrasions. Diffuse pain to palpation of the left hip. No pain with palpation of the left knee, lower leg, ankle, foot. Ljkou-[id number] of the left hip is not tested at this time. Motor and sensory function is intact of the left lower extremity. The left dorsalis pedis pulses palpable. Left lower extremity warm and well-perfused. Results Left hip and pelvis x-ray 01/09/22: Left femoral neck fracture Left knee x-ray 01/09/22: No acute fractures. Left ankle x-ray 01/09/22: No acute fractures. - Labs Labs: Abnormal Lab Results - Last 24 Hours (Table) 01/09/22 Range/Units 22:37 Chloride 109 H (98-107) mmol/L Carbon Dioxide 20 L (22-30) mmol/L BUN 20 H (7-17) mg/dL Creatinine 1.42 H (0.52-1.04) mg/dL Glucose 103 H (74-99) mg/dL H & H 01/09/22 Range/Units 22:37 Hgb 12.0 (11.4-16.0) gm/dL Hct 38.8 (34.0-46.0) % Coagulation 01/09/22 Range/Units 22:37 INR 1.0 (<1.2) Result Diagrams: 01/09/22 22:37 01/09/22 22:37 Assessment and Plan Assessment: Left femoral neck fracture Plan: - The clinical and imaging findings were discussed with the patient and her family. The patient was discussed with Dr. Haskins. Recommend a left total hip arthroplasty for the patient's left femoral neck fracture. The patient and her family are agreeable to this plan. We will plan for surgery tomorrow morning. - Strict nonweightbearing left lower extremity. Bed rest. - Pain management as needed. - Internal medicine, cardiology for marlin-operative medical management. - NPO diet at midnight.
[2022-01-10] MEDS: DULoxetine HCL 60 MG CAPSULE.DR PO SCH (20:05)
[2022-01-10] MEDS: ATORVASTATIN 80 MG TAB PO SCH (20:05)
[2022-01-10] MEDS: METOPROLOL SUCCINATE (ER) 50 MG TAB.ER.24H PO SCH (20:06)
[2022-01-10] MEDS: TOPIRAMATE 100 MG TAB PO SCH (20:06)
[2022-01-11] MEDS: HYDROmorphone 1 MG/ML 1 ML SYRINGE IVP PRN ×3 (00:14→18:01)
[2022-01-11] MEDS: HYDROcodone/APAP 7.5-325MG 1 EACH TAB PO PRN ×2 (05:49→22:03)
[2022-01-11] MEDS: SODIUM CHLORIDE 0.9% 1,000 ML IV SCH ×2 (07:58→15:37)
[2022-01-11] MEDS: MULTIVITAMINS, THERA 1 EACH TAB PO SCH (08:41)
[2022-01-11] MEDS: LOSARTAN 25 MG TAB PO SCH (08:41)
[2022-01-11] MEDS: buPROPion XL 300 MG TAB.ER.24H PO SCH (08:41)
[2022-01-11] MEDS: ASPIRIN 81 MG PO SCH (08:41)
[2022-01-11] MEDS: SPIRONOLACTONE 25 MG TAB PO SCH (08:41)
[2022-01-11] MEDS ORDERED: ROPIVACAINE/EPI/CLONIDINE/KET 50 ML SYRINGE MISCELLANE PRN (08:53)
[2022-01-11] MEDS ORDERED: TRANEXAMIC ACID 1,000 MG in SODIUM CHLORIDE 0.9% 100 ML IVPB ONE ×4 (08:53)
--- NOTE | 2022-01-11 09:06 | P.PN ---
Subjective Progress Note Date: 01/11/22 Principal diagnosis: Coronary artery disease The patient is a pleasant 71-year-old female patient with coronary artery disease and prior stenting of the RCA was diagnosed with fracture of the left femoral neck. She scheduled to undergo surgery. Clinically she is asymptomatic from a cardiovascular standpoint of view. Hemodynamically she is stable. The patient was cleared to undergo the surgery yesterday. Antiplatelet is on hold. Restart as soon as possible and safe after the surgery Objective - Vital Signs Vital signs: Vital Signs Temp 98.0 F 01/11/22 08:00 Pulse 67 01/11/22 08:00 Resp 16 01/11/22 08:00 BP 142/78 01/11/22 08:00 Pulse Ox 99 01/11/22 08:00 FiO2 Intake & Output 01/10/22 01/11/22 01/11/22 18:59 06:59 18:59 Output Total 300 Balance -300 Output: Urine 300 Other: Voiding Method Indwelling Catheter - Constitutional General appearance: Present: no acute distress - Respiratory Respiratory: bilateral: CTA - Cardiovascular Rhythm: regular - Labs CBC & Chem 7: 01/09/22 22:37 01/09/22 22:37 Assessment and Plan Assessment: Assessment Coronary artery disease with prior revascularization Status post left femoral neck fracture Hypertension Dyslipidemia Plan The patient is cleared to undergo the surgery Restart the patient back on antiplatelet after the surgery Follow-up with the patient
[2022-01-11] MEDS ORDERED: LIDOCAINE 2% INJ 20 MG/ML (2 ML VIAL) ONE (10:40)
[2022-01-11] MEDS ORDERED: ROCURONIUM 10 MG/ML (5 ML VIAL) IV ONE (10:40)
[2022-01-11] MEDS ORDERED: TRANEXAMIC ACID IN NACL,ISO-OS 1,000 MG/100 ML BAG ONE (10:40)
[2022-01-11] MEDS ORDERED: MIDAZOLAM 2 MG/2 ML VIAL ONE (10:40)
[2022-01-11] MEDS ORDERED: IV FLUID CONTINUATION 1,000 ML IV ONE (10:40)
[2022-01-11] MEDS ORDERED: PROPOFOL 10 MG/ML 20 ML VIAL IV ONE (10:40)
[2022-01-11] MEDS ORDERED: GLYCOPYRROLATE 0.2 MG/ML 2 ML VIAL ONE (10:40)
[2022-01-11] MEDS ORDERED: NEOSTIGMINE 1 MG/ML 10 ML VIAL ONE (10:40)
[2022-01-11] MEDS ORDERED: fentaNYL (PF) 50 MCG/ML 2 ML AMP ONE (10:40)
[2022-01-11] MEDS ORDERED: SODIUM CHLORIDE 0.9% 100 ML with ceFAZolin 2,000 MG IV ONE ×2 (10:52)
--- NOTE | 2022-01-11 11:08 | P.PN ---
Subjective Progress Note Date: 01/11/22 Principal diagnosis: left hip fracture Hospital Course: 71-year-old female with history of hypertension, CAD, systolic CHF 35-40%, anxiety, depression presented after a mechanical fall. She is admitted for left hip fracture pending left hip replacement. [facility] is being consulted for medical management. Subjective: Patient seen and examined at bedside. No acute events overnight. She continues to have severe pain in her left leg. She denies any chest pain, shortness of breath, abdominal pain, nausea, vomiting, diarrhea, constipation, or urinary complaints. Pertinent positives and negatives as discussed above, a complete review of syst ems was performed and all other systems are negative. Vitals Signs Reviewed. General: nontoxic, no distress, appears at stated age Derm: warm, dry Head: atraumatic, normocephalic, symmetric Eyes: EOMI, no lid lag, anicteric sclera Mouth: no lip lesion, mucus membranes moist Cardiovascular: S1S2 reg, no murmur Lungs: CTA bilateral, no rhonchi, no rales , no accessory muscle use Abdominal: soft, nontender to palpation, no guarding, no appreciable organomegaly Ext: no gross muscle atrophy, no edema, no contractures, unable to move left lower extremity due to extreme. Neuro: CN II-XI grossly intact, no focal neuro deficits Psych: Alert, oriented, appropriate affect Assessment and Plan: Acute left femoral neck fracture -Pain control -Ortho following, surgery likely today Preoperative elevation -Cardiology consultation for cardiac clearance, and management of DAPT -On a reduced dose of losartan given RAJESH -Continue rest of the medications -Please restart antiplatelet therapy after surgery RAJESH on CKD -Baseline creatinine around 1 -Likely prerenal -Continue to monitor urine output and renal function CAD s/p stent -Aspirin and statin -Cardiology consult -Restart DAPT after surgery Hypertension -On a reduced dose of losartan Chronic Systolic CHF -Continue metoprolol and Spironolactone -Patient currently euvolemic Anxiety/depression -Continue home medications Obesity Likely osteoporosis - needs outpatient follow-up DVT prophylaxis -Lovenox after surgery Thank you for allowing us to participate in the care of this pleasant patient. Do not hesitate to contact us with questions. Someone can be reached from the [facility] hospitalist group all hours of the day at [phone] or via [employer]. Objective - Vital Signs Vital signs: Vital Signs Temp 98.0 F 01/11/22 08:00 Pulse 67 01/11/22 08:00 Resp 16 01/11/22 08:00 BP 142/78 01/11/22 08:00 Pulse Ox 99 01/11/22 08:00 FiO2 Intake & Output 01/10/22 01/11/22 01/11/22 18:59 06:59 18:59 Output Total 300 Balance -300 Output: Urine 300 Other: Voiding Method Indwelling Catheter - Labs CBC & Chem 7: 01/09/22 22:37 01/09/22 22:37
[2022-01-11 11:49] LABS: African American GFR (CKD) 65.6 (60.0-200.0); Anion Gap 10.3 mmol/L (10.00-18.00); Calcium 9.1 mg/dL (8.7-10.3); Carbon Dioxide 19.7 mmol/L (20.0-27.5); Non-African American GFR(CKD) 56.6 (60.0-200.0); Potassium 4.6 mmol/L (3.5-5.5)
[2022-01-11] MEDS ORDERED: LACTATED RINGERS 1,000 ML IV ONE (12:10)
[2022-01-11] MEDS ORDERED: ONDANSETRON 4 MG/2 ML VIAL IVP PRN (12:57)
[2022-01-11] MEDS ORDERED: hydrOXYzine pamoate 25 MG CAP PO PRN (12:57)
[2022-01-11] MEDS ORDERED: NALOXONE 0.4 MG/ML 1 ML VIAL IV PRN (12:57)
--- NOTE | 2022-01-11 13:03 | P.OP ---
Date of Procedure: 01/11/22 Preoperative Diagnosis: 1. Displaced left subcapital femoral neck fracture 2. Coronary artery disease status post stents 3. BMI 31.9 4. Postoperative Diagnosis: Same Procedure(s) Performed: Left direct anterior total hip arthroplasty Implants: 1. [place] Trident II Acetabular Cup, Size #48 2. [place] Accolade C Size # 5 Femoral Stem, Standard Offset 3. Dual Mobility OD 38-mm, ID 22.2-mm, +0 neck Anesthesia: MARGARETA Surgeon: Osmel Haskins Screed Operator #1: Yaquelin Mayer Estimated Blood Loss (ml): 200 IV fluids (ml): 700 Urine output (ml): 100 Pathology: none sent Condition: stable Disposition: PACU Indications for Procedure: The patient is a very pleasant 71-year-old female with a medical history of stable coronary artery disease status post stenting on Brilinta who sustained a ground-level fall 2 days ago. She was seen in the emergency department and found to have a displaced subcapital femoral neck fracture. 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 The patient's family called our group and requested transferring her care. I met with the patient yesterday and had a long discussion with her on her injury and potential treatments. Other than stable coronary artery disease she is relatively healthy and active. She is a community ambulator outside of the home without assistive device. My recommendation was to perform a left direct anterior total hip replacement. The patient and her understood and agreed that she would best be treated with a total hip replacement. I had a long discussion with the patient and her on the potential risks and complications of a total hip replacement through a direct anterior approach for her displaced femoral neck fracture. Risks discussed include, but are certainly not limited to, risks from anesthesia, superficial infection requiring local wound care or antibiotics, deep marlin-prosthetic joint infection and the treatment required to eradicate infection, intraoperative fracture, postoperative periprosthetic fracture, damage to local blood vessels or nerves particularly the lateral femoral cutaneous nerve, delayed wound healing requiring local wound care or possibly surgical debridement, hip dislocation, leg length discrepancy, soft tissue irritation around the total hip implant such as iliopsoas tendinitis or trochanteric bursitis, wear and osteolysis from the implants, squeaking or audible noises, groin pain, thigh pain, heterotopic ossification, stiffness, aseptic loosening of the implants, dissatisfaction with surgical outcome, need for revision surgery, DVT, PE, swelling of the operative extremity, acute coronary event, stroke, failure to thrive, and possibly loss of life or limb. The patient understands that while these are the most common complications after a hip replacement there are certainly other less common complications possible. They were given ample time to ask questions regarding the potential complications of a hip replacement. Following our discussion the patient provided their verbal and written consent to go forward with an elective total hip replacement. Operative Findings: Displaced subcapital femoral neck fracture. There were arthritic changes in the acetabulum. Description of Procedure: The patient was identified in the preoperative holding area and the correct hip was marked with my initials. I reviewed the procedure and consent with the patient. All of their questions were answered. The patient was then brought back into the operating room by anesthesia. While on the [facility] anesthesia was administered by the anesthesia team. Preoperative antibiotics and tranexamic acid were also given. After the patient was under anesthesia I examined their ankles to determine their preoperative leg length discrepancy. The skin over the anterior aspect of the hip was shaved to remove hair over the site of planned incision. Both feet and ankles were padded with webril and boots for the Robeline were applied. The patient was then carefully transferred onto the Robeline table. A perineal post was immediately placed. The arms were placed on arm holders and were well-padded. Both boots were secured to the spars on the Robeline table. The patient was positioned so that the pelvis was centered over the post. Nonsterile drapes were applied. A timeout was performed identifying the correct patient, operative extremity, and procedure. At this point fluoroscopy was brought in to take preoperative images of the pelvis and operative hip. A metallic bar was used to create a bi-ischial line for use as a reference to leg length adjustments during the procedure. Global offset was also measured on both the operative and nonoperative leg. Fluoroscopy was then brought out and a pre-scrub using a chlorhexidine scrub brush was performed. The operative limb was then prepped and draped in the standard sterile fashion. An anterior longitudinal incision was made lateral and distal to the ASIS. The skin and subcutaneous tissues were incised sharply. The underlying tensor fascia was identified and incised in its midportion. The fascia was dissected free from the underlying muscle and the muscle belly was retracted. A blunt tipped cobra retractor was placed over the superior neck under the muscle fibers of the gluteus minimus. The deep enveloping fascia of the tensor was incised. The anterior leash of vessels were then identified and cauterized. The fascia between the rectus and the capsule was then incised and the pre-capsular fat was excised. A second Cobra was placed inferior to the neck. The interval between the rectus and iliocapsularis and the hip capsule was developed and a retractor was placed carefully over the anterior rim of the acetabulum. A T-shaped anterior capsulotomy was performed. There was a hemarthrosis consistent with an acute femoral neck fracture. The superior capsular leaflet was left in place in the inferior capsular flap was excised. The Cobra retractors were placed intracapsularly. We then made a femoral neck osteotomy according to preoperative and intraoperative templating and confirmed the level of the osteotomy using fluoroscopic imaging. The femoral head was removed, passed off to the back table, and sized. The superior capsular flap was excised. Retractors were placed circumferentially exposing the acetabulum. We then circumferentially debrided the acetabulum free of labrum and osteophytes. The pulvinar was removed to fully visualize the cotyloid fossa. We then sequentially reamed to achieve peripheral fit and excellent bleeding subchondral bone. The socket was thoroughly irrigated. The acetabular component was impacted into the appropriate position using fluoroscopy to guide version, inclination, and depth of insertion taking care to have a comparable image of the AP pelvis to the standing image taken in the office. An excellent press-fit was achieved and final position was confirmed using fluoroscopy. The press fit was augmented with bony cancellus dome screws. The liner was then impacted into the socket. Attention was then turned to the femur. The remnant dorsal lateral capsule was excised. The short external rotators were visible and protected. A bone hook was used to confirm appropriate translation of the trochanter away from the acetabulum. The leg was then extended and adducted and the bone hook was used to elevate the femur for broaching. On inspection of the patient's proximal femur, they appeared to have poor bone quality so I elected to proceed with cemented fixation of the femoral component. A box osteotome and blunt tipped canal sound was then utilized to gain access to the femoral canal. We then sequentially broached the femur in appropriate anteversion until torsional stability was achieved and the implant was felt to have reached the appropriate size to allow trialing. The neck cut was brought flush to the trial broach with a calcar planar. A trial neck and head were then placed onto the broach and the hip was atraumatically reduced under direct visualization. External rotation to 90 was performed to assess stability. Fluoroscopy was brought in. An AP and lateral fluoroscopic image of the proximal femur was obtained to assess position and fill of the trial broach. An AP of the pelvis was then obtained and matched to the preoperative image taken. A bi-ischial bar was then placed and measurements were taken to assess changes in length and offset. The hip was then carefully dislocated, the proximal femur was exposed, and the trial implants were removed. The proximal femur was then prepared for cementing. The canal was thoroughly irrigated with pulsatile lavage to remove blood and marrow contents. A cement restrictor was placed to a depth just distal to the tip of the final implant. Epinephrine-soaked gauze was then packed into the proximal femur. 2 bags of cement were then mixed using a centrifuge and placed into a cement gun. Anesthesia was notified that cementing was about to commence to make sure the patient was appropriately ventilated and hydrated. Once the cement had reached appropriate consistency, the cement gun was used to fill the canal in a retrograde fashion starting at the restrictor. Cement was then pressurized into the canal with a blue tipped millstone cleaner. The stem was then carefully introduced into the cement taking care to guide the implant into appropriate version. The stem was held in position until the cement had fully set. All extra cement was removed while the cement was hardening. The trunnion was cleansed and the final head was tapped into place to engage the Coker taper. The acetabulum was irrigated and visualized to be free of debris. The hip was carefully reduced. Stability was checked clinically with external rotation to 90 and there was no evidence of instability. Final fluoroscopic images were taken. The wound was then thoroughly irrigated and soaked with a dilute Betadine rinse for 3 minutes. 3 L of sterile saline was irrigated through the wound using pulsatile lavage. Local anesthetic cocktail was injected into the soft tissues around the surgical field. A deep drain was placed. The wound was then closed in layers. A sterile dressing was placed over the surgical incision and drain site. The drapes were taken down and the patient was carefully transferred off of the Robeline table. Following removal of the boots the leg lengths felt acceptable. The patient was then taken to recovery room having tolerated the procedure well. Yaquelin Mayer PA-C was required as a skilled campaign assistant for patient positioning, surgical exposure, retraction, placement of implants, and closure of the surgical wound. PLAN: The patient can weight-bear as tolerated on the operative extremity. 2 doses of postoperative antibiotics. Will defer to IM and Cardiology for DVT prophylaxis. Physical therapy for gait training. Discontinue drain postoperative day #1 if output is less than 100 mL per shift.
[2022-01-11] MEDS ORDERED: HYDROmorphone 0.5 MG/0.5 ML SYRINGE IVP ONE (13:13)
[2022-01-11] MEDS ORDERED: ONDANSETRON 4 MG/2 ML VIAL IVP ONE (13:15)
[2022-01-11] MEDS ORDERED: SODIUM CHLORIDE 0.9% 1,000 ML IV ONE (13:27)
--- NOTE | 2022-01-11 13:36 | FL ---
EXAMINATION TYPE: FL guidance operating room, XR Hip Limited LT DATE OF EXAM: 01/11/2022 COMPARISON: NONE HISTORY: 71-year-old female total left hip replacement FINDINGS: Intraoperative fluoroscopy showing a prosthesis of the left hip total arthroplasty. FLUOROSCOPY Fluoroscopy time of 27 seconds was used during left hip total arthroplasty. 6 image/s document/s the procedure. IMPRESSION: Intraoperative fluoroscopy as above.
[2022-01-11] MEDS: METOPROLOL SUCCINATE (ER) 50 MG TAB.ER.24H PO SCH (21:58)
[2022-01-11] MEDS: ATORVASTATIN 80 MG TAB PO SCH (21:58)
[2022-01-11] MEDS: DULoxetine HCL 60 MG CAPSULE.DR PO SCH (21:58)
[2022-01-11] MEDS: TOPIRAMATE 100 MG TAB PO SCH (21:58)
[2022-01-12] MEDS: SODIUM CHLORIDE 0.9% 1,000 ML IV SCH ×2 (05:12→16:38)
[2022-01-12] MEDS: MULTIVITAMINS, THERA 1 EACH TAB PO SCH (08:08)
[2022-01-12] MEDS: SPIRONOLACTONE 25 MG TAB PO SCH (08:08)
[2022-01-12] MEDS: LOSARTAN 25 MG TAB PO SCH (08:08)
[2022-01-12] MEDS: ASPIRIN 81 MG PO SCH (08:08)
[2022-01-12] MEDS: buPROPion XL 300 MG TAB.ER.24H PO SCH (08:08)
--- NOTE | 2022-01-12 08:32 | P.PN ---
Subjective Progress Note Date: 01/12/22 Principal diagnosis: Coronary artery disease The patient is a pleasant 71-year-old female patient with coronary artery disease and prior stenting of the RCA was diagnosed with fracture of the left femoral neck. January [id number] She scheduled to undergo surgery. Clinically she is asymptomatic from a cardiovascular standpoint of view. Hemodynamically she is stable. The patient was cleared to undergo the surgery yesterday. Antiplatelet is on hold. Restart as soon as possible and safe after the surgery January [id number] The patient was seen this morning. She underwent hip surgery yesterday which was uneventful. From a cardiovascular standpoint of view, she is asymptomatic. She is hemodynamically stable. I'm going to restart the patient back on dual antiplatelet therapy with adding Brilinta to the current medical regimen. We'll follow-up with the patient on when necessary case Objective - Vital Signs Vital signs: Vital Signs Temp 98.9 F 01/12/22 07:51 Pulse 76 01/12/22 07:51 Resp 17 01/12/22 07:51 BP 129/69 01/12/22 07:51 Pulse Ox 100 01/12/22 07:51 FiO2 Intake & Output 01/11/22 01/12/22 01/12/22 18:59 06:59 18:59 Intake Total 1650 Output Total 1000 Balance 650 Intake: IV 1650 Output: Urine 800 Estimated Blood Loss 200 Other: Voiding Method Indwelling Catheter - Constitutional General appearance: Present: no acute distress - Respiratory Respiratory: bilateral: CTA - Cardiovascular Rhythm: regular - Labs CBC & Chem 7: 01/09/22 22:37 01/11/22 06:53 Labs: Abnormal Lab Results - Last 24 Hours (Table) 01/11/22 Range/Units 06:53 Chloride 110 H (96-109) mmol/L Carbon Dioxide 19.7 L (20.0-27.5) mmol/L Est GFR (CKD-EPI)NonAf 56.6 L (60.0-200.0) Assessment and Plan Assessment: Assessment Coronary artery disease with prior revascularization Status post left femoral neck fracture Hypertension Dyslipidemia Plan The patient did have the hip surgery yesterday which was an event Restart the patient back on antiplatelet Follow-up with the patient on when necessary
--- NOTE | 2022-01-12 09:21 | P.PN ---
Subjective Progress Note Date: 01/12/22 Per nursing overnight the patient had confusion and hallucinations. She removed a portion of her dressing and removed her drain. She is doing much better this morning. She has mild discomfort in her left hip. She was up walking yesterday and had only mild discomfort. She presently denies any chest pain or shortness of breath. Objective - Vital Signs Vital signs: Vital Signs Temp 98.9 F 01/12/22 07:51 Pulse 76 01/12/22 07:51 Resp 17 01/12/22 07:51 BP 129/69 01/12/22 07:51 Pulse Ox 100 01/12/22 07:51 FiO2 Intake & Output 01/11/22 01/12/22 01/12/22 18:59 06:59 18:59 Intake Total 1650 Output Total 1000 Balance 650 Intake: IV 1650 Output: Urine 800 Estimated Blood Loss 200 Other: Voiding Method Indwelling Catheter - Exam The patient is resting comfortably in bed. She is alert and oriented. A focused examination of the left lower extremity was conducted. On inspection her dressing has partially been removed. I removed the dressing. Her incision is intact. There is minimal bleeding from the drain site. A new dressing was applied. The thigh is soft. Femoral nerve function is intact. Distally she is able to plantarflex and dorsiflex her ankles and toes. - Labs CBC & Chem 7: 01/09/22 22:37 01/11/22 06:53 Labs: Abnormal Lab Results - Last 24 Hours (Table) 01/11/22 Range/Units 06:53 Chloride 110 H (96-109) mmol/L Carbon Dioxide 19.7 L (20.0-27.5) mmol/L Est GFR (CKD-EPI)NonAf 56.6 L (60.0-200.0) Assessment and Plan Assessment: Postoperative day #1 status post left direct anterior total hip replacement for acute femoral neck fracture Coronary artery disease, stable Acute postoperative delirium, resolving Plan: 1. Weightbearing as tolerated left lower extremity 2. Mobilize up out of bed into chair and ambulated with a walker and assistance 3. DVT prophylaxis with Brilinta and Aspirin 4. Leave dressing in place 5. Appreciate internal medicine and cardiology assistance with perioperative medical management 6. Discharge planning in place Time with Patient: Less than 30
--- NOTE | 2022-01-12 09:53 | P.PN ---
Subjective Progress Note Date: 01/12/22 Principal diagnosis: left hip fracture Hospital Course: 71-year-old female with history of hypertension, CAD, systolic CHF 35-40%, anxiety, depression presented after a mechanical fall. She was admitted for left hip fracture now s/p hip replacement. Subjective: Patient seen and examined at bedside. Overnight, she had periods of confusion. Leg pain has significantly improved after the surgery. She is able to ambulate with assistance. She denies any chest pain, shortness of breath, abdominal pain, nausea, vomiting, diarrhea, constipation, or urinary complaints. Pertinent positives and negatives as discussed above, a complete review of systems was performed and all other systems are negative. Vitals Signs Reviewed. General: nontoxic, no distress, appears at stated age Derm: warm, dry Head: atraumatic, normocephalic, symmetric Eyes: EOMI, no lid lag, anicteric sclera Mouth: no lip lesion, mucus membranes moist Cardiovascular: S1S2 reg, no murmur Lungs: CTA bilateral, no rhonchi, no rales , no accessory muscle use Abdominal: soft, nontender to palpation, no guarding, no appreciable organomegaly Ext: no gross muscle atrophy, no edema, no contractures, active ROM limited in left leg due to pain, clean dressing Neuro: CN II-XI grossly intact, no focal neuro deficits Psych: Alert, oriented, appropriate affect Assessment and Plan: Acute left femoral neck fracture - s/p total hip replacement -Pain control per surgery -weight bearing as tolerated -encourage early ambulation -ortho recommending only DAPT for DVT ppx Osteoporosis, likely - had fragility fracture - needs outpatient follow-up Acute delirium, post op - resolved RAJESH on CKD - resolved -Continue to monitor urine output and renal function CAD s/p stent -Aspirin and statin -Cardiology consult -restarted on DAPT Hypertension -On a reduced dose of losartan Chronic Systolic CHF -Continue metoprolol and Spironolactone -Patient currently euvolemic Anxiety/depression -Continue home medications Obesity - outpatient f/u Thank you for allowing us to participate in the care of this pleasant patient. Do not hesitate to contact us with questions. Someone can be reached from the [facility] [place] hospitalist group all hours of the day at [phone] or via [employer]. Objective - Vital Signs Vital signs: Vital Signs Temp 98.9 F 01/12/22 07:51 Pulse 76 09/18/22 07:51 Resp 17 01/12/22 07:51 BP 129/69 01/12/22 07:51 Pulse Ox 100 01/12/22 07:51 FiO2 Intake & Output 01/11/22 01/12/22 01/12/22 18:59 06:59 18:59 Intake Total 1650 Output Total 1000 Balance 650 Intake: IV 1650 Output: Urine 800 Estimated Blood Loss 200 Other: Voiding Method Indwelling Catheter - Labs CBC & Chem 7: 01/09/22 22:37 01/11/22 06:53 Labs: Abnormal Lab Results - Last 24 Hours (Table) 01/11/22 Range/Units 06:53 Chloride 110 H (96-109) mmol/L Carbon Dioxide 19.7 L (20.0-27.5) mmol/L Est GFR (CKD-EPI)NonAf 56.6 L (60.0-200.0)
[2022-01-12] MEDS: TICAGRELOR 90 MG TAB PO SCH ×2 (10:03→22:05)
[2022-01-12] MEDS: HYDROcodone/APAP 7.5-325MG 1 EACH TAB PO PRN (10:29)
[2022-01-12 11:13] LABS: Acanthocytes 2+; Basophils # (A) 0.01 X 10*3/uL (0.00-0.10); Basophils % (A) 0.1 %; Eosinophils # (A) 0.17 X 10*3/uL (0.04-0.35); Eosinophils % (A) 2.2 %; HCT 30.1 % (37.2-46.3); HGB 9.4 g/dL (12.0-15.0); Immature Grans, Automated 0.5 %; Lymphocytes # (A) 0.67 X 10*3/uL (0.90-5.00); Lymphocytes % (A) 8.8 %; MCH 30.1 pg (27.0-32.0); MCHC 31.2 g/dL (32.0-37.0); MCV 96.5 fL (80.0-97.0); Mean Platelet Volume 13.4 fL (9.5-12.2); Monocytes % (A) 5.2 %; NRBC Per 100 WBC 0 /100 WBCS (0.0-0.0); Neutrophils # (A) 6.36 X 10*3/uL (1.80-7.70); Neutrophils % (A) 83.2 %; Platelet Count 136 X 10*3/uL (140-440); RBC 3.12 X 10*6/uL (4.10-5.20); RDW 14.8 % (11.5-14.5); WBC 7.65 X 10*3/uL (4.50-10.00)
[2022-01-12] MEDS ORDERED: HYDROcodone/APAP 7.5-325MG 1 EACH TAB PO PRN (16:23)
[2022-01-12] MEDS: ACETAMINOPHEN TAB 500 MG TAB PO SCH ×2 (16:36→22:08)
[2022-01-12] MEDS: METOPROLOL SUCCINATE (ER) 50 MG TAB.ER.24H PO SCH (22:05)
[2022-01-12] MEDS: DULoxetine HCL 60 MG CAPSULE.DR PO SCH (22:05)
[2022-01-12] MEDS: ATORVASTATIN 80 MG TAB PO SCH (22:05)
[2022-01-12] MEDS: TOPIRAMATE 100 MG TAB PO SCH (22:05)
[2022-01-13] MEDS: SODIUM CHLORIDE 0.9% 1,000 ML IV SCH (04:46)
[2022-01-13] MEDS: MULTIVITAMINS, THERA 1 EACH TAB PO SCH (08:50)
[2022-01-13] MEDS: SPIRONOLACTONE 25 MG TAB PO SCH (08:50)
[2022-01-13] MEDS: LOSARTAN 25 MG TAB PO SCH (08:50)
[2022-01-13] MEDS: ASPIRIN 81 MG PO SCH (08:50)
[2022-01-13] MEDS: ACETAMINOPHEN TAB 500 MG TAB PO SCH ×2 (08:50→15:44)
[2022-01-13] MEDS: buPROPion XL 300 MG TAB.ER.24H PO SCH (08:50)
--- NOTE | 2022-01-13 09:03 | P.PN ---
Subjective Progress Note Date: 01/13/22 Hospital Course: Patient is a very pleasant 71-year-old female with a past medical history of hypertension, CAD, systolic CHF with EF 35-40%, anxiety, and depression. She presented to the hospital on 01/09/22 after a mechanical fall which resulted in Left hip pain and inability to ambulate. Patient was found to have a left valgus angulated and impacted femoral neck fracture. She was admitted under orthopedic surgery team and we were consulted for medical management throughout patient's hospitalization. Patient underwent a left total hip arthroplasty on 01/11/[address] Haskins. Physical examination: Patient seen and examined at bedside. She reports mild pain to left hip as she reports she was "stubborn and tried to get out of bed by herself and somehow twisted the wrong way." However she states despite increased discomfort she was able to safely ambulate back to bed with minimal assistance. Currently awaiting morning labs to result. Patient denies having any other pain or discomfort. She denies having any headache, lightheadedness, dizziness, chest pain, palp itations, shortness of breath, cough or congestion, nausea or vomiting, difficulties with her changes in her urinary or bowel function, or experiencing any numbness/tingling/weakness in her extremities. From a medical standpoint, patient is medically stable for discharge once cleared by primary orthopedic surgery team. Vitals Signs Reviewed and stable. General: nontoxic, no distress, appears at stated age Derm: warm, dry Head: atraumatic, normocephalic, symmetric Eyes: EOMI, no lid lag, anicteric sclera Mouth: no lip lesion, mucus membranes moist Cardiovascular: S1S2 reg, no murmur Lungs: CTA bilateral, no rhonchi, no rales , no accessory muscle use Abdominal: soft, nontender to palpation, no guarding, no appreciable organomegaly Ext: no gross muscle atrophy, no edema, no contractures, active ROM limited in left leg due to pain, clean dressing Neuro: CN II-XI grossly intact, no focal neuro deficits Psych: Alert, oriented, appropriate affect Assessment and Plan of care: Acute postoperative blood loss anemia, expected finding. Hemoglobin stable 9.4 Mechanical fall resulting in Acute left dislocated femoral neck fracture Status post left total hip arthroplasty completed 01/11/22 -Management per primary admitting orthopedic surgery team including DVT prophylaxis, pain management, weightbearing, and PT/OT. Osteoporosis, likely - had fragility fracture - needs outpatient follow-up Acute delirium, post op - resolved RAJESH on CKD, Resolved -Continue to monitor urine output and renal function CAD s/p stent -Aspirin and statin -Cardiology following and restarted patient on dual antiplatelet therapy on 01/12/22 Hypertension -Monitor vital signs and continue daily medication regimen with losartan and metoprolol Chronic Systolic CHF -Continue losartan, metoprolol and Spironolactone -Patient currently euvolemic Anxiety/depression -Continue home medications with Topamax and Cymbalta Obesity -Recommend Outpatient structured weight management program Thank you for allowing us to participate in the care of this pleasant patient. Do not hesitate to contact us with questions. Someone can be reached from the [facility] hospitalist group all hours of the day at [phone] or via [employer]. Harshad Britton NP rendered care for this patient independently, reviewed the findings and plan as documented in the note above. I did not physically speak with or examine the patient on this date. Last EF 35-40% in July 2019, stop IVF. Objective - Vital Signs Vital signs: Vital Signs Temp 98.2 F 01/13/22 01:43 Pulse 100 01/13/22 01:43 Resp 17 01/13/22 01:43 BP 127/75 01/13/22 01:43 Pulse Ox 98 01/13/22 01:43 FiO2 Intake & Output 01/12/22 01/13/22 01/13/22 18:59 06:59 18:59 Intake Total 1010 Balance 1010 Intake: Intake, IV Titration 650 Amount Sodium Chloride 0.9% 1, 600 000 ml @ 75 mls/hr IV . [id number] JORGE A Rx#:[id number] ceFAZolin 2 gm In Sodium 50 Chloride 0.9% 50 ml @ 100 mls/hr IVPB Q8H JORGE A Rx#: [id number] Oral 360 Other: Voiding Method Toilet # Voids 2 - Labs CBC & Chem 7: 01/12/22 03:52 01/11/22 06:53 Labs: Abnormal Lab Results - Last 24 Hours (Table) 01/12/22 Range/Units 03:52 RBC 3.12 L (4.10-5.20) X 10*6/uL Hgb 9.4 L (12.0-15.0) g/dL Hct 30.1 L (37.2-46.3) % MCHC 31.2 L (32.0-37.0) g/dL RDW 14.8 H (11.5-14.5) % Plt Count 136 L (140-440) X 10*3/uL Plt Count Comment DECREASED A MPV 13.4 H (9.5-12.2) fL Lymphocytes # 0.67 L (0.90-5.00) X 10*3/uL
[2022-01-13] MEDS: TICAGRELOR 90 MG TAB PO SCH ×2 (11:00→22:11)
--- NOTE | 2022-01-13 12:30 | P.PN ---
Subjective Progress Note Date: 01/13/22 This patient is a 71-year-old female who is status-post left direct anterior total hip arthroplasty for acute femoral neck fracture on 01/11/22. Today is post-operative day #2. Patient is examined bedside. She states she was up yesterday ambulating with a walker. The pain in her left hip is well controlled at this time. She is considering rehab at discharge. Vital signs stable. Objective - Vital Signs Vital signs: Vital Signs Temp 98.4 F 01/13/22 08:00 Pulse 73 01/13/22 08:00 Resp 16 01/13/22 08:00 BP 132/77 01/13/22 08:00 Pulse Ox 97 01/13/22 08:00 FiO2 Intake & Output 01/12/22 01/13/22 01/13/22 18:59 06:59 18:59 Intake Total 1010 Balance 1010 Intake: Intake, IV Titration 650 Amount Sodium Chloride 0.9% 1, 600 000 ml @ 75 mls/hr IV . [id number] [facility] Rx#:[id number] ceFAZolin 2 gm In Sodium 50 Chloride 0.9% 50 ml @ 100 mls/hr IVPB Q8H [facility] Rx#: [id number] Oral 360 Other: Voiding Method Toilet # Voids 2 - Exam On examination, patient is sitting up in bed in no apparent distress. She is alert and oriented 3. On inspection of her left hip, there is a clean, dry, intact Opsite surgical dressings in place with no bleeding or drainage through the dressings. There is mild swelling of the thigh, the thigh soft and compressible. Motor and sensory function is intact of the left lower extremity. Femoral nerve function intact. Dorsalis pedis pulse easily palpable, left lower extremity warm and well perfused. Calf is soft and nontender. - Labs CBC & Chem 7: 01/12/22 03:52 01/11/22 06:53 Assessment and Plan Assessment: Status-post left direct anterior total hip arthroplasty for acute femoral neck fracture on 01/11/22. Post-operative day #2. Plan: - Weight-bear to tolerance on operative extremity with a walker. - Physical therapy for gait and balance training. - DVT prophylaxis with Brilinta and aspirin. - Keep operative dressings in place. - Pain management as needed. - Internal medicine, cardiology for marlin-operative medical management. - Anticipate discharge to rehab tomorrow.
[2022-01-13 19:34] VITALS: RESP 16
[2022-01-13] MEDS: DULoxetine HCL 60 MG CAPSULE.DR PO SCH (22:10)
[2022-01-13] MEDS: ATORVASTATIN 80 MG TAB PO SCH (22:10)
[2022-01-13] MEDS: TOPIRAMATE 100 MG TAB PO SCH (22:11)
[2022-01-13] MEDS: METOPROLOL SUCCINATE (ER) 50 MG TAB.ER.24H PO SCH (22:11)
[2022-01-14] MEDS: ACETAMINOPHEN TAB 500 MG TAB PO SCH ×2 (00:01→10:22)
--- NOTE | 2022-01-14 07:22 | CDI ---
Documentation Clarification Form Date: 01/13/2022 10:16:00 AM From: Nupur Morrissey CCS, CCDS Admit Date: 01/09/2022 10:26:00 PM Patient Name: Lios Napoles Visit Number: [id number] Discharge Date: ATTENTION: The Clinical Documentation Specialists (CDI) and [facility] Coding Staff appreciate your assistance in clarifying documentation. Please respond to the clarification below the line at the bottom and electronically sign. The CDI & [facility] Coding staff will review the response and follow-up if needed. Please note: Queries are made part of the Legal Health Record. If you have any questions, please contact the author of this message via ITS. Dr. Osmel Haskins: Acute postoperative delirium, resolving is documented in the 01/12 Orthopedic Surgery Progress Note. Additional clarification regarding the cause of delirium is requested. History/Risk Factors per the 01/10 H/P: CAD with Stent, Angina, TIA, Fibromyalgia, GERD, Hypertension, RI, Osteoarthritis, Gastric Strictures/Dysphagia/Hiatal Hernia status post EGD with dilations, Chronic generalized pain/low back pain/Herniated disc in low back status post fusion, Kidney stones. Clinical Indicators: Presented to the ED on 01/09 after a fall in a parking lot with left leg and hip pain. Alert and Oriented x3. Admit Fracture of the Left Femoral Neck 01/11 Procedure: Left direct anterior total hip arthroplasty. 01/09 VS: T 98.1, P 100, R 20, BP 125/77, PO 100 RA, BMI: 31.0. 01/12 VS: T 99.0, P 80, R 17, BP 122/73, PO 100 RA 01/09 LAB: Chloride 109, CO2 20, BUN 20, Creatinine 1.42, Glucose 103 01/12 LAB: RBC 3.12, hgb 9.4, Hct 30.1, Plt Ct 136, Lymph 0.67 Treatment 01/09: IV Dilaudid 0.5 mg x1, IV Dilaudid 0.5 mg q3H/prn. 01/12: po Brilinta, po [id number]/prn, po Oxyir 5 mg q4H/prn, po Tylenol 1,000 mg q8H Please further clarify the documented delirium if possible: [ ] Metabolic Encephalopathy [ ] Toxic Encephalopathy [ ] Other, please specify: [ ] Unable to determine (Template Last Revised: June 2020) 01/27 Query response documented in the 01/12 Orthopedic Progress Note: Unable to determine cause of delirium. (CDS: YOKO) PRASADD
[2022-01-14 08:07] LABS: HCT 30.1 % (34.0-46.0); Hypochromasia Slight; MCH 30.3 pg (25.0-35.0); MCHC 31.4 g/dL (31.0-37.0); MCV 96.3 fL (80.0-100.0); Mean Platelet Volume 10.5; Platelet Count 156 k/uL (150-450); RBC 3.12 m/uL (3.80-5.40); RDW 14.6 % (11.5-15.5)
[2022-01-14 08:26] LABS: HGB 9.4 gm/dL (11.4-16.0)
[2022-01-14 09:21] VITALS: BP 123/75; PULSE 63; TEMP 98.3
--- NOTE | 2022-01-14 10:08 | P.DS ---
Providers Date of admission: 01/09/22 22:26 Expected date of discharge: 01/14/22 Attending physician: Osmel Haskins Consults: 01/09/22 22:26 Consult Physician Routine Consulting Provider: Stewart Bentley Consult Reason/Comments: Pre op clearance Do you want consulting provider notified?: Yes 01/09/22 22:51 Consult Physician Routine Consulting Provider: Yanna Chowdhury Consult Reason/Comments: Medical Management Do you want consulting provider notified?: Yes Primary care physician: Christos Munoz MD Hospital Course: This is a 71-year-old female who sustained a ground level fall on 01/09/22. X- rays in the emergency department revealed a left femoral neck fracture. The patient was admitted under the care of Dr. Haskins with a consult placed to internal medicine for preoperative medical clearance. Patient underwent a left total hip arthroplasty for acute left femoral neck fracture on 01/11/22. The procedure was performed without complication or sequelae. The patient is doing fairly well postoperatively. Vital signs and labs are stable on postoperative day #3. Patient was examined bedside today. She states the pain in her left hip is well-controlled. She was up ambulating with physical therapy yesterday. She is voiding without issue. Patient denies chest pain, shortness of breath, nausea, vomiting. She feels well and has no complaints this morning. On examination, the patient is sitting up in the bed in no apparent distress. She is alert and orientated 3. On inspection of the left hip, there is a clean, dry, intact Opsite surgical dressings in place. There is no bleeding or drainage the dressing. Patient has good strength and ROM of the left ankle and toes. Motor and sensory function is intact of the left lower extremity. Femoral nerve function intact. The dorsalis pedis pulse is easily palpable, the left lower extremity is warm and well perfused with brisk capillary refill. Calf is soft and non-tender to palpation. Patient is discharged to rehab in good condition, pending medical clearance. Patient will follow-up with Dr. Haskins in the office in 2 weeks. Please see med rec for accurate list of discharge medication. Patient Condition at Discharge: Stable Plan - Discharge Summary Discharge Rx Participant: No New Discharge Prescriptions: New HYDROcodone/APAP 5-325MG [[place] 5-325] 1 tab PO Q6HR PRN 7 Days #28 tab PRN Reason: Pain Losartan [Cozaar] 25 mg PO DAILY tab Continue DULoxetine HCL [Cymbalta] 60 mg PO HS Multivitamin [Multivitamins Adult Gummies] 1 tab PO DAILY Aspirin 81 mg PO DAILY Omeprazole 20 mg PO DAILY PRN PRN Reason: Heartburn Nitroglycerin Sl Tabs [Nitrostat] 0.4 mg SL Q5M PRN PRN Reason: Chest Pain Metoprolol Succinate (ER) [Toprol XL] 50 mg PO HS Ticagrelor [Brilinta] 90 mg PO BID 30 Days #60 tab Atorvastatin [Lipitor] 80 mg PO HS 90 Days #90 tab Topiramate [Topamax] 100 mg PO HS buPROPion HCL [Wellbutrin XL] 300 mg PO DAILY ALPRAZolam [Xanax] 0.25 mg PO BID PRN PRN Reason: Anxiety HYDROcodone/APAP 5-325MG [[place] 5-325] 1 - 2 tab PO QID PRN PRN Reason: Pain Spironolactone [Aldactone] 25 mg PO DAILY 90 Days #90 tab Discontinued Losartan [Cozaar] 75 mg PO DAILY No Action Cyclobenzaprine [Flexeril] 10 mg PO TID PRN PRN Reason: Muscle Spasm Discharge Medication List Cyclobenzaprine [Flexeril] 10 mg PO TID PRN 04/07/16 [History] DULoxetine HCL [Cymbalta] 60 mg PO HS 04/07/16 [History] Multivitamin [Multivitamins Adult Gummies] 1 tab PO DAILY 10/05/18 [History] ALPRAZolam [Xanax] 0.25 mg PO BID PRN 07/10/21 [History] Aspirin 81 mg PO DAILY 07/10/21 [History] HYDROcodone/APAP 5-325MG [[place] 5-325] 1 - 2 tab PO QID PRN 07/10/21 [History] Omeprazole 20 mg PO DAILY PRN 07/10/21 [History] Topiramate [Topamax] 100 mg PO HS 07/10/21 [History] buPROPion HCL [Wellbutrin XL] 300 mg PO DAILY 07/10/21 [History] Metoprolol Succinate (ER) [Toprol XL] 50 mg PO HS 08/24/21 [History] Nitroglycerin Sl Tabs [Nitrostat] 0.4 mg SL Q5M PRN 08/24/21 [History] Atorvastatin [Lipitor] 80 mg PO HS 90 Days #90 tab 08/26/21 [Rx] Spironolactone [Aldactone] 25 mg PO DAILY 90 Days #90 tab 08/26/21 [Rx] Ticagrelor [Brilinta] 90 mg PO BID 30 Days #60 tab 08/26/21 [Rx] Losartan [Cozaar] 25 mg PO DAILY tab 01/13/22 [Rx] HYDROcodone/APAP 5-325MG [[place] 5-325] 1 tab PO Q6HR PRN 7 Days #28 tab 01/14/22 [Rx] Follow up Appointment(s)/Referral(s): Christos Munoz MD [Primary Care Provider] - 1-2 days
--- NOTE | 2022-01-14 10:18 | P.PN ---
Subjective Progress Note Date: 01/14/22 Hospital Course: Patient is a very pleasant 71-year-old female with a past medical history of hypertension, CAD, systolic CHF with EF 35-40%, anxiety, and depression. She presented to the hospital on 01/09/22 after a mechanical fall which resulted in Left hip pain and inability to ambulate. Patient was found to have a left valgus angulated and impacted femoral neck fracture. She was admitted under orthopedic surgery team and we were consulted for medical management throughout patient's hospitalization. Patient underwent a left total hip arthroplasty on 01/11/[address] Haskins. Physical examination: Patient seen and examined at bedside. She is post-op day 3 and reports doing much better today. States pain is controlled with current pain medication regimen. She has been ambulating with assistance with use of walker. Orthopedic surgery has arranged for patient to be discharged to [facility] for continued retirement. Morning labs reviewed and stable with Hgb 9.4. Vital sings unremarkable. From a medical standpoint, patient is medically stable for discharge. Vitals Signs Reviewed and stable. General: nontoxic, no distress, appears at stated age Derm: warm, dry Head: atraumatic, normocephalic, symmetric Eyes: EOMI, no lid lag, anicteric sclera Mouth: no lip lesion, mucus membranes moist Cardiovascular: S1S2 reg, no murmur Lungs: CTA bilateral, no rhonchi, no rales , no accessory muscle use Abdominal: soft, nontender to palpation, no guarding, no appreciable organomegaly Ext: no gross muscle atrophy, no edema, no contractures, active ROM limited in l eft leg due to pain, clean dressing Neuro: CN II-XI grossly intact, no focal neuro deficits Psych: Alert, oriented, appropriate affect Assessment and Plan of care: Acute postoperative blood loss anemia, expected finding. Hemoglobin stable 9.4 Mechanical fall resulting in Acute left dislocated femoral neck fracture Status post left total hip arthroplasty completed 01/11/22 -Management per primary admitting orthopedic surgery team including DVT prophylaxis, pain management, weightbearing, and PT/OT. Osteoporosis, likely - had fragility fracture - needs outpatient follow-up Acute delirium, post op - resolved RAJESH on CKD, Resolved -Continue to monitor urine output and renal function CAD s/p stent -Aspirin and statin -Cardiology following and restarted patient on dual antiplatelet therapy on 01/12/22 Hypertension -Monitor vital signs and continue daily medication regimen with losartan and metoprolol Chronic Systolic CHF -Continue losartan, metoprolol and Spironolactone -Patient currently euvolemic Anxiety/depression -Continue home medications with Topamax and Cymbalta Obesity -Recommend Outpatient structured weight management program Thank you for allowing us to participate in the care of this pleasant patient. Do not hesitate to contact us with questions. Someone can be reached from the [facility] hospitalist group all hours of the day at [phone] or via [employer]. Harshad Britton NP rendered care for this patient independently, reviewed the findings and plan as documented in the note above. I did not physically speak with or examine the patient on this date. Objective - Vital Signs Vital signs: Vital Signs Temp 98.6 F 01/14/22 02:00 Pulse 78 01/14/22 02:00 Resp 16 01/14/22 02:00 BP 112/69 01/14/22 02:00 Pulse Ox 97 01/14/22 02:00 FiO2 Intake & Output 01/13/22 01/14/22 01/14/22 18:59 06:59 18:59 Intake Total 500 Output Total 1 Balance 499 Intake: Oral 500 Output: Urine 1 Other: Voiding Method Toilet # Voids 3 1 # Bowel Movements 1 - Labs CBC & Chem 7: 01/14/22 07:16 01/11/22 06:53
[2022-01-14] MEDS: LOSARTAN 25 MG TAB PO SCH (10:22)
[2022-01-14] MEDS: ASPIRIN 81 MG PO SCH (10:23)
[2022-01-14] MEDS: SPIRONOLACTONE 25 MG TAB PO SCH (10:23)
[2022-01-14] MEDS: buPROPion XL 300 MG TAB.ER.24H PO SCH (10:23)
[2022-01-14] MEDS: TICAGRELOR 90 MG TAB PO SCH (10:24)
[2022-01-14] MEDS: MULTIVITAMINS, THERA 1 EACH TAB PO SCH (10:24)
--- NOTE | 2022-01-16 07:54 | CDI ---
Documentation Clarification Form Date: 01/16/2022 07:46:00 AM From: Shameka Case Admit Date: 01/09/2022 10:26:00 PM Patient Name: Lois Napoles Visit Number: [id number] Discharge Date: 01/14/2022 01:30:00 PM ATTENTION: The Clinical Documentation Specialists (CDI) and [facility] Coding Staff appreciate your assistance in clarifying documentation. Please respond to the clarification below the line at the bottom and electronically sign. The CDI & [facility] Coding staff will review the response and follow-up if needed. Please note: Queries are made part of the Legal Health Record. If you have any questions, please contact the author of this message via ITS. Dr. Marshal Morel, Unspecified CKD is documented in your consult. Additional clarification regarding the stage of CKD is requested. History/Risk Factors: HTN w chronic systolic heart failure & CKD, left subcapital femoral fx, RAJESH, AGUSTINA, postop delirium, HLD, ischemic cardiomyopathy, CAD w stents, fibromyalgia, GERD Patients Historical BUN/CR/GFR: 1.00 Clinical Indicators: Current BUN: 20, 13.0 Current CR: 1.42, 1.0 Current GFR: 37, 56.6 Treatment: Continue to monitor urine output and renal function Please clarify the stage of the CKD, if known: [ ] CKD Stage 1 (GFR > 90) [ ] CKD Stage 2 (GFR 60-89) [ ] CKD Stage 3 (GFR 30-59) [ x ] CKD Stage 3a (GFR 45-59) [ ] CKD Stage 3b (GFR 30-44) [ ] CKD Stage 4 (GFR 15-29) [ ] CKD Stage 5 (GFR <15) [ ] ESRD [ ] Other, please specify [ ] Unable to determine MTDD
== END 2022-01-14 13:30 | DRG 522 ==
LOC: EC 19:31 → 4SSUR 22:26
PROVIDERS: ADMIT Orthopaedic Surgery; ATTEND Orthopaedic Surgery
PROC: 0SRB019 Replacement of Left Hip Joint with Metal Synthetic Substitute, Cemented, Open Approach (ICD-10-PCS; principal; 2022-01-11 10:00)
DX: S72.012A Unspecified intracapsular fracture of left femur, initial encounter for closed fracture (principal); N17.9 Acute kidney failure, unspecified; D62 Acute posthemorrhagic anemia; I50.22 Chronic systolic (congestive) heart failure; F05 Delirium due to known physiological condition; I13.0 Hypertensive heart and chronic kidney disease with heart failure and stage 1 through stage 4 chronic kidney disease, or unspecified chronic kidney disease; N18.31 Chronic kidney disease, stage 3a; Z20.822 Contact with and (suspected) exposure to COVID-19; E78.5 Hyperlipidemia, unspecified; I25.5 Ischemic cardiomyopathy; I25.10 Atherosclerotic heart disease of native coronary artery without angina pectoris; M79.7 Fibromyalgia; K21.9 Gastro-esophageal reflux disease without esophagitis; I25.2 Old myocardial infarction; F32.A Depression, unspecified; F41.9 Anxiety disorder, unspecified; M81.0 Age-related osteoporosis without current pathological fracture; K44.9 Diaphragmatic hernia without obstruction or gangrene; R13.10 Dysphagia, unspecified; M54.50 Low back pain, unspecified; G89.29 Other chronic pain; M19.90 Unspecified osteoarthritis, unspecified site; E66.9 Obesity, unspecified; Z68.31 Body mass index [BMI] 31.0-31.9, adult; Z79.82 Long term (current) use of aspirin; Z79.02 Long term (current) use of antithrombotics/antiplatelets; Z79.899 Other long term (current) drug therapy; Z95.5 Presence of coronary angioplasty implant and graft; Z98.84 Bariatric surgery status; Z98.1 Arthrodesis status; Z87.442 Personal history of urinary calculi; Z86.73 Personal history of transient ischemic attack (TIA), and cerebral infarction without residual deficits; Z91.048 Other nonmedicinal substance allergy status; W01.0XXA Fall on same level from slipping, tripping and stumbling without subsequent striking against object, initial encounter; Y93.01 Activity, walking, marching and hiking; Y92.481 Parking lot as the place of occurrence of the external cause
CPT/HCPCS: 36415; 71045; 73501; 73502; 80048; 80053; 82306; 85025; 85027; 85610; 85730; 86850; 86900; 86901; 87635; 88305; 88311; 93005; 96374; 96376; 99285

== ENCOUNTER → 2022-04-02 | Outpatient (CLI) | payer MEDICARE ==
--- NOTE | 2022-04-02 14:11 | XR ---
EXAMINATION TYPE: XR KUB DATE OF EXAM: 04/02/2022 COMPARISON: NONE HISTORY: Pain and possible stones TECHNIQUE: One view abdominal series FINDINGS: The osseous structures are intact. The bowel gas pattern is nonspecific. Lung bases are clear. Radi opaque densities along the lateral left abdomen most likely on the basis of previous surgical change. Assessment and renal outlines is limited due to overlying bowel content with no definite suspicious c alcifications. However, there is a faint calcific density overlying the mid right kidney which may co rrespond to the previously noted renal calculi. Punctate calcifications in the right hemipelvis likely vascular. Surgical clips are seen overlying th e sacrum and pelvis. Arthropathy right hip and postsurgical change left hip. Multilevel degenerative changes of the spine. IMPRESSION: 1. Nonspecific abdomen. 1. Assessment of the renal outlines is limited due to bowel content. However, suspect a faint calcif ication measuring 6 mm overlying the mid right kidney.
== END | disposition home or self-care (01) ==
LOC: RADXRMAIN 13:41
PROVIDERS: ATTEND Urology
DX: N20.0 Calculus of kidney (principal)
CPT/HCPCS: 74018

== ENCOUNTER → 2022-09-11 | Outpatient (CLI) | payer MEDICARE ==
--- NOTE | 2022-09-11 13:55 | XR ---
EXAMINATION TYPE: XR KUB DATE OF EXAM: 09/11/2022 COMPARISON: 04/02/2022 HISTORY: Kidney stones TECHNIQUE: One view abdominal series FINDINGS: The osseous structures are intact. The bowel gas pattern is nonspecific. Linear densities seen in th e left abdomen may be related to prior surgery correlate clinically. Calcifications in the right lawrence pelvis are stable and likely vascular. Arthropathy right hip and postsurgical change left hip. Surgic al clips in the pelvis. IMPRESSION: 1. Nonspecific abdomen. Right renal outline is obscured by bowel content with no definite calcificat ion. 2. Nonspecific radiopaque densities in the left abdomen could be on the basis of prior surgery correl ate clinically.
== END | disposition home or self-care (01) ==
LOC: RADXRMAIN 12:56
PROVIDERS: ATTEND Urology
DX: N20.0 Calculus of kidney (principal)
CPT/HCPCS: 74018